=== PATIENT | female | born 1945 | race Caucasian/White ===

== ENCOUNTER 2016-11-09 21:26 | Emergency (ER) | payer MEDICARE, OTHER ==
[~2016-11-09] VITALS: Ht 149.9 cm; Wt 62.0 kg
[~2016-11-09 21:26] MED LIST: DEPA500T PO; DOCU1CAP39 PO; DONE10TA14 PO; SERT-129 PO; TRAZ50TA4 PO
[2016-11-09 21:30] VITALS: BP 171/71; PULSE 66; RESP 16; TEMP 97.8; O2SAT 96
[2016-11-09] MEDS ORDERED: DIVA250T3 PO (22:16)
[2016-11-09] MEDS ORDERED: SALM10002 PO (22:16)
[2016-11-09] MEDS ORDERED: AMLO5TAB2 PO (22:16)
[2016-11-09] MEDS ORDERED: RANI150T PO (22:16)
[2016-11-09] MEDS ORDERED: LEVO75TA3 PO (22:16)
[2016-11-09] MEDS ORDERED: DONE1TAB90 PO (22:16)
[2016-11-09] MEDS ORDERED: DIVA125C PO (22:16)
[2016-11-09] MEDS ORDERED: RISP1TAB2 PO (22:16)
[2016-11-09] MEDS ORDERED: OXYB5TAB10 PO (22:16)
[2016-11-09 22:57] LABS: AUTOMATED NEUTROPHIL # 3.5 TH/MM3 (1.8-7.7); BASOPHIL % 0.7 % (0.0-2.0); EOSINOPHIL # 0.1 TH/MM3 (0-0.4); EOSINOPHIL % 0.9 % (0.0-4.0); HEMATOCRIT 41.5 % (35.0-46.0); HEMO FLAGS DIFF FINAL; LYMPH % 32.2 % (9.0-44.0); MEAN CELL VOLUME 93.4 FL (80.0-100.0); MEAN CORPUSCULAR HEMOGLOBIN 32.7 PG (27.0-34.0); MONO % 11.3 % (0.0-8.0); NEUT % 54.9 % (16.0-70.0); PLATELET COUNT 189 TH/MM3 (150-450); RED BLOOD COUNT 4.45 MIL/MM3 (4.00-5.30); RED CELL DISTRIBUTION WIDTH 12.6 % (11.6-17.2); WHITE BLOOD COUNT 6.3 TH/MM3 (4.0-11.0)
[2016-11-09 23:43] LABS: BLOOD UREA NITROGEN 13 MG/DL (7-18)
[2016-11-09 23:46] LABS: GLOMERULAR FILTRATION RATE 84 ML/MIN (>89)
[2016-11-09 23:49] VITALS: BP 162/68; PULSE 68; RESP 14; O2SAT 94
[2016-11-09 23:50] LABS: ALKALINE PHOSPHATASE 61 U/L (45-117); ALT (GPT) 20 U/L (10-53); ANION GAP 9 MEQ/L (5-15); AST (GOT) 21 U/L (15-37); BICARBONATE 25.5 MEQ/L (21.0-32.0); CHLORIDE 108 MEQ/L (98-107); SODIUM (NA) 142 MEQ/L (136-145); TOTAL BILIRUBIN ADULT 0.3 MG/DL (0.2-1.0)
[2016-11-09 23:52] LABS: POTASSIUM 4.1 MEQ/L (3.5-5.1)
--- NOTE | 2016-11-09 23:57 | PD ---
HPI Chief Complaint: Psychiatric Symptoms Time Seen by Provider: 22:14 Travel History International Travel<30 days: No Contact w/Intl Traveler<30days: No Traveled to known affect area: No History of Present Illness HPI This 71-year-old woman who presents to the emergency department complaining of increasing confusion, trouble concentrating, and suicidal thoughts. She is a history of schizophrenia. She states that she's been having increased auditory hallucinations with command hallucinations, is been increasingly confused. Her family member who is with her states that he's noticed that she has been less herself, with difficulty answering simple questions, more confused. She is also not been taking her medications regularly. She is otherwise been feeling generally well. She states she's had trouble in the past when she's had urinary tract infections. She's been admitted once in March of last year, once a year or so before that with similar symptoms. History Past Medical History Narrative Medical Schizophrenia Seizures Tetanus Vaccination: Unknown Influenza Vaccination: Yes Menopausal: Yes Past Surgical History Surgical History: Unable to Obtain Social History Alcohol Use: No Tobacco Use: No (1 PPD quit 6 months ago) Allergies-Medications (Allergen,Severity, Reaction): Coded Allergies: Cipro (Unverified Adverse Reaction, Intermediate, UNKNOWN, 11/09/16) Haldol (Unverified Adverse Reaction, Intermediate, "FUNNY FEELING", 11/09/16 ) Keflex (Verified Adverse Reaction, Intermediate, RASH, 11/09/16) Reported Meds & Prescriptions Reported Meds & Active Scripts Active Reported [place] Oil (Nutritional Supplements) 1 Cap Cap 1,000 Mg PO BID Risperidone 1 Mg Tab 1 Mg PO HS Amlodipine (Amlodipine Besylate) 5 Mg Tab 5 Mg PO DAILY Ditropan (Oxybutynin Chloride) 5 Mg Tab 5 Mg PO DAILY Depakote Sprinkles (Divalproex Sodium) 125 mg Cap 125 Mg PO DAILY Donepezil Hydrochloride 5 Mg Tab 10 Mg PO DAILY Divalproex ER (Divalproex Sodium) 250 Mg Juanito 250 Mg PO BID Ranitidine (Ranitidine HCl) 150 Mg Tab 150 Mg PO BID Levothyroxine (Levothyroxine Sodium) 75 Mcg Tab 75 Mcg PO DAILY Review of Systems Except as stated in HPI: all other systems reviewed are Neg Physical Exam Narrative GENERAL: Well-appearing 71 year-old woman, no acute distress. SKIN: Warm and dry. HEAD: Atraumatic. Normocephalic. CARDIOVASCULAR: Regular rate and rhythm. No murmur appreciated. RESPIRATORY: No accessory muscle use. Clear to auscultation. Breath sounds equal bilaterally. GASTROINTESTINAL: Abdomen is minimally distended. Soft to palpation. No significant tenderness. MUSCULOSKELETAL: No obvious deformities. No edema. NEUROLOGICAL: Awake and alert. No obvious cranial nerve deficits. Motor grossly within normal limits. Normal speech. PSYCHIATRIC: Little bit disoriented. Slow to answer questions was some thought blocking. Not obviously responding to internal stimuli. Data Data Last Documented VS Vital Signs Date Time Temp Pulse Resp B/P Pulse Ox O2 Delivery O2 Flow Rate FiO2 11/09/16 23:49 68 14 162/68 94 Room Air 11/09/16 21:30 97.8 Orders Complete Blood Count With Diff (11/09/16 22:39) Comprehensive Metabolic Panel (11/09/16 22:39) Thyroid Stimulating Hormone (11/09/16 22:39) Urinalysis - C+S If Indicated (11/09/16 22:39) Iv Access Insert/Monitor (11/09/16 22:39) Valproic Acid (Depakene) (11/09/16 22:39) Psych Screen (11/09/16 22:39) Uds, Etoh Bundle (11/09/16 22:57) Cath For Specimen (11/09/16 23:25) Labs Laboratory Tests Test 11/09/16 11/10/16 20:40 00:00 White Blood Count 6.3 TH/MM3 Red Blood Count 4.45 MIL/MM3 Hemoglobin 14.5 GM/DL Hematocrit 41.5 % Mean Corpuscular Volume 93.4 FL Mean Corpuscular Hemoglobin 32.7 PG Mean Corpuscular Hemoglobin 35.0 % Concent Red Cell Distribution Width 12.6 % Platelet Count 189 TH/MM3 Mean Platelet Volume 8.6 FL Neutrophils (%) (Auto) 54.9 % Lymphocytes (%) (Auto) 32.2 % Monocytes (%) (Auto) 11.3 % Eosinophils (%) (Auto) 0.9 % Basophils (%) (Auto) 0.7 % Neutrophils # (Auto) 3.5 TH/MM3 Lymphocytes # (Auto) 2.0 TH/MM3 Monocytes # (Auto) 0.7 TH/MM3 Eosinophils # (Auto) 0.1 TH/MM3 Basophils # (Auto) 0.0 TH/MM3 CBC Comment DIFF FINAL Differential Comment Sodium Level 142 MEQ/L Potassium Level 4.1 MEQ/L Chloride Level 108 MEQ/L Carbon Dioxide Level 25.5 MEQ/L Anion Gap 9 MEQ/L Blood Urea Nitrogen 13 MG/DL Creatinine 0.69 MG/DL Estimat Glomerular Filtration 84 ML/MIN Rate Random Glucose 105 MG/DL Calcium Level 8.8 MG/DL Total Bilirubin 0.3 MG/DL Aspartate Amino Transf 21 U/L (AST/SGOT) Alanine Aminotransferase 20 U/L (ALT/SGPT) Alkaline Phosphatase 61 U/L Total Protein 6.7 GM/DL Albumin 3.6 GM/DL Thyroid Stimulating Hormone 3.120 uIU/ML 3rd Gen Valproic Acid (Depakene) Level 90 MCG/ML Urine Opiates Screen NEG Urine Barbiturates Screen NEG Urine Amphetamines Screen NEG Urine Benzodiazepines Screen NEG Urine Cocaine Screen NEG Urine Cannabinoids Screen NEG Ethyl Alcohol Level LESS THAN 3 MG/DL Urine Color YELLOW Urine Turbidity CLEAR Urine pH 6.5 Urine Specific [place] 1.014 Urine Protein NEG mg/dL Urine Glucose (UA) NEG mg/dL Urine Ketones TRACE mg/dL Urine Occult Blood TRACE Urine Nitrite NEG Urine Bilirubin NEG Urine Urobilinogen LESS THAN 2.0 MG/DL Urine Leukocyte Esterase NEG Urine RBC 1 /hpf Urine WBC LESS THAN 1 /hpf Urine Hyaline Casts 3 /lpf Urine Mucus FEW /lpf Microscopic Urinalysis Comment CULT NOT INDICATED MDM Medical Decision Making Medical Screen Exam Complete: Yes Emergency Medical Condition: Yes Interpretation(s) LABS: CBC is unremarkable. CMP is unremarkable. TSH is normal. Valproate level is 90 Alcohol negative UA negative Differential Diagnosis Schizophrenia, infection, delirium, dementia, other Narrative Course Medical decision making This 71-year-old woman reports a history of schizophrenia with increase confusion and disordered thinking. She will also intermittently report that she 's having command auditory hallucinations, but we'll also intermittently deny this. We'll check labs, check UA, psych screening. Bob Soto MD Nov 09, 2016 23:56
[2016-11-10 00:34] LABS: BLOOD, URINE TRACE (NEG); COMMENT (UR) CULT NOT INDICATED; CULTURE IF INDICATED CULT NOT INDICATED; GLUCOSE,URINE NEG (NEG); HYALINE CAST, URINE 3 /lpf (RARE); KETONE, URINE TRACE mg/dL (NEG); MUCUS URINE FEW /lpf (OCC); NITRITE,URINE NEG (NEG); PH, URINE 6.5 (5.0-8.5); URINE COLOR YELLOW (YELLW/STRAW)
[2016-11-10 00:48] LABS: AMPHETAMINE, URINE NEG (NEG); BARBITURATES, URINE NEG (NEG); COCAINE, URINE NEG (NEG)
[2016-11-10 01:59] VITALS: BP 158/66; PULSE 70; RESP 12; O2SAT 98
[2016-11-10 05:31] VITALS: BP 152/72; PULSE 89; RESP 18; TEMP 98.5; O2SAT 99
--- NOTE | 2016-11-10 05:36 | PD ---
Data Data Last Documented VS Vital Signs Date Time Temp Pulse Resp B/P Pulse Ox O2 Delivery O2 Flow Rate FiO2 11/10/16 05:31 98.5 89 18 152/72 99 Room Air Orders Complete Blood Count With Diff (11/09/16 22:39) Comprehensive Metabolic Panel (11/09/16 22:39) Thyroid Stimulating Hormone (11/09/16 22:39) Urinalysis - C+S If Indicated (11/09/16 22:39) Iv Access Insert/Monitor (11/09/16 22:39) Valproic Acid (Depakene) (11/09/16 22:39) Psych Screen (11/09/16 22:39) Uds, Etoh Bundle (11/09/16 22:57) Cath For Specimen (11/09/16 23:25) Labs Laboratory Tests Test 11/09/16 11/10/16 20:40 00:00 White Blood Count 6.3 TH/MM3 Red Blood Count 4.45 MIL/MM3 Hemoglobin 14.5 GM/DL Hematocrit 41.5 % Mean Corpuscular Volume 93.4 FL Mean Corpuscular Hemoglobin 32.7 PG Mean Corpuscular Hemoglobin 35.0 % Concent Red Cell Distribution Width 12.6 % Platelet Count 189 TH/MM3 Mean Platelet Volume 8.6 FL Neutrophils (%) (Auto) 54.9 % Lymphocytes (%) (Auto) 32.2 % Monocytes (%) (Auto) 11.3 % Eosinophils (%) (Auto) 0.9 % Basophils (%) (Auto) 0.7 % Neutrophils # (Auto) 3.5 TH/MM3 Lymphocytes # (Auto) 2.0 TH/MM3 Monocytes # (Auto) 0.7 TH/MM3 Eosinophils # (Auto) 0.1 TH/MM3 Basophils # (Auto) 0.0 TH/MM3 CBC Comment DIFF FINAL Differential Comment Sodium Level 142 MEQ/L Potassium Level 4.1 MEQ/L Chloride Level 108 MEQ/L Carbon Dioxide Level 25.5 MEQ/L Anion Gap 9 MEQ/L Blood Urea Nitrogen 13 MG/DL Creatinine 0.69 MG/DL Estimat Glomerular Filtration 84 ML/MIN Rate Random Glucose 105 MG/DL Calcium Level 8.8 MG/DL Total Bilirubin 0.3 MG/DL Aspartate Amino Transf 21 U/L (AST/SGOT) Alanine Aminotransferase 20 U/L (ALT/SGPT) Alkaline Phosphatase 61 U/L Total Protein 6.7 GM/DL Albumin 3.6 GM/DL Thyroid Stimulating Hormone 3.120 uIU/ML 3rd Gen Valproic Acid (Depakene) Level 90 MCG/ML Urine Opiates Screen NEG Urine Barbiturates Screen NEG Urine Amphetamines Screen NEG Urine Benzodiazepines Screen NEG Urine Cocaine Screen NEG Urine Cannabinoids Screen NEG Ethyl Alcohol Level LESS THAN 3 MG/DL Urine Color YELLOW Urine Turbidity CLEAR Urine pH 6.5 Urine Specific [place] 1.014 Urine Protein NEG mg/dL Urine Glucose (UA) NEG mg/dL Urine Ketones TRACE mg/dL Urine Occult Blood TRACE Urine Nitrite NEG Urine Bilirubin NEG Urine Urobilinogen LESS THAN 2.0 MG/DL Urine Leukocyte Esterase NEG Urine RBC 1 /hpf Urine WBC LESS THAN 1 /hpf Urine Hyaline Casts 3 /lpf Urine Mucus FEW /lpf Microscopic Urinalysis Comment CULT NOT INDICATED MDM Supervised Visit with BEBE: No Diagnosis Primary Impression: Dementia without behavioral disturbance Qualified Code: F03.90 - Dementia without behavioral disturbance, unspecified dementia type Patient Instructions: General Instructions Departure Forms: Tests/Procedures Additional Instruction: Follow-up with her primary physician on Sunday, and her psychiatrist the first available appointment. Return to the emergency department for any new or worsening symptoms. Disposition: DISCHARGE HOME Condition: Stable Bob Soto MD Nov 10, 2016 05:36
== END 2016-11-10 09:17 | disposition home or self-care (01) ==
LOC: NEPC 21:26
DX: F03.90 Unspecified dementia, unspecified severity, without behavioral disturbance, psychotic disturbance, mood disturbance, and anxiety (principal); F20.9 Schizophrenia, unspecified; R56.9 Unspecified convulsions; R44.0 Auditory hallucinations; R45.851 Suicidal ideations
CPT/HCPCS: 80053; 80164; 80307; 80320; 81001; 84443; 85025; 99284

== ENCOUNTER 2016-11-11 23:42 | Inpatient (IN) | payer OTHER, MEDICARE ==
[~2016-11-11] VITALS: Ht 149.9 cm; Wt 59.9 kg
[~2016-11-11 23:42] MED LIST changes: +AMLO5TAB2 PO; -DEPA500T PO; +DIVA125C PO; +DIVA250T3 PO; -DOCU1CAP39 PO; -DONE10TA14 PO; +DONE1TAB90 PO; +LEVO75TA3 PO; +OXYB5TAB10 PO; +RANI150T PO; +RISP1TAB2 PO; +SALM10002 PO; -SERT-129 PO; -TRAZ50TA4 PO
[2016-11-11 23:53] VITALS: PULSE 67; RESP 18; TEMP 98.2; O2SAT 97
[2016-11-12 01:58] LABS: AUTOMATED NEUTROPHIL # 4.6 TH/MM3 (1.8-7.7); BASOPHIL % 0.5 % (0.0-2.0); EOSINOPHIL # 0.1 TH/MM3 (0-0.4); EOSINOPHIL % 0.7 % (0.0-4.0); HEMATOCRIT 41.4 % (35.0-46.0); HEMO FLAGS DIFF FINAL; LYMPH % 35.8 % (9.0-44.0); LYMPHOCYTE # 3.2 TH/MM3 (1.0-4.8); MEAN CELL VOLUME 93.3 FL (80.0-100.0); MEAN CORPUSCULAR HEMOGLOBIN 33.2 PG (27.0-34.0); MEAN CORPUSCULAR HGB CONC 35.6 % (32.0-36.0); MONO % 11.1 % (0.0-8.0); NEUT % 51.9 % (16.0-70.0); PLATELET COUNT 212 TH/MM3 (150-450); RED BLOOD COUNT 4.44 MIL/MM3 (4.00-5.30); RED CELL DISTRIBUTION WIDTH 12.9 % (11.6-17.2); WHITE BLOOD COUNT 8.9 TH/MM3 (4.0-11.0)
[2016-11-12 02:00] LABS: BACTERIA, URINE RARE /hpf; BLOOD, URINE SMALL (NEG); COMMENT (UR) CULTURE INDICATED; CULTURE IF INDICATED CULTURE INDICATED; GLUCOSE,URINE NEG (NEG); KETONE, URINE 10 mg/dL (NEG); MUCUS URINE FEW /lpf (OCC); NITRITE,URINE NEG (NEG); PH, URINE 5.5 (5.0-8.5); SQUAMOUS EPITHELIAL CELL URINE 14 /hpf (0-5); URINE COLOR YELLOW (YELLW/STRAW)
[2016-11-12 02:06] LABS: AMPHETAMINE, URINE NEG (NEG); BARBITURATES, URINE NEG (NEG); COCAINE, URINE NEG (NEG)
[2016-11-12 02:35] LABS: ACETAMINOPHEN LESS THAN 2.0 MCG/ML (10.0-30.0); ALKALINE PHOSPHATASE 60 U/L (45-117); ALT (GPT) 15 U/L (10-53); TOTAL BILIRUBIN ADULT 0.4 MG/DL (0.2-1.0)
[2016-11-12 02:40] LABS: ANION GAP 9 MEQ/L (5-15); AST (GOT) 14 U/L (15-37); BICARBONATE 24.2 MEQ/L (21.0-32.0); BLOOD UREA NITROGEN 18 MG/DL (7-18); CHLORIDE 105 MEQ/L (98-107); GLOMERULAR FILTRATION RATE 97 ML/MIN (>89); POTASSIUM 3.8 MEQ/L (3.5-5.1); SODIUM (NA) 138 MEQ/L (136-145)
[2016-11-12 04:00] VITALS: BP 150/78; PULSE 88; RESP 16; O2SAT 97
[2016-11-12] MEDS ORDERED: NITROFURANTOIN MONOHYD MACROCR 100 MG CAP PO ONE (04:45)
[2016-11-12] MEDS ORDERED: MACR100C2 PO (04:46)
--- NOTE | 2016-11-12 04:53 | PD ---
HPI Chief Complaint: Psychiatric Symptoms Time Seen by Provider: 04:47 Travel History International Travel<30 days: No Contact w/Intl Traveler<30days: No Traveled to known affect area: No History of Present Illness HPI 71-year-old white female presents to emergency department under [place] act by PD. According to [place] act the patient had been acting more bizarre than usual. She also stated that she wanted to kill her self by cutting her neck with scissors. The medical record indicates that she was just seen her earlier this month under [place] act due to dementia with behavioral disturbance. The patient is a poor historian. She has a history of dementia as well as schizophrenia. She is unable to render any significant history. [facility] Past Medical History Medical History: Unable to Obtain Bipolar Disorder: Yes Diminished Hearing: No Hypertension: Yes Schizophrenia: Yes Tetanus Vaccination: Unknown Influenza Vaccination: Yes ?: Not Menopausal: Yes Past Surgical History Surgical History: Unable to Obtain Hysterectomy: Yes Social History Alcohol Use: No Tobacco Use: No (1 PPD quit 6 months ago) Substance Use: No Allergies-Medications (Allergen,Severity, Reaction): Coded Allergies: Cipro (Unverified Adverse Reaction, Intermediate, UNKNOWN, 11/11/16) Haldol (Unverified Adverse Reaction, Intermediate, "FUNNY FEELING", ) Keflex (Verified Adverse Reaction, Intermediate, RASH, 11/11/16) Reported Meds & Prescriptions Reported Meds & Active Scripts Active Macrobid (Nitrofurantoin Monoh/Nitrofur Macro) 100 Mg Cap 100 Mg PO BID Reported [place] Oil (Nutritional Supplements) 1 Cap Cap 1,000 Mg PO BID Risperidone 1 Mg Tab 1 Mg PO HS Amlodipine (Amlodipine Besylate) 5 Mg Tab 5 Mg PO DAILY Ditropan (Oxybutynin Chloride) 5 Mg Tab 5 Mg PO DAILY Depakote Sprinkles (Divalproex Sodium) 125 mg Cap 125 Mg PO DAILY Donepezil Hydrochloride 5 Mg Tab 10 Mg PO DAILY Divalproex ER (Divalproex Sodium) 250 Mg Juanito 250 Mg PO BID Ranitidine (Ranitidine HCl) 150 Mg Tab 150 Mg PO BID Levothyroxine (Levothyroxine Sodium) 75 Mcg Tab 75 Mcg PO DAILY Review of Systems ROS Limitations: Poor Historian Except as stated in HPI: all other systems reviewed are Neg Physical Exam Narrative GENERAL: Well-nourished, well-developed patient. SKIN: Warm and dry. HEAD: Normocephalic and atraumatic. EYES: No scleral icterus. No injection or drainage. ENT: No nasal drainage noted. Mucous membranes pink and slightly dry. Airway patent. NECK: Supple, trachea midline. Moves head freely without obvious discomfort. CARDIOVASCULAR: Regular rate and rhythm without murmurs, gallops, or rubs. RESPIRATORY: Breath sounds equal bilaterally. No accessory muscle use. GASTROINTESTINAL: Abdomen soft, non-tender, nondistended. EXTREMITIES: No cyanosis or edema. BACK: Nontender without obvious deformity. No CVA tenderness. NEURO: Patient is alert and oriented to person and place. no sensorimotor deficits. Nonfocal. Normal speech. PSYCH: Patient is acutely confused. Data Data Last Documented VS Vital Signs Date Time Temp Pulse Resp B/P Pulse Ox O2 Delivery O2 Flow Rate FiO2 11/12/16 00:06 66 16 11/11/16 23:53 98.2 97 Orders Complete Blood Count With Diff (11/12/16 00:51) Comprehensive Metabolic Panel (11/12/16 00:51) Thyroid Stimulating Hormone (11/12/16 00:51) Urinalysis - C+S If Indicated (11/12/16 00:51) Valproic Acid (Depakene) (11/12/16 00:51) Psych Screen (11/12/16 00:51) Drug Screen, Random Urine (11/12/16 00:51) Alcohol (Ethanol) (11/12/16 00:51) Salicylates (Aspirin) (11/12/16 00:51) Tylenol (Acetaminophen) (11/12/16 00:51) Urine Culture (11/12/16 01:20) Nitrofurantoin Monohyd Macrocr (Macrobid (11/12/16 04:45) Labs Laboratory Tests Test 11/12/16 11/12/16 01:20 01:30 Urine Color YELLOW Urine Turbidity HAZY Urine pH 5.5 Urine Specific [place] 1.016 Urine Protein NEG mg/dL Urine Glucose (UA) NEG mg/dL Urine Ketones 10 mg/dL Urine Occult Blood SMALL Urine Nitrite NEG Urine Bilirubin NEG Urine Urobilinogen LESS THAN 2.0 MG/DL Urine Leukocyte Esterase LARGE Urine RBC 2 /hpf Urine WBC 21 /hpf Urine Squamous Epithelial 14 /hpf Cells Urine Bacteria RARE /hpf Urine Mucus FEW /lpf Microscopic Urinalysis Comment CULTURE INDICATED Urine Opiates Screen NEG Urine Barbiturates Screen NEG Urine Amphetamines Screen NEG Urine Benzodiazepines Screen NEG Urine Cocaine Screen NEG Urine Cannabinoids Screen NEG White Blood Count 8.9 TH/MM3 Red Blood Count 4.44 MIL/MM3 Hemoglobin 14.7 GM/DL Hematocrit 41.4 % Mean Corpuscular Volume 93.3 FL Mean Corpuscular Hemoglobin 33.2 PG Mean Corpuscular Hemoglobin 35.6 % Concent Red Cell Distribution Width 12.9 % Platelet Count 212 TH/MM3 Mean Platelet Volume 8.7 FL Neutrophils (%) (Auto) 51.9 % Lymphocytes (%) (Auto) 35.8 % Monocytes (%) (Auto) 11.1 % Eosinophils (%) (Auto) 0.7 % Basophils (%) (Auto) 0.5 % Neutrophils # (Auto) 4.6 TH/MM3 Lymphocytes # (Auto) 3.2 TH/MM3 Monocytes # (Auto) 1.0 TH/MM3 Eosinophils # (Auto) 0.1 TH/MM3 Basophils # (Auto) 0.0 TH/MM3 CBC Comment DIFF FINAL Differential Comment Sodium Level 138 MEQ/L Potassium Level 3.8 MEQ/L Chloride Level 105 MEQ/L Carbon Dioxide Level 24.2 MEQ/L Anion Gap 9 MEQ/L Blood Urea Nitrogen 18 MG/DL Creatinine 0.61 MG/DL Estimat Glomerular Filtration 97 ML/MIN Rate Random Glucose 93 MG/DL Calcium Level 8.9 MG/DL Total Bilirubin 0.4 MG/DL Aspartate Amino Transf 14 U/L (AST/SGOT) Alanine Aminotransferase 15 U/L (ALT/SGPT) Alkaline Phosphatase 60 U/L Total Protein 6.8 GM/DL Albumin 3.9 GM/DL Thyroid Stimulating Hormone 4.090 uIU/ML 3rd Gen Salicylates Level LESS THAN 1.7 MG/DL Acetaminophen Level LESS THAN 2.0 MCG/ML Valproic Acid (Depakene) Level 86 MCG/ML Ethyl Alcohol Level LESS THAN 3 MG/DL MDM Medical Decision Making Medical Screen Exam Complete: Yes Emergency Medical Condition: Yes Medical Record Reviewed: Yes Interpretation(s) Laboratory Tests Test 11/12/16 11/12/16 01:20 01:30 Urine Color YELLOW Urine Turbidity HAZY Urine pH 5.5 Urine Specific [place] 1.016 Urine Protein NEG mg/dL Urine Glucose (UA) NEG mg/dL Urine Ketones 10 mg/dL Urine Occult Blood SMALL Urine Nitrite NEG Urine Bilirubin NEG Urine Urobilinogen LESS THAN 2.0 MG/DL Urine Leukocyte Esterase LARGE Urine RBC 2 /hpf Urine WBC 21 /hpf Urine Squamous Epithelial 14 /hpf Cells Urine Bacteria RARE /hpf Urine Mucus FEW /lpf Microscopic Urinalysis Comment CULTURE INDICATED Urine Opiates Screen NEG Urine Barbiturates Screen NEG Urine Amphetamines Screen NEG Urine Benzodiazepines Screen NEG Urine Cocaine Screen NEG Urine Cannabinoids Screen NEG White Blood Count 8.9 TH/MM3 Red Blood Count 4.44 MIL/MM3 Hemoglobin 14.7 GM/DL Hematocrit 41.4 % Mean Corpuscular Volume 93.3 FL Mean Corpuscular Hemoglobin 33.2 PG Mean Corpuscular Hemoglobin 35.6 % Concent Red Cell Distribution Width 12.9 % Platelet Count 212 TH/MM3 Mean Platelet Volume 8.7 FL Neutrophils (%) (Auto) 51.9 % Lymphocytes (%) (Auto) 35.8 % Monocytes (%) (Auto) 11.1 % Eosinophils (%) (Auto) 0.7 % Basophils (%) (Auto) 0.5 % Neutrophils # (Auto) 4.6 TH/MM3 Lymphocytes # (Auto) 3.2 TH/MM3 Monocytes # (Auto) 1.0 TH/MM3 Eosinophils # (Auto) 0.1 TH/MM3 Basophils # (Auto) 0.0 TH/MM3 CBC Comment DIFF FINAL Differential Comment Sodium Level 138 MEQ/L Potassium Level 3.8 MEQ/L Chloride Level 105 MEQ/L Carbon Dioxide Level 24.2 MEQ/L Anion Gap 9 MEQ/L Blood Urea Nitrogen 18 MG/DL Creatinine 0.61 MG/DL Estimat Glomerular Filtration 97 ML/MIN Rate Random Glucose 93 MG/DL Calcium Level 8.9 MG/DL Total Bilirubin 0.4 MG/DL Aspartate Amino Transf 14 U/L (AST/SGOT) Alanine Aminotransferase 15 U/L (ALT/SGPT) Alkaline Phosphatase 60 U/L Total Protein 6.8 GM/DL Albumin 3.9 GM/DL Thyroid Stimulating Hormone 4.090 uIU/ML 3rd Gen Salicylates Level LESS THAN 1.7 MG/DL Acetaminophen Level LESS THAN 2.0 MCG/ML Valproic Acid (Depakene) Level 86 MCG/ML Ethyl Alcohol Level LESS THAN 3 MG/DL CBC & BMP Diagram 11/12/16 01:30 Differential Diagnosis MDM: High Differential diagnoses: Schizophrenia, schizoaffective disorder, bipolar, anxiety, depression, adjustment reaction, mood disorder NOS, ODD, depressive disorder NOS, dementia, dementia with agitation, psychosis NOS, substance induced mood disorder, intermittent explosive disorder, Asperger syndrome, infection,electrolyte abnormality, malingering. Narrative Course The patient has a urinary tract infection. She is given Macrobid 100 mg by mouth. The patient has been medically cleared. She'll continue Macrobid for the next 7 days. She'll be seen by the psychiatrist in the morning. This is dementia with behavioral disturbance, UTI Diagnosis Primary Impression: Dementia without behavioral disturbance Qualified Code: F03.90 - Dementia without behavioral disturbance, unspecified dementia type Additional Impression: UTI (urinary tract infection) Qualified Code: N30.00 - Acute cystitis without hematuria Scripts Nitrofurantoin Monohydrate Macrocrystals (Macrobid)100 Mg [id number] Mg PO BID #14 CAP Prov:Tiffany Orozco MD 11/12/16 Condition: Serious Kobi Marsh Nov 12, 2016 04:53
[2016-11-12 07:43] VITALS: BP 148/71; PULSE 66; PULSE 71; RESP 16; O2SAT 98
--- NOTE | 2016-11-12 10:34 | HHI.HP ---
Provisional Diagnosis Admission Date 11/12/2016 [place] I. 1. 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 Cedar II. Deferred Cedar V. GAF is 20 presently Certification of Person's Competence To Provide Express and Informed Consent I have personally examined Pam Foy , a person being served at [facility] on, Nov 12, 2016 10:34. Express and informed consent means consent voluntarily given in writing, by a competent person, after sufficient explanation and disclosure of the subject matter involved to enable the person to make a knowing and willful decision without any element of force, fraud, deceit, duress, or other form of constraint or coercion. This person is 18 years of age or older, is not now known to be incompetent to consent to treatment with a guardian advocate, and does not have a health care surrogate or proxy currently making medical treatment decisions. I have found this person to be one of the following: [] Competent to provide express and informed consent, as defined above, for voluntary admission to this facility and is competent to provide express and informed consent for treatment. He/she has the consistent capacity to make well reasoned, willful, and knowing decisions concerning his or her medical or mental health treatment. The person fully and consistently understands the purpose of the admission for examination/placement and is fully capable of personally exercising all rights assured [place] [x] Incompetent to provide express and informed consent to voluntary admission, and this is incompetent to provide express and informed consent to treatment. The person must be transferred to involuntary status and a petition for a guardian advocate filed with the Circuit Court. [] Refusing to provide express and informed consent to voluntary admission but is competent to provide express and informed consent for treatment. The person must be discharged or transferred to involuntary status. Form shall be completed within 24 hours of a person's arrival at the receiving facility and filed in the clinical record of each person: 1. Admitted on a voluntary basis 2. Permitted to provide express and informed consent to his/her own treatment 3. Allowed to transfer from involuntary to voluntary status 4. Prior to permitting a person to consent to his or her own treatment after having been previously found incompetent to consent to treatment. History of Present Illness Capacity: Lacks Capacity HPI Ms. Foy is a 71-year-old female of unclear past psychiatric history who presents under a [place] act by [facility]'s office alleging that the patient said that she was diagnosed with schizophrenia and had not been taking her medications. She also told the deputy that she wanted to cut her throat with scissors and has wanted to hurt herself several times in the last week. Reviewing the electronic medical record, I note the patient was seen by the ED provider 3 days ago for worsening command auditory hallucinations and confusion. Patient seen and examined. Chart reviewed. Case discussed with nurse in the ED. On my examination today, patient presents as significantly psychomotor retarded with thought process slowing. She says with significant delay "I was wondering if you could" before trailing off. She does endorse suicidal ideation to cut her neck with scissors. She is able to deny command auditory hallucinations at this time. She does endorse feeling somewhat depressed. She is unable to participate to any significant degree in mental status testing. Psychiatric interview is otherwise quite limited. Given lack of information from the patient, I did endeavor to obtain collateral from patient's brother, Evan Foy at the number in [employer]. I left a voicemail at about 10:00 this morning requesting a call back. I also reached out to the patient's friend Flip (# in [employer]) who reports that he has known the patient since she was 8 years old. He has been taking care of her for the last few days because of her cognitive deterioration. He says that she had some sort of mental illness when her son was born in 1977 and has been experiencing onset of dementia within the last 4 or 5 years or so. He notes that she has not been taking her medications as prescribed. He notes that she has been admitted multiple times to inpatient psychiatric units within the last year and has even received ECT treatments in the past. He reports that within the last few days her behavior has become increasingly disorganized and she will perform the same task over and over again. He did not realize that she was having suicidal thoughts until the officer asked her. Flip provides a number for the patient's other brother, Isaak Foy which is [phone]. Review of Systems ROS Limitations: Poor Historian Other Unable to obtain to any meaningful degree Past Psych History Psychological trauma history Unable to obtain because of cognitive impairment Substance Abuse History Drugs/Alcohol past 12 months Unable to obtain because of cognitive impairment Past Family Social History Coded Allergies: Cipro (Unverified Adverse Reaction, Intermediate, UNKNOWN, 11/11/16) Haldol (Unverified Adverse Reaction, Intermediate, "FUNNY FEELING", ) Keflex (Verified Adverse Reaction, Intermediate, RASH, 11/11/16) Past Medical History See electronic medical record Active Scripts Nitrofurantoin Monohydrate Macrocrystals (Macrobid)100 Mg [id number] Mg PO BID #14 CAP Prov:Tiffany Orozco MD 11/12/16 Reported Medications Nutritional Supplements ([place] Oil)1 Cap Cap1,000 Mg PO BID 11/09/16 Risperidone 1 Mg Tab1 Mg PO HS #30 TAB Ref 0 11/09/16 Amlodipine 5 Mg Tab5 Mg PO DAILY #30 TAB Ref 0 11/09/16 Oxybutynin (Ditropan)5 Mg Tab5 Mg PO DAILY #60 TAB Ref 0 11/09/16 Divalproex Sprinkles (Depakote Sprinkles)125 mg [id number] Mg PO DAILY #60 CAP Ref 0 11/09/16 Donepezil Hydrochloride 5 Mg Tab10 Mg PO DAILY 11/09/16 Divalproex ER 250 Mg [id number] Mg PO BID #30 TAB Ref 0 11/09/16 Ranitidine 150 Mg Xgl066 Mg PO BID #60 TAB Ref 0 11/09/16 Levothyroxine 75 Mcg Tab75 Mcg PO DAILY #30 TAB Ref 0 11/09/16 Family History Unable to obtain because of cognitive impairment Social History Unable to obtain because of cognitive impairment Patient's Strengths (min. 2) In a monitored setting. Supportive friend. Physical Exam Physical examination completed by ED provider. On my examination today, patient is cognitively altered and somewhat ill-appearing. No abnormal motor movements noted. Labs and vital signs reviewed: Vital Signs Vital Signs Date Time Temp Pulse Resp B/P Pulse Ox O2 Delivery O2 Flow Rate FiO2 11/12/16 07:43 71 16 148/71 98 Room Air 11/11/16 23:53 98.2 Lab Results Item Value Date Time White Blood Count 8.9 TH/MM3 11/12/16 0130 Hemoglobin 14.7 GM/DL 2/12/17 0130 Platelet Count 212 TH/MM3 11/12/16129 Sodium Level 138 MEQ/L 11/12/16129 Potassium Level 3.8 MEQ/L 11/12/16129 Chloride Level 105 MEQ/L 11/12/16129 Anion Gap 9 MEQ/L 11/12/16129 Blood Urea Nitrogen 18 MG/DL 11/12/16129 Aspartate Amino Transf (AST/SGOT) 14 U/L L 11/12/16129 Alanine Aminotransferase (ALT/SGPT) 15 U/L 11/12/16129 Alkaline Phosphatase 60 U/L 11/12/16129 Thyroid Stimulating Hormone 3rd Gen 4.090 uIU/ML H 11/12/16129 Valproic Acid (Depakene) Level 86 MCG/ML 11/12/16129 Urinalysis concerning for UTI. Urine culture pending. Toxicology is negative. Mental Status Examination Patient is in hospital gown. She is disheveled in the room smells of urine. She is somewhat stuporous and is unable to participate in memory or other mental status testing. She does seem to recognize her name. Speech is slow. Language and fund of knowledge seem reduced for age but the sample is limited. Mood is depressed and affect is flat. Thought process disorganized. Associations loose. No clear delusional material. Seems to endorse some sort of hallucinatory material but denies command auditory hallucinations. Endorses ongoing suicidal ideation. No homicidal ideation. Patient is likely unreliable to contract for safety in any event. Insight and judgment are presently poor. Assessment & Plan Problem List: (1) Other specified mental disorders due to known physiological condition ICD Code: F06.8 Assessment & Plan This is a 71-year-old female with unclear psychiatric history who presents under a [place] act. Patient found to have a UTI in the ED. Patient seen a few days ago in the ED for psychiatric complaints as noted above. On my examination today, patient is fairly cognitively altered. Collateral from friend indicates this is part of a larger pattern of behavioral disturbance that has resulted in several hospitalizations within the last year or so. My suspicion is that she has a delirium from urinary tract infection overlying major neurocognitive disorder but we will need to rule out other primary psychiatric disorders such as a primary psychotic disorder or a mood disorder with psychotic features. Since she is continuing to endorse suicidal ideation and is at high risk for impulsive self-harm because of her cognitive alterations , I will plan to admit the patient psychiatrically for safety, observation and stabilization. Admit inpatient. Involuntary status. I've completed first opinion. Consult for second opinion. Request healthcare surrogate and guardian advocate. Consult the hospitalist. Physical therapy consult. Falls precautions. I will continue home medications including Depakote, Aricept, Risperdal, Zoloft, Synthroid. TFTs were somewhat abnormal and I will recheck these. Also check ammonia level given the Depakote. Low-dose Ativan as needed for anxiety and Benadryl as needed for EPS her sleep. Vitals every shift. Counselor to see. Disposition planning. Estimated length of stay: 7-9 days. Discharge Planning Pending psychiatric stabilization Request HC Surrog/Guard Advoc?: Yes Lee Benjamin MD Nov 12, 2016 10:34
[2016-11-12] MEDS ORDERED: LORazepam 2 MG/ML VIAL IM PRN (10:45)
[2016-11-12] MEDS ORDERED: ALUMINUM/MAGNESIUM/SIMETH 30 ML CUP PO PRN (10:45)
[2016-11-12] MEDS ORDERED: diphenhydrAMINE HCL 50 MG CAP PO PRN (10:45)
[2016-11-12] MEDS ORDERED: diphenhydrAMINE HCL 50 MG/ML VIAL IM PRN (10:45)
[2016-11-12 11:37] VITALS: BP 153/71; PULSE 83; RESP 15; O2SAT 97
--- NOTE | 2016-11-12 12:32 | RADRPT ---
EXAM DATE/TIME: 11/12/2016 12:10 [place] COMPARISON: No previous studies available for comparison. INDICATIONS : Altered mental status. RADIATION DOSE: 56.35 CTDIvol (mGy) MEDICAL HISTORY : Hypertension. SURGICAL HISTORY : Hysterectomy. ENCOUNTER: Initial ACUITY: 1 day PAIN SCALE: 0/10 LOCATION: cranial TECHNIQUE: Multiple contiguous axial images were obtained of the head. Using automated exposure control and adj ustment of the mA and/or kV according to patient size, radiation dose was kept as low as reasonably a chievable to obtain optimal diagnostic quality images. FINDINGS: CEREBRUM: The ventricles are normal for age. There is diffuse bilateral cortical atrophy. No evidence of midli ne shift, mass lesion, hemorrhage or acute infarction. No extra-axial fluid collections are seen. POSTERIOR FOSSA: The cerebellum and brainstem are intact. The 4th ventricle is midline. The cerebellopontine angle i s unremarkable. EXTRACRANIAL: The visualized portion of the orbits is intact. SKULL: The calvaria is intact. No evidence of skull fracture. CONCLUSION: Normal examination for a patient of this age. Marcel Brown MD on November 12, 2016 at 12:30 Board Certified Radiologist. This report was verified electronically.
--- NOTE | 2016-11-12 16:02 | PD.CONS ---
[facility] Reason for Consult Assist in management of medical condition Primary Care Physician No Primary Care Physician Diagnoses: History of Present Illness This 71-year-old female patient who is currently nonverbal and unable to follow commands. Therefore information gathered from the physical exam as well as prior computerized charting. Patient has a history of bipolar, hypertension, schizophrenia, seizure disorder and hypothyroidism. Patient was brought in today from by her caregiver who reports she's been off her medications and has decompensated. Patient is currently inpatient psychiatric center with consulted for assistance with management of medical condition. Patient ambulating about psych unit nonverbal and does not answer questions or follow commands. Review of Systems Except as stated in HPI: all other systems reviewed are Neg Past Family Social History Allergies: Coded Allergies: Cipro (Unverified Adverse Reaction, Intermediate, UNKNOWN, 11/11/16) Haldol (Unverified Adverse Reaction, Intermediate, "FUNNY FEELING", ) Keflex (Verified Adverse Reaction, Intermediate, RASH, 11/11/16) Past Medical History bipolar, hypertension, schizophrenia, seizure disorder and hypothyroidism Past Surgical History Hysterectomy Reported Medications [place] Oil (Nutritional Supplements) 1 Cap Cap 1,000 Mg PO BID Risperidone 1 Mg Tab 1 Mg PO HS Amlodipine (Amlodipine Besylate) 5 Mg Tab 5 Mg PO DAILY Ditropan (Oxybutynin Chloride) 5 Mg Tab 5 Mg PO DAILY Depakote Sprinkles (Divalproex Sodium) 125 mg Cap 125 Mg PO DAILY Donepezil Hydrochloride 5 Mg Tab 10 Mg PO DAILY Divalproex ER (Divalproex Sodium) 250 Mg Juanito 250 Mg PO BID Ranitidine (Ranitidine HCl) 150 Mg Tab 150 Mg PO BID Levothyroxine (Levothyroxine Sodium) 75 Mcg Tab 75 Mcg PO DAILY Active Ordered Medications Current Medications Medications (Trade) Dose Ordered Sig/Rylan Route Start Time Stop Time Status Last Admin (Norvasc) 5 mg DAILY PO 11/13/16 09:00 (Depakote Er) 250 mg BID PO 11/12/16 21:00 (Aricept) 10 mg DAILY PO 11/13/16 09:00 (Synthroid) 75 mcg DAILY@06 PO 11/13/16 06:00 (Macrobid) 100 mg BID PO 11/12/16 21:00 (Ditropan) 5 mg DAILY PO 11/13/16 09:00 (Pepcid) 20 mg BID PO 11/12/16 21:00 (risperDAL) 1 mg HS PO 11/12/16 21:00 (risperDAL) 0.5 mg DAILY PO 11/13/16 09:00 (Zoloft) 50 mg DAILY PO 11/13/16 09:00 (Ativan) 0.5 mg Q12H PRN PO 11/12/16 10:45 (Ativan Inj) 0.5 mg Q12H PRN IM 11/12/16 10:45 (Benadryl) 50 mg Q6H PRN PO 11/12/16 10:45 (Benadryl Inj) 50 mg Q6H PRN IM 11/12/16 10:45 (Benadryl) 50 mg HS PRN PO 11/12/16 10:45 (Tylenol) 650 mg Q4H PRN PO 11/12/16 10:45 (Milk Of Magnesia Liq) 30 ml DAILY PRN PO 11/12/16 10:45 (Mag-Al Plus Susp Liq) 30 ml Q6H PRN PO 11/12/16 10:45 (Habitrol 21 Mg Patch.24 Hr) 1 patch DAILY T-DERMAL 11/13/16 09:00 Miscellaneous Information 1 DAILY T-DERMAL 11/13/16 09:00 (Depakote Sprinkles) 125 mg HS PO 11/12/16 21:00 Family History Unable to obtain at this time Social History There is no report of EtOH use or illicit drug use There is a reports smoking one packs of cigarettes per day Physical Exam Vital Signs Vital Signs Date Time Temp Pulse Resp B/P Pulse Ox O2 Delivery O2 Flow Rate FiO2 11/12/16 11:37 83 15 153/71 97 Room Air 11/12/16 07:43 71 16 148/71 98 Room Air 11/12/16 07:43 66 16 148/71 98 Room Air 11/12/16 04:00 88 16 150/78 97 Room Air 11/12/16 00:06 66 16 11/11/16 23:53 98.2 67 18 97 Physical Exam GENERAL: This is a well-nourished, well-developed patient, 71-year-old female patient nonverbal at this time HEAD: Atraumatic. Normocephalic. No temporal or scalp tenderness. EYES: Extraocular motions intact. No scleral icterus. No injection or drainage. ENT: Nose without bleeding, purulent drainage or septal hematoma. Throat without erythema, tonsillar hypertrophy or exudate. Uvula midline. Airway patent. NECK: Trachea midline. No JVD or lymphadenopathy. Supple, nontender, no meningeal signs. CARDIOVASCULAR: Regular rate and rhythm without murmurs, gallops, or rubs. RESPIRATORY: Clear to auscultation. Breath sounds equal bilaterally. No wheezes , rales, or rhonchi. GASTROINTESTINAL: Abdomen soft, non-tender, nondistended. MUSCULOSKELETAL: Trace bilateral lower extremity edema No calf tenderness. Negative Homans sign bilaterally. NEUROLOGICAL: Awake. Nonverbal does not follow commands difficult to assess. See moving all 4 x-rays spontaneously Laboratory Laboratory Tests Test 11/12/16 11/12/16 01:20 01:30 Urine Color YELLOW Urine Turbidity HAZY Urine pH 5.5 Urine Specific [place] 1.016 Urine Protein NEG Urine Glucose (UA) NEG Urine Ketones 10 Urine Occult Blood SMALL Urine Nitrite NEG Urine Bilirubin NEG Urine Urobilinogen LESS THAN 2.0 Urine Leukocyte Esterase LARGE Urine RBC 2 Urine WBC 21 Urine Squamous Epithelial 14 Cells Urine Bacteria RARE Urine Mucus FEW Microscopic Urinalysis Comment CULTURE INDICATED Urine Opiates Screen NEG Urine Barbiturates Screen NEG Urine Amphetamines Screen NEG Urine Benzodiazepines Screen NEG Urine Cocaine Screen NEG Urine Cannabinoids Screen NEG White Blood Count 8.9 Red Blood Count 4.44 Hemoglobin 14.7 Hematocrit 41.4 Mean Corpuscular Volume 93.3 Mean Corpuscular Hemoglobin 33.2 Mean Corpuscular Hemoglobin 35.6 Concent Red Cell Distribution Width 12.9 Platelet Count 212 Mean Platelet Volume 8.7 Neutrophils (%) (Auto) 51.9 Lymphocytes (%) (Auto) 35.8 Monocytes (%) (Auto) 11.1 Eosinophils (%) (Auto) 0.7 Basophils (%) (Auto) 0.5 Neutrophils # (Auto) 4.6 Lymphocytes # (Auto) 3.2 Monocytes # (Auto) 1.0 Eosinophils # (Auto) 0.1 Basophils # (Auto) 0.0 CBC Comment DIFF FINAL Differential Comment Sodium Level 138 Potassium Level 3.8 Chloride Level 105 Carbon Dioxide Level 24.2 Anion Gap 9 Blood Urea Nitrogen 18 Creatinine 0.61 Estimat Glomerular Filtration 97 Rate Random Glucose 93 Calcium Level 8.9 Total Bilirubin 0.4 Aspartate Amino Transf 14 (AST/SGOT) Alanine Aminotransferase 15 (ALT/SGPT) Alkaline Phosphatase 60 Total Protein 6.8 Albumin 3.9 Thyroid Stimulating Hormone 4.090 3rd Gen Salicylates Level LESS THAN 1.7 Acetaminophen Level LESS THAN 2.0 Valproic Acid (Depakene) Level 86 Ethyl Alcohol Level LESS THAN 3 Date/Time Procedure Status Source Growth 11/12/16 01:20 Urine Culture Received Urine Random Urine Pending Result Diagram: 11/12/16 0130 11/12/16 0130 Imaging Last Impressions Head CT 11/12/16 0000 Signed Impressions: Service Date/Time: Saturday, November 12, 2016 12:10 - CONCLUSION: Normal examination for a patient of this age. Marcel Brown MD Assessment and Plan Assessment and Plan This 71-year-old female patient who is currently nonverbal and unable to follow commands. Therefore information gathered from the physical exam as well as prior computerized charting. Patient has a history of bipolar, hypertension, schizophrenia, seizure disorder and hypothyroidism. Schizophrenia, bipolar management per psychiatric team Dementia continue Aricept Urinary tract infection continue Macrobid twice a day 7 days Await urine culture results Hypertension continue patient's home Norvasc continue monitor blood pressure trend Seizure disorder continue Depakote Depakote level 86 Hypothyroidism continue Synthroid TSH 4.090, T4 pending DVT prophylaxis patient is ambulatory Discussed plan of care with patient RN and Dr. Vazquez Discussed Condition With The exam, history, and the medical decision-making described in the above note were completed with the assistance of the mid-level provider. I reviewed and agree with the findings presented. I attest that I had a [id number] encounter with the patient on the same day, and personally performed and documented my assessment and findings in the medical record. Aylin Clifton Nov 12, 2016 16:02 Davis Vazquez MD Nov 20, 2016 16:08
[2016-11-12 16:21] VITALS: BP 133/62; PULSE 62; RESP 16; TEMP 98.2; O2SAT 95
[2016-11-12 18:18] VITALS: BP 126/65; PULSE 75; RESP 22; TEMP 98.5; O2SAT 95
[2016-11-12] MEDS ORDERED: [UNRECOGNIZED DRUG - OTHER] PO SCH (21:00)
[2016-11-12] MEDS ORDERED: NUTRITIONAL SUPPLEMENTS PO SCH (21:00)
[2016-11-12] MEDS: DIVALPROEX SODIUM E.R. 250 MG TAB PO SCH (21:00)
[2016-11-12] MEDS: NITROFURANTOIN MONOHYD MACROCR 100 MG CAP PO SCH (21:25)
[2016-11-12] MEDS: risperiDONE 1 MG TAB PO SCH (21:25)
[2016-11-12] MEDS: FAMOTIDINE 20 MG TAB PO SCH (21:25)
[2016-11-12] MEDS: DIVALPROEX SODIUM SPRINKLES 125 MG CAP PO SCH (21:25)
[2016-11-12] MEDS: diphenhydrAMINE HCL 50 MG CAP PO PRN (23:39)
[2016-11-13 05:57] VITALS: BP 146/62; PULSE 63; RESP 16; TEMP 97.6; O2SAT 94
[2016-11-13] MEDS: LEVOTHYROXINE SODIUM 75 MCG TAB PO SCH (06:10)
[2016-11-13 08:43] LABS: ANION GAP 10 MEQ/L (5-15); BICARBONATE 23.7 MEQ/L (21.0-32.0); BLOOD UREA NITROGEN 20 MG/DL (7-18); CHLORIDE 104 MEQ/L (98-107); GLOMERULAR FILTRATION RATE 71 ML/MIN (>89); POTASSIUM 3.5 MEQ/L (3.5-5.1); SODIUM (NA) 138 MEQ/L (136-145)
[2016-11-13 08:54] LABS: FREE T4 1.57 NG/DL (0.76-1.46); HDL CHOLESTEROL 90.2 MG/DL (40.0-60.0); LDL CHOLESTEROL 132 MG/DL (0-99)
[2016-11-13] MEDS: risperiDONE 0.5 MG TAB PO SCH (09:00)
[2016-11-13] MEDS: FAMOTIDINE 20 MG TAB PO SCH ×2 (09:00→20:42)
[2016-11-13] MEDS: OXYBUTYNIN CHLORIDE 5 MG TAB PO SCH (09:00)
[2016-11-13] MEDS: REMOVE OLD PATCH T-DERMAL SCH (09:00)
[2016-11-13] MEDS: DIVALPROEX SODIUM E.R. 250 MG TAB PO SCH ×2 (09:00→20:43)
[2016-11-13] MEDS: amLODIPine BESYLATE 5 MG TAB PO SCH (09:00)
[2016-11-13] MEDS: DONEPEZIL HCL 5 MG TAB PO SCH (09:00)
[2016-11-13] MEDS: NICOTINE 21 MG/24 HR PATCH T-DERMAL SCH (09:00)
[2016-11-13] MEDS: SERTRALINE HCL 50 MG TAB PO SCH (09:00)
[2016-11-13] MEDS: NITROFURANTOIN MONOHYD MACROCR 100 MG CAP PO SCH ×2 (09:00→20:42)
--- NOTE | 2016-11-13 12:05 | HHI.PR ---
Blank section for building Patient is able to talk today reports PCP is Dr. Malloy- will consult [facility]. Aylin Clifton Nov 13, 2016 12:05
--- NOTE | 2016-11-13 12:23 | HHI.PYPN ---
Subjective Remarks As per Dr. Benjamin, assessment reviewed :"Ms. Foy is a 71-year-old female of unclear past psychiatric history who presents under a [place] act by [facility]'s office alleging that the patient said that she was diagnosed with schizophrenia and had not been taking her medications. She also told the deputy that she wanted to cut her throat with scissors and has wanted to hurt herself several times in the last week. Reviewing the electronic medical record, I note the patient was seen by the ED provider 3 days ago for worsening command auditory hallucinations and confusion.Patient seen and examined. Chart reviewed. Case discussed with nurse in the ED. On my examination today, patient presents as significantly psychomotor retarded with thought process slowing. She says with significant delay "I was wondering if you could" before trailing off. She does endorse suicidal ideation to cut her neck with scissors. She is able to deny command auditory hallucinations at this time. She does endorse feeling somewhat depressed. She is unable to participate to any significant degree in mental status testing. Psychiatric interview is otherwise quite limited.Given lack of information from the patient , I did endeavor to obtain collateral from patient's brother, Evan Foy at the number in [place]. I left a voicemail at about 10:00 this morning requesting a call back. I also reached out to the patient's friend Flip (# in [place]) who reports that he has known the patient since she was 8 years old. He has been taking care of her for the last few days because of her cognitive deterioration. He says that she had some sort of mental illness when her son was born in 1977 and has been experiencing onset of dementia within the last 4 or 5 years or so. He notes that she has not been taking her medications as prescribed. He notes that she has been admitted multiple times to inpatient psychiatric units within the last year and has even received ECT treatments in the past. He reports that within the last few days her behavior has become increasingly disorganized and she will perform the same task over and over again. He did not realize that she was having suicidal thoughts until the officer asked her." Today: Patient was seen today for psychiatric reevaluation along with nurse in charge Mily and with therapist Mr. Peña, patient was found wandering in the room, she says that she was looking for the bathroom, when she was informed that the bathroom is in front of her she did not show any surprise. Patient says that her name is Ms. Escobar, when asked about the reason she chooses to change her name she answered "Pam Foy is just a friend of mind". Patient states that she has been depressed since she was informed that she has cancer in four different part of her body. However, she denies suicidal and homicidal ideation, she denies visual and auditory hallucinations. Patient seems to be internally preoccupied, perplexed, with a marked and pronounced thought blocking, flat affect, abulia and speech latency, however patient is oriented in time and place. Review of Systems Other No significant changes since 11/12/2016 Objective Alert: Yes [place]: Place, Date Mood: Calm Affect: Flat Memory Intact: Immediate Hallucinations: Other (she denies) Delusions: Yes Delusion Type: Other (somatic and nihilistc delusions) Suicidal: Ideation (she denies) Homicidal: Ideation (she denies) Insight/Judgement poor Labs Test 11/13/16 08:00 Sodium Level 138 MEQ/L Potassium Level 3.5 MEQ/L Chloride Level 104 MEQ/L Carbon Dioxide Level 23.7 MEQ/L Anion Gap 10 MEQ/L Blood Urea Nitrogen 20 MG/DL Creatinine 0.80 MG/DL Estimat Glomerular Filtration 71 ML/MIN Rate Random Glucose 109 MG/DL Calcium Level 9.5 MG/DL Ammonia 32 MCMOL/L Triglycerides Level 150 MG/DL Cholesterol Level 252 MG/DL LDL Cholesterol 132 MG/DL HDL Cholesterol 90.2 MG/DL Cholesterol/HDL Ratio 2.79 RATIO Free Thyroxine 1.57 NG/DL Thyroid Stimulating Hormone 4.040 uIU/ML 3rd Gen Date/Time Procedure Status Source Growth 11/12/16 01:20 Urine Culture - Final Complete Urine Random Urine 50-100,000 CFU/ML MIXED GRAM POSITIVE... Vitals/IOs Vital Signs Date Time Temp Pulse Resp B/P Pulse Ox O2 Delivery O2 Flow Rate FiO2 11/13/16 05:57 97.6 63 16 146/62 94 11/12/16 11:37 Room Air Intake and Output 11/12/16 11/12/16 11/13/16 08:00 16:00 00:00 Intake Total 240 ml Balance 240 ml Assessment & Plan Problem List: (1) Other specified mental disorders due to known physiological condition Assessment & Plan: I have reviewed Dr. Benjamin assessment and examined the patient and I totally agree and concur with his recommendations and plan. Today patient continues to be acutely psychotic, with marked thought blocking, perplexity, speech latency, somatic and nihilistic delusions and is to continue hospitalized for stabilization. Will no make any changes in psychotropics today ICD Code: F06.8 Assessment & Plan Estimated LOS: days Justification for Cont. Inpt. Patient is acutely psychotic, she would be unable to survive in a less structured environment. Request HC Surrog/Guard Advoc?: Yes Nain Peterson MD Nov 13, 2016 12:23
--- NOTE | 2016-11-13 13:42 | HHI.PR ---
Subjective Remarks Patient is sitting on chair without any apparent distress Enjoying her lunch Offering no complaint No headache or dizziness No chest pain or abdominal pain No shortness of breath No genitourinary symptoms Confused but pleasant alert and active Review of system for 10 point system otherwise unremarkable Objective Objective Results - Vital Signs Date Time Temp Pulse Resp B/P Pulse Ox O2 Delivery O2 Flow Rate FiO2 11/13/16 05:57 97.6 63 16 146/62 94 11/12/16 18:18 98.5 75 22 126/65 95 11/12/16 16:21 98.2 62 16 133/62 95 I/O 11/12/16 11/12/16 11/12/16 11/13/16 11/13/16 11/13/16 07:00 15:00 23:00 07:00 15:00 23:00 Intake Total 240 ml 120 ml Balance 240 ml 120 ml Intake Oral 240 ml 120 ml # Voids 1 2 # Bowel Movements 0 Result Diagram: 11/12/16 0130 11/13/16 0800 Other Results Laboratory Tests Test 11/13/16 08:00 Sodium Level 138 Potassium Level 3.5 Chloride Level 104 Carbon Dioxide Level 23.7 Anion Gap 10 Blood Urea Nitrogen 20 Creatinine 0.80 Estimat Glomerular Filtration 71 Rate Random Glucose 109 Calcium Level 9.5 Ammonia 32 Triglycerides Level 150 Cholesterol Level 252 LDL Cholesterol 132 HDL Cholesterol 90.2 Cholesterol/HDL Ratio 2.79 Free Thyroxine 1.57 Thyroid Stimulating Hormone 4.040 3rd Gen Date/Time Procedure Status Source Growth 11/12/16 01:20 Urine Culture - Final Complete Urine Random Urine 50-100,000 CFU/ML MIXED GRAM POSITIVE... Physical Exam Physical Exam GENERAL: This is a well-nourished, well-developed patient, 71-year-old female patient without any apparent distress HEAD: Atraumatic. Normocephalic. No temporal or scalp tenderness. EYES: Extraocular motions intact. No scleral icterus. No injection or drainage. ENT: Airway patent. NECK: Trachea midline. No JVD or lymphadenopathy. Supple, nontender, no meningeal signs. CARDIOVASCULAR: Regular rate and rhythm without murmurs, gallops, or rubs. RESPIRATORY: Clear to auscultation. Breath sounds equal bilaterally. No wheezes , rales, or rhonchi. GASTROINTESTINAL: Abdomen soft, non-tender, nondistended. MUSCULOSKELETAL: Trace bilateral lower extremity edema No calf tenderness. Negative Homans sign bilaterally. NEUROLOGICAL: Awake. Pleasant follow commands but she knows that she is in hospital alert oriented 2. Moving all her extremities A/P Assessment and Plan history of bipolar, hypertension, schizophrenia, seizure disorder and hypothyroidism. Schizophrenia, bipolar management per psychiatric team Dementia continue Aricept Urinary tract infection continue Macrobid twice a day 7 days Reviewed urine culture report Hypertension continue patient's home Norvasc continue monitor blood pressure trend Seizure disorder continue Depakote Depakote level 86 Hypothyroidism continue Synthroid TSH 4.090, T4 report reviewed continue current management Hyperlipidemia Cruz start low-cholesterol diet heart healthy diet DVT prophylaxis patient is ambulatory Discussed plan of care with patient RN Moose Hair MD Nov 13, 2016 13:42
[2016-11-13 16:46] LABS: HEMOGLOBIN A1a 0.9 %; HEMOGLOBIN A1b 1.5 %; HEMOGLOBIN Ao 86.7 %; HEMOGLOBIN P3 3.8 %
[2016-11-13 19:05] VITALS: BP 137/88; PULSE 87; RESP 18; TEMP 97.9; O2SAT 97
[2016-11-13 20:35] VITALS: BP 144/92; PULSE 74; RESP 18; TEMP 98.2; O2SAT 97
[2016-11-13] MEDS: DIVALPROEX SODIUM SPRINKLES 125 MG CAP PO SCH (20:42)
[2016-11-13] MEDS: risperiDONE 1 MG TAB PO SCH (20:42)
[2016-11-14] MEDS: LEVOTHYROXINE SODIUM 75 MCG TAB PO SCH (05:27)
[2016-11-14 05:37] VITALS: BP 130/90; PULSE 74; RESP 15; TEMP 98.4; O2SAT 96
[2016-11-14] MEDS: NICOTINE 21 MG/24 HR PATCH T-DERMAL SCH (09:00)
[2016-11-14] MEDS: REMOVE OLD PATCH T-DERMAL SCH (09:00)
[2016-11-14] MEDS: FAMOTIDINE 20 MG TAB PO SCH ×2 (10:46→20:58)
[2016-11-14] MEDS: DONEPEZIL HCL 5 MG TAB PO SCH (10:46)
[2016-11-14] MEDS: risperiDONE 0.5 MG TAB PO SCH (10:46)
[2016-11-14] MEDS: NITROFURANTOIN MONOHYD MACROCR 100 MG CAP PO SCH ×2 (10:46→20:58)
[2016-11-14] MEDS: amLODIPine BESYLATE 5 MG TAB PO SCH (10:47)
[2016-11-14] MEDS: SERTRALINE HCL 50 MG TAB PO SCH (10:47)
[2016-11-14] MEDS: OXYBUTYNIN CHLORIDE 5 MG TAB PO SCH (10:47)
[2016-11-14] MEDS: DIVALPROEX SODIUM E.R. 250 MG TAB PO SCH (10:53)
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
[2016-11-14 14:20] VITALS: BP 133/62; PULSE 63; RESP 16; O2SAT 98
[2016-11-14 16:11] VITALS: BP 102/71
--- NOTE | 2016-11-14 16:33 | HHI.PR ---
Subjective Remarks As per RN patient found on the floor yesterday evening. No bruises noted. Patient is walking properly. Patient is lying on bed without any apparent distress Offering no pain, no headache no abdominal pain Offering no complaint No headache or dizziness No chest pain or abdominal pain No shortness of breath No genitourinary symptoms Confused but pleasant alert and active Review of system for 10 point system otherwise unremarkable Objective Objective Results - Vital Signs Date Time Temp Pulse Resp B/P Pulse Ox O2 Delivery O2 Flow Rate FiO2 11/14/16 16:11 102/71 11/14/16 14:20 63 16 133/62 98 11/14/16 05:37 98.4 74 15 130/90 96 11/13/16 20:35 98.2 74 18 144/92 97 11/13/16 19:05 97.9 87 18 137/88 97 I/O 11/13/16 11/13/16 11/13/16 11/14/16 11/14/16 11/14/16 07:00 15:00 23:00 07:00 15:00 23:00 Intake Total 120 ml 940 ml 240 ml 240 ml Balance 120 ml 940 ml 240 ml 240 ml Intake Oral 120 ml 940 ml 240 ml 240 ml # Voids 2 2 1 2 # Bowel Movements 0 1 Result Diagram: 11/12/16 0130 11/13/16 0800 Other Results Date/Time Procedure Status Source Growth 11/12/16 01:20 Urine Culture - Final Complete Urine Random Urine 50-100,000 CFU/ML MIXED GRAM POSITIVE... Physical Exam Physical Exam GENERAL: This is a well-nourished, well-developed patient, 71-year-old female patient without any apparent distress HEAD: Atraumatic. Normocephalic. No temporal or scalp tenderness. EYES: Extraocular motions intact. No scleral icterus. No injection or drainage. ENT: Airway patent. NECK: Trachea midline. No JVD or lymphadenopathy. Supple, nontender, no meningeal signs. CARDIOVASCULAR: Regular rate and rhythm without murmurs, gallops, or rubs. RESPIRATORY: Clear to auscultation. Breath sounds equal bilaterally. No wheezes , rales, or rhonchi. GASTROINTESTINAL: Abdomen soft, non-tender, nondistended. MUSCULOSKELETAL: Trace bilateral lower extremity edema No calf tenderness. Negative Homans sign bilaterally. NEUROLOGICAL: Awake. Pleasant follow commands but she knows that she is in hospital alert oriented 2. Moving all her extremities A/P Assessment and Plan history of bipolar, hypertension, schizophrenia, seizure disorder and hypothyroidism. Schizophrenia, bipolar management per psychiatric team Dementia continue Aricept Urinary tract infection continue Macrobid twice a day 7 days Reviewed urine culture report Hypertension continue patient's home Norvasc continue monitor blood pressure trend Seizure disorder continue Depakote Depakote level 86 Hypothyroidism continue Synthroid TSH 4.090, T4 report reviewed continue current management Hyperlipidemia Cruz start low-cholesterol diet heart healthy diet Status post fall on the floor. Questionable fall Patient is walking around without any problem offering no complaint. monitor for any pain or swelling DVT prophylaxis patient is ambulatory Discussed plan of care with patient RN Moose Hair MD Nov 14, 2016 16:33
[2016-11-14 17:00] VITALS: BP 141/59; PULSE 59; RESP 16; TEMP 98.6; O2SAT 95
[2016-11-14 20:30] VITALS: BP 141/59; PULSE 89; RESP 16; TEMP 98.6; O2SAT 95
[2016-11-14] MEDS: DIVALPROEX SODIUM E.R. 500 MG TAB PO SCH (20:58)
[2016-11-14] MEDS: risperiDONE 1 MG TAB PO SCH (20:58)
[2016-11-15 05:40] VITALS: BP 160/68; PULSE 79; RESP 16; TEMP 98.3; O2SAT 97
[2016-11-15] MEDS: LEVOTHYROXINE SODIUM 75 MCG TAB PO SCH (06:00)
[2016-11-15] MEDS: OXYBUTYNIN CHLORIDE 5 MG TAB PO SCH (08:40)
[2016-11-15] MEDS: DONEPEZIL HCL 5 MG TAB PO SCH (08:40)
[2016-11-15] MEDS: DIVALPROEX SODIUM E.R. 250 MG TAB PO SCH (08:40)
[2016-11-15] MEDS: risperiDONE 1 MG TAB PO SCH ×2 (08:40→21:04)
[2016-11-15] MEDS: amLODIPine BESYLATE 5 MG TAB PO SCH (08:40)
[2016-11-15] MEDS: SERTRALINE HCL 50 MG TAB PO SCH (08:40)
[2016-11-15] MEDS: NITROFURANTOIN MONOHYD MACROCR 100 MG CAP PO SCH ×2 (08:42→21:04)
[2016-11-15] MEDS: FAMOTIDINE 20 MG TAB PO SCH ×2 (08:42→21:04)
[2016-11-15] MEDS: REMOVE OLD PATCH T-DERMAL SCH (09:00)
[2016-11-15] MEDS: NICOTINE 21 MG/24 HR PATCH T-DERMAL SCH (09:00)
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
[2016-11-15 18:00] VITALS: BP 106/51; PULSE 79; RESP 16; TEMP 98.4; O2SAT 95
[2016-11-15] MEDS: DIVALPROEX SODIUM E.R. 500 MG TAB PO SCH (21:04)
[2016-11-16] MEDS: LEVOTHYROXINE SODIUM 75 MCG TAB PO SCH (05:45)
[2016-11-16 06:00] VITALS: BP 118/58; PULSE 77; RESP 16; TEMP 98.8; O2SAT 95
[2016-11-16] MEDS: SERTRALINE HCL 50 MG TAB PO SCH (09:00)
[2016-11-16] MEDS: NICOTINE 21 MG/24 HR PATCH T-DERMAL SCH (09:00)
[2016-11-16] MEDS: REMOVE OLD PATCH T-DERMAL SCH (09:00)
[2016-11-16] MEDS: OXYBUTYNIN CHLORIDE 5 MG TAB PO SCH (09:03)
[2016-11-16] MEDS: risperiDONE 1 MG TAB PO SCH ×2 (09:03→21:20)
[2016-11-16] MEDS: DIVALPROEX SODIUM E.R. 250 MG TAB PO SCH (09:03)
[2016-11-16] MEDS: FAMOTIDINE 20 MG TAB PO SCH ×2 (09:03→21:20)
[2016-11-16] MEDS: NITROFURANTOIN MONOHYD MACROCR 100 MG CAP PO SCH ×2 (09:03→21:20)
[2016-11-16] MEDS: DONEPEZIL HCL 5 MG TAB PO SCH (09:03)
[2016-11-16] MEDS: amLODIPine BESYLATE 5 MG TAB PO SCH (09:03)
--- NOTE | 2016-11-16 15:07 | HHI.PYPN ---
Subjective Remarks Patient seen in [place] [address] retained by Technical Photographer Riana. Guardian advocate appointed. Patient continues quite disorganized somewhat confused somewhat somatic though appeared quite willing to remain hospitalized. For now continue treatment no change Review of Systems Except as stated in HPI: all other systems reviewed are Neg Objective Alert: Yes [place]: Place, Date Mood: Calm Affect: Flat Memory Intact: Immediate Hallucinations: Other (she denies) Delusions: Yes Delusion Type: Other (somatic and nihilistc delusions) Suicidal: Ideation (she denies) Homicidal: Ideation (she denies) Insight/Judgement Very poor Labs Date/Time Procedure Status Source Growth 11/12/16 01:20 Urine Culture - Final Complete Urine Random Urine 50-100,000 CFU/ML MIXED GRAM POSITIVE... Vitals/IOs Vital Signs Date Time Temp Pulse Resp B/P Pulse Ox O2 Delivery O2 Flow Rate FiO2 11/16/16 06:00 98.8 77 16 118/58 95 11/12/16 11:37 Room Air Intake and Output 11/15/16 11/15/16 11/16/16 08:00 16:00 00:00 Intake Total 480 ml 480 ml Balance 480 ml 480 ml Assessment & Plan Problem List: (1) Other specified mental disorders due to known physiological condition ICD Code: F06.8 Assessment & Plan Estimated LOS: days patient continues confused disorganized, low no significant behavioral problems at this time, compliant medications. Patient retained by Technical Photographer Riana guardian advocate was appointed Justification for Cont. Inpt. At this time patient would significantly decompensated the placement lower level of care Discharge Planning To be determined Request HC Surrog/Guard Advoc?: Yes Camilo Weaver MD Nov 16, 2016 15:07
[2016-11-16 19:42] VITALS: BP 135/63; PULSE 74; RESP 16; TEMP 98.6; O2SAT 96
[2016-11-16] MEDS: DIVALPROEX SODIUM E.R. 500 MG TAB PO SCH (21:20)
[2016-11-17 05:54] VITALS: BP 136/63; PULSE 60; RESP 16; TEMP 97.7; O2SAT 96
[2016-11-17] MEDS: LEVOTHYROXINE SODIUM 75 MCG TAB PO SCH (06:00)
[2016-11-17] MEDS: NICOTINE 21 MG/24 HR PATCH T-DERMAL SCH (09:00)
[2016-11-17] MEDS: REMOVE OLD PATCH T-DERMAL SCH (09:00)
[2016-11-17] MEDS: NITROFURANTOIN MONOHYD MACROCR 100 MG CAP PO SCH ×2 (09:56→21:06)
[2016-11-17] MEDS: amLODIPine BESYLATE 5 MG TAB PO SCH (09:56)
[2016-11-17] MEDS: SERTRALINE HCL 50 MG TAB PO SCH (09:56)
[2016-11-17] MEDS: FAMOTIDINE 20 MG TAB PO SCH ×2 (09:56→21:07)
[2016-11-17] MEDS: OXYBUTYNIN CHLORIDE 5 MG TAB PO SCH (09:56)
[2016-11-17] MEDS: risperiDONE 1 MG TAB PO SCH ×2 (09:56→21:07)
[2016-11-17] MEDS: DIVALPROEX SODIUM E.R. 250 MG TAB PO SCH (09:57)
[2016-11-17] MEDS: DONEPEZIL HCL 5 MG TAB PO SCH (09:57)
--- NOTE | 2016-11-17 13:42 | HHI.PYPN ---
Subjective Remarks Patient seen in her room in bed, medical student Bev present throughout session. Patient calm, no behavioral problems. Compliant medications. Also remains somewhat vigilant, though less suspicious than in prior days Review of Systems Except as stated in HPI: all other systems reviewed are Neg Objective Alert: Yes [place]: Place, Date Mood: Calm Affect: Flat Memory Intact: Immediate Hallucinations: Other (she denies) Delusions: Yes Delusion Type: Other (somatic and nihilistc delusions) Suicidal: Ideation (she denies) Homicidal: Ideation (she denies) Insight/Judgement Poor Labs Test 11/17/16 07:25 Valproic Acid (Depakene) Level 72 MCG/ML Vitals/IOs Vital Signs Date Time Temp Pulse Resp B/P Pulse Ox O2 Delivery O2 Flow Rate FiO2 11/17/16 05:54 97.7 60 16 136/63 96 Intake and Output 11/16/16 11/16/16 11/17/16 08:00 16:00 00:00 Intake Total 1200 ml 720 ml Balance 1200 ml 720 ml Assessment & Plan Problem List: (1) Other specified mental disorders due to known physiological condition ICD Code: F06.8 Assessment & Plan Estimated LOS: days patient continues vigilant and paranoid though mostly behavioral problems. Compliant medications. For now continue treatment Justification for Cont. Inpt. At this time patient will decompensate placed in a lower level of care Discharge Planning To be determined Request HC Surrog/Guard Advoc?: Yes Camilo Weaver MD Nov 17, 2016 13:42
[2016-11-17 18:04] VITALS: BP 146/63; PULSE 70; RESP 16; TEMP 98.8; O2SAT 98
[2016-11-17] MEDS: DIVALPROEX SODIUM E.R. 500 MG TAB PO SCH (21:06)
[2016-11-18] MEDS: LEVOTHYROXINE SODIUM 75 MCG TAB PO SCH (05:10)
[2016-11-18 06:02] VITALS: BP 116/58; PULSE 59; RESP 16; TEMP 97; O2SAT 94
[2016-11-18] MEDS: NICOTINE 21 MG/24 HR PATCH T-DERMAL SCH (09:00)
[2016-11-18] MEDS: SERTRALINE HCL 50 MG TAB PO SCH (09:00)
[2016-11-18] MEDS: REMOVE OLD PATCH T-DERMAL SCH (09:00)
[2016-11-18] MEDS: DONEPEZIL HCL 5 MG TAB PO SCH ×2 (09:26→09:47)
[2016-11-18] MEDS: FAMOTIDINE 20 MG TAB PO SCH ×2 (09:27→09:47)
[2016-11-18] MEDS: ACETAMINOPHEN 325 MG TAB PO PRN ×2 (09:27→09:46)
[2016-11-18] MEDS: amLODIPine BESYLATE 5 MG TAB PO SCH ×2 (09:36→09:45)
[2016-11-18] MEDS: NITROFURANTOIN MONOHYD MACROCR 100 MG CAP PO SCH ×2 (09:36→09:47)
[2016-11-18] MEDS: risperiDONE 1 MG TAB PO SCH ×2 (09:36→09:47)
[2016-11-18] MEDS: OXYBUTYNIN CHLORIDE 5 MG TAB PO SCH ×2 (09:36→09:47)
[2016-11-18] MEDS: DIVALPROEX SODIUM E.R. 250 MG TAB PO SCH (09:46)
--- NOTE | 2016-11-18 17:56 | HHI.PYPN ---
Subjective Remarks Pt seen and discussed with staff. Pt reports that she is doing well and that mood is much improved. No behavioral problems on unit. She reports decreased anxiety. No SI/HI. No medication side effects. Objective Alert: Yes [place]: Person, Place, Date Mood: Calm Affect: Flat Memory Intact: Comment (fair) Hallucinations: Other (she denies) Delusions: Yes Delusion Type: Other (somatic and nihilistc delusions) Suicidal: Ideation (she denies) Homicidal: Ideation (she denies) Insight/Judgement poor Vitals/IOs Vital Signs Date Time Temp Pulse Resp B/P Pulse Ox O2 Delivery O2 Flow Rate FiO2 11/18/16 06:02 97.0 59 16 116/58 94 Intake and Output 11/17/16 11/17/16 11/18/16 08:00 16:00 00:00 Intake Total 0 ml 1560 ml 600 ml Balance 0 ml 1560 ml 600 ml Assessment & Plan Problem List: (1) Other specified mental disorders due to known physiological condition ICD Code: F06.8 Assessment & Plan Continue curent tx plan. Pt reports hx of asthma. RN reported to that pt c/o of SOB and had wheezing earlier today. Pt denies currently. Will order albuterol inhaler prn. and monitor. Justification for Cont. Inpt. impairments in self care. Request HC Surrog/Guard Advoc?: Yes Elvira Cabrales MD Nov 18, 2016 17:56
[2016-11-18 18:00] VITALS: BP 120/68; PULSE 86; RESP 16; TEMP 98.1; O2SAT 94
[2016-11-18] MEDS ORDERED: ALBUTEROL SULFATE 90 MCG/ACT HFA 8 GM INHALER INH PRN (18:00)
[2016-11-18] MEDS: DIVALPROEX SODIUM E.R. 500 MG TAB PO SCH (22:07)
[2016-11-19 05:08] VITALS: BP 107/60; PULSE 64; RESP 16; TEMP 97.9; O2SAT 95
[2016-11-19] MEDS: LEVOTHYROXINE SODIUM 75 MCG TAB PO SCH (05:44)
[2016-11-19] MEDS: REMOVE OLD PATCH T-DERMAL SCH (09:00)
[2016-11-19] MEDS: NICOTINE 21 MG/24 HR PATCH T-DERMAL SCH (09:00)
[2016-11-19] MEDS: DIVALPROEX SODIUM E.R. 250 MG TAB PO SCH (09:00)
[2016-11-19] MEDS: SERTRALINE HCL 50 MG TAB PO SCH (09:00)
[2016-11-19] MEDS: amLODIPine BESYLATE 5 MG TAB PO SCH (09:58)
[2016-11-19] MEDS: DIVALPROEX SODIUM E.R. 500 MG TAB PO SCH (09:59)
[2016-11-19] MEDS: OXYBUTYNIN CHLORIDE 5 MG TAB PO SCH (10:02)
[2016-11-19] MEDS: DONEPEZIL HCL 5 MG TAB PO SCH (10:02)
[2016-11-19] MEDS: FAMOTIDINE 20 MG TAB PO SCH ×2 (10:02→20:51)
[2016-11-19] MEDS: risperiDONE 1 MG TAB PO SCH ×2 (10:03→20:51)
[2016-11-19] MEDS: NITROFURANTOIN MONOHYD MACROCR 100 MG CAP PO SCH ×2 (10:13→20:51)
--- NOTE | 2016-11-19 19:06 | HHI.PYPN ---
Subjective Remarks Pt seen and discussed with staff. She has been paranoid and guarded, especially about medications. She was anxious and agitated this morning. No SI/ HI Objective Alert: Yes [place]: Person, Place Mood: Calm Affect: Flat Memory Intact: Comment (fair) Hallucinations: Other (she denies) Delusions: Yes Delusion Type: Other (somatic and nihilistc delusions) Suicidal: Ideation (she denies) Homicidal: Ideation (she denies) Insight/Judgement poor Vitals/IOs Vital Signs Date Time Temp Pulse Resp B/P Pulse Ox O2 Delivery O2 Flow Rate FiO2 11/19/16 05:08 97.9 64 16 107/60 95 Intake and Output 11/18/16 11/18/16 11/19/16 08:00 16:00 00:00 Intake Total 0 ml 240 ml 720 ml Balance 0 ml 240 ml 720 ml Assessment & Plan Problem List: (1) Other specified mental disorders due to known physiological condition ICD Code: F06.8 Assessment & Plan Continue current tx plan. Estimated LOS: days Justification for Cont. Inpt. impairments in reality construction. Request HC Surrog/Guard Advoc?: Yes Elvira Cabrales MD Nov 19, 2016 19:06
[2016-11-19 20:32] VITALS: BP 112/68; PULSE 72; RESP 19; TEMP 98.6; O2SAT 92
[2016-11-20 05:37] VITALS: BP 113/66; PULSE 64; RESP 16; TEMP 97.7; O2SAT 94
[2016-11-20] MEDS: LEVOTHYROXINE SODIUM 75 MCG TAB PO SCH (05:59)
[2016-11-20] MEDS: SERTRALINE HCL 50 MG TAB PO SCH (09:00)
[2016-11-20] MEDS: REMOVE OLD PATCH T-DERMAL SCH (09:00)
[2016-11-20] MEDS: NICOTINE 21 MG/24 HR PATCH T-DERMAL SCH (09:00)
[2016-11-20] MEDS: NITROFURANTOIN MONOHYD MACROCR 100 MG CAP PO SCH ×2 (11:10→21:01)
[2016-11-20] MEDS: amLODIPine BESYLATE 5 MG TAB PO SCH (11:11)
[2016-11-20] MEDS: DIVALPROEX SODIUM E.R. 250 MG TAB PO SCH (11:11)
[2016-11-20] MEDS: risperiDONE 1 MG TAB PO SCH ×2 (11:11→21:01)
[2016-11-20] MEDS: FAMOTIDINE 20 MG TAB PO SCH ×2 (11:11→21:01)
[2016-11-20] MEDS: OXYBUTYNIN CHLORIDE 5 MG TAB PO SCH (11:12)
[2016-11-20] MEDS: DONEPEZIL HCL 5 MG TAB PO SCH (11:12)
--- NOTE | 2016-11-20 13:41 | HHI.PYPN ---
Subjective Remarks Patient discussed with treatment team and medical student Bev, chart review , patient seen on unit. Patient remains somewhat irritable paranoid at times isolative though compliant with medications. Depakote level drawn on 11/1771. For now continue treatment Review of Systems Except as stated in HPI: all other systems reviewed are Neg Objective Alert: Yes [place]: Person, Place Mood: Calm Affect: Flat Memory Intact: Comment (fair) Hallucinations: Other (she denies) Delusions: Yes Delusion Type: Other (somatic and nihilistc delusions) Suicidal: Ideation (she denies) Homicidal: Ideation (she denies) Insight/Judgement Very poor Vitals/IOs Vital Signs Date Time Temp Pulse Resp B/P Pulse Ox O2 Delivery O2 Flow Rate FiO2 11/20/16 05:37 97.7 64 16 113/66 94 Intake and Output 11/19/16 11/19/16 11/19/16 07:59 15:59 23:59 Intake Total 0 ml 960 ml Balance 0 ml 960 ml Assessment & Plan Problem List: (1) Other specified mental disorders due to known physiological condition ICD Code: F06.8 Assessment & Plan Estimated LOS: days patient continues somewhat confused paranoid and isolating , compliant medications. For now continue treatment Justification for Cont. Inpt. At this time patient will decompensate and placed in the lower level of care Discharge Planning To be determined Request HC Surrog/Guard Advoc?: Yes Camilo Weaver MD Nov 20, 2016 13:40
[2016-11-20 18:00] VITALS: BP 139/66; PULSE 83; RESP 16; TEMP 98; O2SAT 96
[2016-11-20] MEDS: DIVALPROEX SODIUM E.R. 500 MG TAB PO SCH (21:01)
[2016-11-20] MEDS: diphenhydrAMINE HCL 50 MG CAP PO PRN (21:13)
[2016-11-21] MEDS: LEVOTHYROXINE SODIUM 75 MCG TAB PO SCH (05:54)
[2016-11-21 06:07] VITALS: BP 121/60; PULSE 66; RESP 16; TEMP 97.9; O2SAT 94
[2016-11-21] MEDS: SERTRALINE HCL 50 MG TAB PO SCH (09:00)
[2016-11-21] MEDS: NICOTINE 21 MG/24 HR PATCH T-DERMAL SCH (09:00)
[2016-11-21] MEDS: REMOVE OLD PATCH T-DERMAL SCH (09:00)
[2016-11-21] MEDS: NITROFURANTOIN MONOHYD MACROCR 100 MG CAP PO SCH ×2 (09:21→20:49)
[2016-11-21] MEDS: DIVALPROEX SODIUM E.R. 250 MG TAB PO SCH (09:21)
[2016-11-21] MEDS: risperiDONE 1 MG TAB PO SCH ×2 (09:22→20:49)
[2016-11-21] MEDS: FAMOTIDINE 20 MG TAB PO SCH ×2 (09:22→20:49)
--- NOTE | 2016-11-21 10:08 | HHI.PYPN ---
Subjective Remarks Patient seen in day room with nurse and medical student Bev, patient somewhat vigilant appearing somewhat paranoid with me today. Though compliant medications. Will increase Respinol to 1 mg a.m. 2 mg p.m. Review of Systems Except as stated in HPI: all other systems reviewed are Neg Objective Alert: Yes [place]: Person, Place Mood: Calm Affect: Flat Memory Intact: Comment (fair) Hallucinations: Other (she denies) Delusions: Yes Delusion Type: Other (somatic and nihilistc delusions) Suicidal: Ideation (she denies) Homicidal: Ideation (she denies) Insight/Judgement Poor Vitals/IOs Vital Signs Date Time Temp Pulse Resp B/P Pulse Ox O2 Delivery O2 Flow Rate FiO2 11/21/16 06:07 97.9 66 16 121/60 94 Intake and Output 11/20/16 11/20/16 11/21/16 08:00 16:00 00:00 Intake Total 0 ml 840 ml 960 ml Balance 0 ml 840 ml 960 ml Assessment & Plan Problem List: (1) Other specified mental disorders due to known physiological condition ICD Code: F06.8 Assessment & Plan Estimated LOS: days patient continues somewhat confused irritable and and paranoid, she medication changes above Justification for Cont. Inpt. At this time patient will decompensate placed a lower level of care Discharge Planning To be determined Request HC Surrog/Guard Advoc?: Yes Camilo Weaver MD Nov 21, 2016 10:08
[2016-11-21 18:07] VITALS: BP 131/65; PULSE 84; RESP 16; TEMP 98.4; O2SAT 94
[2016-11-21] MEDS: DIVALPROEX SODIUM E.R. 500 MG TAB PO SCH (20:49)
[2016-11-21] MEDS: diphenhydrAMINE HCL 50 MG CAP PO PRN (20:49)
[2016-11-22] MEDS: LEVOTHYROXINE SODIUM 75 MCG TAB PO SCH (05:47)
[2016-11-22 06:11] VITALS: BP 104/53; PULSE 60; RESP 18; TEMP 98.4; O2SAT 95
[2016-11-22] MEDS: NICOTINE 21 MG/24 HR PATCH T-DERMAL SCH (09:00)
[2016-11-22] MEDS: SERTRALINE HCL 50 MG TAB PO SCH (09:00)
[2016-11-22] MEDS: REMOVE OLD PATCH T-DERMAL SCH (09:00)
[2016-11-22] MEDS: NITROFURANTOIN MONOHYD MACROCR 100 MG CAP PO SCH ×2 (09:08→20:53)
[2016-11-22] MEDS: DIVALPROEX SODIUM E.R. 250 MG TAB PO SCH (09:08)
[2016-11-22] MEDS: DONEPEZIL HCL 5 MG TAB PO SCH (09:08)
[2016-11-22] MEDS: risperiDONE 1 MG TAB PO SCH ×2 (09:10→20:54)
[2016-11-22] MEDS: FAMOTIDINE 20 MG TAB PO SCH ×2 (09:10→20:54)
[2016-11-22] MEDS: amLODIPine BESYLATE 5 MG TAB PO SCH (09:10)
[2016-11-22] MEDS: OXYBUTYNIN CHLORIDE 5 MG TAB PO SCH (09:10)
[2016-11-22] MEDS: MAGNESIUM HYDROXIDE SUSP 30 ML CUP PO PRN (09:20)
[2016-11-22] MEDS: LORazepam 0.5 MG TAB PO PRN (09:20)
--- NOTE | 2016-11-22 09:54 | HHI.PYPN ---
Subjective Remarks Patient seen in room with nurse Selene, chart reviewed. Patient bed calm cooperative though some mild perseveration on medication but redirectable. Patient slept okay. Denies suicidality denies voices, hopefully she can go home with her friend "mckenzie", however it appears there is been communication with the counselor that Mckenzie is not willing to have patient come back in his home. Does drink medication the patient's family they're recommending placement in the more secure facility. We need to consider that. For now continue treatment Review of Systems Except as stated in HPI: all other systems reviewed are Neg Objective Alert: Yes [place]: Person, Place Mood: Calm Affect: Flat Memory Intact: Comment (fair) Hallucinations: Other (she denies) Delusions: Yes Delusion Type: Other (somatic and nihilistc delusions) Suicidal: Ideation (she denies) Homicidal: Ideation (she denies) Insight/Judgement Very poor Vitals/IOs Vital Signs Date Time Temp Pulse Resp B/P Pulse Ox O2 Delivery O2 Flow Rate FiO2 11/22/16 06:11 98.4 60 18 104/53 95 Intake and Output 11/21/16 11/21/16 11/22/16 08:00 16:00 00:00 Intake Total 360 ml 360 ml 1260 ml Balance 360 ml 360 ml 1260 ml Assessment & Plan Problem List: (1) 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 It appears placement is going to become somewhat more problematic Justification for Cont. Inpt. At this time patient will decompensate if placed in the lower level of care Discharge Planning To be determined Request HC Surrog/Guard Advoc?: Yes Camilo Weaver MD Nov 22, 2016 09:54
--- NOTE | 2016-11-22 16:14 | HHI.PYPN ---
Subjective Remarks Patient was seen today for psychiatric evaluation, at the beginning of the evaluation she was calm and cooperative, she stated that she was doing better and her mood was fine, patient is partially oriented in time and place, pleasantly confused, but at the end of the reevaluation one was faced about the discharge plan she became very labile, tearful, stating that she wants to . Review of Systems Other No somatic complaints Objective Alert: Yes [place]: Person, Place Mood: Calm Affect: Labile Memory Intact: Comment (fair) Hallucinations: Other (she denies) Delusions: Yes Delusion Type: Other (none) Suicidal: Ideation (she denies) Homicidal: Ideation (she denies) Insight/Judgement fair Vitals/IOs Vital Signs Date Time Temp Pulse Resp B/P Pulse Ox O2 Delivery O2 Flow Rate FiO2 11/22/16 06:11 98.4 60 18 104/53 95 Intake and Output 11/21/16 11/21/16 11/22/16 08:00 16:00 00:00 Intake Total 360 ml 360 ml 1260 ml Balance 360 ml 360 ml 1260 ml Assessment & Plan Problem List: (1) 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 Inpt. Patient needs psychiatric stabilization, medication adjustment, coordination of safe discharge Request HC Surrog/Guard Advoc?: Yes Nain Peterson MD Nov 22, 2016 16:14
[2016-11-22 18:00] VITALS: BP 116/68; PULSE 90; RESP 16; TEMP 97.8; O2SAT 95
[2016-11-22] MEDS: DIVALPROEX SODIUM E.R. 500 MG TAB PO SCH (20:53)
[2016-11-23] MEDS: LEVOTHYROXINE SODIUM 75 MCG TAB PO SCH (05:20)
[2016-11-23 05:38] VITALS: BP 114/84; PULSE 60; RESP 16; TEMP 97.9; O2SAT 93
[2016-11-23] MEDS: REMOVE OLD PATCH T-DERMAL SCH (09:00)
--- NOTE | 2016-11-23 10:05 | HHI.PYPN ---
Subjective Remarks Patient seen in her room with nurse Selene a medical student Bev, chart review, patient compliant medications. She continues to isolate spending much time in bed today stating "I don't feel well" but she did get a for breakfast. Patient still states she wants to go back with Flip. Though he had word from counselor that this would not be an option for her. Continue to work with placement issues Review of Systems Except as stated in HPI: all other systems reviewed are Neg Objective Alert: Yes [place]: Person, Place Mood: Calm Affect: Labile Memory Intact: Comment (fair) Hallucinations: Other (she denies) Delusions: Yes Delusion Type: Other (none) Suicidal: Ideation (she denies) Homicidal: Ideation (she denies) Insight/Judgement Very poor Vitals/IOs Vital Signs Date Time Temp Pulse Resp B/P Pulse Ox O2 Delivery O2 Flow Rate FiO2 11/23/16 05:38 97.9 60 16 114/84 93 Intake and Output 11/22/16 11/22/16 11/23/16 08:00 16:00 00:00 Intake Total 0 ml 480 ml 1080 ml Balance 0 ml 480 ml 1080 ml Assessment & Plan Problem List: (1) 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 Compliant medications. For now continue treatment Justification for Cont. Inpt. At this time patient will decompensate place to the lower level of care Discharge Planning To be determined Request HC Surrog/Guard Advoc?: Yes Camilo Weaver MD Nov 23, 2016 10:05
[2016-11-23] MEDS: DIVALPROEX SODIUM E.R. 250 MG TAB PO SCH (10:16)
[2016-11-23] MEDS: SERTRALINE HCL 50 MG TAB PO SCH (10:16)
[2016-11-23] MEDS: NITROFURANTOIN MONOHYD MACROCR 100 MG CAP PO SCH ×2 (10:16→21:05)
[2016-11-23] MEDS: DONEPEZIL HCL 5 MG TAB PO SCH (10:16)
[2016-11-23] MEDS: risperiDONE 1 MG TAB PO SCH ×2 (10:17→21:06)
[2016-11-23] MEDS: amLODIPine BESYLATE 5 MG TAB PO SCH (10:17)
[2016-11-23] MEDS: OXYBUTYNIN CHLORIDE 5 MG TAB PO SCH (10:18)
[2016-11-23] MEDS: FAMOTIDINE 20 MG TAB PO SCH ×2 (10:18→21:06)
[2016-11-23] MEDS: NICOTINE 21 MG/24 HR PATCH T-DERMAL SCH (10:19)
[2016-11-23] MEDS: MAGNESIUM HYDROXIDE SUSP 30 ML CUP PO PRN (11:03)
[2016-11-23 18:34] VITALS: BP 99/47; PULSE 75; RESP 16; TEMP 98.2; O2SAT 94
[2016-11-23] MEDS: DIVALPROEX SODIUM E.R. 500 MG TAB PO SCH (21:06)
[2016-11-24] MEDS: LEVOTHYROXINE SODIUM 75 MCG TAB PO SCH (05:24)
[2016-11-24 06:05] VITALS: BP 118/56; PULSE 68; RESP 16; TEMP 96.7; O2SAT 94
--- NOTE | 2016-11-24 08:52 | HHI.PR ---
Subjective Subjective Remarks having diarrhea, a few episodes yesterday, none today appear liquid no abd. pain no n/v eating okay, doesn't like food Review of Systems Constitutional Constitutional Remarks 12 point ROS completed, unreliable Vitals/Results Intake & Output 11/23/16 11/23/16 11/24/16 15:00 23:00 07:00 Intake Total 720 ml 1080 ml Balance 720 ml 1080 ml Intake Oral 720 ml 1080 ml # Voids 2 Vital Signs Vital Signs Date Time Temp Pulse Resp B/P Pulse Ox O2 Delivery O2 Flow Rate FiO2 11/24/16 06:05 96.7 68 16 118/56 94 11/23/16 18:34 98.2 75 16 99/47 94 Physical Exam General General Appearance: Well Developed, Well Nourished, No Acute Distress, Comfortable Eyes Eye Exam: Pupils Equal, Pupils Reactive Ears & Nose Ears & Nose Exam: Nasal Mucosa [place] Throat Throat Exam: Oral Mucosa [place] & Moist Neck Neck Exam: Neck Supple, Trachea Midline Pulmonary Resp Exam: Clear Bilaterally Cardiology CV Exam: Regular Gastrointestinal/Abdomen GI Exam: Soft, Non-Tender, Bowel Sounds Present, Non-Distended Musculoskeletal MS Exam: Joints Intact Integumentary Skin Exam: Warm, Dry Extremeties Extremities Exam: No Edema, Pedal Pulses Palpable Neurologic Neuro Exam: Alert, Awake, Oriented, Speech Clear, Moving All Extremities, No Focal Deficits Psychiatric Psych Exam: Appropriate Responses VTE Prophylaxis VTE Remarks Pepcid Assessment/Plan Assessment/Plan history of bipolar, hypertension, schizophrenia, seizure disorder and hypothyroidism. Schizophrenia, bipolar management per psychiatric team Dementia continue Aricept Urinary tract infection DC Macrobid, Mixed gram positive Hypertension continue patient's home [facility] continue monitor blood pressure trend. Stable Seizure disorder continue Depakote- Depakote level 86 Hypothyroidism continue Synthroid TSH 4.090, T4 report reviewed continue current management Hyperlipidemia Continue low-cholesterol diet heart healthy diet Status post fall on the floor. Questionable fall Patient is walking around without any problem offering no complaint. monitor for any pain or swelling Diarrhea reported, roommate had cdiff, stool for cdiff pending. Will f/u on results DVT prophylaxis patient is ambulatory D/W RN D/W Dr. Gonzales D/W pt This patient was seen by myself and Dr. Gonzales, this note is written on her behalf. Maliha Hernandez Nov 24, 2016 08:52
[2016-11-24] MEDS: NICOTINE 21 MG/24 HR PATCH T-DERMAL SCH (09:00)
[2016-11-24] MEDS: REMOVE OLD PATCH T-DERMAL SCH (09:00)
[2016-11-24] MEDS: FAMOTIDINE 20 MG TAB PO SCH ×2 (09:05→20:07)
[2016-11-24] MEDS: OXYBUTYNIN CHLORIDE 5 MG TAB PO SCH (09:05)
[2016-11-24] MEDS: amLODIPine BESYLATE 5 MG TAB PO SCH (09:06)
[2016-11-24] MEDS: DONEPEZIL HCL 5 MG TAB PO SCH (09:06)
[2016-11-24] MEDS: SERTRALINE HCL 50 MG TAB PO SCH (09:06)
[2016-11-24] MEDS: DIVALPROEX SODIUM E.R. 250 MG TAB PO SCH (09:07)
[2016-11-24] MEDS: risperiDONE 1 MG TAB PO SCH ×2 (09:07→20:06)
[2016-11-24 09:12] LABS: BICARBONATE 30.5 MEQ/L (21.0-32.0); POTASSIUM 4.4 MEQ/L (3.5-5.1)
--- NOTE | 2016-11-24 11:28 | HHI.PYPN ---
Subjective Remarks Patient was seen and case discussed with nursing. Patient interviewed in bed. Pleasant and cooperative with exam. She is alert and oriented 3 can name the last 2 presidents. Behaving well on the unit. Describes her mood today is "tired." She denies auditory or visual hallucinations. Denies suicidal ideations thought intent or plan. Was questioned about her admission and says that she originally had thoughts of overdosing on pills and not burning down the house. Objective Alert: Yes [place]: Person, Place Mood: Calm Affect: Labile Memory Intact: Comment (fair) Hallucinations: Other (she denies) Delusions: Yes Delusion Type: Other (none) Suicidal: Ideation (she denies) Homicidal: Ideation (she denies) Insight/Judgement Poor Labs Test 11/24/16 07:10 Sodium Level 141 MEQ/L Potassium Level 4.4 MEQ/L Chloride Level 104 MEQ/L Carbon Dioxide Level 30.5 MEQ/L Anion Gap 7 MEQ/L Blood Urea Nitrogen 15 MG/DL Creatinine 0.68 MG/DL Estimat Glomerular Filtration 86 ML/MIN Rate Random Glucose 80 MG/DL Calcium Level 9.1 MG/DL Vitals/IOs Vital Signs Date Time Temp Pulse Resp B/P Pulse Ox O2 Delivery O2 Flow Rate FiO2 11/24/16 06:05 96.7 68 16 118/56 94 Intake and Output 11/23/16 11/23/16 11/24/16 08:00 16:00 00:00 Intake Total 720 ml 1080 ml Balance 720 ml 1080 ml Assessment & Plan Problem List: (1) 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 Inpt. Patient will decompensate in a less restrictive setting Request HC Surrog/Guard Advoc?: Yes Bhavesh Kerr DO Nov 24, 2016 11:28
[2016-11-24 18:05] VITALS: BP 113/55; PULSE 64; RESP 16; TEMP 98.7; O2SAT 95
[2016-11-24] MEDS: LORazepam 0.5 MG TAB PO PRN (20:06)
[2016-11-24] MEDS: DIVALPROEX SODIUM E.R. 500 MG TAB PO SCH (20:06)
[2016-11-25] MEDS: LEVOTHYROXINE SODIUM 75 MCG TAB PO SCH (05:33)
[2016-11-25 06:43] VITALS: BP 98/50; PULSE 66; RESP 18; TEMP 98.2; O2SAT 97
[2016-11-25] MEDS: amLODIPine BESYLATE 5 MG TAB PO SCH (09:00)
[2016-11-25] MEDS: REMOVE OLD PATCH T-DERMAL SCH (09:00)
[2016-11-25] MEDS: NICOTINE 21 MG/24 HR PATCH T-DERMAL SCH (09:00)
[2016-11-25] MEDS: risperiDONE 1 MG TAB PO SCH ×2 (09:12→21:07)
[2016-11-25] MEDS: DIVALPROEX SODIUM E.R. 250 MG TAB PO SCH (09:13)
[2016-11-25] MEDS: FAMOTIDINE 20 MG TAB PO SCH ×2 (09:13→21:08)
[2016-11-25] MEDS: OXYBUTYNIN CHLORIDE 5 MG TAB PO SCH (09:13)
[2016-11-25] MEDS: SERTRALINE HCL 50 MG TAB PO SCH (09:13)
[2016-11-25] MEDS: DONEPEZIL HCL 5 MG TAB PO SCH (09:13)
--- NOTE | 2016-11-25 11:18 | HHI.PR ---
Subjective Subjective Remarks Resting in bed No acute pain Abdomen gassy Occasional nausea but no emesis No shortness of breath (Mary Elizondo) Review of Systems Constitutional Constitutional: Weakness (generalized chronic) Constitutional Remarks 10 point ROS done, occasional gas and abdominal discomfort. Other systems unremarkable (Mray Elizondo) GI/Abdomen GI/Abdominal Exam: Diarrhea (1 yesterday, none today) (Mary Elizondo) Psychiatric Psychiatric: Normal Mood (resting in bed, responsive and appropriate verbal stimuli) (Mary Elizondo) Vitals/Results Intake & Output 11/24/16 11/24/16 11/25/16 15:00 23:00 07:00 Intake Total 1200 ml 480 ml 0 ml Balance 1200 ml 480 ml 0 ml Intake Oral 1200 ml 480 ml 0 ml # Voids 1 2 2 # Bowel Movements 0 0 Vital Signs Vital Signs Date Time Temp Pulse Resp B/P Pulse Ox O2 Delivery O2 Flow Rate FiO2 11/25/16 06:43 98.2 66 18 98/50 97 11/24/16 18:05 98.7 64 16 113/55 95 (Mary Elizondo) CBC/BMP: 11/24/16 0710 Imaging Remarks Last Impressions Head CT 11/12/16 0000 Signed Impressions: Service Date/Time: Saturday, November 12, 2016 12:10 - CONCLUSION: Normal examination for a patient of this age. Marcel Brown MD Current Medications Active Medications Famotidine (Pepcid) 20 mg BID PO Last administered on 11/25/16 09:13; Admin Dose 20 MG; Start 11/24/16 at 21:00 (Mary Elizondo) Physical Exam General General Appearance: Well Developed, Well Nourished, No Acute Distress, Comfortable, Sleeping (arouses easily with verbal stimuli) (Mary Elizondo) Eyes Eye Exam: Pupils Equal, Pupils Reactive (Mary Elizondo) Ears & Nose Ears & Nose Exam: Nasal Mucosa [place] (Mary Elizondo) Throat Throat Exam: Oral Mucosa [place] & Moist (Mary Elizondo) Neck Neck Exam: Neck Supple, Trachea Midline (Mary Elizondo) Pulmonary Resp Exam: Clear Bilaterally (Mary Elizondo) Cardiology CV Exam: Regular (Mary Elizondo) Gastrointestinal/Abdomen GI Exam: Soft, Non-Tender, Bowel Sounds Present, Non-Distended GI Remarks Gas (Mary Elizondo) Musculoskeletal MS Exam: Joints Intact (Mary Elizondo) Integumentary Skin Exam: Warm, Dry (Mary Elizondo) Extremeties Extremities Exam: No Edema, Pedal Pulses Palpable (Mary Elizondo) Neurologic Neuro Exam: Alert, Awake, Oriented, Speech Clear, Moving All Extremities, No Focal Deficits (Mary Elizondo) Psychiatric Psych Exam: Appropriate Responses (Mary Elizondo) PUD Prophylasis PUD Remarks Pepcid (Mary Elizondo) Assessment/Plan Assessment/Plan history of bipolar, hypertension, schizophrenia, seizure disorder and hypothyroidism. Schizophrenia, bipolar management per psychiatric team Dementia continue Aricept Urinary tract infection DC Macrobid, Mixed gram positive, culture thought to be contaminants. No further treatment needed Hypertension continue patient's home [facility] continue monitor blood pressure trend. Stable Seizure disorder continue Depakote- Depakote level 86 Hypothyroidism continue Synthroid TSH 4.090, T4 report reviewed continue current management Hyperlipidemia Continue low-cholesterol diet heart healthy diet Status post fall on the floor. Questionable fall Patient is walking around without any problem offering no complaint. monitor for any pain or swelling Diarrhea reported, roommate had cdiff, stool for cdiff pending, still. Will reorder results. Gassy abd. at times. GERD, Pepcid on board. Also ordered gas med. as needed and explained to patient. DVT prophylaxis patient is ambulatory D/W RN D/W Dr. Gonzales D/W pt This patient was seen by myself and Dr. Gonzales, this note is written on her behalf. (Mary Elizondo) Assessment/Plan LATE ENTRY patient seen and examined agree with above assessment and plan awaiting C diff testing discussed with Mary SOLIS (Sharyn Gonzales MD) Mary Elizondo Nov 25, 2016 11:18 Sharyn Gonzales MD Nov 26, 2016 13:54
[2016-11-25] MEDS ORDERED: SIMETHICONE 80 MG CHEWABLE TAB CHEW PRN (11:30)
--- NOTE | 2016-11-25 11:54 | HHI.PYPN ---
Subjective Remarks Patient was seen and case discussed with nursing. Patient is largely seclusive to room. Describes her mood is "tired." Behaving well on the unit. She denies suicidal ideation intent or plan. No complaints or questions today. Compliant with medications. 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 Inpt. Patient will decompensate in a less restrictive setting Request HC Surrog/Guard Advoc?: Yes Bhavesh Kerr DO Nov 25, 2016 11:54
[2016-11-25 18:00] VITALS: BP 119/58; PULSE 83; RESP 17; TEMP 97.8; O2SAT 95
[2016-11-25] MEDS: DIVALPROEX SODIUM E.R. 500 MG TAB PO SCH (21:07)
[2016-11-25] MEDS: LORazepam 0.5 MG TAB PO PRN (21:08)
[2016-11-26] MEDS: LEVOTHYROXINE SODIUM 75 MCG TAB PO SCH (06:00)
[2016-11-26 06:43] VITALS: BP 129/58; PULSE 60; RESP 18; TEMP 98; O2SAT 94
[2016-11-26] MEDS: SERTRALINE HCL 50 MG TAB PO SCH (08:39)
[2016-11-26] MEDS: FAMOTIDINE 20 MG TAB PO SCH ×2 (08:40→20:40)
[2016-11-26] MEDS: OXYBUTYNIN CHLORIDE 5 MG TAB PO SCH (08:40)
[2016-11-26] MEDS: risperiDONE 1 MG TAB PO SCH ×2 (08:40→20:41)
[2016-11-26] MEDS: DIVALPROEX SODIUM E.R. 250 MG TAB PO SCH (08:40)
[2016-11-26] MEDS: DONEPEZIL HCL 5 MG TAB PO SCH (08:40)
[2016-11-26] MEDS: amLODIPine BESYLATE 5 MG TAB PO SCH (08:41)
[2016-11-26] MEDS: NICOTINE 21 MG/24 HR PATCH T-DERMAL SCH (09:00)
[2016-11-26] MEDS: REMOVE OLD PATCH T-DERMAL SCH (09:00)
--- NOTE | 2016-11-26 13:21 | HHI.PYPN ---
Subjective Remarks Patient was seen and case discussed with nursing. Patient is pleasant and cooperative with exam. Mood remains "a little depressed." Denies suicidal ideation intent or plan. 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 Inpt. Patient will decompensate in a less restrictive setting Request HC Surrog/Guard Advoc?: Yes Bhavesh Kerr DO Nov 26, 2016 13:21
--- NOTE | 2016-11-26 14:28 | HHI.PR ---
Subjective Subjective Remarks no diarrhea for a few days no abdominal pain no n/v feels tired today no fever still feeling anxious Review of Systems Constitutional Constitutional Remarks 12 point ROS completed, unreliable Psychiatric Psychiatric: Normal Mood (resting in bed, responsive and appropriate verbal stimuli) Vitals/Results Intake & Output 11/25/16 11/25/16 11/26/16 15:00 23:00 07:00 Intake Total 720 ml 960 ml 0 ml Balance 720 ml 960 ml 0 ml Intake Oral 720 ml 960 ml 0 ml # Voids 2 2 # Bowel Movements 0 Vital Signs Vital Signs Date Time Temp Pulse Resp B/P Pulse Ox O2 Delivery O2 Flow Rate FiO2 11/26/16 06:43 98.0 60 18 129/58 94 11/25/16 18:00 97.8 83 17 119/58 95 CBC/BMP: 11/24/16 0710 Physical Exam General General Appearance: Well Developed, Well Nourished, No Acute Distress, Comfortable, Sleeping (arouses easily with verbal stimuli) Eyes Eye Exam: Pupils Equal, Pupils Reactive Ears & Nose Ears & Nose Exam: Nasal Mucosa [place] Throat Throat Exam: Oral Mucosa [place] & Moist Neck Neck Exam: Neck Supple, Trachea Midline Pulmonary Resp Exam: Clear Bilaterally Cardiology CV Exam: Regular Gastrointestinal/Abdomen GI Exam: Soft, Non-Tender, Bowel Sounds Present, Non-Distended Musculoskeletal MS Exam: Joints Intact Integumentary Skin Exam: Warm, Dry Extremeties Extremities Exam: No Edema, Pedal Pulses Palpable Neurologic Neuro Exam: Alert, Awake, Oriented, Speech Clear, Moving All Extremities, No Focal Deficits Psychiatric Psych Exam: Appropriate Responses VTE Prophylaxis VTE Remarks Pepcid Assessment/Plan Assessment/Plan history of bipolar, hypertension, schizophrenia, seizure disorder and hypothyroidism. Schizophrenia, bipolar management per psychiatric team Dementia continue Aricept Urinary tract infection DC Macrobid, Mixed gram positive, culture thought to be contaminants. No further treatment needed Hypertension continue patient's home [facility] continue monitor blood pressure trend. Stable Seizure disorder continue Depakote- Depakote level 86 Hypothyroidism continue Synthroid TSH 4.090, T4 report reviewed continue current management Hyperlipidemia Continue low-cholesterol diet heart healthy diet Status post fall on the floor. Questionable fall Patient is walking around without any problem offering no complaint. monitor for any pain or swelling Diarrhea reported, roommate had cdiff, stool for cdiff pending. Has not had diarrhea x 2 days Mylicon PRN abd. distension, continue with Pepcid, hx GERD. DVT prophylaxis patient is ambulatory Follow PRN D/W RN D/W Dr. Gonzales D/W pt This patient was seen by myself and Dr. Gonzales, this note is written on her behalf. Maliha Hernandez Nov 26, 2016 14:28
[2016-11-26 18:19] VITALS: BP 108/69; PULSE 63; RESP 18; TEMP 98.3; O2SAT 97
[2016-11-26] MEDS: DIVALPROEX SODIUM E.R. 500 MG TAB PO SCH (20:40)
[2016-11-26] MEDS: LORazepam 0.5 MG TAB PO PRN (20:42)
[2016-11-27 06:07] VITALS: BP 129/78; PULSE 71; RESP 16; TEMP 98.4; O2SAT 93
[2016-11-27] MEDS: LEVOTHYROXINE SODIUM 75 MCG TAB PO SCH (06:23)
[2016-11-27] MEDS: NICOTINE 21 MG/24 HR PATCH T-DERMAL SCH (09:00)
[2016-11-27] MEDS: REMOVE OLD PATCH T-DERMAL SCH (09:00)
[2016-11-27 09:14] VITALS: BP 124/60; PULSE 77
[2016-11-27] MEDS: FAMOTIDINE 20 MG TAB PO SCH ×2 (09:16→20:27)
[2016-11-27] MEDS: amLODIPine BESYLATE 5 MG TAB PO SCH (09:16)
[2016-11-27] MEDS: risperiDONE 1 MG TAB PO SCH ×2 (09:17→20:28)
[2016-11-27] MEDS: DIVALPROEX SODIUM E.R. 250 MG TAB PO SCH (09:17)
[2016-11-27] MEDS: DONEPEZIL HCL 5 MG TAB PO SCH (09:17)
[2016-11-27] MEDS: OXYBUTYNIN CHLORIDE 5 MG TAB PO SCH (09:17)
[2016-11-27] MEDS: SERTRALINE HCL 50 MG TAB PO SCH (09:18)
--- NOTE | 2016-11-27 09:39 | HHI.PR ---
Subjective Subjective Remarks yesterday had stool was formed mild abd. cramping ate ok this morning, no n/v feels tired today no fever Review of Systems Constitutional Constitutional Remarks 12 point ROS completed, unreliable Psychiatric Psychiatric: Normal Mood (resting in bed, responsive and appropriate verbal stimuli) Vitals/Results Intake & Output 11/26/16 11/26/16 11/27/16 15:00 23:00 07:00 Intake Total 1920 ml Balance 1920 ml Intake Oral 1920 ml # Voids 4 2 Vital Signs Vital Signs Date Time Temp Pulse Resp B/P Pulse Ox O2 Delivery O2 Flow Rate FiO2 11/27/16 09:14 77 124/60 11/27/16 06:07 98.4 71 16 129/78 93 11/26/16 18:19 98.3 63 18 108/69 97 CBC/BMP: 11/24/16 0710 Physical Exam General General Appearance: Well Developed, Well Nourished, No Acute Distress, Comfortable, Sleeping (arouses easily with verbal stimuli) Eyes Eye Exam: Pupils Equal, Pupils Reactive Ears & Nose Ears & Nose Exam: Nasal Mucosa [place] Throat Throat Exam: Oral Mucosa [place] & Moist Neck Neck Exam: Neck Supple, Trachea Midline Pulmonary Resp Exam: Clear Bilaterally Cardiology CV Exam: Regular Gastrointestinal/Abdomen GI Exam: Soft, Non-Tender, Bowel Sounds Present, Non-Distended Musculoskeletal MS Exam: Joints Intact Integumentary Skin Exam: Warm, Dry Extremeties Extremities Exam: No Edema, Pedal Pulses Palpable Neurologic Neuro Exam: Alert, Awake, Oriented, Speech Clear, Moving All Extremities, No Focal Deficits Psychiatric Psych Exam: Appropriate Responses VTE Prophylaxis VTE Remarks Pepcid Assessment/Plan Assessment/Plan history of bipolar, hypertension, schizophrenia, seizure disorder and hypothyroidism. Schizophrenia, bipolar management per psychiatric team Dementia continue Aricept Urinary tract infection DC Macrobid, Mixed gram positive, culture thought to be contaminants. No further treatment needed Hypertension continue patient's home [facility] continue monitor blood pressure trend. Stable Seizure disorder continue Depakote- Depakote level 86 Hypothyroidism continue Synthroid TSH 4.090, T4 report reviewed continue current management Hyperlipidemia Continue low-cholesterol diet heart healthy diet Status post fall on the floor. Questionable fall Patient is walking around without any problem offering no complaint. monitor for any pain or swelling Diarrhea reported, roommate had cdiff, stool for cdiff pending. Formed stools now. Mylicon PRN abd. distension, continue with Pepcid, hx GERD. DVT prophylaxis patient is ambulatory WIll sign off, call if any issues arise D/W RN D/W Dr. Gonzales D/W pt This patient was seen by myself and Dr. Gonzales, this note is written on her behalf. Maliha Hernandez Nov 27, 2016 09:39
--- NOTE | 2016-11-27 16:13 | HHI.PYPN ---
Subjective Remarks Patient discussed with treatment team medical student Phuong and patient's brother patient now denies suicidality her sleep has improved. We continue to work on placement. Brother is involved with this at the present time, patient compliant medication. Review of Systems Except as stated in HPI: all other systems reviewed are Neg Objective Alert: Yes [place]: Person, Place Mood: Calm Affect: Labile Memory Intact: Comment (fair) Hallucinations: Other (she denies) Delusions: Yes Delusion Type: Other (none) Suicidal: Ideation (she denies) Homicidal: Ideation (she denies) Insight/Judgement Poor Vitals/IOs Vital Signs Date Time Temp Pulse Resp B/P Pulse Ox O2 Delivery O2 Flow Rate FiO2 11/27/16 09:14 77 124/60 11/27/16 06:07 98.4 16 93 Intake and Output 11/26/16 11/26/16 11/26/16 07:59 15:59 23:59 Intake Total 0 ml 1920 ml Balance 0 ml 1920 ml Assessment & Plan Problem List: (1) 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 Is denies suicidality. For now continue treatment Justification for Cont. Inpt. At this time patient will decompensate a place to the lower level of care Discharge Planning To be determined Request HC Surrog/Guard Advoc?: Yes Camilo Weaver MD Nov 27, 2016 16:13
[2016-11-27 19:10] VITALS: BP 118/61; PULSE 77; RESP 18; TEMP 98.4; O2SAT 96
[2016-11-27] MEDS: DIVALPROEX SODIUM E.R. 500 MG TAB PO SCH (20:27)
[2016-11-28] MEDS: LEVOTHYROXINE SODIUM 75 MCG TAB PO SCH (06:00)
[2016-11-28 06:43] VITALS: BP 101/54; PULSE 63; RESP 16; TEMP 97.3; O2SAT 95
[2016-11-28] MEDS: NICOTINE 21 MG/24 HR PATCH T-DERMAL SCH (09:00)
[2016-11-28] MEDS: REMOVE OLD PATCH T-DERMAL SCH (09:00)
[2016-11-28] MEDS: SERTRALINE HCL 50 MG TAB PO SCH (09:00)
[2016-11-28] MEDS: DONEPEZIL HCL 5 MG TAB PO SCH (09:18)
[2016-11-28] MEDS: FAMOTIDINE 20 MG TAB PO SCH ×2 (09:18→20:57)
[2016-11-28] MEDS: risperiDONE 1 MG TAB PO SCH ×2 (09:19→20:56)
[2016-11-28] MEDS: amLODIPine BESYLATE 5 MG TAB PO SCH (09:19)
[2016-11-28] MEDS: OXYBUTYNIN CHLORIDE 5 MG TAB PO SCH (09:19)
[2016-11-28] MEDS: DIVALPROEX SODIUM E.R. 250 MG TAB PO SCH (09:19)
--- NOTE | 2016-11-28 13:46 | HHI.PYPN ---
Subjective Remarks Patient seen in her room with nurse Adrienne and medical student Lizabeth, chart review, patient compliant with medications calm is excited about possible placement tomorrow the [facility]. Patient showed some concern about the continuation of her medication at that facility, we reassured her that that will occur. Patient denies suicidality homicidality voices or visions. For now continue treatment Review of Systems Except as stated in HPI: all other systems reviewed are Neg Objective Alert: Yes [place]: Person, Place Mood: Calm Affect: Labile Memory Intact: Comment (fair) Hallucinations: Other (she denies) Delusions: Yes Delusion Type: Other (none) Suicidal: Ideation (she denies) Homicidal: Ideation (she denies) Insight/Judgement Very poor Vitals/IOs Vital Signs Date Time Temp Pulse Resp B/P Pulse Ox O2 Delivery O2 Flow Rate FiO2 11/28/16 06:43 97.3 63 16 101/54 95 Intake and Output 11/27/16 11/27/16 11/28/16 08:00 16:00 00:00 Intake Total 1320 ml Output Total 1 ml Balance 1319 ml Assessment & Plan Problem List: (1) 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 Potentially will be discharged tomorrow to [facility] Justification for Cont. Inpt. At this time patient will decompensate if placed in the lower level of care Discharge Planning To be determined Request HC Surrog/Guard Advoc?: Yes Camilo Weaver MD Nov 28, 2016 13:46
[2016-11-28 18:00] VITALS: BP 116/55; PULSE 63; RESP 17; TEMP 98.2; O2SAT 96
[2016-11-28] MEDS: DIVALPROEX SODIUM E.R. 500 MG TAB PO SCH (20:56)
[2016-11-29] MEDS: LEVOTHYROXINE SODIUM 75 MCG TAB PO SCH (05:29)
[2016-11-29 06:26] VITALS: BP_SYST 102; PULSE 58; RESP 18; TEMP 97.2; O2SAT 94
[2016-11-29] MEDS: SERTRALINE HCL 50 MG TAB PO SCH (08:36)
[2016-11-29] MEDS: DONEPEZIL HCL 5 MG TAB PO SCH (08:39)
[2016-11-29] MEDS: risperiDONE 1 MG TAB PO SCH (08:39)
[2016-11-29] MEDS: OXYBUTYNIN CHLORIDE 5 MG TAB PO SCH (08:39)
[2016-11-29] MEDS: amLODIPine BESYLATE 5 MG TAB PO SCH (08:39)
[2016-11-29] MEDS: FAMOTIDINE 20 MG TAB PO SCH (08:44)
[2016-11-29] MEDS: DIVALPROEX SODIUM E.R. 250 MG TAB PO SCH (08:44)
[2016-11-29] MEDS: NICOTINE 21 MG/24 HR PATCH T-DERMAL SCH (08:47)
[2016-11-29] MEDS: REMOVE OLD PATCH T-DERMAL SCH (08:47)
[2016-11-29] MEDS ORDERED: FAMO20TA2 PO (11:47)
[2016-11-29] MEDS ORDERED: RISP1 PO ×2 (11:47)
[2016-11-29] MEDS ORDERED: LEVO.075 PO (11:47)
[2016-11-29] MEDS ORDERED: ARIC10TA PO (11:47)
[2016-11-29] MEDS ORDERED: DIVA250T3 PO (11:47)
[2016-11-29] MEDS ORDERED: OXYB5TAB10 PO (11:47)
[2016-11-29] MEDS ORDERED: AMLO5 PO (11:47)
[2016-11-29] MEDS ORDERED: ZOLO50TA PO (11:47)
--- NOTE | 2016-11-29 12:00 | HHI.DS ---
Psychiatry Discharge Summary Inpatient Psychiatric care?: Yes Advance Directive: No Reason Not Provided: Due to Patient Condition Mental Health AdvanceDirective: No Health Care Proxy: No Admission Admission Date Nov 12, 2016 at 14:45 Admission Diagnosis: (1) Dementia in Alzheimer's disease with early onset without behavioral disturbance ICD Code: G30.0 Brief History Ms. Foy is a 71-year-old female of unclear past psychiatric history who presents under a [place] act by [facility]'s office alleging that the patient said that she was diagnosed with schizophrenia and had not been taking her medications. She also told the deputy that she wanted to cut her throat with scissors and has wanted to hurt herself several times in the last week. Reviewing the electronic medical record, I note the patient was seen by the ED provider 3 days ago for worsening command auditory hallucinations and confusion. Patient seen and examined. Chart reviewed. Case discussed with nurse in the ED. On my examination today, patient presents as significantly psychomotor retarded with thought process slowing. She says with significant delay "I was wondering if you could" before trailing off. She does endorse suicidal ideation to cut her neck with scissors. She is able to deny command auditory hallucinations at this time. She does endorse feeling somewhat depressed. She is unable to participate to any significant degree in mental status testing. Psychiatric interview is otherwise quite limited. Given lack of information from the patient, I did endeavor to obtain collateral from patient's brother, Evan Foy at the number in [employer] I left a voicemail at about 10:00 this morning requesting a call back. I also reached out to the patient's friend Flip (# in [employer] who reports that he has known the patient since she was 8 years old. He has been taking care of her for the last few days because of her cognitive deterioration. He says that she had some sort of mental illness when her son was born in 1977 and has been experiencing onset of dementia within the last 4 or 5 years or so. He notes that she has not been taking her medications as prescribed. He notes that she has been admitted multiple times to inpatient psychiatric units within the last year and has even received ECT treatments in the past. He reports that within the last few days her behavior has become increasingly disorganized and she will perform the same task over and over again. He did not realize that she was having suicidal thoughts until the officer asked her. Flip provides a number for the patient's other brother, Isaak Foy which is [phone]. Tobacco Use In Past 30 Days: No Tobacco Past 30 Days Alcohol Use: Never Hospital Course His hospital course was essentially uneventful. Her the confusion disorientation remain, she remained compliant medication showing some decrease of her vigilance processing over medications. Now denies suicidality homicidality voices or visions. Prior discharge consideration with a friend of hers was found to be unavailable. Patient is been seen screened by [facility] to accept her into their facility. At this time patient reached maximum benefit of this hospitalization thus patient will be discharged today to that facility. Rx 1 month. Follow-up mental health services through that facility Results Blood Pressure 102 / 55 Vital Signs Date Time Temp Pulse Resp B/P Pulse Ox O2 Delivery O2 Flow Rate FiO2 11/29/16 06:26 97.2 58 18 102/ 94 Depakote level 72 on 11/17 and toxicology negative Summary of Procedures None done Imaging Last Impressions Head CT 11/12/16 0000 Signed Impressions: Service Date/Time: Saturday, November 12, 2016 12:10 - CONCLUSION: Normal examination for a patient of this age. Marcel Brown MD Pending results at discharge: No Medications # of Antipsychotic meds at D/C: 1 Approp Antipsych med options 1 - Minimum of three failed multiple trials of monotherapy. 2 - Documented plan to taper to monotherapy due to previous use of multiple meds OR cross-taper in progress at D/C. 3 - Documentation of augmentation of Clozapine. 4 - Justification other than those listed in allowable values 1-3, document here : Discharge Discharge Date: Nov 29, 2016 Discharge Diagnosis: (1) Dementia in Alzheimer's disease with early onset without behavioral disturbance Diagnosis: Principal ICD Code: G30.0 Mental Status Exam at Disch Patient alert diffusely confused white female, she is normal active, she is euthymic to slightly restricted with slight decreased range in intensity over affect, speech rate and rhythm are somewhat slow it is somewhat tangential, but no auditory or visual hallucinations no delusions noted insight and judgment is poor cognition is compromised Pt Condition on Discharge: Stable Discharge Disposition: [facility] Discharge Instructions Diet Instructions: As Tolerated, No Restrictions Activities you can perform: Regular-No Restrictions Scheduled Appointment: Laura Koroma. Discharge Time > 30 minutes Discharge/Advance Care Plan Health Problems: (1) Other specified mental disorders due to known physiological condition Goals to promote your health * To prevent worsening of your condition and complications * To maintain your health at the optimal level Directions to meet your goals Take your medications as prescribed Follow your dietary instruction Follow activity as directed Keep your appointments as scheduled Take your immunizations and boosters as scheduled If your symptoms worsen call your PCP, if no PCP go to Urgent Care Center or Emergency Room For 23/04 questions related to your inpatient stay or results of tests pending at discharge, please contact Dr. Camilo Weaver at Smoking is Dangerous to Your Health. Avoid second hand smoking Camilo Weaver MD Nov 29, 2016 12:00
== END 2016-11-29 17:00 | DRG 57 ==
LOC: NEPA 23:42 → H4EA 11-12 14:45 → H250 11-13 10:55
PROVIDERS: ADMIT Psychiatry & Neurology Psychiatry; ATTEND Psychiatry & Neurology Psychiatry
DX: G30.0 Alzheimer's disease with early onset (principal); F05 Delirium due to known physiological condition; R45.851 Suicidal ideations; F02.81 Dementia in other diseases classified elsewhere, unspecified severity, with behavioral disturbance; N39.0 Urinary tract infection, site not specified; I10 Essential (primary) hypertension; E03.9 Hypothyroidism, unspecified; G40.909 Epilepsy, unspecified, not intractable, without status epilepticus; F31.9 Bipolar disorder, unspecified; F20.9 Schizophrenia, unspecified; F41.9 Anxiety disorder, unspecified; J45.909 Unspecified asthma, uncomplicated; R19.7 Diarrhea, unspecified; K21.9 Gastro-esophageal reflux disease without esophagitis; Z87.891 Personal history of nicotine dependence
CPT/HCPCS: 70450; 80048; 80053; 80061; 80164; 80307; 80320; 80329; 81001; 82140; 83036; 84439; 84443; 85025; 87086; 99285; G0480; Q0163

== ENCOUNTER 2017-02-06 21:08 | Inpatient (IN) | payer MEDICARE, OTHER ==
[~2017-02-06] VITALS: Ht 149.9 cm; Wt 61.9 kg
[~2017-02-06 21:08] MED LIST changes: +AMLO5 PO; -AMLO5TAB2 PO; +ARIC10TA PO; +FAMO20TA2 PO; +LEVO.075 PO; -LEVO75TA3 PO; +MACR100C2 PO; -RANI150T PO; +RISP1 PO; +ZOLO50TA PO
[2017-02-06 21:21] VITALS: BP 156/68; PULSE 86; RESP 18; O2SAT 95
--- NOTE | 2017-02-06 21:25 | PD ---
HPI Chief Complaint: Psychiatric Symptoms Time Seen by Provider: 21:12 Travel History International Travel<30 days: No Contact w/Intl Traveler<30days: No Traveled to known affect area: No History of Present Illness HPI The patient is a 71-year-old female who presents to the emergency department as a Munroe act. According to the police affidavit the patient was placed under a [place] act after she made suicidal threats to her family. The patient does have a history of schizophrenia, the police were unsure if the patient has been taking her medications. The patient states she does live with her family, does have a history of schizophrenia, and has had suicidal ideations in the past. The patient denies any auditory hallucinations, however , states she had a visual hallucination earlier today where she saw a "dragging ". The patient does have a history of alcohol abuse, quit drinking 6 months ago. The patient did recently fall and fracture her right shoulder which is currently in a sling, the patient states she is going to follow-up with an orthopedist, does not know the name. The patient denies any illicit drug use. The patient does states she is depressed and is having thoughts of suicide. She denies any current anxiety. PFSH Past Medical History Bipolar Disorder: Yes Diminished Hearing: No Hypertension: Yes Schizophrenia: Yes Menopausal: Yes Past Surgical History Hysterectomy: Yes Social History Alcohol Use: No Tobacco Use: No (1 PPD quit 6 months ago) Substance Use: No Allergies-Medications (Allergen,Severity, Reaction): Coded Allergies: Cipro (Verified Adverse Reaction, Intermediate, UNKNOWN, 02/06/17) Haldol (Verified Adverse Reaction, Intermediate, "FUNNY FEELING", 02/06/17) Keflex (Verified Adverse Reaction, Intermediate, RASH, 02/06/17) Reported Meds & Prescriptions Reported Meds & Active Scripts Active Bactrim DS (Sulfamethoxazole-Trimethoprim) 800-160 Mg Tab 1 Tab PO BID Divalproex ER (Divalproex Sodium) 250 Mg Juanito 250 Mg PO 1 PO AM, 2 PO HS Zoloft (Sertraline HCl) 50 Mg Tab 50 Mg PO DAILY Ditropan (Oxybutynin Chloride) 5 Mg Tab 5 Mg PO DAILY Synthroid (Levothyroxine Sodium) 75 Mcg Tab 75 Mcg PO DAILY@06 Famotidine 20 Mg Tab 20 Mg PO BID Norvasc (Amlodipine Besylate) 5 Mg Tab 5 Mg PO DAILY Aricept (Donepezil) 10 Mg Tab 10 Mg PO HS Reported Risperidone 1 Mg Tab 1 Mg PO HS Divalproex ER (Divalproex Sodium) 250 Mg Juanito 250 Mg PO BID Review of Systems Except as stated in HPI: all other systems reviewed are Neg General / Constitutional: No: Fever HENT: No: Lightheadedness Respiratory: No: Shortness of Breath Gastrointestinal: No: Nausea, Vomiting, Abdominal Pain Musculoskeletal: Positive: Pain (right shoulder pain with recent fracture) Neurologic: No: Change in Mentation Psychiatric: Positive: Depression, Suicidal Ideations, Disorder of Thought Physical Exam Narrative GENERAL: Awake, alert, very pleasant 71-year-old female who appears her stated age and is in no acute respiratory distress. SKIN: Focused skin assessment warm/dry. HEAD: Atraumatic. Normocephalic. EYES: Pupils equal and round. No scleral icterus. No injection or drainage. ENT: No nasal bleeding or discharge. Mucous membranes pink and moist. NECK: Trachea midline. No JVD. CARDIOVASCULAR: Regular rate and rhythm. No murmur appreciated. RESPIRATORY: No accessory muscle use. Clear to auscultation. Breath sounds equal bilaterally. GASTROINTESTINAL: Abdomen soft, non-tender, nondistended. No rebound tenderness. MUSCULOSKELETAL: The right shoulder does have some bruising and ecchymosis inferior to the right clavicle and right shoulder which is yellow in discoloration and appears old. The right upper extremity is in a sling and swath. NEUROLOGICAL: Awake and alert. No obvious cranial nerve deficits. Motor grossly within normal limits. Normal speech. Patient is oriented to person, place, month, year, and human capital manager. She did not know the current date. PSYCHIATRIC: Appropriate mood and affect; insight and judgment normal. Data Data Last Documented VS Vital Signs Date Time Temp Pulse Resp B/P Pulse Ox O2 Delivery O2 Flow Rate FiO2 02/06/17 21:29 99.3 02/06/17 21:21 86 18 156/68 95 Room Air Orders Complete Blood Count With Diff (02/06/17 21:25) Comprehensive Metabolic Panel (02/06/17 21:25) Urinalysis - C+S If Indicated (02/06/17 21:25) Valproic Acid (Depakene) (02/06/17 21:25) Psych Screen (02/06/17 21:25) Drug Screen, Random Urine (02/06/17 21:25) Urine Culture (02/06/17 22:10) Sulfamet-Trimeth Ds 800-160 Mg (Bactrim (02/06/17 23:00) Labs Laboratory Tests Test 02/06/17 02/06/17 21:40 22:10 White Blood Count 7.3 TH/MM3 Red Blood Count 3.96 MIL/MM3 Hemoglobin 13.0 GM/DL Hematocrit 37.0 % Mean Corpuscular Volume 93.5 FL Mean Corpuscular Hemoglobin 32.9 PG Mean Corpuscular Hemoglobin 35.2 % Concent Red Cell Distribution Width 13.4 % Platelet Count 256 TH/MM3 Mean Platelet Volume 7.3 FL Neutrophils (%) (Auto) 52.0 % Lymphocytes (%) (Auto) 32.4 % Monocytes (%) (Auto) 13.7 % Eosinophils (%) (Auto) 1.4 % Basophils (%) (Auto) 0.5 % Neutrophils # (Auto) 3.8 TH/MM3 Lymphocytes # (Auto) 2.4 TH/MM3 Monocytes # (Auto) 1.0 TH/MM3 Eosinophils # (Auto) 0.1 TH/MM3 Basophils # (Auto) 0.0 TH/MM3 CBC Comment DIFF FINAL Differential Comment Sodium Level 141 MEQ/L Potassium Level 3.9 MEQ/L Chloride Level 105 MEQ/L Carbon Dioxide Level 27.0 MEQ/L Anion Gap 9 MEQ/L Blood Urea Nitrogen 17 MG/DL Creatinine 0.73 MG/DL Estimat Glomerular Filtration 79 ML/MIN Rate Random Glucose 118 MG/DL Calcium Level 10.0 MG/DL Total Bilirubin 0.5 MG/DL Aspartate Amino Transf 18 U/L (AST/SGOT) Alanine Aminotransferase 16 U/L (ALT/SGPT) Alkaline Phosphatase 65 U/L Total Protein 6.9 GM/DL Albumin 3.6 GM/DL Valproic Acid (Depakene) Level 73 MCG/ML Urine Color YELLOW Urine Turbidity HAZY Urine pH 5.5 Urine Specific [place] 1.028 Urine Protein 30 mg/dL Urine Glucose (UA) NEG mg/dL Urine Ketones TRACE mg/dL Urine Occult Blood SMALL Urine Nitrite NEG Urine Bilirubin NEG Urine Urobilinogen 2.0 MG/DL Urine Leukocyte Esterase MOD Urine RBC 5 /hpf Urine WBC 11 /hpf Urine WBC Clumps RARE Urine Squamous Epithelial 10 /hpf Cells Urine Transitional Epithelial <1 /hpf Cells Urine Calcium Oxalate Crystals RARE /hpf Urine Amorphous Sediment RARE Urine Bacteria RARE /hpf Urine Hyaline Casts 3 /lpf Urine Mucus MANY /lpf Microscopic Urinalysis Comment CULTURE INDICATED Urine Opiates Screen NEG Urine Barbiturates Screen NEG Urine Amphetamines Screen NEG Urine Benzodiazepines Screen NEG Urine Cocaine Screen NEG Urine Cannabinoids Screen NEG MDM Medical Decision Making Medical Screen Exam Complete: Yes Emergency Medical Condition: Yes Medical Record Reviewed: Yes Interpretation(s) Laboratory Tests Test 02/06/17 02/06/17 21:40 22:10 White Blood Count 7.3 TH/MM3 Red Blood Count 3.96 MIL/MM3 Hemoglobin 13.0 GM/DL Hematocrit 37.0 % Mean Corpuscular Volume 93.5 FL Mean Corpuscular Hemoglobin 32.9 PG Mean Corpuscular Hemoglobin 35.2 % Concent Red Cell Distribution Width 13.4 % Platelet Count 256 TH/MM3 Mean Platelet Volume 7.3 FL Neutrophils (%) (Auto) 52.0 % Lymphocytes (%) (Auto) 32.4 % Monocytes (%) (Auto) 13.7 % Eosinophils (%) (Auto) 1.4 % Basophils (%) (Auto) 0.5 % Neutrophils # (Auto) 3.8 TH/MM3 Lymphocytes # (Auto) 2.4 TH/MM3 Monocytes # (Auto) 1.0 TH/MM3 Eosinophils # (Auto) 0.1 TH/MM3 Basophils # (Auto) 0.0 TH/MM3 CBC Comment DIFF FINAL Differential Comment Sodium Level 141 MEQ/L Potassium Level 3.9 MEQ/L Chloride Level 105 MEQ/L Carbon Dioxide Level 27.0 MEQ/L Anion Gap 9 MEQ/L Blood Urea Nitrogen 17 MG/DL Creatinine 0.73 MG/DL Estimat Glomerular Filtration 79 ML/MIN Rate Random Glucose 118 MG/DL Calcium Level 10.0 MG/DL Total Bilirubin 0.5 MG/DL Aspartate Amino Transf 18 U/L (AST/SGOT) Alanine Aminotransferase 16 U/L (ALT/SGPT) Alkaline Phosphatase 65 U/L Total Protein 6.9 GM/DL Albumin 3.6 GM/DL Valproic Acid (Depakene) Level 73 MCG/ML Urine Color YELLOW Urine Turbidity HAZY Urine pH 5.5 Urine Specific [place] 1.028 Urine Protein 30 mg/dL Urine Glucose (UA) NEG mg/dL Urine Ketones TRACE mg/dL Urine Occult Blood SMALL Urine Nitrite NEG Urine Bilirubin NEG Urine Urobilinogen 2.0 MG/DL Urine Leukocyte Esterase MOD Urine RBC 5 /hpf Urine WBC 11 /hpf Urine WBC Clumps RARE Urine Squamous Epithelial 10 /hpf Cells Urine Transitional Epithelial <1 /hpf Cells Urine Calcium Oxalate Crystals RARE /hpf Urine Amorphous Sediment RARE Urine Bacteria RARE /hpf Urine Hyaline Casts 3 /lpf Urine Mucus MANY /lpf Microscopic Urinalysis Comment CULTURE INDICATED Urine Opiates Screen NEG Urine Barbiturates Screen NEG Urine Amphetamines Screen NEG Urine Benzodiazepines Screen NEG Urine Cocaine Screen NEG Urine Cannabinoids Screen NEG Differential Diagnosis Differential diagnosis includes schizoaffective disorder, schizophrenia, depressive disorder NOS, major depression, bipolar affective disorder, noncompliance. Narrative Course Labs were drawn and sent. Psychiatric evaluation was ordered. UA was positive for UTI, therefore, the patient was ordered 1 dose of Bactrim DS and will be prescribed Bactrim twice a day for 7 days. White count was normal. Patient is afebrile. CMP is unremarkable. Depakote level is 73. Patient is medically cleared to be evaluated by psychiatry. Disposition as per psych. Diagnosis Primary Impression: Other specified mental disorders due to known physiological condition Additional Impression: UTI (urinary tract infection) Qualified Code: N39.0 - Urinary tract infection without hematuria, site unspecified Scripts Sulfamethoxazole-Trimethoprim (Bactrim DS)800-160 Mg Tab1 Tab PO BID #14 TAB Ref 0 Prov:Vipul Yoon MD 02/06/17 Condition: Stable Vipul Yoon MD February 06, 2017 21:25
[2017-02-06 21:29] VITALS: TEMP 99.3
[2017-02-06 21:54] LABS: AUTOMATED NEUTROPHIL # 3.8 TH/MM3 (1.8-7.7); BASOPHIL % 0.5 % (0.0-2.0); EOSINOPHIL # 0.1 TH/MM3 (0-0.4); EOSINOPHIL % 1.4 % (0.0-4.0); HEMO FLAGS DIFF FINAL; LYMPH % 32.4 % (9.0-44.0); LYMPHOCYTE # 2.4 TH/MM3 (1.0-4.8); MEAN CELL VOLUME 93.5 FL (80.0-100.0); MEAN CORPUSCULAR HEMOGLOBIN 32.9 PG (27.0-34.0); MEAN CORPUSCULAR HGB CONC 35.2 % (32.0-36.0); MONO % 13.7 % (0.0-8.0); PLATELET COUNT 256 TH/MM3 (150-450); RED BLOOD COUNT 3.96 MIL/MM3 (4.00-5.30); RED CELL DISTRIBUTION WIDTH 13.4 % (11.6-17.2); WHITE BLOOD COUNT 7.3 TH/MM3 (4.0-11.0)
[2017-02-06 22:36] LABS: AST (GOT) 18 U/L (15-37); BLOOD UREA NITROGEN 17 MG/DL (7-18); GLOMERULAR FILTRATION RATE 79 ML/MIN (>89)
[2017-02-06 22:39] LABS: BACTERIA, URINE RARE /hpf; BLOOD, URINE SMALL (NEG); CALCIUM OXALATE CRYSTALS,URINE RARE /hpf; COMMENT (UR) CULTURE INDICATED; CULTURE IF INDICATED CULTURE INDICATED; GLUCOSE,URINE NEG (NEG); HYALINE CAST, URINE 3 /lpf (RARE); KETONE, URINE TRACE mg/dL (NEG); MUCUS URINE MANY /lpf (OCC); NITRITE,URINE NEG (NEG); PH, URINE 5.5 (5.0-8.5); SQUAMOUS EPITHELIAL CELL URINE 10 /hpf (0-5); TRANSITIONAL EPI CELLS, URINE <1 /hpf; URINE COLOR YELLOW (YELLW/STRAW)
[2017-02-06 22:44] LABS: AMPHETAMINE, URINE NEG (NEG); BARBITURATES, URINE NEG (NEG); COCAINE, URINE NEG (NEG)
[2017-02-06] MEDS ORDERED: BACT800T5 PO (22:48)
[2017-02-06] MEDS ORDERED: SULFAMETHOXAZOLE-TRIMETHOPRIM DS 800-160 MG TAB PO ONE (23:00)
[2017-02-06 23:01] LABS: ALKALINE PHOSPHATASE 65 U/L (45-117); ALT (GPT) 16 U/L (10-53); TOTAL BILIRUBIN ADULT 0.5 MG/DL (0.2-1.0)
[2017-02-06 23:11] LABS: ANION GAP 9 MEQ/L (5-15); CHLORIDE 105 MEQ/L (98-107); POTASSIUM 3.9 MEQ/L (3.5-5.1); SODIUM (NA) 141 MEQ/L (136-145)
[2017-02-07 08:31] VITALS: BP 133/68; PULSE 77; RESP 16; TEMP 99.2; O2SAT 94
[2017-02-07] MEDS ORDERED: MAGNESIUM HYDROXIDE SUSP 30 ML CUP PO PRN (13:00)
[2017-02-07] MEDS ORDERED: LORazepam 1 MG TAB PO PRN (13:00)
[2017-02-07] MEDS ORDERED: ACETAMINOPHEN 325 MG TAB PO PRN (13:00)
[2017-02-07] MEDS ORDERED: DIVALPROEX SODIUM E.R. 250 MG TAB PO SCH (13:00)
[2017-02-07] MEDS ORDERED: LORazepam 0.5 MG TAB PO PRN (13:00)
[2017-02-07] MEDS ORDERED: ALUMINUM/MAGNESIUM/SIMETH 30 ML CUP PO PRN (13:00)
[2017-02-07] MEDS ORDERED: NICOTINE 21 MG/24 HR PATCH T-DERMAL SCH (13:00)
[2017-02-07] MEDS ORDERED: LORazepam 2 MG/ML VIAL IM PRN ×2 (13:00)
[2017-02-07] MEDS: FAMOTIDINE 20 MG TAB PO SCH ×2 (13:15→20:47)
[2017-02-07] MEDS: amLODIPine BESYLATE 5 MG TAB PO SCH (13:15)
[2017-02-07] MEDS: SULFAMETHOXAZOLE-TRIMETHOPRIM DS 800-160 MG TAB PO SCH ×2 (13:15→20:46)
[2017-02-07] MEDS: OXYBUTYNIN CHLORIDE 5 MG TAB PO SCH (13:15)
--- NOTE | 2017-02-07 13:25 | HHI.HP ---
Provisional Diagnosis Admission Date [place] I. Unspecified psychosis, dementia with behavioral disturbances, history of schizophrenia [place] II. Deferred [place] III. Hypothyroidism, hypertension, [place] IV. Previous psychiatric hospitalizations [place] V. 40 Certification of Person's Competence To Provide Express and Informed Consent I have personally examined Pam Foy , a person being served at [facility] on, February 07, 2017 12:58. Express and informed consent means consent voluntarily given in writing, by a competent person, after sufficient explanation and disclosure of the subject matter involved to enable the person to make a knowing and willful decision without any element of force, fraud, deceit, duress, or other form of constraint or coercion. This person is 18 years of age or older, is not now known to be incompetent to consent to treatment with a guardian advocate, and does not have a health care surrogate or proxy currently making medical treatment decisions. I have found this person to be one of the following: [] Competent to provide express and informed consent, as defined above, for voluntary admission to this facility and is competent to provide express and informed consent for treatment. He/she has the consistent capacity to make well reasoned, willful, and knowing decisions concerning his or her medical or mental health treatment. The person fully and consistently understands the purpose of the admission for examination/placement and is fully capable of personally exercising all rights [place] Incompetent to provide express and informed consent to voluntary admission, and this is incompetent to provide express and informed consent to treatment. The person must be transferred to involuntary status and a petition for a guardian advocate filed with the Circuit Court. [X] Refusing to provide express and informed consent to voluntary admission but is competent to provide express and informed consent for treatment. The person must be discharged or transferred to involuntary status. Form shall be completed within 24 hours of a person's arrival at the receiving facility and filed in the clinical record of each person: 1. Admitted on a voluntary basis 2. Permitted to provide express and informed consent to his/her own treatment 3. Allowed to transfer from involuntary to voluntary status 4. Prior to permitting a person to consent to his or her own treatment after having been previously found incompetent to consent to treatment. History of Present Illness Capacity: Has Capacity HPI The patient is a 71-year-old woman, domicile with her son and daughter -in-law in [place], , with psychiatric history of dementia, schizophrenia , previous psychiatric hospitalizations, last hospitalization was here at [facility] in November 2016, she was in the 2500 units under the care of Dr. Benjamin, she also spent some days in 4 E under my care, she was discharged on Risperdal 1 mg, Depakote 250 mg twice a day, Zoloft 50 mg, she has no history of previous suicidal attempts, medical history hypertension and hypothyroidism, who presents to the emergency department as a [place] act. As per ER report " According to the police affidavit the patient was placed under a [place] act after she made suicidal threats to her family. The patient does have a history of schizophrenia, the police were unsure if the patient has been taking her medications. The patient states she does live with her family, does have a history of schizophrenia, and has had suicidal ideations in the past. The patient denies any auditory hallucinations, however, states she had a visual hallucination earlier today where she saw a "dragging". The patient does have a history of alcohol abuse, quit drinking 6 months ago. The patient did recently fall and fracture her right shoulder which is currently in a sling, the patient states she is going to follow-up with an orthopedist, does not know the name". UA was positive for UTI, therefore, the patient was ordered 1 dose of Bactrim DS and will be prescribed Bactrim twice a day for 7 days. On psychiatric evaluation evaluation today patient is found calm, cooperative and pleasant. However, patient says that she wants to . Patient says that the reasons she wants to is because she has continues bad thoughts of harming herself and harming her family. She says "I prefer to be before harming my family, but I cannot avoid having those thoughts". Patient also says that she feels guilty and depressed "because I think I have AIDS and hepatitis C or B ". She says that the reason what she believes this is "I've been eating a lot of junk food that could be contaminated with AIDS and hepatitis". Patient says that she is sure that she might have a terminal illness. She explains that she hasn't had sex in many years "but I could be contaminated with AIDS from the food I and eating". Patient says that she feels hopeless, with low self-esteem , very guilty, with frequent crying spells, poor capacity to concentrate and suicidal ideation, but not specific plan. Patient also has some paranoia against her family member stating that they want her . Patient denies perceptual disturbances, such as visual and auditory hallucinations. Patient is oriented 3, with good attention span, good repetition, appropriate language , good capacity of recognition, but impaired attention, impaired recent and immediate recall and definitely perseverates in certain obsessive thoughts. Patient denies the use of illicit drugs such as cocaine, heroine, marijuana, PCP , also denies using alcohol. Review of Systems Constitutional: DENIES: Diaphoretic episodes, Fatigue, Fever, Weight gain, Weight loss, Chills, Dizziness, Change in appetite, Night Sweats Endocrine: DENIES: Abnorml menstrual pattern, Heat/cold intolerance, Polydipsia , Polyuria, Polyphagia Eyes: DENIES: Blurred vision, Diplopia, Eye inflammation, Eye pain, Vision loss , Photosensitivity, Double Vision Ears, nose, mouth, throat: DENIES: Tinnitus, Hearing loss, Vertigo, Nasal discharge, Oral lesions, Throat pain, Hoarseness, Ear Pain, Running Nose, Epistaxis, Sinus Pain, Toothache, Odynophagia Respiratory: DENIES: Apneas, Cough, Snoring, Wheezing, Hemoptysis, Sputum production, Shortness of breath Cardiovascular: DENIES: Chest pain, Palpitations, Syncope, Dyspnea on Exertion , PND, Lower Extremity Edema, Orthopnea, Claudication Gastrointestinal: DENIES: Abdominal pain, Black stools, Bloody stools, Constipation, Diarrhea, Nausea, Vomiting, Difficulty Swallowing, Anorexia Genitourinary: DENIES: Abnormal vaginal bleeding, Dysmenorrhea, Dyspareunia, Sexual dysfunction, Urinary frequency, Urinary incontinence, Urgency, Hematuria , Dysuria, Nocturia, Vaginal discharge Musculoskeletal: DENIES: Joint pain, Muscle aches, Stiffness, Joint Swelling, Back pain, Neck pain Integumentary: DENIES: Abnormal pigmentation, Pruritus, Rash, Nail changes, Breast masses, Breast skin changes, Nipple discharge Hematologic/lymphatic: DENIES: Bruising, Lymphadenopathy Immunologic/allergic: DENIES: Eczema, Urticaria Neurologic: DENIES: Abnormal gait, Headache, Localized weakness, Paresthesias, Seizures, Speech Problems, Tremor, Poor Balance Psychiatric: COMPLAINS OF: Suicidal Ideation, Delusions, DENIES: Anxiety, Confusion, Mood changes, Depression, Hallucinations, Agitation, Homicidal Ideation Past Psych History Violence risk - self (6 mos) Increased Substance Abuse History Drugs/Alcohol past 12 months Patient denies the use of illegal drugs and alcohol Past Family Social History Coded Allergies: Cipro (Verified Adverse Reaction, Intermediate, UNKNOWN, 02/06/17) Haldol (Verified Adverse Reaction, Intermediate, "FUNNY FEELING", 02/06/17) Keflex (Verified Adverse Reaction, Intermediate, RASH, 02/06/17) Active Scripts Sulfamethoxazole-Trimethoprim (Bactrim DS)800-160 Mg Tab1 Tab PO BID #14 TAB Ref 0 Prov:Vipul Yoon MD 02/06/17 Divalproex ER 250 Mg [id number] Mg PO 1 po am, 2 po hs #90 TAB Ref 0 Prov:Camilo Weaver MD 11/29/16 Sertraline (Zoloft)50 Mg Tab50 Mg PO DAILY #30 TAB Ref 0 Prov:Camilo Weaver MD 11/29/16 Oxybutynin (Ditropan)5 Mg Tab5 Mg PO DAILY #30 TAB Ref 0 Prov:Camilo Weaver MD 11/29/16 Levothyroxine (Synthroid)75 Mcg Tab75 Mcg PO DAILY@06 #30 TAB Ref 0 Prov:Camilo Weaver MD 11/29/16 Famotidine 20 Mg Tab20 Mg PO BID #30 TAB Ref 0 Prov:Camilo Weaver MD 11/29/16 Amlodipine (Norvasc)5 Mg Tab5 Mg PO DAILY #30 TAB Ref 0 Prov:Camilo Weaver MD 11/29/16 Donepezil (Aricept)10 Mg Tab10 Mg PO HS #30 TAB Ref 0 Prov:Camilo Weaver MD 11/29/16 Reported Medications Risperidone 1 Mg Tab1 Mg PO HS #30 TAB Ref 0 11/09/16 Divalproex ER 250 Mg [id number] Mg PO BID #30 TAB Ref 0 11/09/16 Discontinued Reported Medications Nutritional Supplements (Chase Oil)1 Cap Cap1,000 Mg PO BID 11/09/16 Divalproex Sprinkles (Depakote Sprinkles)125 mg [id number] Mg PO DAILY #60 CAP Ref 0 11/09/16 Donepezil Hydrochloride 5 Mg Tab10 Mg PO DAILY 11/09/16 Discontinued Scripts Risperidone (Risperdal)1 Mg Tab1 Mg PO DAILY #30 TAB Ref 0 Prov:Camilo Weaver MD 11/29/16 Risperidone (Risperdal)1 Mg Tab2 Mg PO HS #30 TAB Ref 0 Prov:Camilo Weaver MD 11/29/16 Nitrofurantoin Monohydrate Macrocrystals (Macrobid)100 Mg [id number] Mg PO BID #14 CAP Prov:Tiffany Orozco MD 11/12/16 Current Medications Medications (Trade) Dose Ordered Sig/Rylan Route Start Time Stop Time Status Last Admin (Norvasc) 5 mg DAILY PO 02/07/17 13:00 UNV (Depakote Er) 250 mg BID PO 02/07/17 13:00 (Depakote Er) 250 mg BID PO 02/07/17 13:00 UNV (Aricept) 10 mg HS PO 02/07/17 21:00 (Pepcid) 20 mg BID PO 02/07/17 13:00 UNV (Synthroid) 75 mcg DAILY@06 PO 02/08/17 06:00 UNV (Ditropan) 5 mg DAILY PO 02/07/17 14:00 (risperDAL) 1 mg HS PO 02/07/17 21:00 UNV (Zoloft) 50 mg DAILY PO 02/07/17 13:00 UNV (Bactrim Ds 800-160 Mg) 1 tab BID PO 02/07/17 13:00 UNV (Ativan) 1 mg Q6H PRN PO 02/07/17 13:00 UNV (Ativan Inj) 1 mg Q6H PRN IM 02/07/17 13:00 UNV (Ativan) 0.5 mg Q12H PRN PO 02/07/17 13:00 UNV (Ativan Inj) 0.5 mg Q12H PRN IM 02/07/17 13:00 UNV (Tylenol) 650 mg Q4H PRN PO 02/07/17 13:00 UNV (Milk Of Magnesia Liq) 30 ml DAILY PRN PO 02/07/17 13:00 UNV (Mag-Al Plus Susp Liq) 30 ml Q6H PRN PO 02/07/17 13:00 UNV (Habitrol 21 Mg Patch.24 Hr) 1 patch DAILY T-DERMAL 02/07/17 13:00 UNV Family History Patient denies psychiatric family history Social History Patient was born and raised in [place], she lives with son and [id number], she , retired, highest level of education is high school Patient's Strengths (min. 2) Family support Physical Exam On physical exam no agitation, no aggressive behavior, no psychomotor retardation, no EPS, no withdrawal symptoms, no stiffness, no tremors Vital Signs Vital Signs Date Time Temp Pulse Resp B/P Pulse Ox O2 Delivery O2 Flow Rate FiO2 02/07/17 08:31 99.2 77 16 133/68 94 02/06/17 21:21 Room Air Lab Results UA was positive for UTI, therefore, the patient was ordered 1 dose of Bactrim DS and will be prescribed Bactrim twice a day for 7 days. Valproic acid level 73 WBC 7.3, HTC 37, Hgb 13, NA 141, K3.9, BUN 17, creatinine 0.7, AST 18, ALT 16 Mental Status Examination Appearance Elderly woman, age appearing, good hygiene, [facility], she is calm, cooperative and pleasant Speech: Unremarkable Orientation: x3, Person, Place, Time Memory: Impaired (describe) Thought Process: Linear, Loose Association Thought Content: Bizarre thinking, Paranoid, Obsessions Language Fluent and spontaneous Fund of Knowledge Seems to be adequate for level of education Attention and Concentration: Good Suicidal Ideation: Yes Previous Suicide Attempts: No Homicidal Ideation: No Previous Homicide Attempts: No Insight: Poor Judgment: Poor Affect: Sad Mood: Sad Motor Activity: Normal gait Assessment & Plan Problem List: (1) Unspecified psychosis Assessment & Plan: The patient is a 71-year-old woman with psychiatric history of dementia, schizophrenia, previous psychiatric hospitalizations, last hospitalization was here at [facility] in November 2016, she was in the 2500 units under the care of Dr. Benjamin, she also spent some days in under my care, she was discharged on Risperdal 1 mg, Depakote 250 mg twice a day, Zoloft 50 mg, she has no history of previous suicidal attempts, medical history hypertension and hypothyroidism, who presents to the emergency department as a [place] act allegedly due to suicidal ideation, depression and homicidal ideation against her family. UA was positive for UTI, therefore, the patient was ordered 1 dose of Bactrim DS and will be prescribed Bactrim twice a day for 7 days. On psychiatric evaluation today patient reports active suicidal ideation, nonspecific plan, also reports depressive symptoms, consisting on hopelessness, helplessness, guiltiness, low appetite, poor sleep at night, low level of energy. Patient wishes to be , she does not have any specific plan. Patient also presents with pronounced somatic delusions of having AIDS and hepatitis which seems to contribute extensively with her depression and suicidality. She also seems to be paranoid against her family thinking that her family wants her . Patient is definitely shows cognitive impairment consistent with her underlying diagnosis of dementia. Due to the severity of her depression, persistent suicidality and in increased intensity of delusions patient represents a danger to herself at this moment and needs psychiatric admission for stabilization and safety. Will restart Risperdal 1 mg twice a day, Depakote 250 mg twice a day, and Zoloft 50 mg daily. Depakote levels of 73 shows the patient apparently has been compliant with her medications. Will consult psychiatry for second opinion in hospital is to continue medical treatment in psychiatric floor. Appropriate safety measure will be taken. Extensive support, motivation psycho education provided. Collateral information is is still pending. ICD Code: F29 Assessment & Plan Estimated LOS: Nain Bautista MD February 07, 2017 13:25
[2017-02-07] MEDS: SERTRALINE HCL 50 MG TAB PO SCH (13:30)
[2017-02-07] MEDS: DIVALPROEX SODIUM E.R. 250 MG TAB PO SCH ×2 (13:30→20:46)
[2017-02-07 13:40] VITALS: BP 146/78; PULSE 80; RESP 20; TEMP 98.8; O2SAT 94
[2017-02-07 17:36] VITALS: BP 155/69; PULSE 88; RESP 18; TEMP 97.8; O2SAT 94
[2017-02-07 19:38] VITALS: BP 139/66; PULSE 83; RESP 16; TEMP 98; O2SAT 94
--- NOTE | 2017-02-07 20:10 | MB ---
cc: SURI HAIR DATE OF CONSULTATION 02/07/2017 DATE OF 1945 DATE OF ADMISSION 02/06/2017 ADMISSION PHYSICIAN Psychiatrist, Dr. Peterson. CONSULTING PHYSICIAN Dr. Suri Hair. REASON FOR CONSULTATION Assist in medical management. HISTORY OF THE PRESENT ILLNESS The patient is a pleasant 61-year-old female with a significant past medical history of hypertension, hypothyroidism who was brought to the ER under [place] Act. The patient had suicidal ideation. The patient has a history of bipolar disorder and schizophrenia. The patient was seen by psychiatrist and psychiatrist admitted her to the psychiatric unit. For medical management we were consulted. The patient was seen in the ER with the ER nurse. The patient is unable to give me a good history. She is not a good historian. As per documentation she was hallucinating. She quit drinking about 6 months ago. She denies any headache, dizziness, nausea, vomiting, chest pain, diaphoresis, palpitations. The patient denies any abdominal pain. The patient has no genitourinary symptoms. The patient is lying comfortably on bed without any apparent distress. PAST MEDICAL HISTORY 1. Hypertension. 2. Hypothyroidism. 3. And from medication record seems like the patient has dementia. 4. Bipolar disorder. 5. Schizophrenia. ALLERGIES THE PATIENT HAS ALLERGY TO CIPRO, HALDOL AND KEFLEX. REVIEW OF SYSTEMS As described above in the history of present illness. Otherwise negative for 10 systems. SOCIAL HISTORY The patient quit smoking about six months ago. Used to smoke one pack per day. Does not drink. Does not do any drugs. FAMILY HISTORY Unable to get from the patient. PHYSICAL EXAMINATION GENERAL: The patient is alert, awake, not a good historian, seems like oriented to person, not sure about the place, but seems like oriented x3 VITAL SIGNS: Show the patient is afebrile, pulse is 88. Respiratory rate 20, blood pressure 146/78, pulse ox of 94% on room air. HEENT: Head is normocephalic. Eyes negative conjunctival icterus. Mouth unremarkable. NECK: Supple. No increased JVD. Negative thyromegaly. Central trachea. LUNGS: Chest clear to auscultation. CARDIOVASCULAR: S1-S2 audible. Unable to hear any S3 gallop. ABDOMEN: Soft, nontender, no organomegaly. Positive bowel sounds. MUSCULOSKELETAL: Extremities, no cyanosis or pedal edema appreciated. CENTRAL NERVOUS SYSTEM: Normal facial features. Moving all her extremities. LABORATORY DATA Investigations, white blood cell count, hemoglobin, hematocrit and platelet count within normal limits. BMP shows GFR 79 and random glucose 118, otherwise within normal limits. Liver function tests within normal limits. Urine shows ketone trace, occult blood trace, urine leukocyte esterase moderate, rbc's 5, wbc's 11, white blood cell clumps rare. Calcium oxylate crystals rare. Urine bacteria rare. Urine mucus many. Urine drug screen is negative. Valproic acid level is 73. ASSESSMENT 1. Psychiatric issue, bipolar disorder, schizophrenia with suicidal ideation under [place] act. 2. Hypertension. 3. Hypothyroidism. 4. Seems like dementia, early. 5. Urinary tract infection. RECOMMENDATIONS 1. Continue home medications as indicated. 2. Psych therapy and management as per psychiatrist. 3. Antibiotic for UTI. 4. Follow cultures. 5. Discussed with the patient. 6. Discussed with RN. Thank you Dr. Peterson for the consultation. We will follow with you. Suri Hair MD JP/KK /4:14 PM /7:45 PM
[2017-02-07] MEDS: DONEPEZIL HCL 5 MG TAB PO SCH (20:47)
[2017-02-07] MEDS: risperiDONE 1 MG TAB PO SCH (20:47)
[2017-02-08] MEDS: LEVOTHYROXINE SODIUM 75 MCG TAB PO SCH (05:33)
[2017-02-08 06:21] VITALS: BP 157/64; PULSE 94; RESP 16; TEMP 97.7; O2SAT 94
[2017-02-08 08:02] LABS: ANION GAP 10 MEQ/L (5-15); BLOOD UREA NITROGEN 17 MG/DL (7-18); CHLORIDE 99 MEQ/L (98-107); GLOMERULAR FILTRATION RATE 87 ML/MIN (>89); POTASSIUM 3.7 MEQ/L (3.5-5.1); SODIUM (NA) 136 MEQ/L (136-145)
[2017-02-08 08:05] LABS: HDL CHOLESTEROL 59.5 MG/DL (40.0-60.0); LDL CHOLESTEROL 59 MG/DL (0-99)
[2017-02-08] MEDS: FAMOTIDINE 20 MG TAB PO SCH ×2 (09:00→20:05)
[2017-02-08] MEDS: SERTRALINE HCL 50 MG TAB PO SCH (09:00)
[2017-02-08] MEDS: DIVALPROEX SODIUM E.R. 250 MG TAB PO SCH ×2 (09:00→20:05)
[2017-02-08] MEDS: amLODIPine BESYLATE 5 MG TAB PO SCH (09:00)
[2017-02-08] MEDS: SULFAMETHOXAZOLE-TRIMETHOPRIM DS 800-160 MG TAB PO SCH ×2 (09:00→20:05)
[2017-02-08] MEDS: OXYBUTYNIN CHLORIDE 5 MG TAB PO SCH (09:00)
[2017-02-08 11:30] VITALS: BP 117/56; PULSE 70; RESP 18; TEMP 98.2; O2SAT 95
--- NOTE | 2017-02-08 11:34 | PD.CONS ---
Provisional Diagnosis Admission Date February 07, 2017 at 16:58 [place] I. 1. Unspecified psychosis Rule out some degree of neurocognitive impairment or delirium Marinette II. Deferred Marinette V. GAF is 35 presently History of Present Illness Service Psychiatry Consult Requested By Dr. Peterson Reason for Consult Second opinion for involuntary psychiatric hospitalization Primary Care Physician Corona Hernandez M.D. HPI From Dr. Peterson's H&P: The patient is a 71-year-old woman, domicile with her son and daughter -in-law in [place], , with psychiatric history of dementia, schizophrenia , previous psychiatric hospitalizations, last hospitalization was here at [facility] in November 2016, she was in the 2500 units under the care of Dr. Benjamin, she also spent some days in 4 E under my care, she was discharged on Risperdal 1 mg, Depakote 250 mg twice a day, Zoloft 50 mg, she has no history of previous suicidal attempts, medical history hypertension and hypothyroidism, who presents to the emergency department as a Munroe act. As per ER report "According to the police affidavit the patient was placed under a Munroe act after she made suicidal threats to her family. The patient does have a history of schizophrenia, the police were unsure if the patient has been taking her medications. The patient states she does live with her family, does have a history of schizophrenia, and has had suicidal ideations in the past. The patient denies any auditory hallucinations, however, states she had a visual hallucination earlier today where she saw a "dragging". The patient does have a history of alcohol abuse, quit drinking 6 months ago. The patient did recently fall and fracture her right shoulder which is currently in a sling, the patient states she is going to follow-up with an orthopedist, does not know the name". UA was positive for UTI, therefore, the patient was ordered 1 dose of Bactrim DS and will be prescribed Bactrim twice a day for 7 days. On psychiatric evaluation evaluation today patient is found calm, cooperative and pleasant. However, patient says that she wants to . Patient says that the reasons she wants to is because she has continues bad thoughts of harming herself and harming her family. She says "I prefer to be before harming my family, but I cannot avoid having those thoughts". Patient also says that she feels guilty and depressed "because I think I have AIDS and hepatitis C or B ". She says that the reason what she believes this is "I've been eating a lot of junk food that could be contaminated with AIDS and hepatitis". Patient says that she is sure that she might have a terminal illness. She explains that she hasn't had sex in many years "but I could be contaminated with AIDS from the food I and eating". Patient says that she feels hopeless, with low self-esteem , very guilty, with frequent crying spells, poor capacity to concentrate and suicidal ideation, but not specific plan. Patient also has some paranoia against her family member stating that they want her . Patient denies perceptual disturbances, such as visual and auditory hallucinations. Patient is oriented 3, with good attention span, good repetition, appropriate language , good capacity of recognition, but impaired attention, impaired recent and immediate recall and definitely perseverates in certain obsessive thoughts. Patient denies the use of illicit drugs such as cocaine, heroine, marijuana, PCP , also denies using alcohol. On my examination today: Patient seen and examined. Chart reviewed. Case discussed with nursing staff. On my examination today, the patient presents with some word finding difficulty. She seems fairly confused. See full mental status testing below. She initially denies audiovisual hallucinations but appears internally stimulated and subsequently reports some sort of visual phenomena. She does report that she has "been having bad thoughts" regarding suicide. Affect is somewhat restricted and dysphoric. She is somewhat negativistic. Thought process somewhat disorganized. The remainder of the psychiatric ROS is negative. Past psychiatric history: Patient reports a history of Alzheimer's disease. She reports that she was hospitalized here at [facility] in 1976 and received 5 ECT treatments at that time. Family history: Patient alludes to some sort of family history but cannot say what. Chemical dependency history: Patient is unsure if she has a history of abuse of drugs or alcohol. Social history: Patient is unable to provide any meaningful social history, perhaps as a result of her current cognitive impairment or psychotic symptomatology. Review of Systems ROS Limitations: Psychotic, Poor Historian Except as stated in HPI: all other systems reviewed are Neg Past Family Social History Coded Allergies: Cipro (Verified Adverse Reaction, Intermediate, UNKNOWN, 02/06/17) Haldol (Verified Adverse Reaction, Intermediate, "FUNNY FEELING", 02/06/17) Keflex (Verified Adverse Reaction, Intermediate, RASH, 02/06/17) Past Medical History See electronic medical record Active Scripts Sulfamethoxazole-Trimethoprim (Bactrim DS)800-160 Mg Tab1 Tab PO BID #14 TAB Ref 0 Prov:Vipul Yoon MD 02/06/17 Divalproex ER 250 Mg [id number] Mg PO 1 po am, 2 po hs #90 TAB Ref 0 Prov:Camilo Weaver MD 11/29/16 Sertraline (Zoloft)50 Mg Tab50 Mg PO DAILY #30 TAB Ref 0 Prov:Camilo Weaver MD 11/29/16 Oxybutynin (Ditropan)5 Mg Tab5 Mg PO DAILY #30 TAB Ref 0 Prov:Camilo Weaver MD 11/29/16 Levothyroxine (Synthroid)75 Mcg Tab75 Mcg PO DAILY@06 #30 TAB Ref 0 Prov:Camilo Weaver MD 11/29/16 Famotidine 20 Mg Tab20 Mg PO BID #30 TAB Ref 0 Prov:Camilo Weaver MD 11/29/16 Amlodipine (Norvasc)5 Mg Tab5 Mg PO DAILY #30 TAB Ref 0 Prov:Camilo Weaver MD 11/29/16 Donepezil (Aricept)10 Mg Tab10 Mg PO HS #30 TAB Ref 0 Prov:Camilo Weaver MD 11/29/16 Reported Medications Risperidone 1 Mg Tab1 Mg PO HS #30 TAB Ref 0 11/09/16 Divalproex ER 250 Mg [id number] Mg PO BID #30 TAB Ref 0 11/09/16 Discontinued Reported Medications Nutritional Supplements (Iona Oil)1 Cap Cap1,000 Mg PO BID 11/09/16 Divalproex Sprinkles (Depakote Sprinkles)125 mg [id number] Mg PO DAILY #60 CAP Ref 0 11/09/16 Donepezil Hydrochloride 5 Mg Tab10 Mg PO DAILY 11/09/16 Discontinued Scripts Risperidone (Risperdal)1 Mg Tab1 Mg PO DAILY #30 TAB Ref 0 Prov:Camilo Weaver MD 11/29/16 Risperidone (Risperdal)1 Mg Tab2 Mg PO HS #30 TAB Ref 0 Prov:Camilo Weaver MD 11/29/16 Nitrofurantoin Monohydrate Macrocrystals (Macrobid)100 Mg [id number] Mg PO BID #14 CAP Prov:Tiffany Orozco MD 11/12/16 Current Medications Medications (Trade) Dose Ordered Sig/Rylan Route Start Time Stop Time Status Last Admin (Norvasc) 5 mg DAILY PO 02/07/17 14:00 02/08/17 09:00 (Depakote Er) 250 mg BID PO 02/07/17 13:00 02/08/17 09:00 (Aricept) 10 mg HS PO 02/07/17 21:00 02/07/17 20:47 (Pepcid) 20 mg BID PO 02/07/17 14:00 02/08/17 09:00 (Synthroid) 75 mcg DAILY@06 PO 02/08/17 06:00 02/08/17 05:33 (Ditropan) 5 mg DAILY PO 02/07/17 14:00 02/08/17 09:00 (risperDAL) 1 mg HS PO 02/07/17 21:00 02/07/17 20:47 (Zoloft) 50 mg DAILY PO 02/07/17 14:00 02/08/17 09:00 (Bactrim Ds 800-160 Mg) 1 tab BID PO 02/07/17 13:15 02/08/17 09:00 (Ativan) 1 mg Q6H PRN PO 02/07/17 13:00 02/08/17 02:05 (Ativan Inj) 1 mg Q6H PRN IM 02/07/17 13:00 (Tylenol) 650 mg Q4H PRN PO 02/07/17 13:00 (Milk Of Magnesia Liq) 30 ml DAILY PRN PO 02/07/17 13:00 (Mag-Al Plus Susp Liq) 30 ml Q6H PRN PO 02/07/17 13:00 Patient's Strengths (min. 2) In a monitored setting. Retains some verbal fluency. Physical Exam Physical examination completed by hospitalist medical social consultant. On my examination today, the patient has recently taken a fall. She has no particular complaints of pain. She appears to be in no acute physical distress. No motor abnormalities noted. Labs and vital signs reviewed: Vital Signs Vital Signs Date Time Temp Pulse Resp B/P Pulse Ox O2 Delivery O2 Flow Rate FiO2 02/08/17 06:21 97.7 94 16 157/64 94 02/06/17 21:21 Room Air I/O 02/07/17 02/07/17 02/08/17 08:00 16:00 00:00 Intake Total 840 ml Balance 840 ml Lab Results Item Value Date Time White Blood Count 7.3 TH/MM3 02/06/172139 Hemoglobin 13.0 GM/DL 02/06/172139 Platelet Count 256 TH/MM3 02/06/172139 Sodium Level 136 MEQ/L 02/08/17 06 Potassium Level 3.7 MEQ/L 02/08/17624 Chloride Level 99 MEQ/L 02/08/17 06 Carbon Dioxide Level 27.0 MEQ/L 02/08/17624 Blood Urea Nitrogen 17 MG/DL 02/08/1725 Creatinine 0.67 MG/DL 02/08/17624 Aspartate Amino Transf (AST/SGOT) 18 U/L 02/06/172139 Alanine Aminotransferase (ALT/SGPT) 16 U/L 02/06/172139 Alkaline Phosphatase 65 U/L 02/06/172139 Valproic Acid (Depakene) Level 73 MCG/ML 02/06/172139 Urine toxicology negative. Urinalysis concerning for UTI and urine culture is growing out Viridans group streptococcus. Mental Status Examination Patient is in hospital wn. She is somewhat disheveled but appears to be maintaining basic hygiene. She is awake and alert and oriented to person, place and date. Her registration is 0 out of 3 in her recall is 0 out of 3 at 3 minutes. She is unable to name items, nor can she repeat a phrase. She can either spell the word world forward or backwards. No motor abnormalities noted. Speech is somewhat halting and the patient seems to have word finding difficulties. Language and fund of knowledge are perhaps somewhat reduced for age as is memory. Mood and affect are somewhat restricted and dysphoric. Thought process somewhat disorganized. Associations somewhat loose. No lisa delusions. She also reports vague visual phenomena. No other hallucinations noted. The patient does endorse having intrusive thoughts about suicide. No homicidal ideation. She seems unreliable to contract for safety. Insight and judgment are poor. Assessment & Plan Problem List: (1) Unspecified psychosis ICD Code: F29 Assessment & Plan Given the circumstances of patient's presentation here and her presentation on my examination today, I concur with Dr. Peterson that the patient meets criteria for involuntary psychiatric hospitalization under the Munroe act. I've completed second opinion paperwork. Further care as per Dr. Peterson. Thank you very much for this consultation. Signing off. Lee Benjamin MD February 08, 2017 11:34
[2017-02-08 12:30] VITALS: BP 172/81; PULSE 92; RESP 18; TEMP 97.7; O2SAT 95
--- NOTE | 2017-02-08 13:28 | HHI.PYPN ---
Subjective Remarks Patient was seen today for psychiatric evaluation along with renal social worker Nadine, nurse Nimco, patient was alert, awake, but quite confused and labile, with are periods of lucidity, patient does not remember the reason of her hospitalization today, she reports good mood, she says she is happy, she has been compliant with medications, no aggressive behavior or agitation reported. Review of Systems Other No somatic complaints Objective Alert: Yes [place]: Person Mood: Anxious Affect: Flat, Other Memory Intact: Comment (no formerly assessed) Hallucinations: Other (denies) Delusions: No Delusion Type: Other (not elicited) Suicidal: Ideation (patient denies) Homicidal: Ideation (patient denies) Insight/Judgment Poor Labs Test 02/08/17 06:25 Sodium Level 136 MEQ/L Potassium Level 3.7 MEQ/L Chloride Level 99 MEQ/L Carbon Dioxide Level 27.0 MEQ/L Anion Gap 10 MEQ/L Blood Urea Nitrogen 17 MG/DL Creatinine 0.67 MG/DL Estimat Glomerular Filtration 87 ML/MIN Rate Random Glucose 98 MG/DL Calcium Level 8.8 MG/DL Triglycerides Level 149 MG/DL Cholesterol Level 148 MG/DL LDL Cholesterol 59 MG/DL HDL Cholesterol 59.5 MG/DL Cholesterol/HDL Ratio 2.48 RATIO Date/Time Procedure Status Source Growth 02/06/17 22:10 Urine Culture - Final Complete Urine Clean Catch Viridans Streptococcus Grp Vitals/IOs Vital Signs Date Time Temp Pulse Resp B/P Pulse Ox O2 Delivery O2 Flow Rate FiO2 02/08/17 12:30 97.7 92 18 172/81 95 02/06/17 21:21 Room Air Intake and Output 02/07/17 02/07/17 02/07/17 07:59 15:59 23:59 Intake Total 840 ml Balance 840 ml Assessment & Plan Problem List: (1) Unspecified psychosis Assessment & Plan: Patient seems to be confused today, with periodic lucidity, attention deficit, which is not part of patient baseline. My opinion patient could be delirious, most probably due to underlying UTI. We will coordinate further work up with medical team. Continue current psychotropics. ICD Code: F29 Assessment & Plan Estimated LOS: days Justification for Cont. Inpt. Patient is to continue psychiatric hospitalization for stabilization of mental status, suicidal ideation Nain Peterson MD February 08, 2017 13:28
[2017-02-08 13:30] VITALS: BP 139/62; PULSE 71; RESP 20; TEMP 97.7; O2SAT 94
--- NOTE | 2017-02-08 15:35 | HHI.PR ---
Subjective Remarks Patient is pleasant Sitting on a recliner Complaint of fall in bathroom today urine she landed on left side. No pain at present. No nausea vomiting. No abdominal pain. Review of system for 10 point system otherwise unremarkable As per RN she did take few steps after fall. Without any problem. Objective Objective Results - Vital Signs Date Time Temp Pulse Resp B/P Pulse Ox O2 Delivery O2 Flow Rate FiO2 02/08/17 13:30 97.7 71 20 139/62 94 02/08/17 12:30 97.7 92 18 172/81 95 02/08/17 11:30 98.2 70 18 117/56 95 02/08/17 06:21 97.7 94 16 157/64 94 02/07/17 19:38 98.0 83 16 139/66 94 02/07/17 17:36 97.8 88 18 155/69 94 I/O 02/07/17 02/07/17 02/07/17 02/08/17 02/08/17 02/08/17 07:00 15:00 23:00 07:00 15:00 23:00 Intake Total 960 ml 120 ml Balance 960 ml 120 ml Intake Oral 960 ml 120 ml # Voids 1 8 Result Diagram: 02/06/17 2140 02/08/17 0625 Other Results Laboratory Tests Test 02/08/17 06:25 Sodium Level 136 Potassium Level 3.7 Chloride Level 99 Carbon Dioxide Level 27.0 Anion Gap 10 Blood Urea Nitrogen 17 Creatinine 0.67 Estimat Glomerular Filtration 87 Rate Random Glucose 98 Calcium Level 8.8 Triglycerides Level 149 Cholesterol Level 148 LDL Cholesterol 59 HDL Cholesterol 59.5 Cholesterol/HDL Ratio 2.48 Date/Time Procedure Status Source Growth 02/06/17 22:10 Urine Culture - Final Complete Urine Clean Catch Viridans Streptococcus Grp Physical Exam Physical Exam GENERAL: The patient is alert, awake, not a good historian, seems like oriented to person, not sure about the place, but seems like oriented x3 VITAL SIGNS: Reviewed HEENT: Head is normocephalic. Eyes negative conjunctival icterus. Mouth unremarkable. NECK: Supple. No increased JVD. Negative thyromegaly. Central trachea. LUNGS: Chest clear to auscultation. CARDIOVASCULAR: S1-S2 audible. Unable to hear any S3 gallop. ABDOMEN: Soft, nontender, no organomegaly. Positive bowel sounds. MUSCULOSKELETAL: Extremities, no cyanosis or pedal edema appreciated. Nontender all lower extremity joints. CENTRAL NERVOUS SYSTEM: Normal facial features. Moving all her extremities. A/P Assessment and Plan 1. Psychiatric issue, bipolar disorder, schizophrenia with suicidal ideation under Munroe act. 2. Hypertension. 3. Hypothyroidism. 4. Seems like dementia, early. 5. Urinary tract infection. RECOMMENDATIONS Continue home medications as indicated. Psych therapy and management as per psychiatrist. Antibiotics for UTI. Follow cultures. Physical therapy Discussed with the patient. Discussed with RN. Moose Hair MD February 08, 2017 15:35
[2017-02-08 16:40] LABS: HEMOGLOBIN A1a 0.9 %; HEMOGLOBIN A1b 1.5 %; HEMOGLOBIN Ao 86.7 %; HEMOGLOBIN P3 4.9 %
[2017-02-08 17:03] VITALS: BP 135/61; PULSE 86; RESP 20; TEMP 98; O2SAT 91
[2017-02-08] MEDS: risperiDONE 1 MG TAB PO SCH (20:05)
[2017-02-08] MEDS: DONEPEZIL HCL 5 MG TAB PO SCH (20:06)
[2017-02-08 20:16] VITALS: BP 132/60; PULSE 86; RESP 18; TEMP 97.7; O2SAT 98
[2017-02-09] MEDS: LEVOTHYROXINE SODIUM 75 MCG TAB PO SCH (05:46)
[2017-02-09 05:54] VITALS: BP 155/69; PULSE 80; RESP 16; TEMP 98.1; O2SAT 95
[2017-02-09] MEDS: OXYBUTYNIN CHLORIDE 5 MG TAB PO SCH (08:34)
[2017-02-09] MEDS: DIVALPROEX SODIUM E.R. 250 MG TAB PO SCH (08:34)
[2017-02-09] MEDS: SERTRALINE HCL 50 MG TAB PO SCH (08:34)
[2017-02-09] MEDS: SULFAMETHOXAZOLE-TRIMETHOPRIM DS 800-160 MG TAB PO SCH (08:34)
[2017-02-09] MEDS: FAMOTIDINE 20 MG TAB PO SCH (08:35)
[2017-02-09] MEDS: amLODIPine BESYLATE 5 MG TAB PO SCH (08:35)
[2017-02-09 08:59] LABS: BICARBONATE 25.1 MEQ/L (21.0-32.0); POTASSIUM 4.1 MEQ/L (3.5-5.1)
--- NOTE | 2017-02-09 09:22 | HHI.PR ---
Subjective Remarks Patient is pleasant Sitting on a recliner Has some ache on the left hip area and also some ache on the right upper extremity pointing to shoulder joint No pain at present. No nausea vomiting. No abdominal pain. Review of system for 10 point system otherwise unremarkable As per RN she did take few steps today. Objective Objective Results - Vital Signs Date Time Temp Pulse Resp B/P Pulse Ox O2 Delivery O2 Flow Rate FiO2 02/09/17 05:54 98.1 80 16 155/69 95 02/08/17 20:16 97.7 86 18 132/60 98 02/08/17 17:03 98.0 86 20 135/61 91 02/08/17 13:30 97.7 71 20 139/62 94 02/08/17 12:30 97.7 92 18 172/81 95 02/08/17 11:30 98.2 70 18 117/56 95 I/O 02/08/17 02/08/17 02/08/17 02/09/17 02/09/17 02/09/17 07:00 15:00 23:00 07:00 15:00 23:00 Intake Total 960 ml 120 ml 410 ml Balance 960 ml 120 ml 410 ml Intake Oral 960 ml 120 ml 410 ml # Voids 8 1 Result Diagram: 02/06/17 2140 02/09/17 0740 Other Results Laboratory Tests Test 02/09/17 07:40 Sodium Level 133 Potassium Level 4.1 Chloride Level 97 Carbon Dioxide Level 25.1 Anion Gap 11 Blood Urea Nitrogen 23 Creatinine 0.70 Estimat Glomerular Filtration 83 Rate Random Glucose 108 Calcium Level 8.8 Date/Time Procedure Status Source Growth 02/06/17 22:10 Urine Culture - Final Complete Urine Clean Catch Viridans Streptococcus Grp Physical Exam Physical Exam GENERAL: The patient is alert, awake, oriented 3 VITAL SIGNS: Reviewed HEENT: Head is normocephalic. Eyes negative conjunctival icterus. Mouth unremarkable. NECK: Supple. No increased JVD. Negative thyromegaly. Central trachea. LUNGS: Chest clear to auscultation. CARDIOVASCULAR: S1-S2 audible. Unable to hear any S3 gallop. ABDOMEN: Soft, nontender, no organomegaly. Positive bowel sounds. MUSCULOSKELETAL: Extremities, no cyanosis or pedal edema appreciated. Nontender left lower activity joints. Some tenderness of the right shoulder area CENTRAL NERVOUS SYSTEM: Normal facial features. Moving all her extremities. A/P Assessment and Plan 1. Psychiatric issue, bipolar disorder, schizophrenia with suicidal ideation under Mun[place] act. 2. Hypertension. 3. Hypothyroidism. 4. Seems like dementia, early. 5. Urinary tract infection. RECOMMENDATIONS Continue home medications as indicated. Psych therapy and management as per psychiatrist. Discussed with psychiatrist Antibiotics for UTI. Plan for pelvic x-ray and left hip x-ray and also right shoulder x-ray Urine cultures report reviewed. Physical therapy Discussed with the patient. Discussed with RN. Moose Hair MD February 09, 2017 09:22
--- NOTE | 2017-02-09 10:58 | HHI.PYPN ---
Subjective Remarks Patient seen today for psychiatric evaluation, patient continues to be kind of confused, with slow thought processes, reports depression, low energy, decreased appetite, ambivalent suicidal ideation. Patient is oriented 3, with difficulty sustaining attention. No agitation or aggressive. He reported. Patient is compliant with medications.. Review of Systems Other No somatic complaints Objective Alert: Yes [place]: Person Mood: Anxious Affect: Flat, Other Memory Intact: Comment (no formerly assessed) Hallucinations: Other (denies) Delusions: No Delusion Type: Other (not elicited) Suicidal: Ideation (ambivalent suicidal ideation, no plan) Homicidal: Ideation (patient denies) Insight/Judgment Poor Labs Test 02/09/17 07:40 Sodium Level 133 MEQ/L Potassium Level 4.1 MEQ/L Chloride Level 97 MEQ/L Carbon Dioxide Level 25.1 MEQ/L Anion Gap 11 MEQ/L Blood Urea Nitrogen 23 MG/DL Creatinine 0.70 MG/DL Estimat Glomerular Filtration 83 ML/MIN Rate Random Glucose 108 MG/DL Calcium Level 8.8 MG/DL Date/Time Procedure Status Source Growth 02/06/17 22:10 Urine Culture - Final Complete Urine Clean Catch Viridans Streptococcus Grp Vitals/IOs Vital Signs Date Time Temp Pulse Resp B/P Pulse Ox O2 Delivery O2 Flow Rate FiO2 02/09/17 05:54 98.1 80 16 155/69 95 02/06/17 21:21 Room Air Intake and Output 02/08/17 02/08/17 02/09/17 08:00 16:00 00:00 Intake Total 120 ml 120 ml 360 ml Balance 120 ml 120 ml 360 ml Assessment & Plan Problem List: (1) Unspecified psychosis Assessment & Plan: We will increase Zoloft to 100 mg for depression, extensive psycho education, supportive motivation provided. Engage patient in physical activities. ICD Code: F29 Assessment & Plan Estimated LOS: days Justification for Cont. Inpt. Patient will decompensate at a lower level of care. Nain Peterson MD February 09, 2017 10:58
[2017-02-09] MEDS ORDERED: PHENYLEPH/NS 1000 MCG/10 ML SYR IV ONE (12:00)
[2017-02-09] MEDS ORDERED: NEOSTIGMINE 3 MG/3 ML SYR IV ONE (12:00)
[2017-02-09] MEDS ORDERED: PROPOFOL 200 MG/20 ML AMP IV ONE (12:00)
[2017-02-09] MEDS ORDERED: SODIUM CHLOR 0.9% 250 ML INJ 250 ML IV ONE (12:00)
[2017-02-09] MEDS ORDERED: ONDANSETRON HCL 4 MG/2 ML VIAL IV PUSH ONE (12:00)
--- NOTE | 2017-02-09 12:18 | RADRPT ---
EXAM DATE/TIME: 02/09/2017 11:44 [facility] COMPARISON: No previous studies available for comparison. INDICATIONS : Patient fell pain in left hip MEDICAL HISTORY : Hypertension. SURGICAL HISTORY : Hysterectomy. ENCOUNTER: Initial ACUITY: 1 day PAIN SCORE: 5/10 LOCATION: Left Hip FINDINGS: There is basi cervical fracture of the left femoral neck. The left hemipelvis is intact. CONCLUSION: Femoral neck fracture. Luca May MD FACR on February 09, 2017 at 12:15 Board Certified Radiologist. This report was verified electronically.
--- NOTE | 2017-02-09 12:28 | RADRPT ---
EXAM DATE/TIME: 02/09/2017 11:44 [facility] COMPARISON: No previous studies available for comparison. INDICATIONS : Patient fell MEDICAL HISTORY : Hypertension. SURGICAL HISTORY : Hysterectomy. ENCOUNTER: Initial ACUITY: 3 days PAIN SCORE: 5/10 LOCATION: Right Shoulder FINDINGS: There is a fracture of the surgical neck of humerus with at least two parts evident. The glenoid is intact. Acromion is intact. CONCLUSION: Humeral head fracture. Luca May MD FACR on February 09, 2017 at 12:15 Board Certified Radiologist. This report was verified electronically.
--- NOTE | 2017-02-09 15:08 | MB ---
cc: RONEL BELL DATE OF CONSULTATION: 02/09/2017. REASON FOR CONSULTATION: Left hip fracture and right shoulder fracture. HISTORY OF PRESENT ILLNESS: I obtained the history from a combination of reviewing multiple different notes from different physicians and talking to the patient and also talking to her son, Ronel, on the phone. According to her son, the patient has had two falls. She had a fall about five days ago where she sustained a shoulder fracture and then she had a fall yesterday where she injured the left hip. The patient is currently admitted as a [place] Act on the psychiatric unit. The patient does describe pain around the left hip and pain about the right shoulder but on further asking, she starts to divert into other topics such as the blinds that are covering the windows. The patient has a medical history positive for: 1. Hypertension. 2. Hypothyroidism. 3. She was [place] Acted for suicidal ideation. 4. She has a history of bipolar disease and schizophrenia. The patient previously drank but then quit six months ago. I do not know the reason for her frequent falls. PAST MEDICAL HISTORY: Her medical history is as above. 1. She has a history of dementia as well. ALLERGIES: 1. CIPRO. 2. HALDOL. 3. KEFLEX. REVIEW OF SYSTEMS: I cannot obtain an accurate twelve-point review of systems at this time due to her psychiatric disease and dementia. SOCIAL HISTORY: The patient quit smoking six months ago. She previously smoked one pack per day. She does not drink. PHYSICAL EXAMINATION: GENERAL: The patient is alert and oriented for part of the time but then drifts off during conversation showing signs of a dementia. She is not a good historian. She does not appear to have normal insight. Her affect is normal. Judgment is impaired. VITAL SIGNS: The patient's vital signs show a temperature of 98.1, pulse is 80, respirations 16, blood pressure 155/69. HEAD, EYES, EARS, NOSE, THROAT: Her head is atraumatic. Oropharynx is moist. NECK: Neck is supple. UPPER EXTREMITIES: Her right shoulder is currently in a sling and swath, although it is malpositioned. She has no tenderness about the right elbow or wrist. HEART: Regular rate and rhythm. LUNGS: Clear to auscultation bilaterally. ABDOMEN: The abdomen is soft, nontender and nondistended. BACK: Shows no CVA tenderness. The left hip shows pain with any motion. Left hip has no wounds noted. She can actually move the toes on both feet. She has 2+ dorsalis pedis pulse on the left foot. She has no swelling about the left calf. The left upper extremity is good active range of motion. The right lower extremity has good range of motion actively. IMAGING STUDIES: Imaging, both are from today. I reviewed the report for the hip but there is no report for the shoulder noted. It shows the patient has a left hip displaced femoral neck fracture with varus alignment and significant displacement of her left femoral neck fracture. There is an x-ray of the right shoulder, which shows a fracture of the surgical neck with some impaction and some mild comminution. IMPRESSION: 1. Left hip displaced femoral neck fracture. 2. Right shoulder impacted surgical neck fracture. 3. History of schizophrenia. 4. Bipolar. 5. Dementia. DECISION-MAKING: This is a highly complex situation from multiple different factors. The patient has a severe injury to the left hip, which requires urgent surgical management. Otherwise, the patient will likely be unable to ambulate, which can lead to serious medical complications such as bed sores, pneumonia and . This is compounded upon the fact that she has a significant fracture to the right shoulder. My initial thought is to treat the shoulder nonoperatively with sling and swath; however, she would need to be followed closely to make sure there is no displacement as she may potentially have significant malfunction and problems long-term with the shoulder. She has significant displacement at this point. If left nonoperatively, she would likely have some loss of range of motion but this may be acceptable. The patient did not make her own medical decisions. I contacted the patient's son at contact number [phone] on the phone. I explained the current clinical situation and I discussed the need for surgical management and the risks and benefits of surgery. We discussed the potential risks, which include injury to nerves, blood vessels, bleeding, infection failure of hardware, need for reoperation, continued pain, loss range of motion of associated joints, inability to ambulate, leg length discrepancy, dislocation, DVT, pulmonary embolus, pneumonia and . The patient's son contacted the patient's brother and his name is Evan, who is the power of attorney lawyer. They had discussions. As a family, they have decided to move forward with surgical management for the left hip. Surgery for the left hip would consist of a left hip hemiarthroplasty. Thank you for allowing me to participate in the care of this patient. MD JAIMIE Hannah/ASHLY /2:36 PM /2:46 PM
[2017-02-09] MEDS ORDERED: TRANEXAMIC ACID IV SCH ×2 (16:00→21:30)
[2017-02-09] MEDS ORDERED: SODIUM CHLORIDE 0.9% IV SCH ×2 (16:00→21:30)
[2017-02-09] MEDS ORDERED: VANCOMYCIN HCL 1000 MG VIAL ONE (16:34)
[2017-02-09] MEDS ORDERED: CLINDAMYCIN PHOS 900 MG/6 ML VIAL ONE ×2 (16:34→16:35)
[2017-02-09] MEDS ORDERED: SODIUM CHLORIDE 0.9% FLUSH 5 ML FLUSH IVF PRN (16:45)
[2017-02-09] MEDS ORDERED: diphenhydrAMINE HCL 50 MG/ML VIAL IV PRN (16:45)
[2017-02-09] MEDS ORDERED: MORPHINE SULFATE 4 MG/ML INJ IV PUSH PRN (16:45)
[2017-02-09] MEDS ORDERED: Post-op Orders (for Pharmacy) MISC XX ONE ×3 (16:45)
[2017-02-09] MEDS ORDERED: ENOXAPARIN SODIUM 40 MG/0.4 ML SYRINGE SQ SCH ×3 (16:45→19:00)
[2017-02-09] MEDS ORDERED: ONDANSETRON HCL 4 MG/2 ML VIAL IVP PRN (16:45)
[2017-02-09] MEDS ORDERED: NALOXONE HCL 0.4 MG/ML AMP IV PRN (16:45)
[2017-02-09] MEDS ORDERED: ALUMINUM/MAGNESIUM/SIMETH 30 ML CUP PO PRN (16:45)
[2017-02-09] MEDS ORDERED: ASPI325T PO (16:53)
[2017-02-09] MEDS ORDERED: ENOX40P SQ (16:53)
[2017-02-09] MEDS ORDERED: NORC5TAB PO (16:53)
[2017-02-09] MEDS ORDERED: GENTAMICIN SULFATE 80 MG/2 ML VIAL ONE (16:54)
--- NOTE | 2017-02-09 18:21 | PD.OP ---
cc: Jonn Tello MD Operative Report Date of Surgery: February 09, 2017 Preoperative Diagnosis: Left hip displaced femoral neck fracture Postoperative Diagnosis: Same Procedure: Left hip hemiarthroplasty for treatment of displaced femoral neck fracture Anesthesia: Gen. Surgeon: Jonn Tello Follow Up Specialist(s): IRMA Maya The surgical procedure was assisted by my Advanced Registered Nurse Practitioner. My DEALER SALES REP presence was necessary throughout this case for the manipulation and positioning of the surgical extremity. My DEALER SALES REP was assisting me throughout the duration of this procedure. The skill set of an Advance Registered Nurse Practitioner was medically necessary to complete this procedure. During the surgical case, the registered nurse surgical services was working at the back table and the Advance Registered Nurse Practitioner was directly assisting me. Operation and Findings: IMPLANT DESCRIPTION: 1. Corail femoral stem size 12, no collar, standard offset. 2. Bipolar femoral head/neck 44, 1.5. ESTIMATED BLOOD LOSS: 150cc. JUSTIFICATION FOR PROCEDURE: This patient has a displaced femoral neck fracture. The patient understands the risks of surgery include but are not limited to injury to nerves, blood vessels, bleeding, infection, leg length discrepancy, continued pain, inability to ambulate, DVT, pulmonary embolus, pneumonia, stroke, heart attack, and . PROCEDURE: The patient was brought back to the operative theatre. Adequate anesthesia was obtained. The patient received intravenous clindamycin and vancomycin. The patient was carefully placed on the operative table in the lateral decubitus position with an chest roll and a well-padded down leg. We spent extra time making sure we had a good bolster under the chest wall and good space in the axillary region. We carefully padded the right arm. We took this extra time because the patient has a fracture of the right shoulder. The lower extremity was prepped and draped in the usual sterile fashion. We proceeded with a standard curvilinear incision centered around the tip of the greater trochanter. We then dissected through the deep fascia and placed a Charnley retractor protecting the sciatic nerve. The greater trochanteric bursa was reflected. We then incised through the piriformis attachment and tagged this with a #2 FiberWire. We then incised through the capsule in a T- shaped fashion and tagged this with a #2 FiberWire as well. We identified a displaced femoral neck fracture. An osteotomy was performed through the residual femoral neck. This bone was then removed followed by removal of the femoral head. The acetabulum was inspected and adequate cartilage stock was identified. We then trialed the femoral head in the acetabulum. The proximal femur was prepared with a rongeur, then a box osteotome, then a canal finder followed by a lateralizing reamer. We sequentially broached the proximal femur. We calcar planed the proximal femur and irrigated removing any remnants of the bone. We trialed the hip with the broach in place. The final femoral stem was impacted into position. Leg lengths were evaluated. We evaluated stability of the hip with the hip in the "position of sleep" and the hip flexed up to 90 and internally rotated. We additionally tested both a "shuck" test and hip extension, confirming there was no undue tension while flexing the knee to 90 during full hip extension. The final bipolar head was impacted and the hip was reduced. Once again we irrigated. We then repaired the capsule and the piriformis with the FiberWire suture. The deep fascia was closed with a #2 Stratafix, followed by 2-0 Vicryl in the skin and adriana. The post-op plan is to weight-bear as tolerated. We will follow posterior total hip precautions, including the use of a canvas knee splint. DVT prophylaxis will be performed with SCDs, KORY hose, early mobilization, and Lovenox followed by aspirin. Additionally on the patient's return visit we will take x-rays of the shoulder 2 views to confirm the patient does not have significant displacement of the fracture. The right shoulder will be placed in a sling and swath. Jonn Tello MD February 09, 2017 18:21
[2017-02-09] MEDS ORDERED: fentaNYL CITRATE 250 MCG/5 ML AMP ONE (18:59)
[2017-02-09] MEDS: SODIUM CHLOR 0.9% 1000 ML INJ 1,000 ML IV SCH (19:24)
--- NOTE | 2017-02-09 19:28 | RADRPT ---
EXAM DATE/TIME: 02/09/2017 18:48 [facility] COMPARISON: No previous studies available for comparison. INDICATIONS : Post hip replacement surgery. MEDICAL HISTORY : None. SURGICAL HISTORY : None. ENCOUNTER: Initial ACUITY: 1 day PAIN SCORE: Non-responsive. LOCATION: Right hip. FINDINGS: Left total hip arthroplasty is present. Hardware appears intact. Alignment is anatomic. The adjacent pelvis is unremarkable. CONCLUSION: Satisfactory appearance post left GARETH Camilo Steward MD on February 09, 2017 at 19:25 Board Certified Radiologist. This report was verified electronically.
[2017-02-09] MEDS ORDERED: *morphine SULFATE 8 MG/ML PERIprocedure ONLY ONE (19:35)
[2017-02-09] MEDS ORDERED: DO NOT ADM ANY ANTICOAGULANT DRUGS PRN (19:45)
[2017-02-09 21:00] VITALS: BP 139/74; PULSE 88; RESP 17; TEMP 98.4; O2SAT 95
[2017-02-09] MEDS: SODIUM CHLORIDE 0.9% FLUSH 5 ML FLUSH IVF SCH (21:00)
[2017-02-09 23:34] VITALS: BP 118/72; PULSE 90; RESP 18; TEMP 96; O2SAT 94
[2017-02-10] VITALS (7 sets, daily range): BP systolic 102–157; BP diastolic 59–69; PULSE 83–106; RESP 16–20; TEMP 96.2–99.7; O2SAT 92–97
[2017-02-10] MEDS: CLINDAMYCIN INJ 900 MG in SODIUM CHLORIDE 0.9% INJ 100 ML IV SCH ×3 (01:42→17:27)
[2017-02-10] MEDS: SODIUM CHLOR 0.9% 1000 ML INJ 1,000 ML IV SCH ×3 (04:55→20:31)
[2017-02-10] MEDS: MAGNESIUM HYDROXIDE SUSP 30 ML CUP PO PRN ×2 (08:20→20:31)
[2017-02-10] MEDS: SERTRALINE HCL 100 MG TAB PO SCH (08:20)
[2017-02-10] MEDS: SODIUM CHLORIDE 0.9% FLUSH 5 ML FLUSH IVF SCH ×2 (08:24→20:31)
[2017-02-10] MEDS: ACETAMINOPHEN/HYDROcodone 325 MG/5 MG TAB PO PRN ×2 (08:27→12:11)
--- NOTE | 2017-02-10 09:52 | PD.ORT.PN ---
Subjective Subjective Remarks blunted affect, no complaints, IV just came out. no new N/T. Objective Vitals Vital Signs Date Time Temp Pulse Resp B/P Pulse Ox O2 Delivery O2 Flow Rate FiO2 02/10/17 08:50 94 Nasal Cannula 2.00 02/10/17 08:29 Nasal Cannula 2.00 02/10/17 08:00 96.6 94 17 141/63 96 02/10/17 04:00 98.8 101 20 152/59 97 02/10/17 03:45 95 Nasal Cannula 3.00 02/09/17 23:34 96.0 90 18 118/72 94 02/09/17 23:16 Nasal Cannula 3.00 02/09/17 21:00 98.4 88 17 139/74 95 02/09/17 20:17 106 20 139/63 97 Nasal Cannula 3 02/09/17 20:00 96 20 138/59 97 Nasal Cannula 3 02/09/17 19:45 101 20 151/68 97 Nasal Cannula 3 02/09/17 19:30 104 20 149/68 98 Nasal Cannula 3 02/09/17 19:15 116 20 136/65 99 Nasal Cannula 3 02/09/17 19:00 108 20 166/83 97 Nasal Cannula 3 02/09/17 18:51 98.2 109 20 147/67 97 Simple Mask 6 I/O 02/09/17 02/09/17 02/09/17 02/10/17 02/10/17 02/10/17 06:59 14:59 22:59 06:59 14:59 22:59 Intake Total 410 ml 1500 ml 1136 ml Output Total 775 ml 600 ml Balance 410 ml 725 ml 536 ml Intake Oral 410 ml 240 ml IV Total 500 ml 896 ml Other 1000 ml Output Urine Total 625 ml 600 ml Estimated Blood Loss 150 ml # Voids 1 0 # Bowel Movements 0 Result Diagram: 02/06/17 2140 02/09/17 0740 Imaging x-rays left hip post-op look good Objective Remarks RUE in sling, +echymosis, + mild swelling, moves fingers. LLE moves toes, no swelling calf, NT at calf, Left hip dressing is clean and dry Assessment & Plan Assessment and Plan POD #1 s/p L hip hemiarthroplasty, non-op tx of Right proximal humerus fx Pre-existing psych condition R shoulder: NWB to RUE Sling and swathe R UE, cont conservative management, ice and elevation Pain control with meds L hip: WBAT Post THP, with CKS (applied) DVT prophylaxis with Lovenox (10 days) followed by ASA labs pending Expect D/C eligible per ortho by tomorrow Jonn Tello MD February 10, 2017 09:52
--- NOTE | 2017-02-10 11:45 | HHI.PR ---
Subjective Subjective Remarks flat affect slow to respond, not talking very much sitter at [facility] was out of bed with PT no fever unable to obtain ROS [facility]ter at [facility] Review of Systems Constitutional Constitutional Remarks unable to obtain ROS Vitals/Results Intake & Output 02/09/17 02/09/17 02/10/17 15:00 23:00 07:00 Intake Total 1500 ml 1136 ml Output Total 775 ml 600 ml Balance 725 ml 536 ml Intake Oral 240 ml IV Total 500 ml 896 ml Other 1000 ml Output Urine Total 625 ml 600 ml Estimated Blood Loss 150 ml # Voids 0 # Bowel Movements 0 Vital Signs Vital Signs Date Time Temp Pulse Resp B/P Pulse Ox O2 Delivery O2 Flow Rate FiO2 02/10/17 08:50 94 Nasal Cannula 2.00 02/10/17 08:29 Nasal Cannula 2.00 02/10/17 08:00 96.6 94 17 141/63 96 02/10/17 04:00 98.8 101 20 152/59 97 02/10/17 03:45 95 Nasal Cannula 3.00 02/09/17 23:34 96.0 90 18 118/72 94 02/09/17 23:16 Nasal Cannula 3.00 02/09/17 21:00 98.4 88 17 139/74 95 02/09/17 20:17 106 20 139/63 97 Nasal Cannula 3 02/09/17 20:00 96 20 138/59 97 Nasal Cannula 3 02/09/17 19:45 101 20 151/68 97 Nasal Cannula 3 02/09/17 19:30 104 20 149/68 98 Nasal Cannula 3 02/09/17 19:15 116 20 136/65 99 Nasal Cannula 3 02/09/17 19:00 108 20 166/83 97 Nasal Cannula 3 02/09/17 18:51 98.2 109 20 147/67 97 Simple Mask 6 CBC/BMP: 02/06/17 2140 02/09/17 0740 Physical Exam General General Appearance: No Acute Distress, Pale Eyes Eye Exam: Pupils Equal Ears & Nose Ears & Nose Exam: Nasal Mucosa [place] Throat Throat Exam: Oral Mucosa [place] & Moist Pulmonary Resp Exam: Breath Sounds Equal, Decreased Bases Cardiology CV Exam: Regular Gastrointestinal/Abdomen GI Exam: Soft, Non-Tender, Bowel Sounds Present, Non-Distended Musculoskeletal MS Remarks left hip dressing D/I Right arm in sling, bruising to shoulder Integumentary Skin Exam: Warm, Dry Extremeties Extremities Exam: Pedal Pulses Palpable Neurologic Neuro Exam: Awake, Battery Charger Conveyor Line Equal VTE Prophylaxis VTE Prophylaxis Device: SCDs, TEDs VTE Prophylaxis Meds: Lovenox Assessment/Plan Assessment/Plan 1. Psychiatric issue, bipolar disorder, schizophrenia with suicidal ideation under [place] act. 2. Hypertension. 3. Hypothyroidism. 4. Seems like dementia, early. 5. Urinary tract infection. 6. Fall, S/P right humeral head fracture treated non op, has sling 7. Fall, S/P left femoral neck fracture, S/P Left hip hemiarthroplasty for treatment of displaced femoral neck fracture 02/09 Plan appreciate ortho input S/P Left hip hemiarthroplasty for treatment of displaced femoral neck fracture Post op ortho care PT eval and tx Wound care Bowel regimen Pain management post op abx, Clindamycin Lovenox for DVT prophylaxis S/P right humeral head fracture non operative management needs to f/u with ortho psychiatry following [facility]ter at [facility], under [facility] Act Continue psych meds UTI, + viridans streptococcus sens. none repeat UA/UC PT eval and tx CM for dc planning, will need SNF Labs in am Discussed with the patient. Discussed with RN. Discussed with Dr. Hair This patient was seen by myself and Dr. Hair, this note is written on his behalf. Maliha Hernandez February 10, 2017 11:45
[2017-02-10 12:48] LABS: BLOOD, URINE TRACE (NEG); COMMENT (UR) CULT NOT INDICATED; CULTURE IF INDICATED CULT NOT INDICATED; GLUCOSE,URINE NEG (NEG); KETONE, URINE NEG (NEG); MUCUS URINE FEW /lpf (OCC); NITRITE,URINE NEG (NEG); SQUAMOUS EPITHELIAL CELL URINE 1 /hpf (0-5); URINE COLOR LIGHT-YELLOW (YELLW/STRAW)
--- NOTE | 2017-02-10 13:26 | EKG ---
Date Performed: 02/09/2017 Time Performed: 15:58:36 PTAGE: 71 years EKG: Sinus rhythm NONSPECIFIC T-WAVE ABNORMALITY BORDERLINE ECG NO PREVIOUS TRACING DOCTOR: Ksenia Maya Interpretating Date/Time 02/10/2017 13:25:04
[2017-02-10] MEDS: ENOXAPARIN SODIUM 40 MG/0.4 ML SYRINGE SQ SCH (17:27)
[2017-02-10] MEDS: MULTIVITAMINS/MINERALS THERAPEUTIC TAB PO SCH (20:31)
[2017-02-10] MEDS: DOCUSATE SODIUM 100 MG CAP PO SCH (20:31)
[2017-02-11] VITALS: BP 143/66; PULSE 104; RESP 20; TEMP 100.8; O2SAT 94
[2017-02-11 04:00] VITALS: BP 141/63; PULSE 87; RESP 19; TEMP 98.7; O2SAT 96
[2017-02-11] MEDS: ACETAMINOPHEN/HYDROcodone 325 MG/5 MG TAB PO PRN ×5 (05:14→20:28)
[2017-02-11] MEDS: BISACODYL 10 MG SUPP RECTAL PRN (05:14)
[2017-02-11 07:16] LABS: HEMATOCRIT 33.3 % (35.0-46.0); MEAN CELL VOLUME 94.7 FL (80.0-100.0); MEAN CORPUSCULAR HEMOGLOBIN 31.9 PG (27.0-34.0); MEAN CORPUSCULAR HGB CONC 33.7 % (32.0-36.0); PLATELET COUNT 232 TH/MM3 (150-450); RED BLOOD COUNT 3.52 MIL/MM3 (4.00-5.30); RED CELL DISTRIBUTION WIDTH 14.4 % (11.6-17.2); REVIEW FLAG FINAL; WHITE BLOOD COUNT 11.2 TH/MM3 (4.0-11.0)
[2017-02-11] MEDS: DOCUSATE SODIUM 100 MG CAP PO SCH ×2 (07:42→20:28)
[2017-02-11] MEDS: MULTIVITAMINS/MINERALS THERAPEUTIC TAB PO SCH ×2 (07:42→20:28)
[2017-02-11] MEDS: MAGNESIUM HYDROXIDE SUSP 30 ML CUP PO PRN (07:43)
[2017-02-11] MEDS: SERTRALINE HCL 100 MG TAB PO SCH (07:43)
[2017-02-11] MEDS: SODIUM CHLORIDE 0.9% FLUSH 5 ML FLUSH IVF SCH ×2 (07:47→20:29)
[2017-02-11] MEDS: SODIUM CHLOR 0.9% 1000 ML INJ 1,000 ML IV SCH ×2 (07:47→12:14)
[2017-02-11 08:00] VITALS: BP 156/67; PULSE 88; RESP 15; TEMP 98; O2SAT 93
[2017-02-11 08:17] LABS: BICARBONATE 30.5 MEQ/L (21.0-32.0); POTASSIUM 4.3 MEQ/L (3.5-5.1)
--- NOTE | 2017-02-11 08:36 | PD.ORT.PN ---
Subjective Post Op Day #: 2 Subjective Remarks Patient resting in bed with some c/o mild pain to the left hip. Patient does exhibit some confusion in response to questioning. Objective Vitals Vital Signs Date Time Temp Pulse Resp B/P Pulse Ox O2 Delivery O2 Flow Rate FiO2 02/11/17 07:47 Nasal Cannula 2.00 02/11/17 04:00 98.7 87 19 141/63 96 02/11/17 00:00 100.8 104 20 143/66 94 02/10/17 20:29 93 Nasal Cannula 2.00 02/10/17 20:00 99.3 106 19 157/68 93 02/10/17 15:30 99.7 92 17 102/64 92 02/10/17 12:03 96.2 83 16 147/69 92 02/10/17 08:50 94 Nasal Cannula 2.00 I/O 02/10/17 02/10/17 02/10/17 02/11/17 02/11/17 02/11/17 07:00 15:00 23:00 07:00 15:00 23:00 Intake Total 1136 ml 1011 ml 580 ml 240 ml Output Total 600 ml Balance 536 ml 1011 ml 580 ml 240 ml Intake Oral 240 ml 480 ml 580 ml 240 ml IV Total 896 ml 531 ml Output Urine Total 600 ml # Voids 0 3 2 1 # Bowel Movements 0 0 0 0 Result Diagram: 02/11/1718 02/11/17 0618 Imaging x-rays left hip post-op look good Procedures s/p L hip hemiarthroplasty, non-op tx of Right proximal humerus fx Pre-existing psych condition Objective Remarks RUE in sling, +echymosis, + mild swelling, moves fingers. LLE moves toes, no swelling calf, NT at calf, Left hip dressing is clean and dry. Mild swelling to the left hip. CKS in place Assessment & Plan Ortho Post Op Day #: 2 Problem List: Assessment and Plan POD #2 s/p L hip hemiarthroplasty, non-op tx of Right proximal humerus fx Pre-existing psych condition R shoulder: NWB to RUE Sling and swathe R UE, cont conservative management, ice and elevation Pain control with meds L hip: WBAT Post THP, with CKS (applied) DVT prophylaxis with Lovenox (10 days) followed by ASA Plan is for discharge Edward or Sunday once medically cleared. labs pending Expect D/C eligible per ortho by tomorrow Praveen Albrecht February 11, 2017 08:36
--- NOTE | 2017-02-11 12:24 | HHI.PR ---
Subjective Subjective Remarks more awake,oriented to self, place and situation has mild pain had bm eating okay worked with PT today temp 100.8 x 1 Review of Systems Constitutional Constitutional Remarks ROS limited Vitals/Results Intake & Output 02/10/17 02/10/17 02/11/17 15:00 23:00 07:00 Intake Total 1011 ml 580 ml 240 ml Balance 1011 ml 580 ml 240 ml Intake Oral 480 ml 580 ml 240 ml IV Total 531 ml # Voids 3 2 1 # Bowel Movements 0 0 0 Vital Signs Vital Signs Date Time Temp Pulse Resp B/P Pulse Ox O2 Delivery O2 Flow Rate FiO2 02/11/17 11:34 91 Room Air 02/11/17 09:36 Nasal Cannula 2.00 02/11/17 08:00 98.0 88 15 156/67 93 02/11/17 07:47 Nasal Cannula 2.00 02/11/17 04:00 98.7 87 19 141/63 96 02/11/17 00:00 100.8 104 20 143/66 94 02/10/17 20:29 93 Nasal Cannula 2.00 02/10/17 20:00 99.3 106 19 157/68 93 02/10/17 15:30 99.7 92 17 102/64 92 CBC/BMP: 02/11/17 0618 02/11/17 0618 Lab Results Laboratory Tests Test 02/10/17 02/11/17 12:20 06:18 Urine Color LIGHT-YELLOW Urine Turbidity CLEAR Urine pH 6.0 Urine Specific [place] 1.009 Urine Protein NEG mg/dL Urine Glucose (UA) NEG mg/dL Urine Ketones NEG mg/dL Urine Occult Blood TRACE Urine Nitrite NEG Urine Bilirubin NEG Urine Urobilinogen LESS THAN 2.0 MG/DL Urine Leukocyte Esterase NEG Urine RBC 1 /hpf Urine WBC 2 /hpf Urine Squamous Epithelial 1 /hpf Cells Urine Mucus FEW /lpf Microscopic Urinalysis Comment CULT NOT INDICATED White Blood Count 11.2 TH/MM3 Red Blood Count 3.52 MIL/MM3 Hemoglobin 11.2 GM/DL Hematocrit 33.3 % Mean Corpuscular Volume 94.7 FL Mean Corpuscular Hemoglobin 31.9 PG Mean Corpuscular Hemoglobin 33.7 % Concent Red Cell Distribution Width 14.4 % Platelet Count 232 TH/MM3 Mean Platelet Volume 7.4 FL Sodium Level 134 MEQ/L Potassium Level 4.3 MEQ/L Chloride Level 98 MEQ/L Carbon Dioxide Level 30.5 MEQ/L Anion Gap 6 MEQ/L Blood Urea Nitrogen 12 MG/DL Creatinine 0.48 MG/DL Estimat Glomerular Filtration 128 ML/MIN Rate Random Glucose 114 MG/DL Calcium Level 8.2 MG/DL Physical Exam General General Appearance: Well Developed, Well Nourished, No Acute Distress, Comfortable, Pale Eyes Eye Exam: Pupils Equal, Pupils Reactive Ears & Nose Ears & Nose Exam: Nasal Mucosa [place] Throat Throat Exam: Oral Mucosa [place] & Moist Pulmonary Resp Exam: Breath Sounds Equal, Decreased Bases Cardiology CV Exam: Regular Gastrointestinal/Abdomen GI Exam: Soft, Non-Tender, Bowel Sounds Present, Non-Distended Musculoskeletal MS Remarks left hip dressing D/I Right arm in sling, bruising to shoulder Integumentary Skin Exam: Warm, Dry Extremeties Extremities Exam: Pedal Pulses Palpable Neurologic Neuro Exam: Alert, Awake, Speech Clear VTE Prophylaxis VTE Prophylaxis Device: SCDs, TEDs VTE Prophylaxis Meds: Lovenox Assessment/Plan Assessment/Plan 1. Psychiatric issue, bipolar disorder, schizophrenia with suicidal ideation under [place] act. 2. Hypertension. 3. Hypothyroidism. 4. Seems like dementia, early. 5. Urinary tract infection. 6. Fall, S/P right humeral head fracture treated non op, has sling 7. Fall, S/P left femoral neck fracture, S/P Left hip hemiarthroplasty for treatment of displaced femoral neck fracture 02/09 Plan appreciate ortho input S/P Left hip hemiarthroplasty for treatment of displaced femoral neck fracture Post op ortho care PT eval and tx Wound care Bowel regimen Pain management post op abx, Clindamycin Lovenox for DVT prophylaxis S/P right humeral head fracture non operative management needs to f/u with ortho psychiatry following [facility]ter at [facility], under [place] Act Continue psych meds UTI, + viridans streptococcus sens. none repeated UA/UC, no infection monitor for s/s infection PT eval and tx IS q 2 wa remains with sitter at [facility] needs to be clear by psych to go to rehab Labs reviewed, stable CM consult for SNF placement Discussed with the patient. Discussed with RN. Discussed with Dr. Hair This patient was seen by myself and Dr. Hair, this note is written on his behalf. Maliha Hernandez February 11, 2017 12:24
[2017-02-11 15:27] VITALS: BP 102/59; PULSE 92; RESP 16; TEMP 99.1; O2SAT 91
[2017-02-11] MEDS: ENOXAPARIN SODIUM 40 MG/0.4 ML SYRINGE SQ SCH (15:30)
[2017-02-11 19:38] VITALS: BP 112/64; PULSE 84; RESP 16; TEMP 99.1; O2SAT 94
[2017-02-12] VITALS (8 sets, daily range): BP systolic 105–119; BP diastolic 55–65; PULSE 76–91; RESP 16–21; TEMP 97.4–99.1; O2SAT 93–98
[2017-02-12] MEDS: ACETAMINOPHEN/HYDROcodone 325 MG/5 MG TAB PO PRN ×3 (04:27→22:05)
[2017-02-12] MEDS: SODIUM CHLOR 0.9% 1000 ML INJ 1,000 ML IV SCH (08:44)
[2017-02-12] MEDS: MULTIVITAMINS/MINERALS THERAPEUTIC TAB PO SCH ×2 (09:00→22:05)
[2017-02-12] MEDS: SERTRALINE HCL 100 MG TAB PO SCH (09:00)
[2017-02-12] MEDS: SODIUM CHLORIDE 0.9% FLUSH 5 ML FLUSH IVF SCH ×2 (09:00→21:00)
[2017-02-12] MEDS: DOCUSATE SODIUM 100 MG CAP PO SCH ×2 (09:00→22:05)
--- NOTE | 2017-02-12 11:10 | HHI.PR ---
Subjective Subjective Remarks resting in bed calm affect today responds calmly to verbal stimuli afebrile legs elevated in bed (Mary Elizondo) Review of Systems Constitutional Constitutional: Fatigue, Weakness Constitutional Remarks 10 point ROS done. Positives noted otherwise systems unremarkable. Patient is 1 on 1 [place] act (Mary Elizondo) Genitourinary Remarks has been incontinent, but rolled for bedpan today, ask to void (Mary Elizondo) Musculoskeletal MS: Weakness, Stiffness MS Remarks Left hip fracture, lower leg elevated (Mary Elizondo) Integumentary Skin: Wounds (bruising and petechiae in right shoulder and right arm, splint, old fracture) (Mary Elizondo) Psychiatric Psychiatric: Normal Mood (this a.m., calm, comfortable) (Mary Elizondo) Vitals/Results Intake & Output 02/11/17 02/11/17 02/12/17 14:59 22:59 06:59 Intake Total 480 ml 240 ml Balance 480 ml 240 ml Intake Oral 480 ml 240 ml # Voids 2 2 # Bowel Movements 1 Vital Signs Vital Signs Date Time Temp Pulse Resp B/P Pulse Ox O2 Delivery O2 Flow Rate FiO2 02/12/17 08:00 97.4 80 18 105/58 94 02/12/17 04:15 98.6 91 16 115/63 94 02/12/17 00:01 97.9 80 20 114/65 93 02/11/17 19:38 99.1 84 16 112/64 94 02/11/17 15:27 91 Room Air 02/11/17 15:27 99.1 92 16 102/59 91 02/11/17 11:34 91 Room Air (Mary Elizondo) CBC/BMP: 02/11/17 0618 02/11/17 0618 Current Medications Administered Medications Medications (Trade) Dose Ordered Sig/Rylan Route PRN Reason Start Time Stop Time Status Last Admin Dose Admin Sertraline HCl 100 mg 100 mg DAILY PO 02/10/17 09:00 02/12/17 09:00 Sodium Chloride (NS 1000 ml Inj) 1,000 ml @ 30 mls/hr Q24H IV 02/09/17 16:44 02/12/17 08:44 IV Flush (NS Flush) 2 ml BID IVF 02/09/17 21:00 02/12/17 09:00 Acetaminophen/ Hydrocodone Bitart ([place] 5-325 Mg) 1 tab Q4H PRN PO PAIN LESS THAN 5 ON SCALE 02/09/17 16:45 02/12/17 04:27 Multivitamins/ Minerals Therapeutic (Theragran M Tab) 1 tab BID PO 02/10/17 21:00 04/11/17 20:59 02/12/17 09:00 Docusate Sodium (Colace) 100 mg BID PO 02/10/17 21:00 02/12/17 09:00 Bisacodyl (Dulcolax Supp) 10 mg DAILY PRN RECTAL CONSTIPATION 02/09/17 16:45 02/11/17 05:14 Magnesium Hydroxide (Milk Of Magnesia Liq) 30 ml DAILY PRN PO CONSTIPATION 02/09/17 16:45 02/11/17 07:43 Enoxaparin Sodium (Lovenox Inj) 40 mg Q24H SQ 02/10/17 18:00 02/19/17 18:01 02/11/17 15:30 (Mary ElizondoP) Physical Exam General General Appearance: Well Developed, Well Nourished, No Acute Distress, Comfortable, Pale (Mary Elizondo NEWSPERSON) Eyes Eye Exam: Pupils Equal, Pupils Reactive (Mary Elizondo NEWSPERSON) Ears & Nose Ears & Nose Exam: Nasal Mucosa [place] (Mary Elizondo NEWSPERSON) Throat Throat Exam: Oral Mucosa [place] & Moist (Mary Elizondo NEWSPERSON) Pulmonary Resp Exam: Breath Sounds Equal, Decreased Bases (Mary Elizondo NEWSPERSON) Cardiology CV Exam: Regular (Mary Elizondo NEWSPERSON) Gastrointestinal/Abdomen GI Exam: Soft, Non-Tender, Bowel Sounds Present, Non-Distended (Mary Elizondo NEWSPERSON) Integumentary Skin Exam: Warm, Dry (Mary Elizondo NEWSPERSON) Extremeties Extremities Exam: Pedal Pulses Palpable (Mary Elizondo NEWSPERSON) Neurologic Neuro Exam: Alert, Awake, Speech Clear (Mary Elizondo) VTE Prophylaxis VTE Prophylaxis Device: SCDs, TEDs VTE Prophylaxis Meds: Lovenox (Mary Elizondo) Assessment/Plan Assessment/Plan 1. Psychiatric issue, bipolar disorder, schizophrenia with suicidal ideation under [place] act. 2. Hypertension. 3. Hypothyroidism. 4. Seems like dementia, early. 5. Urinary tract infection. 6. Fall, S/P right humeral head fracture treated non op, has sling 7. Fall, S/P left femoral neck fracture, S/P Left hip hemiarthroplasty for treatment of displaced femoral neck fracture 02/09 Plan Vital signs reviewed, normal ranges Labs reviewed, mild leukocytosis, status post left hip hemiarthroplasty and right arm injury appreciate ortho input S/P Left hip hemiarthroplasty for treatment of displaced femoral neck fracture Post op ortho care PT eval and tx Wound care Bowel regimen R shoulder: NWB to RUE Sling and swathe R UE, cont conservative management, ice and elevation L hip: WBAT Bowel regimen. Discharge planning, need expert opinion of psych of whether she needs more psychiatric hospitalization versus SNF labs pending, still on [place] act Expect D/C eligible per ortho by tomorrow post op abx, Clindamycin Lovenox for DVT prophylaxis S/P right humeral head fracture non operative management needs to f/u with ortho psychiatry following [facility]ter at [facility], under [place] Act Continue psych meds UTI, + viridans streptococcus sens. none repeated UA/UC, no infection monitor for s/s infection PT eval and tx IS q 2 wa remains with sitter at [facility] needs to be clear by psych to go to rehab Labs reviewed, stable CM consult for SNF placement Discussed with the patient. Discussed with RN. Discussed with Dr. Hair This patient was seen by myself and Dr. Hair, this note is written on his behalf. (Mary Elizondo) Assessment/Plan pt seen and examied as above labs and meds reviewed plan of care dw rail gang supervisor dw pt dw rn nasreen consultants help hopefully dc to snf tomorrow if stable labs for tomorrow dw psychiatrist on phone about management (Moose Hair MD) Mary Elizondo February 12, 2017 11:10 Moose Hair MD February 12, 2017 13:09
--- NOTE | 2017-02-12 11:54 | HHI.PYPN ---
Subjective Remarks Patient was seen today for psychiatric evaluation, patient was found calm, cooperative, oriented 3. She just complains of pain in her shoulder. She denies depressive symptoms, she says she is in a good mood, denies hopelessness , denies helplessness, denies low self-esteem, denies problems with appetite with sleep, denies suicidal and homicidal ideation. Patient denies visual and auditory hallucinations. No attention deficit, no fluctuation of consciousness observed. Patient is compliant with medications, no significant side effects reported. Review of Systems Constitutional: DENIES: Diaphoretic episodes, Fatigue, Fever, Weight gain, Weight loss, Chills, Dizziness, Change in appetite, Night Sweats Endocrine: DENIES: Abnorml menstrual pattern, Heat/cold intolerance, Polydipsia , Polyuria, Polyphagia Eyes: DENIES: Blurred vision, Diplopia, Eye inflammation, Eye pain, Vision loss , Photosensitivity, Double Vision Ears, nose, mouth, throat: DENIES: Tinnitus, Hearing loss, Vertigo, Nasal discharge, Oral lesions, Throat pain, Hoarseness, Ear Pain, Running Nose, Epistaxis, Sinus Pain, Toothache, Odynophagia Respiratory: DENIES: Apneas, Cough, Snoring, Wheezing, Hemoptysis, Sputum production, Shortness of breath Cardiovascular: DENIES: Chest pain, Palpitations, Syncope, Dyspnea on Exertion , PND, Lower Extremity Edema, Orthopnea, Claudication Musculoskeletal: COMPLAINS OF: Joint pain (shoulder pain) Immunologic/allergic: DENIES: Eczema, Urticaria Psychiatric: DENIES: Anxiety, Confusion, Mood changes, Depression, Hallucinations, Agitation, Suicidal Ideation, Homicidal Ideation, Delusions Objective Alert: Yes [place]: Person, Place, Date, Situation Mood: Calm Affect: Appropriate, Other Memory Intact: Comment (no formerly assessed) Hallucinations: Other (denies) Delusions: No Delusion Type: Other (not elicited) Suicidal: Ideation (she denies suicidal ideation) Homicidal: Ideation (patient denies) Insight/Judgment Improve Vitals/IOs Vital Signs Date Time Temp Pulse Resp B/P Pulse Ox O2 Delivery O2 Flow Rate FiO2 02/12/17 08:00 97.4 80 18 105/58 94 02/11/17 15:27 Room Air 02/11/17 09:36 2.00 Intake and Output 02/11/17 02/11/17 02/12/17 08:00 16:00 00:00 Intake Total 240 ml 480 ml Balance 240 ml 480 ml Assessment & Plan Problem List: (1) Unspecified psychosis Assessment & Plan: Patient does not present any significant symptomatology of anxiety, depression or psychosis. Patient denies suicidal and homicidal ideation, she denies visual and auditory hallucinations. Oriented 3, no delirium present. Patient does not meet criteria to continue the psychiatric hospitalization. Patient can be discharged back to living facility with current psychotropics. ICD Code: F29 Assessment & Plan Estimated LOS: days Justification for Cont. Inpt. Patient does not meet criteria for psychiatric admission. Nain Peterson MD February 12, 2017 11:54
--- NOTE | 2017-02-12 13:02 | PD.ORT.PN ---
Subjective Post Op Day #: 3 Subjective Remarks Patient is OOB in chair eating lunch with minimal c/o pain. Patient is more lucid today and appropriate with questioning. Patient notes minimal pain to the left hip and right UE. Objective Vitals Vital Signs Date Time Temp Pulse Resp B/P Pulse Ox O2 Delivery O2 Flow Rate FiO2 02/12/17 11:56 99.1 87 18 117/60 95 02/12/17 08:00 97.4 80 18 105/58 94 02/12/17 04:15 98.6 91 16 115/63 94 02/12/17 00:01 97.9 80 20 114/65 93 02/11/17 19:38 99.1 84 16 112/64 94 02/11/17 15:27 91 Room Air 02/11/17 15:27 99.1 92 16 102/59 91 I/O 02/11/17 02/11/17 02/11/17 02/12/17 02/12/17 02/12/17 07:00 15:00 23:00 07:00 15:00 23:00 Intake Total 240 ml 480 ml 240 ml Balance 240 ml 480 ml 240 ml Intake Oral 240 ml 480 ml 240 ml # Voids 1 2 2 # Bowel Movements 0 1 Result Diagram: 02/11/1718 02/11/17 0618 Imaging x-rays left hip post-op look good Procedures s/p L hip hemiarthroplasty, non-op tx of Right proximal humerus fx Pre-existing psych condition Objective Remarks RUE in sling/swath, +echymosis, + mild swelling, moves fingers. LLE moves toes, no swelling calf, NT at calf, Left hip dressing is clean and dry. Mild swelling to the left hip. Assessment & Plan Ortho Post Op Day #: 3 Problem List: Assessment and Plan POD #3 s/p L hip hemiarthroplasty, non-op tx of Right proximal humerus fx Pre-existing psych condition R shoulder: NWB to RUE Sling and swathe R UE, cont conservative management, ice and elevation Pain control with meds L hip: WBAT Post THP, with CKS when in bed DVT prophylaxis with Lovenox (10 days) followed by ASA Patient will f/u with Dr. Tello in 1-2 weeks. Anticipatory discharge to inpatient psych facility today (Sunday). Plan is for discharge Sunday or Sunday once medically cleared. labs pending Expect D/C eligible per ortho by tomorrow Praveen Albrecht February 12, 2017 13:02
[2017-02-12] MEDS: ENOXAPARIN SODIUM 40 MG/0.4 ML SYRINGE SQ SCH (18:42)
[2017-02-13 04:00] VITALS: BP 121/63; PULSE 75; RESP 17; TEMP 96.7; O2SAT 98
[2017-02-13 07:32] LABS: HEMATOCRIT 31.8 % (35.0-46.0); MEAN CELL VOLUME 94.2 FL (80.0-100.0); PLATELET COUNT 277 TH/MM3 (150-450); RED BLOOD COUNT 3.37 MIL/MM3 (4.00-5.30); RED CELL DISTRIBUTION WIDTH 14.2 % (11.6-17.2); REVIEW FLAG FINAL; WHITE BLOOD COUNT 8.5 TH/MM3 (4.0-11.0)
[2017-02-13 08:00] VITALS: BP 112/63; PULSE 69; RESP 18; TEMP 97; O2SAT 97
[2017-02-13] MEDS: SERTRALINE HCL 100 MG TAB PO SCH (08:26)
[2017-02-13] MEDS: MULTIVITAMINS/MINERALS THERAPEUTIC TAB PO SCH ×2 (08:26→21:34)
[2017-02-13] MEDS: DOCUSATE SODIUM 100 MG CAP PO SCH ×2 (08:26→21:34)
[2017-02-13] MEDS: SODIUM CHLORIDE 0.9% FLUSH 5 ML FLUSH IVF SCH ×2 (08:26→21:00)
[2017-02-13] MEDS: SODIUM CHLOR 0.9% 1000 ML INJ 1,000 ML IV SCH (08:26)
--- NOTE | 2017-02-13 09:22 | HHI.PR ---
Subjective Subjective Remarks resting in bed feeding herself breakfast calm affect today responds calmly to verbal stimuli afebrile (Mary Elizondo) Review of Systems Constitutional Constitutional: Fatigue, Weakness Constitutional Remarks 10 point ROS done. Positives noted otherwise systems unremarkable. Patient is 1 on 1 [place] act (Mary Elizondo) Genitourinary Remarks has been incontinent, but rolled for bedpan today, ask to void (Mary Elizondo) Musculoskeletal MS: Weakness, Stiffness MS Remarks Left hip fracture, lower leg elevated (Mary Elizondo) Integumentary Skin: Wounds (bruising and petechiae in right shoulder and right arm, splint, old fracture) (Mary Elizondo) Psychiatric Psychiatric: Normal Mood (this a.m., calm, comfortable) (Mary Elizondo) Vitals/Results Intake & Output 02/12/17 02/12/17 02/13/17 15:00 23:00 07:00 Intake Total 600 ml 480 ml 480 ml Balance 600 ml 480 ml 480 ml Intake Oral 600 ml 480 ml 480 ml # Voids 3 3 4 # Bowel Movements 0 0 0 Vital Signs Vital Signs Date Time Temp Pulse Resp B/P Pulse Ox O2 Delivery O2 Flow Rate FiO2 02/13/17 04:00 96.7 75 17 121/63 98 02/13/17 00:00 Nasal Cannula 2.00 02/12/17 23:55 98.5 76 20 111/57 98 02/12/17 23:03 18 02/12/17 19:20 96 Nasal Cannula 2.00 02/12/17 19:00 98.8 90 21 119/64 98 02/12/17 16:00 98.9 78 18 107/55 94 02/12/17 11:56 99.1 87 18 117/60 95 (Mary Elizondo) CBC/BMP: 02/13/17 0628 02/11/17 0618 Lab Results Laboratory Tests Test 02/13/17 06:28 White Blood Count 8.5 TH/MM3 Red Blood Count 3.37 MIL/MM3 Hemoglobin 10.8 GM/DL Hematocrit 31.8 % Mean Corpuscular Volume 94.2 FL Mean Corpuscular Hemoglobin 32.0 PG Mean Corpuscular Hemoglobin 34.0 % Concent Red Cell Distribution Width 14.2 % Platelet Count 277 TH/MM3 Mean Platelet Volume 7.7 FL Current Medications Administered Medications Medications (Trade) Dose Ordered Sig/Rylan Route PRN Reason Start Time Stop Time Status Last Admin Dose Admin Sertraline HCl 100 mg 100 mg DAILY PO 02/10/17 09:00 02/13/17 08:26 Sodium Chloride (NS 1000 ml Inj) 1,000 ml @ 30 mls/hr Q24H IV 02/09/17 16:44 02/12/17 08:44 IV Flush (NS Flush) 2 ml BID IVF 02/09/17 21:00 02/13/17 08:26 Acetaminophen/ Hydrocodone Bitart ([place] 5-325 Mg) 1 tab Q4H PRN PO PAIN LESS THAN 5 ON SCALE 02/09/17 16:45 02/12/17 22:05 Multivitamins/ Minerals Therapeutic (Theragran M Tab) 1 tab BID PO 02/10/17 21:00 04/11/17 20:59 02/13/17 08:26 Docusate Sodium (Colace) 100 mg BID PO 02/10/17 21:00 02/13/17 08:26 Bisacodyl (Dulcolax Supp) 10 mg DAILY PRN RECTAL CONSTIPATION 02/09/17 16:45 02/11/17 05:14 Magnesium Hydroxide (Milk Of Magnesia Liq) 30 ml DAILY PRN PO CONSTIPATION 02/09/17 16:45 02/11/17 07:43 Enoxaparin Sodium (Lovenox Inj) 40 mg Q24H SQ 02/10/17 18:00 02/19/17 18:01 02/12/17 18:42 (Mary Elizondo) Physical Exam General General Appearance: Well Developed, Well Nourished, No Acute Distress, Comfortable, Pale (Mary Elizondo) Eyes Eye Exam: Pupils Equal, Pupils Reactive (Mary Elizondo) Ears & Nose Ears & Nose Exam: Nasal Mucosa [place] (Mary Elizondo) Throat Throat Exam: Oral Mucosa [place] & Moist (Mary Elizondo) Pulmonary Resp Exam: Breath Sounds Equal, Decreased Bases (CaroMary M. MULTIFOCAL BUTTON GENERATOR) Cardiology CV Exam: Regular (CaroMary M. MULTIFOCAL BUTTON GENERATOR) Gastrointestinal/Abdomen GI Exam: Soft, Non-Tender, Bowel Sounds Present, Non-Distended (Bryant PondMary M. MULTIFOCAL BUTTON GENERATOR) Integumentary Skin Exam: Warm, Dry (Bryant PondMary M. MULTIFOCAL BUTTON GENERATOR) Extremeties Extremities Exam: Pedal Pulses Palpable (Bryant PondMary M. MULTIFOCAL BUTTON GENERATOR) Neurologic Neuro Exam: Alert, Awake, Speech Clear (CaroMary M. MULTIFOCAL BUTTON GENERATOR) VTE Prophylaxis VTE Prophylaxis Device: SCDs, TEDs VTE Prophylaxis Meds: Lovenox (Bryant PondMary M. MULTIFOCAL BUTTON GENERATOR) Assessment/Plan Assessment/Plan 1. Psychiatric issue, bipolar disorder, schizophrenia with suicidal ideation under [place] act., lifted, medical management 2. Hypertension., stable 3. Hypothyroidism. medical management 4. Seems like dementia, early., stable 5. Urinary tract infection. resolved 6. Fall, S/P right humeral head fracture treated non op, has sling 7. Fall, S/P left femoral neck fracture, S/P Left hip hemiarthroplasty for treatment of displaced femoral neck fracture 02/09 Plan Vital signs reviewed, normal ranges labs reviewed with acute treatment needs. Agitation Added Hadol IM as needed for agitation. Will have psy eval her meds in the am. appreciate ortho input S/P Left hip hemiarthroplasty for treatment of displaced femoral neck fracture Post op ortho care PT eval and tx Wound care Bowel regimen, stable R shoulder: remain immobilize in sling NWB to RUE Sling and swathe R UE, cont conservative management, ice and elevation L hip: WBAT Bowel regimen. Discharge planning, [place] Act removed, pt. affect calm and responsive to verbal stimuli. CM working on SNF dc planning Will f/u as OP for her lt hip fx and rt. shoulder injury 3008 on chart. Lovenox for DVT prophylaxis UTI, stable, resolved (CaroMary M. MULTIFOCAL BUTTON GENERATOR) Assessment/Plan pt seen and examined aa above labs and meds reviewed plan of care dw manager case management dw community case manager about dc planning. Looking for place difficult to find bc of psych hx as per case alley. If they will find one she will let me to dc her today or tomorrow (Moose Hair MD) Mary Elizondo February 13, 2017 09:22 Moose Hair MD February 13, 2017 10:51
[2017-02-13 09:40] LABS: BICARBONATE 29.6 MEQ/L (21.0-32.0); POTASSIUM 4.1 MEQ/L (3.5-5.1)
[2017-02-13 10:17] VITALS: O2SAT 95
[2017-02-13] MEDS: ACETAMINOPHEN/HYDROcodone 325 MG/5 MG TAB PO PRN ×3 (11:39→21:34)
[2017-02-13 12:00] VITALS: BP 142/67; PULSE 76; RESP 25; TEMP 96.5; O2SAT 99
[2017-02-13 16:00] VITALS: BP 130/65; PULSE 75; RESP 18; TEMP 96.3; O2SAT 98
[2017-02-13] MEDS ORDERED: HALOPERIDOL LACTATE 5 MG/ML AMP IM PRN (16:00)
--- NOTE | 2017-02-13 16:46 | PD.ORT.PN ---
Subjective Subjective Remarks blunted affect, Objective Vitals Vital Signs Date Time Temp Pulse Resp B/P Pulse Ox O2 Delivery O2 Flow Rate FiO2 02/13/17 12:00 96.5 76 25 142/67 99 02/13/17 08:20 Nasal Cannula 2.00 02/13/17 08:00 97.0 69 18 112/63 97 02/13/17 04:00 96.7 75 17 121/63 98 02/13/17 00:00 Nasal Cannula 2.00 02/12/17 23:55 98.5 76 20 111/57 98 02/12/17 23:03 18 02/12/17 19:20 96 Nasal Cannula 2.00 02/12/17 19:00 98.8 90 21 119/64 98 I/O 02/12/17 02/12/17 02/12/17 02/13/17 02/13/17 02/13/17 07:00 15:00 23:00 07:00 15:00 23:00 Intake Total 240 ml 600 ml 480 ml 480 ml Balance 240 ml 600 ml 480 ml 480 ml Intake Oral 240 ml 600 ml 480 ml 480 ml # Voids 2 3 3 4 # Bowel Movements 0 0 0 Result Diagram: 02/13/17 0628 02/13/17 0845 Imaging x-rays left hip post-op look good Procedures s/p L hip hemiarthroplasty, non-op tx of Right proximal humerus fx Pre-existing psych condition Objective Remarks RUE in sling/swath, + mild echymosis, + mild swelling, moves fingers. LLE, no swelling calf, NT at calf, Left hip dressing is clean and dry, no erythema (will reinforced b/c back edge is coming up). Mild swelling to the left hip. Assessment & Plan Assessment and Plan POD #4 s/p L hip hemiarthroplasty, non-op tx of Right proximal humerus fx Pre-existing psych condition R shoulder: NWB to RUE Sling and swathe R UE, cont conservative management, ice and elevation Pain control with meds L hip: WBAT Post THP, with CKS when in bed DVT prophylaxis with Lovenox (10 days) followed by ASA Patient will f/u with Dr. Tello in 1-2 weeks. Anticipatory discharge to inpatient psych facility. Plan is for discharge Sunday or Sunday once medically cleared. Cleared for d/c per ortho. will sign off for now Jonn Tello MD February 13, 2017 16:46
[2017-02-13] MEDS: ENOXAPARIN SODIUM 40 MG/0.4 ML SYRINGE SQ SCH (17:39)
[2017-02-13 20:00] VITALS: BP 142/65; PULSE 86; RESP 24; TEMP 97.1; O2SAT 98
[2017-02-14] VITALS: BP 142/69; PULSE 78; RESP 22; TEMP 98.6; O2SAT 98
[2017-02-14 04:00] VITALS: BP 145/68; PULSE 98; RESP 24; TEMP 97.1; O2SAT 97
[2017-02-14] MEDS: ACETAMINOPHEN/HYDROcodone 325 MG/5 MG TAB PO PRN ×4 (04:20→23:40)
[2017-02-14 07:30] VITALS: BP 133/68; PULSE 78; RESP 17; TEMP 97; O2SAT 97
[2017-02-14] MEDS: SODIUM CHLOR 0.9% 1000 ML INJ 1,000 ML IV SCH (08:44)
[2017-02-14] MEDS: SODIUM CHLORIDE 0.9% FLUSH 5 ML FLUSH IVF SCH ×2 (09:00→20:18)
[2017-02-14] MEDS: SERTRALINE HCL 100 MG TAB PO SCH (09:24)
[2017-02-14] MEDS: DOCUSATE SODIUM 100 MG CAP PO SCH ×2 (09:24→20:17)
[2017-02-14] MEDS: MULTIVITAMINS/MINERALS THERAPEUTIC TAB PO SCH ×2 (09:26→20:17)
[2017-02-14 12:10] VITALS: BP 128/64; PULSE 71; RESP 17; TEMP 98.6; O2SAT 99
--- NOTE | 2017-02-14 13:46 | HHI.PYPN ---
Subjective Remarks Patient was seen for psychiatric evaluation, patient seems to be distressed, reports that she has been on pain since yesterday, she said the medication doesn 't seem to be helping a lot. She denies depression, she denies anxiety, she denies perceptual disturbances, she denies suicidal and homicidal ideation, she denies visual and auditory hallucinations. Patient is irritable and reticent " I have too much pain". He is fully oriented 3. She reports motivation to follow medical recommendations "as long as they want to help me". No agitation or aggressive behavior has been reported to be by nurse in charge. However, primary care physician expressed some concern about agitation episode yesterday. Review of Systems Other Patient reports right shoulder pain Objective Alert: Yes [place]: Person, Place, Date, Situation Mood: Calm Affect: Other (irritable) Memory Intact: Comment (no formerly assessed) Hallucinations: Other (denies) Delusions: No Delusion Type: Other (not elicited) Suicidal: Ideation (she denies suicidal ideation) Homicidal: Ideation (patient denies) Insight/Judgment Good Vitals/IOs Vital Signs Date Time Temp Pulse Resp B/P Pulse Ox O2 Delivery O2 Flow Rate FiO2 02/14/17 12:10 98.6 71 17 128/64 99 02/14/17 08:30 Nasal Cannula 2.00 Intake and Output 02/13/17 02/13/17 02/14/17 08:00 16:00 00:00 Intake Total 480 ml 600 ml 780 ml Balance 480 ml 600 ml 780 ml Assessment & Plan Problem List: (1) Unspecified psychosis Assessment & Plan: At this moment no agitation or aggressive behavior present, patient fully oriented 3. Denies depression, denies anxiety, denies perceptual disturbances. She denies suicidal and homicidal ideation. Will add Seroquel 25 mg twice a day to help with mood. Patient does not need any immediate psychiatric intervention. She is psychiatrically cleared to be transferred to long term. ICD Code: F29 Assessment & Plan Estimated LOS: days Justification for Cont. Inpt. Patient does not meet criteria for psychiatric admission at this moment.. Nain Peterson MD February 14, 2017 13:46
[2017-02-14 16:00] VITALS: BP 120/65; PULSE 78; RESP 17; TEMP 98.3; O2SAT 99
--- NOTE | 2017-02-14 16:02 | HHI.PR ---
Subjective Remarks Patient is pleasant Sitting on chair not in any apparent distress Has some ache on the left hip area and also some ache on the right upper extremity pointing to shoulder joint No pain at present. No nausea vomiting. No abdominal pain. Alert and oriented Review of system for 10 point system otherwise unremarkable Objective Objective Results - Vital Signs Date Time Temp Pulse Resp B/P Pulse Ox O2 Delivery O2 Flow Rate FiO2 02/14/17 12:10 98.6 71 17 128/64 99 02/14/17 08:30 97 Nasal Cannula 2.00 02/14/17 07:30 97.0 78 17 133/68 97 02/14/17 05:25 18 02/14/17 04:00 97.1 98 24 145/68 97 02/14/17 03:18 Nasal Cannula 2.00 02/14/17 00:00 98.6 78 22 142/69 98 02/13/17 20:00 97.1 86 24 142/65 98 02/13/17 16:00 96.3 75 18 130/65 98 I/O 02/13/17 02/13/17 02/13/17 02/14/17 02/14/17 02/14/17 07:00 15:00 23:00 07:00 15:00 23:00 Intake Total 480 ml 600 ml 780 ml 480 ml Balance 480 ml 600 ml 780 ml 480 ml Intake Oral 480 ml 600 ml 780 ml 480 ml # Voids 4 2 1 3 # Bowel Movements 0 0 1 1 Result Diagram: 02/13/17 0628 02/13/17 0845 Physical Exam Physical Exam GENERAL: The patient is alert, awake, oriented 3. VITAL SIGNS: Reviewed HEENT: Head is normocephalic. Eyes negative conjunctival icterus. Mouth unremarkable. NECK: Supple. No increased JVD. Negative thyromegaly. Central trachea. LUNGS: Chest clear to auscultation. No adventitious sound CARDIOVASCULAR: S1-S2 audible. Unable to hear any S3 gallop. ABDOMEN: Soft, nontender, no organomegaly. Positive bowel sounds. MUSCULOSKELETAL: Extremities, no cyanosis or pedal edema appreciated. Nontender left lower activity joints. Some tenderness of the right shoulder area. Right approximately in sling and swath CENTRAL NERVOUS SYSTEM: Normal facial features. Moving all her extremities. A/P Assessment and Plan 1. Psychiatric issue, bipolar disorder, schizophrenia with suicidal ideation under [place] act., lifted, medical management 2. Hypertension., stable 3. Hypothyroidism. medical management 4. Seems like dementia, early., stable 5. Urinary tract infection. resolved 6. Fall, S/P right humeral head fracture treated non op, has sling 7. Fall, S/P left femoral neck fracture, S/P Left hip hemiarthroplasty for treatment of displaced femoral neck fracture 02/09 Plan Vital signs reviewed, normal ranges labs reviewed with acute treatment needs. Agitation Appreciate psychiatric input today. Management noted appreciate ortho input S/P Left hip hemiarthroplasty for treatment of displaced femoral neck fracture Post op ortho care. Patient is clear for discharge from or to PT eval and tx Wound care Bowel regimen, stable R shoulder: remain immobilize in sling NWB to RUE Sling and swathe R UE, cont conservative management, ice and elevation L hip: WBAT Bowel regimen. Discharge planning, [place] Act removed by psychiatrist, pt. affect calm and responsive to verbal stimuli. CM working on SNF dc planning Will f/u as OP for her lt hip fx and rt. shoulder injury 3008 on chart. Discussed with RN Discussed with patient Moose Hair MD February 14, 2017 16:02
[2017-02-14] MEDS: ENOXAPARIN SODIUM 40 MG/0.4 ML SYRINGE SQ SCH (17:44)
[2017-02-14 20:35] VITALS: BP 166/72; PULSE 70; RESP 18; TEMP 98.6; O2SAT 96
[2017-02-15] VITALS (7 sets, daily range): BP systolic 129–163; BP diastolic 63–82; PULSE 75–89; RESP 17–18; TEMP 97.2–99.1; O2SAT 96–100
[2017-02-15] MEDS: ACETAMINOPHEN/HYDROcodone 325 MG/5 MG TAB PO PRN ×3 (04:02→17:38)
[2017-02-15] MEDS: DOCUSATE SODIUM 100 MG CAP PO SCH ×2 (08:28→21:16)
[2017-02-15] MEDS: SERTRALINE HCL 100 MG TAB PO SCH (08:28)
[2017-02-15] MEDS: QUEtiapine FUMARATE 25 MG TAB PO SCH ×2 (08:28→13:47)
[2017-02-15] MEDS: MULTIVITAMINS/MINERALS THERAPEUTIC TAB PO SCH ×2 (08:28→21:16)
[2017-02-15] MEDS: SODIUM CHLOR 0.9% 1000 ML INJ 1,000 ML IV SCH (08:46)
[2017-02-15] MEDS: SODIUM CHLORIDE 0.9% FLUSH 5 ML FLUSH IVF SCH ×2 (09:00→21:00)
--- NOTE | 2017-02-15 16:42 | HHI.PR ---
Subjective Remarks Patient is pleasant lying on bed without any apparent distress Has some ache on the left hip area and also some ache on the right upper extremity pointing to shoulder joint No pain at present. No nausea vomiting. No abdominal pain. Alert and oriented Review of system for 10 point system otherwise unremarkable Objective Objective Results - Vital Signs Date Time Temp Pulse Resp B/P Pulse Ox O2 Delivery O2 Flow Rate FiO2 02/15/17 11:37 97.2 89 17 130/74 98 02/15/17 10:53 96 Nasal Cannula 2.00 02/15/17 09:28 16 02/15/17 07:36 98.1 84 17 135/69 97 02/15/17 04:45 99.1 77 18 158/77 99 02/15/17 00:40 20 02/15/17 00:35 98.6 75 18 163/82 100 02/14/17 20:35 98.6 70 18 166/72 96 02/14/17 20:30 Nasal Cannula 2.00 I/O 02/14/17 02/14/17 02/14/17 02/15/17 02/15/17 02/15/17 07:00 15:00 23:00 07:00 15:00 23:00 Intake Total 480 ml 1200 ml 120 ml 240 ml Balance 480 ml 1200 ml 120 ml 240 ml Intake Oral 480 ml 1200 ml 120 ml 240 ml # Voids 3 3 2 4 # Bowel Movements 1 1 0 0 Result Diagram: 02/13/17 0628 02/13/17 0845 Physical Exam Physical Exam GENERAL: The patient is alert, awake, oriented 3. VITAL SIGNS: Reviewed HEENT: Head is normocephalic. Eyes negative conjunctival icterus. Mouth unremarkable. NECK: Supple. No increased JVD. Negative thyromegaly. Central trachea. LUNGS: Chest clear to auscultation. No adventitious sound CARDIOVASCULAR: S1-S2 audible. Unable to hear any S3 gallop. ABDOMEN: Soft, nontender, no organomegaly. Positive bowel sounds. MUSCULOSKELETAL: Extremities, no cyanosis or pedal edema appreciated. Nontender left lower activity joints. Some tenderness of the right shoulder area. Right approximately in sling and swath CENTRAL NERVOUS SYSTEM: Normal facial features. Moving all her extremities. A/P Assessment and Plan 1. Psychiatric issue, bipolar disorder, schizophrenia with suicidal ideation under [place] act., lifted, medical management 2. Hypertension., stable 3. Hypothyroidism. medical management 4. Seems like dementia, early., stable 5. Urinary tract infection. resolved 6. Fall, S/P right humeral head fracture treated non op, has sling 7. Fall, S/P left femoral neck fracture, S/P Left hip hemiarthroplasty for treatment of displaced femoral neck fracture 02/09 Plan Vital signs reviewed, normal ranges labs reviewed with acute treatment needs. Agitation Appreciate psychiatric input today. Management noted. no more agitation appreciate ortho input S/P Left hip hemiarthroplasty for treatment of displaced femoral neck fracture Post op ortho care. Patient is clear for discharge from or to PT eval and tx Wound care Bowel regimen, stable R shoulder: remain immobilize in sling NWB to RUE Sling and swathe R UE, cont conservative management, ice and elevation L hip: WBAT Bowel regimen. Discharge planning, [place] Act removed by psychiatrist, pt. affect calm and responsive to verbal stimuli. CM working on SNF dc planning 3008 on chart. Discussed with RN Discussed with patient Moose Hiar MD February 15, 2017 16:42
[2017-02-15] MEDS: ENOXAPARIN SODIUM 40 MG/0.4 ML SYRINGE SQ SCH (17:38)
[2017-02-16 00:44] VITALS: BP 115/68; PULSE 80; RESP 17; TEMP 98.4; O2SAT 97
[2017-02-16 04:30] VITALS: BP 131/67; PULSE 81; RESP 17; TEMP 97.5; O2SAT 98
[2017-02-16] MEDS: ACETAMINOPHEN/HYDROcodone 325 MG/5 MG TAB PO PRN ×2 (05:09→19:57)
[2017-02-16 07:58] VITALS: BP 141/71; PULSE 73; RESP 18; TEMP 97.7; O2SAT 98
[2017-02-16] MEDS: SODIUM CHLOR 0.9% 1000 ML INJ 1,000 ML IV SCH (08:44)
[2017-02-16] MEDS: SODIUM CHLORIDE 0.9% FLUSH 5 ML FLUSH IVF SCH ×2 (09:00→19:58)
[2017-02-16] MEDS: DOCUSATE SODIUM 100 MG CAP PO SCH ×2 (10:06→19:58)
[2017-02-16] MEDS: MAGNESIUM HYDROXIDE SUSP 30 ML CUP PO PRN (10:06)
[2017-02-16] MEDS: SERTRALINE HCL 100 MG TAB PO SCH (10:06)
[2017-02-16] MEDS: QUEtiapine FUMARATE 25 MG TAB PO SCH ×2 (10:07→12:47)
[2017-02-16] MEDS: MULTIVITAMINS/MINERALS THERAPEUTIC TAB PO SCH ×2 (10:07→19:57)
--- NOTE | 2017-02-16 10:36 | HHI.PR ---
Subjective Remarks left hip pain eating okay no cp no n/v no fever calm, cooperative Objective Objective Results - Vital Signs Date Time Temp Pulse Resp B/P Pulse Ox O2 Delivery O2 Flow Rate FiO2 02/16/17 07:58 97.7 73 18 141/71 98 02/16/17 04:30 97.5 81 17 131/67 98 02/16/17 00:44 98.4 80 17 115/68 97 02/15/17 20:30 98.5 84 17 131/63 98 02/15/17 19:11 16 02/15/17 15:36 98.2 80 17 129/69 100 02/15/17 11:37 97.2 89 17 130/74 98 02/15/17 10:53 96 Nasal Cannula 2.00 I/O 02/15/17 02/15/17 02/15/17 02/16/17 02/16/17 02/16/17 07:00 15:00 23:00 07:00 15:00 23:00 Intake Total 240 ml 960 ml 240 ml 120 ml Balance 240 ml 960 ml 240 ml 120 ml Intake Oral 240 ml 960 ml 240 ml 120 ml # Voids 4 2 0 2 # Bowel Movements 0 0 0 0 Result Diagram: 02/13/17 0628 02/13/17 0845 ROS General: Other (poor historian ) Neuro/MS: Other (hip pain) Psych: Anxiety Physical Exam Physical Exam GENERAL: The patient is alert, awake, oriented 3. VITAL SIGNS: Reviewed HEENT: Head is normocephalic. Eyes negative conjunctival icterus. Mouth unremarkable. NECK: Supple. No increased JVD. Negative thyromegaly. Central trachea. LUNGS: Chest clear to auscultation. No adventitious sound CARDIOVASCULAR: S1-S2 audible. Unable to hear any S3 gallop. ABDOMEN: Soft, nontender, no organomegaly. Positive bowel sounds. MUSCULOSKELETAL: Extremities, no cyanosis or pedal edema appreciated. Nontender left lower activity joints. Some tenderness of the right shoulder area. Right arm in sling and swath. Left hip dressing D/I CENTRAL NERVOUS SYSTEM: Normal facial features. Moving all her extremities. A&O x 2-3. Urinary Catheter: No Vascular Central Line Catheter: No A/P Assessment and Plan 1. Psychiatric issue, bipolar disorder, schizophrenia with suicidal ideation under [place] act. 2. Hypertension. 3. Hypothyroidism. 4. Seems like dementia, early. 5. Urinary tract infection. 6. Fall, S/P right humeral head fracture treated non op, has sling 7. Fall, S/P left femoral neck fracture, S/P Left hip hemiarthroplasty for treatment of displaced femoral neck fracture 02/09 Plan appreciate ortho input S/P Left hip hemiarthroplasty for treatment of displaced femoral neck fracture Post op ortho care PT eval and tx Wound care Bowel regimen Pain management Lovenox for DVT prophylaxis S/P right humeral head fracture non operative management needs to f/u with ortho psychiatry input appreciated cleared for dc to SNF, no need for inpatient psych services [facility] Continue psych meds added Seroquel for agitation which has improved. No behavior issues, calm, cooperative, pleasant. Participating in PT UTI, + viridans streptococcus sens. none repeated UA/UC, no infection monitor for s/s infection, no need for abx PT eval and tx IS q 2 wa CM working on placement, difficult due to psych hx. Pt. stable for discharge. She is cooperative and pleasant. Discussed with the patient. Discussed with RN. Discussed with Dr. Hair This patient was seen by myself and Dr. Hair, this note is written on his behalf. Maliha Hernandez February 16, 2017 10:36
[2017-02-16 12:04] VITALS: BP 112/62; PULSE 76; RESP 18; TEMP 98.8; O2SAT 95
[2017-02-16 16:00] VITALS: BP 111/68; PULSE 83; RESP 18; TEMP 98.8; O2SAT 97
[2017-02-16] MEDS: ENOXAPARIN SODIUM 40 MG/0.4 ML SYRINGE SQ SCH (17:49)
[2017-02-16 20:45] VITALS: BP 125/60; PULSE 78; RESP 17; TEMP 100.4; O2SAT 96
[2017-02-17] VITALS (7 sets, daily range): BP systolic 108–137; BP diastolic 58–70; PULSE 73–82; RESP 13–18; TEMP 97.2–99.4; O2SAT 96–99
[2017-02-17] MEDS: SERTRALINE HCL 100 MG TAB PO SCH (08:33)
[2017-02-17] MEDS: DOCUSATE SODIUM 100 MG CAP PO SCH ×2 (08:34→20:13)
[2017-02-17] MEDS: MULTIVITAMINS/MINERALS THERAPEUTIC TAB PO SCH ×2 (08:34→20:13)
[2017-02-17] MEDS: ACETAMINOPHEN/HYDROcodone 325 MG/5 MG TAB PO PRN ×2 (08:34→17:40)
[2017-02-17] MEDS: MAGNESIUM HYDROXIDE SUSP 30 ML CUP PO PRN (08:34)
[2017-02-17] MEDS: QUEtiapine FUMARATE 25 MG TAB PO SCH ×2 (08:34→13:00)
[2017-02-17] MEDS: SODIUM CHLORIDE 0.9% FLUSH 5 ML FLUSH IVF SCH ×2 (08:38→20:14)
[2017-02-17] MEDS: SODIUM CHLOR 0.9% 1000 ML INJ 1,000 ML IV SCH (08:38)
--- NOTE | 2017-02-17 10:46 | HHI.PR ---
Subjective Remarks left hip pain better eating okay no cp no n/v no fever calm, cooperative had BM Objective Objective Results - Vital Signs Date Time Temp Pulse Resp B/P Pulse Ox O2 Delivery O2 Flow Rate FiO2 02/17/17 04:35 99.4 73 16 130/67 98 02/17/17 00:19 98.5 73 17 137/70 98 02/16/17 20:45 100.4 78 17 125/60 96 02/16/17 16:00 98.8 83 18 111/68 97 02/16/17 12:04 98.8 76 18 112/62 95 I/O 02/16/17 02/16/17 02/16/17 02/17/17 02/17/17 02/17/17 07:00 15:00 23:00 07:00 15:00 23:00 Intake Total 120 ml 240 ml 240 ml 240 ml Output Total 2 ml Balance 120 ml 240 ml 240 ml 238 ml Intake Oral 120 ml 240 ml 240 ml 240 ml Output Urine Total 2 ml # Voids 2 1 0 # Bowel Movements 0 0 0 1 Result Diagram: 02/13/17 0628 02/13/17 0845 ROS Neuro/MS: Other (left hip pain ) Physical Exam Physical Exam GENERAL: The patient is alert, awake, oriented 3. VITAL SIGNS: Reviewed HEENT: Head is normocephalic. Eyes negative conjunctival icterus. Mouth unremarkable. NECK: Supple. No increased JVD. Negative thyromegaly. Central trachea. LUNGS: Chest clear to auscultation. No adventitious sound CARDIOVASCULAR: S1-S2 audible. Unable to hear any S3 gallop. ABDOMEN: Soft, nontender, no organomegaly. Positive bowel sounds. MUSCULOSKELETAL: Extremities, no cyanosis or pedal edema appreciated. Nontender left lower activity joints. Some tenderness of the right shoulder area. Right arm in sling and swath. Left hip dressing D/I CENTRAL NERVOUS SYSTEM: Normal facial features. Moving all her extremities. A&O x 2-3. Cooperative Urinary Catheter: No Vascular Central Line Catheter: No A/P Assessment and Plan 1. Psychiatric issue, bipolar disorder, schizophrenia with suicidal ideation under [place] act. 2. Hypertension. 3. Hypothyroidism. 4. Seems like dementia, early. 5. Urinary tract infection. 6. Fall, S/P right humeral head fracture treated non op, has sling 7. Fall, S/P left femoral neck fracture, S/P Left hip hemiarthroplasty for treatment of displaced femoral neck fracture 02/09 Plan appreciate ortho input S/P Left hip hemiarthroplasty for treatment of displaced femoral neck fracture Post op ortho care PT eval and tx Wound care Bowel regimen Pain management Lovenox for DVT prophylaxis S/P right humeral head fracture non operative management needs to f/u with ortho psychiatry input appreciated cleared for dc to SNF, no need for inpatient psych services [facility] Continue psych meds added Seroquel for agitation which has improved. No behavior issues, calm, cooperative, pleasant. Participating in PT UTI, + viridans streptococcus sens. none repeated UA/UC, no infection monitor for s/s infection, no need for abx PT eval and tx IS q 2 wa CM working on placement, difficult due to psych hx. Has been declined by multiple facilities will check labs for am Pt. stable for discharge. She is cooperative and pleasant. Discussed with the patient. Discussed with RN. Discussed with Dr. Hair This patient was seen by myself and Dr. Hair, this note is written on his behalf. Maliha Hernandez [facility] February 17, 2017 10:46
[2017-02-17] MEDS: ENOXAPARIN SODIUM 40 MG/0.4 ML SYRINGE SQ SCH (17:40)
[2017-02-18] MEDS: ACETAMINOPHEN/HYDROcodone 325 MG/5 MG TAB PO PRN ×5 (00:56→21:20)
[2017-02-18 04:45] VITALS: BP 102/63; PULSE 68; RESP 16; TEMP 97.9; O2SAT 97
[2017-02-18 06:54] LABS: HEMATOCRIT 30.1 % (35.0-46.0); MEAN CELL VOLUME 95.3 FL (80.0-100.0); MEAN CORPUSCULAR HEMOGLOBIN 32.6 PG (27.0-34.0); MEAN CORPUSCULAR HGB CONC 34.2 % (32.0-36.0); PLATELET COUNT 296 TH/MM3 (150-450); RED BLOOD COUNT 3.16 MIL/MM3 (4.00-5.30); RED CELL DISTRIBUTION WIDTH 14.9 % (11.6-17.2); WHITE BLOOD COUNT 7.6 TH/MM3 (4.0-11.0)
[2017-02-18 07:01] LABS: REVIEW FLAG FINAL
[2017-02-18 07:06] LABS: BICARBONATE 29.3 MEQ/L (21.0-32.0); POTASSIUM 4.2 MEQ/L (3.5-5.1)
[2017-02-18 08:00] VITALS: BP 114/59; PULSE 64; RESP 18; TEMP 96.5; O2SAT 99
[2017-02-18] MEDS: QUEtiapine FUMARATE 25 MG TAB PO SCH ×2 (08:42→11:42)
[2017-02-18] MEDS: MULTIVITAMINS/MINERALS THERAPEUTIC TAB PO SCH ×2 (08:42→21:19)
[2017-02-18] MEDS: DOCUSATE SODIUM 100 MG CAP PO SCH ×2 (08:42→21:18)
[2017-02-18] MEDS: SERTRALINE HCL 100 MG TAB PO SCH (08:42)
[2017-02-18] MEDS: SODIUM CHLOR 0.9% 1000 ML INJ 1,000 ML IV SCH (08:44)
[2017-02-18] MEDS: SODIUM CHLORIDE 0.9% FLUSH 5 ML FLUSH IVF SCH ×2 (08:49→21:00)
--- NOTE | 2017-02-18 11:19 | HHI.PR ---
Subjective Remarks left hip pain eating okay no cp no n/v no fever calm, cooperative no acute changes overnight Objective Objective Results - Vital Signs Date Time Temp Pulse Resp B/P Pulse Ox O2 Delivery O2 Flow Rate FiO2 02/18/17 08:00 96.5 64 18 114/59 99 02/18/17 04:45 97.9 68 16 102/63 97 02/17/17 23:15 97.2 74 16 114/59 98 02/17/17 20:30 97.3 81 18 121/58 99 02/17/17 16:00 98.1 78 18 108/62 99 02/17/17 12:00 98.5 82 13 117/69 96 I/O 02/17/17 02/17/17 02/17/17 02/18/17 02/18/17 02/18/17 07:00 15:00 23:00 07:00 15:00 23:00 Intake Total 240 ml 960 ml 480 ml 240 ml Output Total 2 ml 900 ml Balance 238 ml 60 ml 480 ml 240 ml Intake Oral 240 ml 960 ml 480 ml 240 ml Output Urine Total 2 ml 900 ml # Voids 3 2 1 # Bowel Movements 1 2 0 0 Result Diagram: 02/18/17 0623 02/18/17 0623 Other Results Laboratory Tests Test 02/18/17 06:23 White Blood Count 7.6 Red Blood Count 3.16 Hemoglobin 10.3 Hematocrit 30.1 Mean Corpuscular Volume 95.3 Mean Corpuscular Hemoglobin 32.6 Mean Corpuscular Hemoglobin 34.2 Concent Red Cell Distribution Width 14.9 Platelet Count 296 Mean Platelet Volume 8.3 Sodium Level 141 Potassium Level 4.2 Chloride Level 105 Carbon Dioxide Level 29.3 Anion Gap 7 Blood Urea Nitrogen 13 Creatinine 0.42 Estimat Glomerular Filtration 150 Rate Random Glucose 92 Calcium Level 8.9 ROS General: Other (12 point ROS completed, unreliable ) Neuro/MS: Other (left hip and shoulder pain ) Physical Exam Physical Exam GENERAL: The patient is alert, awake, oriented 3. VITAL SIGNS: Reviewed HEENT: Head is normocephalic. Eyes negative conjunctival icterus. Mouth unremarkable. NECK: Supple. No increased JVD. Negative thyromegaly. Central trachea. LUNGS: Chest clear to auscultation. No adventitious sound CARDIOVASCULAR: S1-S2 audible. Unable to hear any S3 gallop. ABDOMEN: Soft, nontender, no organomegaly. Positive bowel sounds. MUSCULOSKELETAL: Extremities, no cyanosis or pedal edema appreciated. Nontender left lower activity joints. Some tenderness of the right shoulder area. Right arm in sling and swath. Left hip dressing D/I CENTRAL NERVOUS SYSTEM: Normal facial features. Moving all her extremities. A&O x 2-3. Cooperative Urinary Catheter: No Vascular Central Line Catheter: No A/P Assessment and Plan 1. Psychiatric issue, bipolar disorder, schizophrenia with suicidal ideation under [place] act. 2. Hypertension. 3. Hypothyroidism. 4. Seems like dementia, early. 5. Urinary tract infection. 6. Fall, S/P right humeral head fracture treated non op, has sling 7. Fall, S/P left femoral neck fracture, S/P Left hip hemiarthroplasty for treatment of displaced femoral neck fracture 02/09 Plan appreciate ortho input S/P Left hip hemiarthroplasty for treatment of displaced femoral neck fracture Post op ortho care PT eval and tx Wound care Bowel regimen Pain management Lovenox for DVT prophylaxis S/P right humeral head fracture non operative management needs to f/u with ortho psychiatry input appreciated cleared for dc to SNF, no need for inpatient psych services [facility] Continue psych meds added Seroquel for agitation which has improved. No behavior issues, calm, cooperative, pleasant. Participating in PT UTI, + viridans streptococcus sens. none repeated UA/UC, no infection monitor for s/s infection, no need for abx PT eval and tx IS q 2 wa CM working on placement, difficult due to psych hx. Has been declined by multiple facilities Labs reviewed, HH stable. Pt. stable for discharge. She is cooperative and pleasant. Discussed with the patient. Discussed with RN. Discussed with Dr. Hair This patient was seen by myself and Dr. Hair, this note is written on his behalf. Maliha Hernandez February 18, 2017 11:19
[2017-02-18 12:00] VITALS: BP 114/60; PULSE 70; RESP 18; TEMP 98; O2SAT 99
[2017-02-18 16:00] VITALS: BP 104/70; PULSE 75; RESP 18; TEMP 97.9; O2SAT 95
[2017-02-18] MEDS: ENOXAPARIN SODIUM 40 MG/0.4 ML SYRINGE SQ SCH (17:03)
[2017-02-18 20:30] VITALS: BP 104/63; PULSE 67; RESP 17; TEMP 97.6; O2SAT 96
[2017-02-19 00:10] VITALS: BP 128/67; PULSE 68; RESP 19; TEMP 96.6; O2SAT 96
[2017-02-19] MEDS: ACETAMINOPHEN/HYDROcodone 325 MG/5 MG TAB PO PRN ×3 (04:09→16:20)
[2017-02-19 04:55] VITALS: BP 112/56; PULSE 68; RESP 17; TEMP 98.7; O2SAT 95
[2017-02-19 08:00] VITALS: BP 135/60; PULSE 69; RESP 18; TEMP 97.9; O2SAT 93
[2017-02-19] MEDS: QUEtiapine FUMARATE 25 MG TAB PO SCH ×2 (08:12→12:16)
[2017-02-19] MEDS: SODIUM CHLORIDE 0.9% FLUSH 5 ML FLUSH IVF SCH ×2 (08:12→21:00)
[2017-02-19] MEDS: MULTIVITAMINS/MINERALS THERAPEUTIC TAB PO SCH ×2 (08:12→21:35)
[2017-02-19] MEDS: DOCUSATE SODIUM 100 MG CAP PO SCH ×2 (08:12→21:35)
[2017-02-19] MEDS: SERTRALINE HCL 100 MG TAB PO SCH (08:12)
[2017-02-19 12:00] VITALS: BP 127/68; PULSE 80; RESP 12; TEMP 98.1; O2SAT 91
--- NOTE | 2017-02-19 12:46 | HHI.PR ---
Subjective Remarks left hip pain eating okay no cp no n/v no fever calm, cooperative no acute changes overnight ambulated with PT, did well. Objective Objective Results - Vital Signs Date Time Temp Pulse Resp B/P Pulse Ox O2 Delivery O2 Flow Rate FiO2 02/19/17 08:00 97.9 69 18 135/60 93 02/19/17 05:27 18 02/19/17 04:55 98.7 68 17 112/56 95 02/19/17 03:39 Room Air 02/19/17 00:10 96.6 68 19 128/67 96 02/18/17 22:30 18 02/18/17 20:30 97.6 67 17 104/63 96 02/18/17 16:00 97.9 75 18 104/70 95 I/O 02/18/17 02/18/17 02/18/17 02/19/17 02/19/17 02/19/17 07:00 15:00 23:00 07:00 15:00 23:00 Intake Total 840 ml 480 ml 240 ml Balance 840 ml 480 ml 240 ml Intake Oral 840 ml 480 ml 240 ml # Voids 4 4 4 # Bowel Movements 2 0 0 Result Diagram: 02/18/1762202/18/17 0623 ROS General: No: Fatigue, Weakness HEENT: No: Sore Throat, Dysphagia Cardiac: No: Chest Pain, Edema, Palpitations Pulmonary: No: Cough, SOB, Wheezing GI: No: Abdominal Pain, BM, Diarrhea, N/V /RETIREMENT OFFICER: No: Dysuria, Urgency Neuro/MS: Other (left hip and right shoulder pain) Psych: No: Anxiety, Depression Skin: No: Itching, Rash Physical Exam Physical Exam GENERAL: The patient is alert, awake, oriented 3. VITAL SIGNS: Reviewed HEENT: Head is normocephalic. Eyes negative conjunctival icterus. Mouth unremarkable. NECK: Supple. No increased JVD. Negative thyromegaly. Central trachea. LUNGS: Chest clear to auscultation. No adventitious sound CARDIOVASCULAR: S1-S2 audible. Unable to hear any S3 gallop. ABDOMEN: Soft, nontender, no organomegaly. Positive bowel sounds. MUSCULOSKELETAL: Extremities, no cyanosis or pedal edema appreciated. Nontender left lower activity joints. Some tenderness of the right shoulder area. Right arm in sling and swath. Left hip dressing D/I CENTRAL NERVOUS SYSTEM: Normal facial features. Moving all her extremities. A&O x 2-3. Cooperative Urinary Catheter: No Vascular Central Line Catheter: No A/P Assessment and Plan 1. Psychiatric issue, bipolar disorder, schizophrenia with suicidal ideation under [place] act. 2. Hypertension. 3. Hypothyroidism. 4. Seems like dementia, early. 5. Urinary tract infection. 6. Fall, S/P right humeral head fracture treated non op, has sling 7. Fall, S/P left femoral neck fracture, S/P Left hip hemiarthroplasty for treatment of displaced femoral neck fracture 02/09 Plan appreciate ortho input S/P Left hip hemiarthroplasty for treatment of displaced femoral neck fracture Post op ortho care PT eval and tx Wound care Bowel regimen Pain management Lovenox for DVT prophylaxis S/P right humeral head fracture non operative management needs to f/u with ortho psychiatry input appreciated cleared for dc to SNF, no need for inpatient psych services [facility] Continue psych meds added Seroquel for agitation which has improved. No behavior issues, calm, cooperative, pleasant. Participating in PT UTI, + viridans streptococcus sens. none repeated UA/UC, no infection monitor for s/s infection, no need for abx PT eval and tx IS q 2 wa CM working on placement, difficult due to psych hx. Has been declined by multiple facilities Pt. stable for discharge. She is cooperative and pleasant. Discussed with the patient. Discussed with RN. Discussed with Dr. Gonzales This patient was seen by myself and Dr. Gonzales, this note is written on his behalf. Maliha Hernandez [facility] February 19, 2017 12:46
[2017-02-19 16:00] VITALS: BP 128/55; PULSE 79; RESP 18; TEMP 97; O2SAT 98
[2017-02-19] MEDS: ENOXAPARIN SODIUM 40 MG/0.4 ML SYRINGE SQ SCH (18:09)
[2017-02-19 20:55] VITALS: BP 128/59; PULSE 71; RESP 16; TEMP 98.5; O2SAT 98
[2017-02-20 00:25] VITALS: BP 124/73; PULSE 71; RESP 17; TEMP 98.2; O2SAT 98
[2017-02-20] MEDS: ZOLPIDEM TARTRATE 5 MG TAB PO PRN ×2 (02:25→20:32)
[2017-02-20 08:00] VITALS: BP 133/69; PULSE 72; RESP 18; TEMP 97.5; O2SAT 97
[2017-02-20] MEDS: SODIUM CHLORIDE 0.9% FLUSH 5 ML FLUSH IVF SCH ×2 (09:00→20:32)
[2017-02-20] MEDS: DOCUSATE SODIUM 100 MG CAP PO SCH ×2 (10:06→20:32)
[2017-02-20] MEDS: MULTIVITAMINS/MINERALS THERAPEUTIC TAB PO SCH ×2 (10:07→20:32)
[2017-02-20] MEDS: SERTRALINE HCL 100 MG TAB PO SCH (10:07)
[2017-02-20] MEDS: QUEtiapine FUMARATE 25 MG TAB PO SCH ×2 (10:07→12:17)
[2017-02-20 12:00] VITALS: BP 136/64; PULSE 78; RESP 18; TEMP 98.4; O2SAT 99
[2017-02-20] MEDS: ACETAMINOPHEN/HYDROcodone 325 MG/5 MG TAB PO PRN (12:48)
--- NOTE | 2017-02-20 15:01 | HHI.PR ---
Subjective Remarks Dozing but responds to verbal stimuli Affect pleasant Smiling Afebrile No acute facial grimace or pain or shortness of breath noted (Mary Elizondo) Objective Objective Results - Vital Signs Date Time Temp Pulse Resp B/P Pulse Ox O2 Delivery O2 Flow Rate FiO2 02/20/17 12:00 98.4 78 18 136/64 99 02/20/17 08:00 97.5 72 18 133/69 97 02/20/17 07:39 Nasal Cannula 2.00 02/20/17 00:25 98.2 71 17 124/73 98 02/19/17 20:55 98.5 71 16 128/59 98 02/19/17 16:00 97.0 79 18 128/55 98 I/O 02/19/17 02/19/17 02/19/17 02/20/17 02/20/17 02/20/17 06:59 14:59 22:59 06:59 14:59 22:59 Intake Total 240 ml 980 ml 480 ml 120 ml Balance 240 ml 980 ml 480 ml 120 ml Intake Oral 240 ml 980 ml 480 ml 120 ml # Voids 4 3 1 1 # Bowel Movements 0 1 0 0 (Mary Elizondo) Result Diagram: 02/18/1723 02/18/17622 ROS General: Weakness (generalized), Other (10 point ROS done positives noted otherwise systems negative are unremarkable) GI: BM (bowel regimen) Neuro/MS: Confusion (affect appropriate for now medical management), Other ( history of psych disorders, left femoral neck fracture, status post arthroplasty , incision clean dry and intact stable) (Mary Elizondo) Physical Exam Physical Exam PHYSICAL EXAMINATION GENERAL: This is an elderly female who appears to be in no acute distress. She is dozing but responds to verbal stimuli HEAD: Normocephalic without any lesion or mass noted. Facial features appear symmetric. OROPHARYNGEAL: Oropharynx without erythema or edema. NECK: Supple. No nuchal rigidity or lymphadenopathy. Trachea midline without deviation. CARDIAC: Regular rhythm, regular rate, S1 and S2 are heard. LUNGS: Clear to auscultation bilaterally. Volumes lobe ABDOMEN: Soft, nontender, present bowel sounds EXTREMITIES: No edema. NEUROLOGICAL: Patient mood and affect without anxiety SKIN:Warm and moist Objective Remarks Okay I guess (Mary Elizondo) A/P Assessment and Plan 1. Psychiatric issue, bipolar disorder, schizophrenia with suicidal ideation [place] act has been lifted 2. Hypertension. 3. Hypothyroidism. 4. Seems like dementia, early. 5. Urinary tract infection. 6. Fall, S/P right humeral head fracture treated non op, has sling 7. Fall, S/P left femoral neck fracture, S/P Left hip hemiarthroplasty for treatment of displaced femoral neck fracture 02/09 Plan appreciate ortho input S/P Left hip hemiarthroplasty for treatment of displaced femoral neck fracture Post op ortho care PT eval and tx Wound care Bowel regimen Pain management Lovenox for DVT prophylaxis Cleared for discharge S/P right humeral head fracture non operative management needs to f/u with ortho psychiatry input appreciated cleared for dc to SNF, no need for inpatient psych services [facility] Continue psych meds added Seroquel for agitation which has improved. No behavior issues, calm, cooperative, pleasant. Participating in PT UTI, resolved, monitor for symptoms and treatment with medical management PT eval and tx IS q 2 wa CM working on placement, difficult due to psych hx. Has been declined by multiple facilities Pt. stable for discharge. She is cooperative and pleasant. Discussed with the patient. Discussed with RN. Discussed with Dr. Gonzales (Mary Elizondo) Assessment and Plan patient seen and examined continue current care awaiting placement no acute issues d/w Mary SOLIS (Sharyn Gonzales MD) Mary Elizondo February 20, 2017 15:01 Sharyn Gonzales MD February 20, 2017 16:40
[2017-02-20 16:00] VITALS: BP 116/68; PULSE 79; RESP 18; TEMP 97.1; O2SAT 97
[2017-02-20 20:25] VITALS: BP 112/59; PULSE 81; RESP 18; TEMP 98.7; O2SAT 97
[2017-02-21 00:15] VITALS: BP 142/74; PULSE 78; RESP 17; TEMP 97.7; O2SAT 99
[2017-02-21] MEDS: ACETAMINOPHEN/HYDROcodone 325 MG/5 MG TAB PO PRN ×5 (01:56→23:27)
[2017-02-21 07:40] VITALS: BP 135/70; PULSE 67; RESP 18; TEMP 96.2; O2SAT 98
[2017-02-21] MEDS: SODIUM CHLORIDE 0.9% FLUSH 5 ML FLUSH IVF SCH ×2 (09:00→19:34)
[2017-02-21] MEDS: MULTIVITAMINS/MINERALS THERAPEUTIC TAB PO SCH ×2 (09:08→19:34)
[2017-02-21] MEDS: QUEtiapine FUMARATE 25 MG TAB PO SCH ×2 (09:08→12:55)
[2017-02-21] MEDS: SERTRALINE HCL 100 MG TAB PO SCH (09:09)
[2017-02-21] MEDS: DOCUSATE SODIUM 100 MG CAP PO SCH ×2 (09:09→19:34)
[2017-02-21 11:40] VITALS: BP 137/62; PULSE 70; RESP 18; TEMP 98.3; O2SAT 98
--- NOTE | 2017-02-21 13:26 | HHI.PR ---
Subjective Remarks Dozing but responds to verbal stimuli Affect pleasant Smiling Afebrile No acute facial grimace or pain or shortness of breath noted (Mary Elizondo) Objective Objective Results - Vital Signs Date Time Temp Pulse Resp B/P Pulse Ox O2 Delivery O2 Flow Rate FiO2 02/21/17 11:40 98.3 70 18 137/62 98 02/21/17 07:40 96.2 67 18 135/70 98 02/21/17 00:15 97.7 78 17 142/74 99 02/20/17 20:25 98.7 81 18 112/59 97 02/20/17 19:17 Nasal Cannula 2.00 02/20/17 16:00 97.1 79 18 116/68 97 I/O 02/20/17 02/20/17 02/20/17 02/21/17 02/21/17 02/21/17 07:00 15:00 23:00 07:00 15:00 23:00 Intake Total 120 ml 600 ml 240 ml 240 ml Balance 120 ml 600 ml 240 ml 240 ml Intake Oral 120 ml 600 ml 240 ml 240 ml # Voids 1 3 2 1 # Bowel Movements 0 0 0 0 (Mary Elizondo) Result Diagram: 02/18/1762202/18/17622 Physical Exam Physical Exam PHYSICAL EXAMINATION GENERAL: This is a well-developed, well-nourished female who appears to be in no acute distress. She is alert and awake, pleasant HEAD: Normocephalic without any lesion or mass noted. Facial features appear symmetric. OROPHARYNGEAL: Oropharynx without erythema or edema. NECK: Supple. No nuchal rigidity or lymphadenopathy. Trachea midline without deviation. CARDIAC: Regular rhythm, regular rate, S1 and S2 are heard. LUNGS: Clear to auscultation bilaterally. Low volumes ABDOMEN: Soft, nontender, no organomegaly or masses. Bowel sounds are heard in all four quadrants. No rebound. No guarding. EXTREMITIES: no edema. Pulses equal bilateral. Left Hip incision clean dry and intact NEUROLOGICAL: Patient mood and affect appropriate. Pleasant SKIN:Warm and moist, place his arm in sling as needed Objective Remarks I'm doing okay (Mary Elizondo) A/P Assessment and Plan 1. Psychiatric issue, bipolar disorder, schizophrenia with suicidal ideation [place] act has been lifted 2. Hypertension. 3. Hypothyroidism. 4. Seems like dementia, early. 5. Urinary tract infection. 6. Fall, S/P right humeral head fracture treated non op, has sling 7. Fall, S/P left femoral neck fracture, S/P Left hip hemiarthroplasty for treatment of displaced femoral neck fracture 02/09 Plan appreciate ortho input S/P Left hip hemiarthroplasty for treatment of displaced femoral neck fracture Post op ortho care, cleared except for outpatient needs Pain management Lovenox for DVT prophylaxis Cleared for discharge S/P right humeral head fracture non operative management needs to f/u with ortho as an outpatient psychiatry input appreciated cleared for dc to SNF, no need for inpatient psych services Continue psych meds added Seroquel for agitation which has improved. No behavior issues, calm, cooperative, pleasant. Participating in PT UTI, resolved, monitor for symptoms and treatment with medical management CM working on placement, difficult due to psych hx. Has been declined by multiple facilities, continues to assist with discharge planning Pt. stable for discharge. She is cooperative and pleasant. Discussed with the patient. Discussed with RN. Discussed with Dr. Gonzales (Mary Elizondo) Assessment and Plan patient seen and examined continue current care awaiting placement (Sharyn Gonzales MD) Mary Elizondo February 21, 2017 13:26 Sharyn Gonzales MD February 21, 2017 16:28
[2017-02-21 15:57] VITALS: BP 117/69; PULSE 69; RESP 18; TEMP 97.3; O2SAT 100
[2017-02-21 20:00] VITALS: BP 127/59; PULSE 68; RESP 17; TEMP 98.7; O2SAT 99
[2017-02-22] VITALS: BP 121/58; PULSE 71; RESP 17; TEMP 97.6; O2SAT 98
[2017-02-22 04:00] VITALS: BP 119/57; PULSE 68; RESP 16; TEMP 97.6; O2SAT 96
[2017-02-22] MEDS: DOCUSATE SODIUM 100 MG CAP PO SCH ×2 (07:47→19:52)
[2017-02-22] MEDS: MULTIVITAMINS/MINERALS THERAPEUTIC TAB PO SCH ×2 (07:47→19:52)
[2017-02-22] MEDS: ACETAMINOPHEN/HYDROcodone 325 MG/5 MG TAB PO PRN ×4 (07:47→22:12)
[2017-02-22] MEDS: QUEtiapine FUMARATE 25 MG TAB PO SCH ×2 (07:47→11:48)
[2017-02-22] MEDS: SERTRALINE HCL 100 MG TAB PO SCH (07:47)
[2017-02-22] MEDS: MAGNESIUM HYDROXIDE SUSP 30 ML CUP PO PRN (07:49)
[2017-02-22] MEDS: SODIUM CHLORIDE 0.9% FLUSH 5 ML FLUSH IVF SCH ×2 (07:52→19:52)
[2017-02-22 08:00] VITALS: BP 122/59; PULSE 67; RESP 18; TEMP 97.4; O2SAT 98
[2017-02-22 12:00] VITALS: BP 131/63; PULSE 89; RESP 18; TEMP 97.8; O2SAT 96
--- NOTE | 2017-02-22 15:31 | HHI.PR ---
Subjective Remarks left hip pain eating okay no cp no n/v no fever calm, cooperative no acute changes overnight Objective Objective Results - Vital Signs Date Time Temp Pulse Resp B/P Pulse Ox O2 Delivery O2 Flow Rate FiO2 02/22/17 12:48 18 02/22/17 08:00 97.4 67 18 122/59 98 02/22/17 04:00 97.6 68 16 119/57 96 02/22/17 00:00 97.6 71 17 121/58 98 02/21/17 20:00 98.7 68 17 127/59 99 02/21/17 15:57 97.3 69 18 117/69 100 I/O 02/21/17 02/21/17 02/21/17 02/22/17 02/22/17 02/22/17 07:00 15:00 23:00 07:00 15:00 23:00 Intake Total 240 ml 400 ml 240 ml 240 ml Balance 240 ml 400 ml 240 ml 240 ml Intake Oral 240 ml 400 ml 240 ml 240 ml # Voids 1 2 1 2 # Bowel Movements 0 1 0 0 Result Diagram: 02/18/1762202/18/17622 ROS General: Other (12 POINT ROS COMPLETED, UNRELIABLE, ) Physical Exam Physical Exam GENERAL: The patient is alert, awake, oriented 3. VITAL SIGNS: Reviewed HEENT: Head is normocephalic. Eyes negative conjunctival icterus. Mouth unremarkable. NECK: Supple. No increased JVD. Negative thyromegaly. Central trachea. LUNGS: Chest clear to auscultation. No adventitious sound CARDIOVASCULAR: S1-S2 audible. Unable to hear any S3 gallop. ABDOMEN: Soft, nontender, no organomegaly. Positive bowel sounds. MUSCULOSKELETAL: Extremities, no cyanosis or pedal edema appreciated. Nontender left lower activity joints. Some tenderness of the right shoulder area. Right arm in sling and swath. Left hip dressing D/I CENTRAL NERVOUS SYSTEM: Normal facial features. Moving all her extremities. A&O x 2-3. Cooperative Urinary Catheter: No Vascular Central Line Catheter: No A/P Assessment and Plan 1. Psychiatric issue, bipolar disorder, schizophrenia with suicidal ideation under [place] act. 2. Hypertension. 3. Hypothyroidism. 4. Seems like dementia, early. 5. Urinary tract infection. 6. Fall, S/P right humeral head fracture treated non op, has sling 7. Fall, S/P left femoral neck fracture, S/P Left hip hemiarthroplasty for treatment of displaced femoral neck fracture 02/09 Plan appreciate ortho input S/P Left hip hemiarthroplasty for treatment of displaced femoral neck fracture Post op ortho care PT eval and tx Wound care Bowel regimen Pain management Lovenox for DVT prophylaxis S/P right humeral head fracture non operative management needs to f/u with ortho psychiatry input appreciated cleared for dc to SNF, no need for inpatient psych services [facility] Continue psych meds added Seroquel for agitation which has improved. No behavior issues, calm, cooperative, pleasant. Participating in PT UTI, + viridans streptococcus sens. none repeated UA/UC, no infection monitor for s/s infection, no need for abx PT eval and tx IS q 2 wa CM working on placement, difficult due to psych hx. Has been declined by multiple facilities Pt. stable for discharge. She is cooperative and pleasant. there may be a facility, hopefully dc this week. Discussed with the patient. Discussed with RN. Discussed with lamar DUNN. dc, one facility is promising to accept pt. Discussed with Dr. Gonzales This patient was seen by myself and Dr. Gonzales, this note is written on his behalf. Maliha Hernandez [facility] February 22, 2017 15:31
[2017-02-22 16:00] VITALS: BP 126/60; PULSE 73; RESP 18; TEMP 97.6; O2SAT 96
[2017-02-22 21:33] VITALS: BP 148/59; PULSE 74; RESP 20; TEMP 99; O2SAT 95
[2017-02-23] VITALS: BP 116/61; PULSE 64; RESP 20; TEMP 97.4; O2SAT 98
[2017-02-23 04:00] VITALS: BP 122/66; PULSE 67; RESP 20; TEMP 97.7; O2SAT 98
[2017-02-23] MEDS: ACETAMINOPHEN/HYDROcodone 325 MG/5 MG TAB PO PRN ×4 (04:29→17:12)
[2017-02-23 08:00] VITALS: BP 109/56; PULSE 67; RESP 18; TEMP 97.9; O2SAT 100
[2017-02-23] MEDS: MULTIVITAMINS/MINERALS THERAPEUTIC TAB PO SCH ×2 (08:57→20:56)
[2017-02-23] MEDS: DOCUSATE SODIUM 100 MG CAP PO SCH ×2 (08:57→20:56)
[2017-02-23] MEDS: QUEtiapine FUMARATE 25 MG TAB PO SCH ×2 (08:57→12:56)
[2017-02-23] MEDS: SERTRALINE HCL 100 MG TAB PO SCH (08:57)
[2017-02-23] MEDS: SODIUM CHLORIDE 0.9% FLUSH 5 ML FLUSH IVF SCH ×2 (08:58→20:57)
--- NOTE | 2017-02-23 10:54 | HHI.PR ---
Subjective Remarks Dozing but responds to verbal stimuli Affect pleasant Smiling Afebrile No acute facial grimace or pain or shortness of breath noted Objective Objective Results - Vital Signs Date Time Temp Pulse Resp B/P Pulse Ox O2 Delivery O2 Flow Rate FiO2 02/23/17 09:58 18 02/23/17 08:00 97.9 67 18 109/56 100 02/23/17 04:00 97.7 67 20 122/66 98 02/23/17 00:00 97.4 64 20 116/61 98 02/22/17 21:33 99.0 74 20 148/59 95 02/22/17 16:00 97.6 73 18 126/60 96 02/22/17 12:48 18 02/22/17 12:00 97.8 89 18 131/63 96 I/O 02/22/17 02/22/17 02/22/17 02/23/17 02/23/17 02/23/17 07:00 15:00 23:00 07:00 15:00 23:00 Intake Total 240 ml 780 ml 240 ml Balance 240 ml 780 ml 240 ml Intake Oral 240 ml 780 ml 240 ml # Voids 2 2 1 # Bowel Movements 0 1 0 ROS General: Fatigue, Weakness GI: BM (monitor bowel regimen) /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 She is lightly dozing but awakens to verbal stimuli HEAD: Normocephalic without any lesion or mass noted. Facial features appear symmetric. OROPHARYNGEAL: Oropharynx without erythema or edema. NECK: Supple. No nuchal rigidity or lymphadenopathy. Trachea midline without deviation. CARDIAC: Regular rhythm, regular rate, S1 and S2 are heard. LUNGS: Clear to auscultation bilaterally. Low volumes at rest ABDOMEN: Soft, nontender, no organomegaly or masses. Bowel sounds are heard in all four quadrants. EXTREMITIES: No edema. Right hip dressing clean dry and intact. Moving lower extremities with command. Pain with movement in right arm and right shoulder NEUROLOGICAL: Patient mood and affect appropriate. SKIN:Warm and moist A/P Assessment and Plan 1. Psychiatric issue, bipolar disorder, schizophrenia with suicidal ideation under [place] act. [place] act has now been lifted 2. Hypertension. 3. Hypothyroidism., Resolved 4. Dementia probable, stable medical management 5. Urinary tract infection., Stable 6. Fall, S/P right humeral head fracture treated non op, has sling 7. Fall, S/P left femoral neck fracture, S/P Left hip hemiarthroplasty for treatment of displaced femoral neck fracture 02/09 Plan appreciate ortho input S/P Left hip hemiarthroplasty for treatment of displaced femoral neck fracture Post op ortho care, stable for Level of care, monitor her wound, pain management, bowel management Lovenox for DVT prophylaxis S/P right humeral head fracture non operative management, secured with sling to right shoulder and arm. Still has pain with movement needs to f/u with ortho psychiatry input appreciated cleared for dc to SNF, no need for inpatient psych services [facility] Continue psych meds added Seroquel for agitation which has improved. No behavior issues, calm, cooperative, pleasant. Participating in PT CM working on placement, difficult due to psych hx. Has been declined by multiple facilities Pt. stable for discharge. She is cooperative and pleasant. there may be a facility, hopefully dc soon Discussed with the patient. D/W CM, working on plan Discussed with Dr. Gonzales, seen on her behalf. Mary Elizondo February 23, 2017 10:54
[2017-02-23 12:00] VITALS: BP 103/54; PULSE 67; RESP 16; TEMP 98; O2SAT 97
[2017-02-23 16:00] VITALS: BP 134/60; PULSE 77; RESP 16; TEMP 97.8; O2SAT 97
[2017-02-23 20:00] VITALS: BP 100/53; PULSE 76; RESP 20; TEMP 96.4; O2SAT 97
[2017-02-23] MEDS: MAGNESIUM HYDROXIDE SUSP 30 ML CUP PO PRN (20:56)
[2017-02-24] VITALS: BP 111/65; PULSE 72; RESP 18; TEMP 96.3; O2SAT 99
[2017-02-24] MEDS: ACETAMINOPHEN/HYDROcodone 325 MG/5 MG TAB PO PRN ×3 (04:55→17:47)
[2017-02-24 07:54] VITALS: BP 122/67; PULSE 71; RESP 18; TEMP 96; O2SAT 100
[2017-02-24] MEDS: SERTRALINE HCL 100 MG TAB PO SCH (09:01)
[2017-02-24] MEDS: QUEtiapine FUMARATE 25 MG TAB PO SCH ×2 (09:01→12:08)
[2017-02-24] MEDS: DOCUSATE SODIUM 100 MG CAP PO SCH ×2 (09:02→19:44)
[2017-02-24] MEDS: MULTIVITAMINS/MINERALS THERAPEUTIC TAB PO SCH ×2 (09:02→19:44)
[2017-02-24] MEDS: SODIUM CHLORIDE 0.9% FLUSH 5 ML FLUSH IVF SCH ×2 (09:03→19:44)
--- NOTE | 2017-02-24 11:23 | HHI.PR ---
Subjective Remarks Resting in bed Affect pleasant Participates in simple conversation Afebrile No pain or shortness of breath Bowel regimen with BMs yesterday (Mary Elizondo) Objective Objective Results - Vital Signs Date Time Temp Pulse Resp B/P Pulse Ox O2 Delivery O2 Flow Rate FiO2 02/24/17 07:54 96.0 71 18 122/67 100 02/24/17 00:00 96.3 72 18 111/65 99 02/23/17 20:54 97 Nasal Cannula 3.00 02/23/17 20:00 96.4 76 20 100/53 97 02/23/17 18:12 18 02/23/17 16:00 97.8 77 16 134/60 97 02/23/17 12:00 98.0 67 16 103/54 97 I/O 02/23/17 02/23/17 02/23/17 02/24/17 02/24/17 02/24/17 07:00 15:00 23:00 07:00 15:00 23:00 Intake Total 240 ml 600 ml 780 ml 240 ml Balance 240 ml 600 ml 780 ml 240 ml Intake Oral 240 ml 600 ml 780 ml 240 ml # Voids 1 4 2 1 # Bowel Movements 0 2 1 1 (Mary Elizondo) ROS General: Weakness (generalized), Other (10 point ROS done positives noted) Pulmonary: SOB (none) Neuro/MS: Other (right arm sling and immobilized, left hip incision clean dry and intact) (Mary Elizondo) Physical Exam Physical Exam PHYSICAL EXAMINATION GENERAL: This is elderly female who appears to be in no acute distress. She is sleeping but will arouse HEAD: Normocephalic, atraumatic OROPHARYNGEAL: Oropharynx without erythema or edema. NECK: Supple. Trachea midline without deviation. CARDIAC: Regular rhythm, regular rate LUNGS: Low volumes but Clear to auscultation bilaterally. Wheeze or rhonchi noted ABDOMEN: Soft, nontender, no organomegaly or masses. Bowel sounds active EXTREMITIES: No edema. Pulses equal bilateral. NEUROLOGICAL: Patient mood and affect appropriate. No anxiety noted SKIN:Warm and moist (Mary Elizondo) A/P Assessment and Plan 1. Psychiatric issue, bipolar disorder, schizophrenia with suicidal ideation under [place] act. [place] act has now been lifted 2. Hypertension. 3. Hypothyroidism., Resolved 4. Dementia probable, stable medical management 5. Urinary tract infection., Stable 6. Fall, S/P right humeral head fracture treated non op, has sling 7. Fall, S/P left femoral neck fracture, S/P Left hip hemiarthroplasty for treatment of displaced femoral neck fracture 02/09 Plan Vital signs reviewed, normal trends appreciate ortho input S/P Left hip hemiarthroplasty for treatment of displaced femoral neck fracture Level of care, monitor her wound, pain management, bowel management Lovenox for DVT prophylaxis S/P right humeral head fracture non operative management, secured with sling to right shoulder and arm. needs to f/u with ortho when discharged psychiatry input appreciated cleared for dc to SNF, no need for inpatient psych services Continue psych meds and medical management added Seroquel for agitation which has improved. No behavior issues, calm, cooperative, pleasant. Participating in PT CM working on placement, difficult due to psych hx. Has been declined by multiple facilities Pt. stable for discharge. She is cooperative and pleasant. Discussed with the patient. D/W CM, working on plan Discussed with Dr. Gonzales, seen on her behalf. (Mary Elizondo) Assessment and Plan continue current care patient appears stable plan of care discussed with Mary SOLIS (Sharyn Gonzales MD) Mary Elizondo February 24, 2017 11:23 Sharyn Gonzales MD February 24, 2017 16:21
[2017-02-24 11:58] VITALS: BP 115/60; PULSE 76; RESP 18; TEMP 96.9; O2SAT 98
[2017-02-24 15:33] VITALS: BP 100/56; PULSE 87; RESP 18; TEMP 97.8; O2SAT 99
[2017-02-24 20:00] VITALS: BP 102/55; PULSE 71; RESP 16; TEMP 98.3; O2SAT 96
[2017-02-25 00:10] VITALS: BP 128/64; PULSE 70; RESP 17; TEMP 98; O2SAT 95
[2017-02-25] MEDS: ACETAMINOPHEN/HYDROcodone 325 MG/5 MG TAB PO PRN ×4 (04:56→20:51)
[2017-02-25 08:00] VITALS: BP 121/69; PULSE 70; RESP 18; TEMP 96.4; O2SAT 97
[2017-02-25] MEDS: DOCUSATE SODIUM 100 MG CAP PO SCH ×2 (09:42→20:50)
[2017-02-25] MEDS: QUEtiapine FUMARATE 25 MG TAB PO SCH ×2 (09:42→13:05)
[2017-02-25] MEDS: SERTRALINE HCL 100 MG TAB PO SCH (09:42)
[2017-02-25] MEDS: MULTIVITAMINS/MINERALS THERAPEUTIC TAB PO SCH ×2 (09:42→20:50)
[2017-02-25] MEDS: SODIUM CHLORIDE 0.9% FLUSH 5 ML FLUSH IVF SCH ×2 (09:43→20:51)
[2017-02-25 12:00] VITALS: BP 114/66; PULSE 76; RESP 18; TEMP 97.2; O2SAT 96
--- NOTE | 2017-02-25 15:39 | HHI.PR ---
Subjective Remarks resting comfortable, has been out of bed eating okay no cp no n/v no fever calm, cooperative no acute changes overnight Objective Objective Results - Vital Signs Date Time Temp Pulse Resp B/P Pulse Ox O2 Delivery O2 Flow Rate FiO2 02/25/17 12:00 97.2 76 18 114/66 96 02/25/17 08:00 96.4 70 18 121/69 97 02/25/17 00:10 98.0 70 17 128/64 95 02/24/17 20:00 98.3 71 16 102/55 96 I/O 02/24/17 02/24/17 02/24/17 02/25/17 02/25/17 02/25/17 07:00 15:00 23:00 07:00 15:00 23:00 Intake Total 240 ml 500 ml 960 ml Output Total 200 ml Balance 240 ml 500 ml 960 ml -200 ml Intake Oral 240 ml 500 ml 960 ml Output Urine Total 200 ml # Voids 1 3 3 # Bowel Movements 1 1 1 1 ROS General: No: Fatigue, Weakness HEENT: No: Sore Throat, Dysphagia Cardiac: No: Chest Pain, Edema, Palpitations Pulmonary: No: Cough, SOB, Wheezing GI: No: Abdominal Pain, BM, Diarrhea, N/V /[employer]: No: Dysuria, Urgency Neuro/MS: No: Lightheaded, Confusion Psych: No: Anxiety, Depression Skin: No: Itching, Rash Physical Exam Physical Exam GENERAL: The patient is alert, awake, oriented 3. VITAL SIGNS: Reviewed HEENT: Head is normocephalic. Eyes negative conjunctival icterus. Mouth unremarkable. NECK: Supple. No increased JVD. Negative thyromegaly. Central trachea. LUNGS: Chest clear to auscultation. No adventitious sound CARDIOVASCULAR: S1-S2 audible. Unable to hear any S3 gallop. ABDOMEN: Soft, nontender, no organomegaly. Positive bowel sounds. MUSCULOSKELETAL: Extremities, no cyanosis or pedal edema appreciated. Nontender left lower activity joints. Some tenderness of the right shoulder area. Right arm in sling and swath. Left hip dressing D/I CENTRAL NERVOUS SYSTEM: Normal facial features. Moving all her extremities. A&O x 2-3. Cooperative Urinary Catheter: No Vascular Central Line Catheter: No A/P Assessment and Plan 1. Psychiatric issue, bipolar disorder, schizophrenia with suicidal ideation under [place] act. 2. Hypertension. 3. Hypothyroidism. 4. Seems like dementia, early. 5. Urinary tract infection. 6. Fall, S/P right humeral head fracture treated non op, has sling 7. Fall, S/P left femoral neck fracture, S/P Left hip hemiarthroplasty for treatment of displaced femoral neck fracture 02/09 Plan appreciate ortho input S/P Left hip hemiarthroplasty for treatment of displaced femoral neck fracture Post op ortho care PT eval and tx Wound care Bowel regimen Pain management Lovenox for DVT prophylaxis S/P right humeral head fracture non operative management needs to f/u with ortho psychiatry input appreciated cleared for dc to SNF, no need for inpatient psych services [facility] Continue psych meds added Seroquel for agitation which has improved. No behavior issues, calm, cooperative, pleasant. Participating in PT UTI, + viridans streptococcus sens. none repeated UA/UC, no infection monitor for s/s infection, no need for abx PT eval and tx IS q 2 wa CM working on placement, difficult due to psych hx. Has been declined by multiple facilities Pt. stable for discharge. She is cooperative and pleasant. there may be a facility, hopefully dc this week. Discussed with the patient. Discussed with RN. Discussed with lamar DUNN. dc, one facility is promising to accept pt. Discussed with Dr. Gonzales This patient was seen by myself and Dr. Gonzales, this note is written on his behalf. Maliha Hernandez February 25, 2017 15:39
[2017-02-25 16:00] VITALS: BP 114/61; PULSE 70; RESP 18; TEMP 98.1; O2SAT 96
[2017-02-25 20:45] VITALS: BP 112/58; PULSE 70; RESP 17; TEMP 98.1; O2SAT 95
[2017-02-26 00:45] VITALS: BP 130/60; PULSE 65; RESP 17; TEMP 97.9; O2SAT 97
[2017-02-26] MEDS: ACETAMINOPHEN/HYDROcodone 325 MG/5 MG TAB PO PRN ×4 (02:54→21:15)
[2017-02-26 08:00] VITALS: BP 127/72; PULSE 75; RESP 18; TEMP 95.8; O2SAT 98
[2017-02-26] MEDS: QUEtiapine FUMARATE 25 MG TAB PO SCH ×2 (08:59→12:05)
[2017-02-26] MEDS: MULTIVITAMINS/MINERALS THERAPEUTIC TAB PO SCH ×2 (08:59→21:14)
[2017-02-26] MEDS: SERTRALINE HCL 100 MG TAB PO SCH (08:59)
[2017-02-26] MEDS: DOCUSATE SODIUM 100 MG CAP PO SCH ×2 (08:59→21:14)
[2017-02-26] MEDS: SODIUM CHLORIDE 0.9% FLUSH 5 ML FLUSH IVF SCH ×2 (09:00→21:00)
[2017-02-26 12:00] VITALS: BP 118/65; PULSE 68; RESP 18; TEMP 96.5; O2SAT 95
[2017-02-26 16:00] VITALS: BP 110/58; PULSE 77; RESP 18; TEMP 97.9; O2SAT 97
--- NOTE | 2017-02-26 16:33 | HHI.PR ---
Subjective Remarks has no complaints remains oriented x 3, very pleasant, cooperative with care no pain at this time no fever Objective Objective Results - Vital Signs Date Time Temp Pulse Resp B/P Pulse Ox O2 Delivery O2 Flow Rate FiO2 02/26/17 12:00 96.5 68 18 118/65 95 02/26/17 08:00 95.8 75 18 127/72 98 02/26/17 00:45 97.9 65 17 130/60 97 02/25/17 20:45 98.1 70 17 112/58 95 I/O 02/25/17 02/25/17 02/25/17 02/26/17 02/26/17 02/26/17 07:00 15:00 23:00 07:00 15:00 23:00 Intake Total 720 ml 240 ml 240 ml 720 ml Output Total 200 ml Balance 520 ml 240 ml 240 ml 720 ml Intake Oral 720 ml 240 ml 240 ml 720 ml Output Urine Total 200 ml # Voids 3 1 3 3 # Bowel Movements 2 0 0 0 ROS General: No: Fatigue, Weakness HEENT: No: Sore Throat, Dysphagia Cardiac: No: Chest Pain, Edema, Palpitations Pulmonary: No: Cough, SOB, Wheezing GI: No: Abdominal Pain, BM, Diarrhea, N/V /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 VITAL SIGNS: Reviewed HEENT: Head is normocephalic. Eyes negative conjunctival icterus. Mouth unremarkable. NECK: Supple. No increased JVD. Negative thyromegaly. Central trachea. LUNGS: Chest clear to auscultation. No adventitious sound CARDIOVASCULAR: S1-S2 audible. Unable to hear any S3 gallop. ABDOMEN: Soft, nontender, no organomegaly. Positive bowel sounds. MUSCULOSKELETAL: Extremities, no cyanosis or pedal edema appreciated. Nontender left lower activity joints. Some tenderness of the right shoulder area. Right arm in sling and swath. Left hip dressing D/I CENTRAL NERVOUS SYSTEM: Normal facial features. Moving all her extremities. A&O x 2-3. Cooperative Urinary Catheter: No Vascular Central Line Catheter: No A/P Assessment and Plan 1. Psychiatric issue, bipolar disorder, schizophrenia with suicidal ideation under [place] act. 2. Hypertension. 3. Hypothyroidism. 4. Seems like dementia, early. 5. Urinary tract infection. 6. Fall, S/P right humeral head fracture treated non op, has sling 7. Fall, S/P left femoral neck fracture, S/P Left hip hemiarthroplasty for treatment of displaced femoral neck fracture 02/09 Plan appreciate ortho input S/P Left hip hemiarthroplasty for treatment of displaced femoral neck fracture Post op ortho care PT eval and tx Wound care Bowel regimen Pain management Lovenox for DVT prophylaxis S/P right humeral head fracture non operative management needs to f/u with ortho psychiatry input appreciated cleared for dc to SNF, no need for inpatient psych services [facility] Continue psych meds added Seroquel for agitation which has improved. No behavior issues, calm, cooperative, pleasant. Participating in PT UTI, + viridans streptococcus sens. none repeated UA/UC, no infection monitor for s/s infection, no need for abx PT eval and tx IS q 2 wa CM working on placement, difficult due to psych hx. Has been declined by multiple facilities Pt. stable for discharge. She is cooperative and pleasant. there may be a facility, hopefully dc this week. Discussed with the patient. Discussed with RN. Discussed with MONA, lamar. dc, one facility is promising to accept pt. Discussed with Dr. Gonzales This patient was seen by myself and Dr. Gonzales, this note is written on his behalf. Maliha Hernandez [facility] February 26, 2017 16:33
[2017-02-26 20:00] VITALS: BP 112/63; PULSE 74; RESP 20; TEMP 97.9; O2SAT 94
[2017-02-27] VITALS: BP 131/67; PULSE 70; RESP 20; TEMP 97.9; O2SAT 98
[2017-02-27 04:00] VITALS: BP 127/81; PULSE 65; RESP 18; TEMP 97.8; O2SAT 99
[2017-02-27] MEDS: ACETAMINOPHEN/HYDROcodone 325 MG/5 MG TAB PO PRN ×3 (06:05→21:25)
[2017-02-27 07:58] VITALS: BP 112/63; PULSE 70; RESP 18; TEMP 97.4; O2SAT 98
[2017-02-27] MEDS: SERTRALINE HCL 100 MG TAB PO SCH (08:42)
[2017-02-27] MEDS: MULTIVITAMINS/MINERALS THERAPEUTIC TAB PO SCH ×2 (08:42→21:22)
[2017-02-27] MEDS: DOCUSATE SODIUM 100 MG CAP PO SCH ×2 (08:42→21:22)
[2017-02-27] MEDS: QUEtiapine FUMARATE 25 MG TAB PO SCH ×2 (08:42→13:00)
[2017-02-27] MEDS: SODIUM CHLORIDE 0.9% FLUSH 5 ML FLUSH IVF SCH ×2 (08:44→21:22)
[2017-02-27 12:10] VITALS: BP 120/60; PULSE 74; RESP 18; TEMP 97.9; O2SAT 97
--- NOTE | 2017-02-27 12:10 | HHI.PR ---
Subjective Remarks left hip pain remains oriented x 3, very pleasant, cooperative with care no pain at this time no fever no acute changes overnight Objective Objective Results - Vital Signs Date Time Temp Pulse Resp B/P Pulse Ox O2 Delivery O2 Flow Rate FiO2 02/27/17 07:58 97.4 70 18 112/63 98 02/27/17 04:00 97.8 65 18 127/81 99 02/27/17 00:00 97.9 70 20 131/67 98 02/26/17 20:00 97.9 74 20 112/63 94 02/26/17 16:00 97.9 77 18 110/58 97 I/O 02/26/17 02/26/17 02/26/17 02/27/17 02/27/17 02/27/17 07:00 15:00 23:00 07:00 15:00 23:00 Intake Total 240 ml 720 ml 780 ml 240 ml Balance 240 ml 720 ml 780 ml 240 ml Intake Oral 240 ml 720 ml 780 ml 240 ml # Voids 3 3 2 3 # Bowel Movements 0 0 0 0 ROS General: No: Fatigue, Weakness HEENT: No: Sore Throat, Dysphagia Cardiac: No: Chest Pain, Edema, Palpitations Pulmonary: No: Cough, SOB, Wheezing GI: No: Abdominal Pain, BM, Diarrhea, 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 VITAL SIGNS: Reviewed HEENT: Head is normocephalic. Eyes negative conjunctival icterus. Mouth unremarkable. NECK: Supple. No increased JVD. Negative thyromegaly. Central trachea. LUNGS: Chest clear to auscultation. No adventitious sound CARDIOVASCULAR: S1-S2 audible. Unable to hear any S3 gallop. ABDOMEN: Soft, nontender, no organomegaly. Positive bowel sounds. MUSCULOSKELETAL: Extremities, no cyanosis or pedal edema appreciated. Nontender left lower activity joints. Some tenderness of the right shoulder area. Right arm in sling and swath. Left hip dressing D/I CENTRAL NERVOUS SYSTEM: Normal facial features. Moving all her extremities. A&O x 2-3. Cooperative Urinary Catheter: No Vascular Central Line Catheter: No A/P Assessment and Plan 1. Psychiatric issue, bipolar disorder, schizophrenia with suicidal ideation under [place] act. 2. Hypertension. 3. Hypothyroidism. 4. Seems like dementia, early. 5. Urinary tract infection. 6. Fall, S/P right humeral head fracture treated non op, has sling 7. Fall, S/P left femoral neck fracture, S/P Left hip hemiarthroplasty for treatment of displaced femoral neck fracture 02/09 Plan appreciate ortho input S/P Left hip hemiarthroplasty for treatment of displaced femoral neck fracture Post op ortho care PT eval and tx Wound care Bowel regimen Pain management Lovenox for DVT prophylaxis S/P right humeral head fracture non operative management needs to f/u with ortho psychiatry input appreciated cleared for dc to SNF, no need for inpatient psych services [facility] Continue psych meds added Seroquel for agitation which has improved. No behavior issues, calm, cooperative, pleasant. Participating in PT UTI, + viridans streptococcus sens. none repeated UA/UC, no infection monitor for s/s infection, no need for abx PT eval and tx IS q 2 wa CM working on placement, difficult due to psych hx. Has been declined by multiple facilities Pt. stable for discharge. She is cooperative and pleasant. d/w CM, no call backs from last facility. Discussed with the patient. Discussed with RN. Discussed with lamar DUNN. dc, one facility is promising to accept pt. Discussed with Dr. Gonzales This patient was seen by myself and Dr. Gonzales, this note is written on his behalf. Maliha Hernandez February 27, 2017 12:10
[2017-02-27 16:54] VITALS: BP 98/62; PULSE 83; RESP 16; TEMP 97.9; O2SAT 94
[2017-02-27 20:00] VITALS: BP 105/59; PULSE 77; RESP 22; TEMP 98.5; O2SAT 98
[2017-02-28] VITALS: BP 110/67; PULSE 75; RESP 20; TEMP 98.1; O2SAT 97
[2017-02-28 08:00] VITALS: BP 107/59; PULSE 78; RESP 18; TEMP 97.5; O2SAT 99
[2017-02-28] MEDS: SERTRALINE HCL 100 MG TAB PO SCH (08:57)
[2017-02-28] MEDS: QUEtiapine FUMARATE 25 MG TAB PO SCH ×2 (08:57→13:29)
[2017-02-28] MEDS: ACETAMINOPHEN/HYDROcodone 325 MG/5 MG TAB PO PRN ×3 (08:57→21:50)
[2017-02-28] MEDS: DOCUSATE SODIUM 100 MG CAP PO SCH ×2 (08:57→21:50)
[2017-02-28] MEDS: MULTIVITAMINS/MINERALS THERAPEUTIC TAB PO SCH ×2 (08:57→21:50)
[2017-02-28] MEDS: SODIUM CHLORIDE 0.9% FLUSH 5 ML FLUSH IVF SCH ×2 (08:58→21:52)
--- NOTE | 2017-02-28 10:34 | HHI.PR ---
Subjective Remarks Resting in bed Affect pleasant Alert oriented, understands process for now Afebrile Right shoulder immobilized (Mary Elizondo) Objective Objective Results - Vital Signs Date Time Temp Pulse Resp B/P Pulse Ox O2 Delivery O2 Flow Rate FiO2 02/28/17 08:00 97.5 78 18 107/59 99 02/28/17 00:00 98.1 75 20 110/67 97 02/27/17 20:00 98.5 77 22 105/59 98 02/27/17 18:54 Room Air 02/27/17 16:54 97.9 83 16 98/62 94 02/27/17 12:10 97.9 74 18 120/60 97 I/O 02/27/17 02/27/17 02/27/17 02/28/17 02/28/17 02/28/17 07:00 15:00 23:00 07:00 15:00 23:00 Intake Total 240 ml 860 ml 780 ml 240 ml Balance 240 ml 860 ml 780 ml 240 ml Intake Oral 240 ml 860 ml 780 ml 240 ml # Voids 3 5 2 1 # Bowel Movements 0 0 0 (Mary Elizondo) ROS General: Fatigue, Weakness (generalized), Other (10 point ROS done positives noted other systems negative) Pulmonary: SOB (none) GI: BM (patient states daily BM and bowel regimen) Neuro/MS: Other (medical management for her slight disease) (Mary Elizondo) Physical Exam Physical Exam PHYSICAL EXAMINATION GENERAL: This is a well-developed, elderly female who appears to be in no acute distress. She is alert and awake, HEAD: Normocephalic, atraumatic Facial features appear symmetric. OROPHARYNGEAL: Oropharynx NECK: Supple Trachea midline without deviation. CARDIAC: Regular rhythm, regular rate, S1 and S2 are heard. LUNGS: Clear to auscultation bilaterally ABDOMEN: Soft, nontender, Bowel sounds present No rebound. No guarding. EXTREMITIES: No edema. Pulses equal bilateral, out of bed daily NEUROLOGICAL: Patient mood and affect appropriate. Appetite good SKIN:Warm and moist (Mary Elizondo) A/P Assessment and Plan 1. Psychiatric issue, bipolar disorder, schizophrenia with suicidal ideation under [place] act. [place] act has now been lifted 2. Hypertension. 3. Hypothyroidism., Resolved 4. Dementia probable, stable medical management 5. Urinary tract infection., Stable 6. Fall, S/P right humeral head fracture treated non op, has sling 7. Fall, S/P left femoral neck fracture, S/P Left hip hemiarthroplasty for treatment of displaced femoral neck fracture 02/09 Vital signs reviewed, normal trends Labs reviewed, no new labs no acute issues appreciate ortho input S/P Left hip hemiarthroplasty for treatment of displaced femoral neck fracture Level of care, monitor her wound, pain management, bowel management, states daily bowel movements Lovenox for DVT prophylaxis, awaiting on discharge planning S/P right humeral head fracture non operative management, secured with sling to right shoulder and arm. needs to f/u with ortho when discharged psychiatry input appreciated cleared for dc to SNF, Continue psych meds and medical management Participating in PT CM working on placement, difficult due to psych hx. Has been declined by multiple facilities Pt. stable for discharge. She is cooperative and pleasant. Discussed with the patient. D/W CM, continues to work on a plan Discussed with Dr. Gonzales, seen on her behalf. (Mary Elizondo) Assessment and Plan still awaiting senior living placement discussed with [facility] continue current care (Sharyn Gonzales MD) Mary Elizondo February 28, 2017 10:34 Sharyn Gonzales MD February 28, 2017 15:31
[2017-02-28 12:00] VITALS: BP 115/60; PULSE 71; RESP 18; TEMP 95.8; O2SAT 96
[2017-02-28 16:00] VITALS: BP 103/62; PULSE 60; RESP 18; TEMP 96.7; O2SAT 95
[2017-02-28 20:00] VITALS: BP 111/69; PULSE 77; RESP 18; TEMP 98.3; O2SAT 95
[2017-03-01 00:48] VITALS: BP 118/62; PULSE 109; RESP 17; TEMP 98.2; O2SAT 92
[2017-03-01] MEDS: ACETAMINOPHEN/HYDROcodone 325 MG/5 MG TAB PO PRN ×4 (05:07→20:12)
[2017-03-01] MEDS: DOCUSATE SODIUM 100 MG CAP PO SCH ×2 (07:12→20:12)
[2017-03-01] MEDS: MULTIVITAMINS/MINERALS THERAPEUTIC TAB PO SCH ×2 (07:12→20:12)
[2017-03-01] MEDS: SERTRALINE HCL 100 MG TAB PO SCH (07:12)
[2017-03-01] MEDS: QUEtiapine FUMARATE 25 MG TAB PO SCH ×2 (07:12→11:30)
[2017-03-01] MEDS: SODIUM CHLORIDE 0.9% FLUSH 5 ML FLUSH IVF SCH ×2 (07:16→20:12)
[2017-03-01 07:57] VITALS: BP 108/60; PULSE 75; RESP 18; TEMP 96.8; O2SAT 94
[2017-03-01 11:31] VITALS: BP 123/69; PULSE 72; RESP 18; TEMP 97.1; O2SAT 94
--- NOTE | 2017-03-01 12:23 | HHI.PR ---
Subjective Remarks Resting in bed Afebrile Pleasant affect No acute pain or shortness of breath Right shoulder immobilized in sling Left hip incision healing (Mary Elizondo) Objective Objective Results - Vital Signs Date Time Temp Pulse Resp B/P Pulse Ox O2 Delivery O2 Flow Rate FiO2 03/01/17 11:31 97.1 72 18 123/69 94 03/01/17 07:57 96.8 75 18 108/60 94 03/01/17 07:17 Room Air 03/01/17 00:48 98.2 109 17 118/62 92 02/28/17 20:00 98.3 77 18 111/69 95 02/28/17 18:40 Room Air 02/28/17 16:00 96.7 60 18 103/62 95 I/O 02/28/17 02/28/17 02/28/17 03/01/17 03/01/17 03/01/17 06:59 14:59 22:59 06:59 14:59 22:59 Intake Total 240 ml 600 ml 480 ml 360 ml Balance 240 ml 600 ml 480 ml 360 ml Intake Oral 240 ml 600 ml 480 ml 360 ml # Voids 1 3 4 # Bowel Movements 0 2 0 (Mary Elizondo) Medications and IVs Administered Medications Medications (Trade) Dose Ordered Sig/Rylan Route PRN Reason Start Time Stop Time Status Last Admin Dose Admin Sertraline HCl (Zoloft) 100 mg DAILY PO 02/10/17 09:00 03/01/17 07:12 IV Flush (NS Flush) 2 ml BID IVF 02/09/17 21:00 03/01/17 07:16 Acetaminophen/ Hydrocodone Bitart ([place] 5-325 Mg) 1 tab Q4H PRN PO PAIN LESS THAN 5 ON SCALE 02/09/17 16:45 02/22/17 22:12 Acetaminophen/ Hydrocodone Bitart ([place] 5-325 Mg) 2 tab Q4H PRN PO PAIN SCALE 5 TO 10 02/09/17 16:45 03/01/17 11:30 Multivitamins/ Minerals Therapeutic (Theragran M Tab) 1 tab BID PO 02/10/17 21:00 04/11/17 20:59 03/01/17 07:12 Docusate Sodium (Colace) 100 mg BID PO 02/10/17 21:00 03/01/17 07:12 Zolpidem Tartrate (Ambien) 5 mg HS PRN PO SLEEP 02/09/17 16:45 02/20/17 20:32 Bisacodyl (Dulcolax Supp) 10 mg DAILY PRN RECTAL CONSTIPATION 02/09/17 16:45 02/11/17 05:14 Magnesium Hydroxide (Milk Of Magnesia Liq) 30 ml DAILY PRN PO CONSTIPATION 02/09/17 16:45 02/23/17 20:56 Quetiapine Fumarate (SEROquel) 25 mg BID@09,12 PO 02/15/17 09:00 03/01/17 11:30 (Mary Elizondo) ROS General: Fatigue, Weakness (mildly improved patient does get out of bed daily) , Other (10 point ROS done positives noted) Pulmonary: Cough (occasional) GI: BM (continue bowel regimen, BMs 2 in the last 24 hours) (Mary Elizondo) Physical Exam Physical Exam PHYSICAL EXAMINATION GENERAL: This is an elderly female who appears to be in no acute distress. She is alert and awake, pleasant HEAD: Normocephalic without any lesion or mass noted. Facial features appear symmetric. OROPHARYNGEAL: Oropharynx without erythema or edema. NECK: Supple. Trachea midline without deviation. CARDIAC: Regular rhythm, regular rate, S1 and S2 are heard. LUNGS: Clear to auscultation bilaterally. No shortness of breath ABDOMEN: Soft, nontender, no organomegaly or masses. Bowel sounds active EXTREMITIES: no edema. Right shoulder immobilized sling, left hip surgical incision clean dry and intact NEUROLOGICAL: Patient mood and affect appropriate SKIN:Warm and moist (Mary Elizondo) A/P Assessment and Plan 1. Psychiatric issue, bipolar disorder, schizophrenia with suicidal ideation under Mun[place] act. Munroe act has now been lifted 2. Hypertension. 3. Hypothyroidism., Resolved 4. Dementia probable, stable medical management 5. Urinary tract infection., Stable 6. Fall, S/P right humeral head fracture treated non op, has sling 7. Fall, S/P left femoral neck fracture, S/P Left hip hemiarthroplasty for treatment of displaced femoral neck fracture 02/09 Vital signs reviewed, normal trends Labs reviewed, no new labs no acute issues appreciate ortho input S/P Left hip hemiarthroplasty for treatment of displaced femoral neck fracture Level of care, monitor her wound, pain management, bowel management, states daily bowel movements Lovenox for DVT prophylaxis, awaiting on discharge planning S/P right humeral head fracture non operative management, secured with sling to right shoulder and arm. needs to f/u with ortho when discharged psychiatry input appreciated cleared for dc to SNF, Continue psych meds and medical management Participating in PT CM working on placement, difficult due to psych hx. Has been declined by multiple facilities Pt. stable for discharge. She is cooperative and pleasant. Discussed with the patient. D/W CM, possible discharge planning to side facility, but didnt work out for now. Physician form on chart for Dr. gonzales to sign. Continue looking at options. Discussed with Dr. Gonzales, seen on her behalf. (Mary Elizondo) Assessment and Plan patient seen and examined awake alert and oriented sitting in chair still awaiting placement medically cleared d/w patient d/w case management d/w Mary SOLIS (Sharyn Gonzales MD) Mary Elizondo Mar 01, 2017 12:23 Sharyn Gonzales MD Mar 01, 2017 14:18
[2017-03-01 15:39] VITALS: BP 109/58; PULSE 65; RESP 16; TEMP 97.7; O2SAT 96
[2017-03-01 20:34] VITALS: BP 110/55; PULSE 18; RESP 18; TEMP 97.9; O2SAT 92
[2017-03-02 00:10] VITALS: BP 115/55; PULSE 70; RESP 17; TEMP 97.6; O2SAT 94
[2017-03-02] MEDS: ACETAMINOPHEN/HYDROcodone 325 MG/5 MG TAB PO PRN ×5 (00:18→20:10)
[2017-03-02] MEDS: MAGNESIUM HYDROXIDE SUSP 30 ML CUP PO PRN (07:55)
[2017-03-02] MEDS: QUEtiapine FUMARATE 25 MG TAB PO SCH ×2 (07:55→12:30)
[2017-03-02] MEDS: SERTRALINE HCL 100 MG TAB PO SCH (07:55)
[2017-03-02] MEDS: DOCUSATE SODIUM 100 MG CAP PO SCH ×2 (07:55→20:10)
[2017-03-02] MEDS: MULTIVITAMINS/MINERALS THERAPEUTIC TAB PO SCH ×2 (07:58→20:10)
[2017-03-02] MEDS: BISACODYL 10 MG SUPP RECTAL PRN (08:00)
[2017-03-02] MEDS: SODIUM CHLORIDE 0.9% FLUSH 5 ML FLUSH IVF SCH ×2 (08:03→20:10)
[2017-03-02 08:18] VITALS: BP 139/68; PULSE 70; RESP 16; TEMP 97.9; O2SAT 96
[2017-03-02 12:32] VITALS: BP 101/55; PULSE 80; RESP 16; TEMP 97.2; O2SAT 94
--- NOTE | 2017-03-02 15:39 | HHI.PR ---
Subjective Remarks ambulates to bathroom with one assist some right arm pain no fever no cp no sob very pleasant, oriented, cooperative Objective Objective Results - Vital Signs Date Time Temp Pulse Resp B/P Pulse Ox O2 Delivery O2 Flow Rate FiO2 03/02/17 12:32 97.2 80 16 101/55 94 03/02/17 08:18 97.9 70 16 139/68 96 03/02/17 00:10 97.6 70 17 115/55 94 03/01/17 20:34 97.9 18 18 110/55 92 03/01/17 15:39 97.7 65 16 109/58 96 I/O 03/01/17 03/01/17 03/01/17 03/02/17 03/02/17 03/02/17 07:00 15:00 23:00 07:00 15:00 23:00 Intake Total 360 ml 600 ml 360 ml 360 ml Balance 360 ml 600 ml 360 ml 360 ml Intake Oral 360 ml 600 ml 360 ml 360 ml # Voids 4 4 3 4 1 # Bowel Movements 0 0 0 0 1 ROS General: No: Fatigue, Weakness HEENT: No: Sore Throat, Dysphagia Cardiac: No: Chest Pain, Edema, Palpitations Pulmonary: No: Cough, SOB, Wheezing GI: No: Abdominal Pain, BM, Diarrhea, N/V /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 VITAL SIGNS: Reviewed HEENT: Head is normocephalic. Eyes negative conjunctival icterus. Mouth unremarkable. NECK: Supple. No increased JVD. Negative thyromegaly. Central trachea. LUNGS: Chest clear to auscultation. No adventitious sound CARDIOVASCULAR: S1-S2 audible. Unable to hear any S3 gallop. ABDOMEN: Soft, nontender, no organomegaly. Positive bowel sounds. MUSCULOSKELETAL: Extremities, no cyanosis or pedal edema appreciated. Nontender left lower activity joints. Some tenderness of the right shoulder area. Right arm in sling and swath. Left hip dressing D/I CENTRAL NERVOUS SYSTEM: Normal facial features. Moving all her extremities. A&O x 2-3. Cooperative Urinary Catheter: No Vascular Central Line Catheter: No A/P Assessment and Plan 1. Psychiatric issue, bipolar disorder, schizophrenia with suicidal ideation under [place] act. 2. Hypertension. 3. Hypothyroidism. 4. Seems like dementia, early. 5. Urinary tract infection. 6. Fall, S/P right humeral head fracture treated non op, has sling 7. Fall, S/P left femoral neck fracture, S/P Left hip hemiarthroplasty for treatment of displaced femoral neck fracture 02/09 Plan appreciate ortho input S/P Left hip hemiarthroplasty for treatment of displaced femoral neck fracture Post op ortho care PT eval and tx Wound care Bowel regimen Pain management Lovenox for DVT prophylaxis S/P right humeral head fracture non operative management needs to f/u with ortho psychiatry input appreciated cleared for dc to SNF, no need for inpatient psych services [facility] Continue psych meds added Seroquel for agitation which has improved. No behavior issues, calm, cooperative, pleasant. Participating in PT UTI, + viridans streptococcus sens. none repeated UA/UC, no infection monitor for s/s infection, no need for abx PT eval and tx IS q 2 wa CM working on placement, difficult due to psych hx. Has been declined by multiple facilities Pt. stable for discharge. She is cooperative and pleasant. [facility] evaluating pt. nathaniel Discussed with the patient. Discussed with RN. Discussed with Dr. Gonzales This patient was seen by myself and Dr. Gonzales, this note is written on his behalf. Maliha Hernandez Mar 02, 2017 15:39
[2017-03-02 16:30] VITALS: BP 106/54; PULSE 73; RESP 16; TEMP 97.1; O2SAT 95
[2017-03-02 19:00] VITALS: BP 113/59; PULSE 78; RESP 18; TEMP 98.1; O2SAT 93
[2017-03-03] VITALS: BP 181/97; PULSE 70; RESP 15; TEMP 98; O2SAT 94
[2017-03-03] MEDS: ACETAMINOPHEN/HYDROcodone 325 MG/5 MG TAB PO PRN ×3 (06:29→19:59)
[2017-03-03 08:00] VITALS: BP 103/71; PULSE 74; RESP 18; TEMP 98.5; O2SAT 94
--- NOTE | 2017-03-03 08:47 | HHI.PR ---
Subjective Remarks Has no complaints pleasant, cooperative working with PT Objective Objective Results - Vital Signs Date Time Temp Pulse Resp B/P Pulse Ox O2 Delivery O2 Flow Rate FiO2 03/03/17 00:00 98.0 70 15 181/97 94 03/02/17 19:00 98.1 78 18 113/59 93 03/02/17 16:30 97.1 73 16 106/54 95 03/02/17 12:32 97.2 80 16 101/55 94 I/O 03/02/17 03/02/17 03/02/17 03/03/17 03/03/17 03/03/17 07:00 15:00 23:00 07:00 15:00 23:00 Intake Total 360 ml 1150 ml 480 ml Balance 360 ml 1150 ml 480 ml Intake Oral 360 ml 1150 ml 480 ml # Voids 4 7 3 # Bowel Movements 0 1 0 ROS General: Other (12 point ROS completed, negative except as noted above) Physical Exam Physical Exam GENERAL: The patient is alert, awake, oriented 3. VITAL SIGNS: Reviewed HEENT: Head is normocephalic. Eyes negative conjunctival icterus. Mouth unremarkable. NECK: Supple. No increased JVD. Negative thyromegaly. Central trachea. LUNGS: Chest clear to auscultation. No adventitious sound CARDIOVASCULAR: S1-S2 audible. Unable to hear any S3 gallop. ABDOMEN: Soft, nontender, no organomegaly. Positive bowel sounds. MUSCULOSKELETAL: Extremities, no cyanosis or pedal edema appreciated. Nontender left lower activity joints. Some tenderness of the right shoulder area. Right arm in sling and swath. Left hip dressing D/I CENTRAL NERVOUS SYSTEM: Normal facial features. Moving all her extremities. A&O x 2-3. Cooperative Urinary Catheter: No Vascular Central Line Catheter: No A/P Assessment and Plan 1. Psychiatric issue, bipolar disorder, schizophrenia with suicidal ideation under [place] act. 2. Hypertension. 3. Hypothyroidism. 4. Seems like dementia, early. 5. Urinary tract infection. 6. Fall, S/P right humeral head fracture treated non op, has sling 7. Fall, S/P left femoral neck fracture, S/P Left hip hemiarthroplasty for treatment of displaced femoral neck fracture 02/09 Plan appreciate ortho input S/P Left hip hemiarthroplasty for treatment of displaced femoral neck fracture Post op ortho care PT eval and tx Wound care Bowel regimen Pain management Lovenox for DVT prophylaxis S/P right humeral head fracture non operative management needs to f/u with ortho psychiatry input appreciated cleared for dc to SNF, no need for inpatient psych services [facility] Continue psych meds added Seroquel for agitation which has improved. No behavior issues, calm, cooperative, pleasant. Participating in PT UTI, + viridans streptococcus sens. none repeated UA/UC, no infection monitor for s/s infection, no need for abx PT eval and tx IS q 2 wa CM working on placement, difficult due to psych hx. Has been declined by multiple facilities Pt. stable for discharge. She is cooperative and pleasant. waiting for [facility] to eval. Discussed with the patient. Discussed with RN. Discussed with Dr. Gonzales This patient was seen by myself and Dr. Gonzales, this note is written on his behalf. Maliha Hernandez Mar 03, 2017 08:47
[2017-03-03] MEDS: SODIUM CHLORIDE 0.9% FLUSH 5 ML FLUSH IVF SCH ×2 (09:54→19:58)
[2017-03-03] MEDS: DOCUSATE SODIUM 100 MG CAP PO SCH ×2 (09:54→19:58)
[2017-03-03] MEDS: MULTIVITAMINS/MINERALS THERAPEUTIC TAB PO SCH ×2 (09:54→19:58)
[2017-03-03] MEDS: SERTRALINE HCL 100 MG TAB PO SCH (09:54)
[2017-03-03] MEDS: QUEtiapine FUMARATE 25 MG TAB PO SCH ×2 (09:54→12:43)
[2017-03-03 12:00] VITALS: BP 120/58; PULSE 76; RESP 18; TEMP 98.2; O2SAT 95
[2017-03-03 16:00] VITALS: BP 108/60; PULSE 72; RESP 18; TEMP 97.5; O2SAT 97
[2017-03-03 20:00] VITALS: BP 113/57; PULSE 69; RESP 18; TEMP 97.6; O2SAT 94
[2017-03-04] VITALS: BP 113/53; PULSE 66; RESP 18; TEMP 97.8; O2SAT 95
[2017-03-04] MEDS: ACETAMINOPHEN/HYDROcodone 325 MG/5 MG TAB PO PRN ×2 (06:01→16:55)
[2017-03-04 08:00] VITALS: BP 121/64; PULSE 68; RESP 18; TEMP 97.9; O2SAT 95
[2017-03-04] MEDS: SODIUM CHLORIDE 0.9% FLUSH 5 ML FLUSH IVF SCH ×2 (09:13→20:21)
[2017-03-04] MEDS: DOCUSATE SODIUM 100 MG CAP PO SCH ×2 (09:14→20:21)
[2017-03-04] MEDS: MULTIVITAMINS/MINERALS THERAPEUTIC TAB PO SCH ×2 (09:14→20:21)
[2017-03-04] MEDS: QUEtiapine FUMARATE 25 MG TAB PO SCH ×2 (09:14→12:14)
[2017-03-04] MEDS: SERTRALINE HCL 100 MG TAB PO SCH (09:15)
--- NOTE | 2017-03-04 11:38 | HHI.PR ---
Subjective Remarks Has no complaints pleasant, cooperative sleepy now Objective Objective Results - Vital Signs Date Time Temp Pulse Resp B/P Pulse Ox O2 Delivery O2 Flow Rate FiO2 03/04/17 08:00 97.9 68 18 121/64 95 03/04/17 00:00 97.8 66 18 113/53 95 03/03/17 20:00 97.6 69 18 113/57 94 03/03/17 16:00 97.5 72 18 108/60 97 03/03/17 12:00 98.2 76 18 120/58 95 I/O 03/03/17 03/03/17 03/03/17 03/04/17 03/04/17 03/04/17 07:00 15:00 23:00 07:00 15:00 23:00 Intake Total 1500 ml 240 ml Balance 1500 ml 240 ml Intake Oral 1500 ml 240 ml # Voids 6 2 # Bowel Movements 1 0 ROS General: No: Fatigue, Weakness HEENT: No: Sore Throat, Dysphagia Cardiac: No: Chest Pain, Edema, Palpitations Pulmonary: No: Cough, SOB, Wheezing GI: No: Abdominal Pain, BM, Diarrhea, N/V /ANIMAL 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 VITAL SIGNS: Reviewed HEENT: Head is normocephalic. Eyes negative conjunctival icterus. Mouth unremarkable. NECK: Supple. No increased JVD. Negative thyromegaly. Central trachea. LUNGS: Chest clear to auscultation. No adventitious sound CARDIOVASCULAR: S1-S2 audible. Unable to hear any S3 gallop. ABDOMEN: Soft, nontender, no organomegaly. Positive bowel sounds. MUSCULOSKELETAL: Extremities, no cyanosis or pedal edema appreciated. Nontender left lower activity joints. Some tenderness of the right shoulder area. Right arm in sling and swath. Left hip dressing D/I CENTRAL NERVOUS SYSTEM: Normal facial features. Moving all her extremities. A&O x 2-3. Cooperative Urinary Catheter: No Vascular Central Line Catheter: No A/P Assessment and Plan 1. Psychiatric issue, bipolar disorder, schizophrenia with suicidal ideation under [place] act. 2. Hypertension. 3. Hypothyroidism. 4. Seems like dementia, early. 5. Urinary tract infection. 6. Fall, S/P right humeral head fracture treated non op, has sling 7. Fall, S/P left femoral neck fracture, S/P Left hip hemiarthroplasty for treatment of displaced femoral neck fracture 02/09 Plan appreciate ortho input S/P Left hip hemiarthroplasty for treatment of displaced femoral neck fracture Post op ortho care PT eval and tx Wound care Bowel regimen Pain management Lovenox for DVT prophylaxis S/P right humeral head fracture non operative management needs to f/u with ortho psychiatry input appreciated cleared for dc to SNF, no need for inpatient psych services [facility] Continue psych meds added Seroquel for agitation which has improved. No behavior issues, calm, cooperative, pleasant. Participating in PT UTI, + viridans streptococcus sens. none repeated UA/UC, no infection monitor for s/s infection, no need for abx PT eval and tx IS q 2 wa CM working on placement, difficult due to psych hx. Has been declined by multiple facilities Pt. stable for discharge. She is cooperative and pleasant. waiting for [facility] to eval. Discussed with the patient. Discussed with RN. Discussed with Dr. Gonzales This patient was seen by myself and Dr. Gonzales, this note is written on his behalf. Maliha Hernandez Mar 04, 2017 11:38
[2017-03-04 12:00] VITALS: BP 118/57; PULSE 70; RESP 18; TEMP 97.4; O2SAT 96
[2017-03-04 16:00] VITALS: BP 114/76; PULSE 75; RESP 18; TEMP 99.4; O2SAT 93
[2017-03-04 20:00] VITALS: BP 119/87; PULSE 85; RESP 20; TEMP 97.7; O2SAT 95
[2017-03-05] VITALS: BP 112/62; PULSE 72; RESP 18; TEMP 96.5; O2SAT 95
[2017-03-05] MEDS: ACETAMINOPHEN/HYDROcodone 325 MG/5 MG TAB PO PRN ×3 (01:18→20:44)
[2017-03-05 08:40] VITALS: BP 114/69; PULSE 80; RESP 16; TEMP 97.1; O2SAT 98
[2017-03-05] MEDS: MULTIVITAMINS/MINERALS THERAPEUTIC TAB PO SCH ×2 (08:49→20:44)
[2017-03-05] MEDS: QUEtiapine FUMARATE 25 MG TAB PO SCH ×2 (08:49→12:16)
[2017-03-05] MEDS: DOCUSATE SODIUM 100 MG CAP PO SCH ×2 (08:49→20:44)
[2017-03-05] MEDS: SERTRALINE HCL 100 MG TAB PO SCH (08:49)
[2017-03-05] MEDS: SODIUM CHLORIDE 0.9% FLUSH 5 ML FLUSH IVF SCH ×2 (08:50→20:48)
[2017-03-05 12:35] VITALS: BP 122/74; PULSE 76; RESP 16; TEMP 98.2; O2SAT 99
--- NOTE | 2017-03-05 14:23 | HHI.PR ---
Subjective Remarks Has no complaints pleasant, cooperative asking about dc plans, informed we are still waiting Objective Objective Results - Vital Signs Date Time Temp Pulse Resp B/P Pulse Ox O2 Delivery O2 Flow Rate FiO2 03/05/17 08:40 97.1 80 16 114/69 98 03/05/17 00:00 96.5 72 18 112/62 95 03/04/17 20:00 97.7 85 20 119/87 95 03/04/17 16:00 99.4 75 18 114/76 93 I/O 03/04/17 03/04/17 03/04/17 03/05/17 03/05/17 03/05/17 06:59 14:59 22:59 06:59 14:59 22:59 Intake Total 240 ml 1380 ml 240 ml Output Total 1 ml Balance 240 ml 1380 ml 240 ml -1 ml Intake Oral 240 ml 1380 ml 240 ml Stool Total 1 ml # Voids 2 9 2 # Bowel Movements 0 0 0 ROS General: No: Fatigue, Weakness HEENT: No: Sore Throat, Dysphagia Cardiac: No: Chest Pain, Edema, Palpitations Pulmonary: No: Cough, SOB, Wheezing GI: No: Abdominal Pain, BM, Diarrhea, N/V /CARE MANAGEMENT SPECIALIST: No: Dysuria, Urgency Neuro/MS: No: Lightheaded, Confusion Psych: No: Anxiety, Depression Skin: No: Itching, Rash Physical Exam Physical Exam GENERAL: The patient is alert, awake, oriented 3. VITAL SIGNS: Reviewed HEENT: Head is normocephalic. Eyes negative conjunctival icterus. Mouth unremarkable. NECK: Supple. No increased JVD. Negative thyromegaly. Central trachea. LUNGS: Chest clear to auscultation. No adventitious sound CARDIOVASCULAR: S1-S2 audible. Unable to hear any S3 gallop. ABDOMEN: Soft, nontender, no organomegaly. Positive bowel sounds. MUSCULOSKELETAL: Extremities, no cyanosis or pedal edema appreciated. Nontender left lower activity joints. Some tenderness of the right shoulder area. Right arm in sling and swath. Left hip dressing D/I CENTRAL NERVOUS SYSTEM: Normal facial features. Moving all her extremities. A&O x 2-3. Cooperative A/P Assessment and Plan 1. Psychiatric issue, bipolar disorder, schizophrenia with suicidal ideation under Mun[place] act. 2. Hypertension. 3. Hypothyroidism. 4. Seems like dementia, early. 5. Urinary tract infection. 6. Fall, S/P right humeral head fracture treated non op, has sling 7. Fall, S/P left femoral neck fracture, S/P Left hip hemiarthroplasty for treatment of displaced femoral neck fracture 02/09 Plan appreciate ortho input S/P Left hip hemiarthroplasty for treatment of displaced femoral neck fracture Post op ortho care PT eval and tx Wound care Bowel regimen Pain management Lovenox for DVT prophylaxis S/P right humeral head fracture non operative management needs to f/u with ortho psychiatry input appreciated cleared for dc to SNF, no need for inpatient psych services [facility] Continue psych meds added Seroquel for agitation which has improved. No behavior issues, calm, cooperative, pleasant. Participating in PT UTI, + viridans streptococcus sens. none repeated UA/UC, no infection monitor for s/s infection, no need for abx PT eval and tx IS q 2 wa CM working on placement, difficult due to psych hx. Has been declined by multiple facilities Pt. stable for discharge. She is cooperative and pleasant. waiting for [facility] to eval. Discussed with the patient. Discussed with RN. Discussed with Dr. Gonzales Discussed with CM This patient was seen by myself and Dr. Gonzales, this note is written on his behalf. Maliha Hernandez Mar 05, 2017 14:23
[2017-03-05 16:30] VITALS: BP 120/59; PULSE 78; RESP 18; TEMP 98.3; O2SAT 97
[2017-03-05 20:18] VITALS: BP 122/55; PULSE 98; RESP 18; TEMP 98.6; O2SAT 95
[2017-03-06 00:01] VITALS: BP 138/62; PULSE 83; RESP 17; TEMP 98.3; O2SAT 93
[2017-03-06 08:20] VITALS: BP 118/72; PULSE 78; RESP 18; TEMP 97.2; O2SAT 95
[2017-03-06] MEDS: MULTIVITAMINS/MINERALS THERAPEUTIC TAB PO SCH ×2 (08:38→20:46)
[2017-03-06] MEDS: DOCUSATE SODIUM 100 MG CAP PO SCH ×2 (08:38→20:46)
[2017-03-06] MEDS: QUEtiapine FUMARATE 25 MG TAB PO SCH ×2 (08:38→12:16)
[2017-03-06] MEDS: SERTRALINE HCL 100 MG TAB PO SCH (08:38)
[2017-03-06] MEDS: SODIUM CHLORIDE 0.9% FLUSH 5 ML FLUSH IVF SCH ×2 (08:42→20:46)
--- NOTE | 2017-03-06 10:43 | HHI.PR ---
Subjective Remarks Has no complaints pleasant, cooperative No acute changes overnight Objective Objective Results - Vital Signs Date Time Temp Pulse Resp B/P Pulse Ox O2 Delivery O2 Flow Rate FiO2 03/06/17 08:20 97.2 78 18 118/72 95 03/06/17 00:01 98.3 83 17 138/62 93 03/05/17 20:18 98.6 98 18 122/55 95 03/05/17 16:30 98.3 78 18 120/59 97 03/05/17 12:35 98.2 76 16 122/74 99 I/O 03/05/17 03/05/17 03/05/17 03/06/17 03/06/17 03/06/17 07:00 15:00 23:00 07:00 15:00 23:00 Intake Total 240 ml 1020 ml 480 ml 240 ml Output Total 1 ml Balance 240 ml 1019 ml 480 ml 240 ml Intake Oral 240 ml 1020 ml 480 ml 240 ml Stool Total 1 ml # Voids 2 7 4 3 # Bowel Movements 0 1 0 0 ROS General: No: Fatigue, Weakness, Other HEENT: No: Sore Throat, Dysphagia Cardiac: No: Chest Pain, Edema, Palpitations Pulmonary: No: Cough, SOB, Wheezing GI: No: Abdominal Pain, BM, Diarrhea, N/V /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 VITAL SIGNS: Reviewed HEENT: Head is normocephalic. Eyes negative conjunctival icterus. Mouth unremarkable. NECK: Supple. No increased JVD. Negative thyromegaly. Central trachea. LUNGS: Chest clear to auscultation. No adventitious sound CARDIOVASCULAR: S1-S2 audible. Unable to hear any S3 gallop. ABDOMEN: Soft, nontender, no organomegaly. Positive bowel sounds. MUSCULOSKELETAL: Extremities, no cyanosis or pedal edema appreciated. Nontender left lower activity joints. Some tenderness of the right shoulder area. Right arm in sling and swath. Left hip dressing D/I CENTRAL NERVOUS SYSTEM: Normal facial features. Moving all her extremities. A&O x 2-3. Cooperative Urinary Catheter: No Vascular Central Line Catheter: No A/P Assessment and Plan 1. Psychiatric issue, bipolar disorder, schizophrenia with suicidal ideation under [place] act. 2. Hypertension. 3. Hypothyroidism. 4. Seems like dementia, early. 5. Urinary tract infection. 6. Fall, S/P right humeral head fracture treated non op, has sling 7. Fall, S/P left femoral neck fracture, S/P Left hip hemiarthroplasty for treatment of displaced femoral neck fracture 02/09 Plan appreciate ortho input S/P Left hip hemiarthroplasty for treatment of displaced femoral neck fracture Post op ortho care PT eval and tx Wound care Bowel regimen Pain management Lovenox for DVT prophylaxis S/P right humeral head fracture non operative management needs to f/u with ortho psychiatry input appreciated cleared for dc to SNF, no need for inpatient psych services [facility] Continue psych meds added Seroquel for agitation which has improved. No behavior issues, calm, cooperative, pleasant. Participating in PT UTI, + viridans streptococcus sens. none repeated UA/UC, no infection monitor for s/s infection, no need for abx PT eval and tx IS q 2 wa CM working on placement, difficult due to psych hx. Has been declined by multiple facilities Pt. stable for discharge. She is cooperative and pleasant. Still no placement Discussed with the patient. Discussed with RN. Discussed with Dr. Gonzales Discussed with CM This patient was seen by myself and Dr. Gonzales, this note is written on his behalf. Maliha Hernandez Mar 06, 2017 10:43
[2017-03-06 12:00] VITALS: BP 122/70; PULSE 70; RESP 18; TEMP 97.6; O2SAT 93
[2017-03-06 12:30] VITALS: BP 122/70; PULSE 74; RESP 16; TEMP 98.3; O2SAT 96
[2017-03-06 19:52] VITALS: BP 121/63; PULSE 91; RESP 18; TEMP 98.5; O2SAT 95
[2017-03-06] MEDS: ACETAMINOPHEN/HYDROcodone 325 MG/5 MG TAB PO PRN (20:46)
[2017-03-06 23:47] VITALS: BP 119/57; PULSE 72; RESP 17; TEMP 97.8; O2SAT 97
[2017-03-07 08:00] VITALS: BP 117/62; PULSE 78; RESP 18; TEMP 98.2; O2SAT 93
[2017-03-07] MEDS: MULTIVITAMINS/MINERALS THERAPEUTIC TAB PO SCH ×2 (08:34→19:49)
[2017-03-07] MEDS: QUEtiapine FUMARATE 25 MG TAB PO SCH ×2 (08:34→12:42)
[2017-03-07] MEDS: DOCUSATE SODIUM 100 MG CAP PO SCH ×2 (08:34→19:49)
[2017-03-07] MEDS: SERTRALINE HCL 100 MG TAB PO SCH (08:35)
[2017-03-07] MEDS: ACETAMINOPHEN/HYDROcodone 325 MG/5 MG TAB PO PRN ×2 (08:35→19:15)
[2017-03-07] MEDS: SODIUM CHLORIDE 0.9% FLUSH 5 ML FLUSH IVF SCH ×2 (08:37→19:50)
--- NOTE | 2017-03-07 11:08 | HHI.PR ---
Subjective Remarks up in chair BM today Pleasant affect No acute pain or shortness of breath Right shoulder immobilized in sling, but moving around with less pain Left hip incision healing (Mary Elizondo) Objective Objective Results - Vital Signs Date Time Temp Pulse Resp B/P Pulse Ox O2 Delivery O2 Flow Rate FiO2 03/07/17 08:00 98.2 78 18 117/62 93 03/06/17 23:47 97.8 72 17 119/57 97 03/06/17 19:52 98.5 91 18 121/63 95 03/06/17 12:30 98.3 74 16 122/70 96 03/06/17 12:00 97.6 70 18 122/70 93 I/O 03/06/17 03/06/17 03/06/17 03/07/17 03/07/17 03/07/17 07:00 15:00 23:00 07:00 15:00 23:00 Intake Total 240 ml 980 ml 360 ml 360 ml Balance 240 ml 980 ml 360 ml 360 ml Intake Oral 240 ml 980 ml 360 ml 360 ml # Voids 3 5 4 3 # Bowel Movements 0 0 0 (Mary Elizondo) ROS General: Weakness (improving), Other (10 point ROS done, positives noted.) GI: BM (today) Neuro/MS: Other (rt. shoulder in sling) (Mary Elizondo) Physical Exam Physical Exam PHYSICAL EXAMINATION GENERAL: This is a elderly female who appears to be in no acute distress. She is alert and awake, up in chair HEAD: Normocephalic, atramatic OROPHARYNGEAL: Oropharynx without erythema or edema. NECK: Supple. CARDIAC: Regular rhythm, regular rate, S1 and S2 are heard. LUNGS: Clear to auscultation bilaterally. ABDOMEN: Soft, nontender, Bowel sounds are heard in all four quadrants. EXTREMITIES: no edema. Pulses palpable NEUROLOGICAL: Patient mood and affect appropriate. alert, smiling SKIN:Warm and moist, lt hip incision healing (Mary Elizondo) A/P Assessment and Plan 1. Psychiatric issue, bipolar disorder, schizophrenia with suicidal ideation under [place] act. 2. Hypertension. 3. Hypothyroidism. 4. Seems like dementia, early. 5. Urinary tract infection. 6. Fall, S/P right humeral head fracture treated non op, has sling 7. Fall, S/P left femoral neck fracture, S/P Left hip hemiarthroplasty for treatment of displaced femoral neck fracture 02/09 Plan appreciate ortho input S/P Left hip hemiarthroplasty for treatment of displaced femoral neck fracture PT treatment Wound care Bowel regimen, normal , BM today Pain management Lovenox for DVT prophylaxis S/P right humeral head fracture non operative management needs to f/u with ortho after DC psychiatry input appreciated cleared for dc to SNF, DC planning continuew Continue psych meds added Seroquel for agitation which has improved. No behavior issues, calm, cooperative, pleasant. Participating in PT UTI, stable without symptoms sens. none repeated UA/UC, no infection monitor for s/s infection, no need for abx PT eval and tx CM working on placement, difficult due to psych hx. Has been declined by multiple facilities Pt. stable for discharge. She is cooperative and pleasant. Still no placement (Mary Elizondo) Assessment and Plan awaiting placement continue current care (Sharyn Gonzales MD) Mary Elizondo Mar 07, 2017 11:08 Sharyn Gonzales MD Mar 07, 2017 16:22
[2017-03-07 12:00] VITALS: BP 99/61; PULSE 88; RESP 18; TEMP 98.5; O2SAT 93
[2017-03-07 16:00] VITALS: BP 108/62; PULSE 76; RESP 18; TEMP 96.9; O2SAT 96
[2017-03-07 20:50] VITALS: BP 119/58; PULSE 72; RESP 17; TEMP 96.8; O2SAT 96
[2017-03-08 00:40] VITALS: BP 116/55; PULSE 78; RESP 17; TEMP 97.7; O2SAT 95
[2017-03-08] MEDS: ACETAMINOPHEN/HYDROcodone 325 MG/5 MG TAB PO PRN ×3 (02:56→19:45)
[2017-03-08 08:00] VITALS: BP 113/66; PULSE 69; RESP 18; TEMP 98.2; O2SAT 94
[2017-03-08] MEDS: DOCUSATE SODIUM 100 MG CAP PO SCH ×2 (08:29→19:45)
[2017-03-08] MEDS: SERTRALINE HCL 100 MG TAB PO SCH (08:29)
[2017-03-08] MEDS: MULTIVITAMINS/MINERALS THERAPEUTIC TAB PO SCH ×2 (08:29→19:45)
[2017-03-08] MEDS: QUEtiapine FUMARATE 25 MG TAB PO SCH ×2 (08:29→13:03)
[2017-03-08] MEDS: SODIUM CHLORIDE 0.9% FLUSH 5 ML FLUSH IVF SCH ×2 (08:32→19:45)
--- NOTE | 2017-03-08 11:28 | HHI.PR ---
Subjective Remarks up in chair daily Daily bowel regimen Pleasant affect, talkative No acute pain or shortness of breath Right shoulder immobilized in sling, pain management as needed Left hip incision healing (Mary Elizondo) Objective Objective Results - Vital Signs Date Time Temp Pulse Resp B/P Pulse Ox O2 Delivery O2 Flow Rate FiO2 03/08/17 08:00 98.2 69 18 113/66 94 03/08/17 00:40 97.7 78 17 116/55 95 03/07/17 20:50 96.8 72 17 119/58 96 03/07/17 16:00 96.9 76 18 108/62 96 03/07/17 12:00 98.5 88 18 99/61 93 I/O 03/07/17 03/07/17 03/07/17 03/08/17 03/08/17 03/08/17 07:00 15:00 23:00 07:00 15:00 23:00 Intake Total 360 ml 840 ml 120 ml Balance 360 ml 840 ml 120 ml Intake Oral 360 ml 840 ml 120 ml # Voids 3 4 1 # Bowel Movements 0 1 0 (Mary Elizondo) ROS General: Fatigue (easily), Other (10 point ROS done positives noted) Pulmonary: Cough (occasional) GI: BM (daily bowel regimen) Neuro/MS: Other (left hip incision clean dry and intact, right shoulder in sling immobilized clean dry and intact) (Mary Elizondo) Physical Exam Physical Exam PHYSICAL EXAMINATION GENERAL: This is an elderly female who appears to be in no acute distress. She is alert and awake, no acute anxiety noted HEAD: Normocephalic ,atraumatic OROPHARYNGEAL: Oropharynx NECK: Supple. CARDIAC: Regular rhythm, regular rate, S1 and S2 are heard. LUNGS: Clear to auscultation bilaterally, no cough ABDOMEN: Soft, nontender, no organomegaly or masses. Active bowel sounds EXTREMITIES: no edema. Pulses equal bilateral. NEUROLOGICAL: Patient mood and affect appropriate. No acute anxiety noted SKIN:Warm and moist Objective Remarks I'm feeling good (Mary Elizondo) A/P Assessment and Plan 1. Psychiatric issue, bipolar disorder, schizophrenia with suicidal ideation under [place] act. 2. Hypertension. 3. Hypothyroidism. 4. Seems like dementia, early. 5. Urinary tract infection. 6. Fall, S/P right humeral head fracture treated non op, has sling 7. Fall, S/P left femoral neck fracture, S/P Left hip hemiarthroplasty for treatment of displaced femoral neck fracture 02/09 Plan Vital signs reviewed normal trends appreciate ortho input S/P Left hip hemiarthroplasty for treatment of displaced femoral neck fracture Bowel regimen, normal , BM today Pain management Lovenox for DVT prophylaxis S/P right humeral head fracture non operative management needs to f/u with ortho after DC Continues to have right shoulder in sling immobilized psychiatry input appreciated, consult done Medical management, Seroquel has had a positive response on patient's personality No behavior issues, calm, cooperative, pleasant. UTI, stable without symptoms Resolved PT latrice and tx CM working on placement, difficult due to psych hx. Has been declined by multiple facilities Pt. stable for discharge. She is cooperative and pleasant. Still no placement, continue to monitor patient's needs (Mary Elizondo) Assessment and Plan continue current care awaiting placement no new issues (Sharyn Gonzales MD) Mary Elizondo Mar 08, 2017 11:28 Sharyn Gonzales MD Mar 08, 2017 17:20
[2017-03-08 12:00] VITALS: BP 104/52; PULSE 86; RESP 18; TEMP 98.7; O2SAT 93
[2017-03-08 16:00] VITALS: BP 110/71; PULSE 75; RESP 18; TEMP 98.4; O2SAT 96
[2017-03-08 20:45] VITALS: BP 131/63; PULSE 78; RESP 17; TEMP 98.9; O2SAT 96
[2017-03-09 00:40] VITALS: BP 118/65; PULSE 66; RESP 17; TEMP 97.9; O2SAT 96
[2017-03-09] MEDS: ACETAMINOPHEN/HYDROcodone 325 MG/5 MG TAB PO PRN ×3 (03:33→18:49)
[2017-03-09 08:00] VITALS: BP 105/61; PULSE 69; RESP 20; TEMP 96.8; O2SAT 95
[2017-03-09] MEDS: MULTIVITAMINS/MINERALS THERAPEUTIC TAB PO SCH ×2 (09:24→20:59)
[2017-03-09] MEDS: DOCUSATE SODIUM 100 MG CAP PO SCH ×2 (09:24→20:59)
[2017-03-09] MEDS: SERTRALINE HCL 100 MG TAB PO SCH (09:24)
[2017-03-09] MEDS: QUEtiapine FUMARATE 25 MG TAB PO SCH ×2 (09:24→12:33)
[2017-03-09] MEDS: SODIUM CHLORIDE 0.9% FLUSH 5 ML FLUSH IVF SCH ×2 (09:25→20:59)
[2017-03-09 12:20] VITALS: BP 114/58; PULSE 91; RESP 20; TEMP 98.6; O2SAT 94
--- NOTE | 2017-03-09 14:36 | HHI.PR ---
Subjective Remarks up in chair daily, and ambulate home Daily bowel regimen Pleasant affect, talkative Right shoulder immobilized in sling, pain with lateral movement. Moves hands and fingers without difficulty. Mild numbness noted Left hip incision healing (Mary Elizondo) Objective Objective Results - Vital Signs Date Time Temp Pulse Resp B/P Pulse Ox O2 Delivery O2 Flow Rate FiO2 03/09/17 12:20 98.6 91 20 114/58 94 03/09/17 08:00 96.8 69 20 105/61 95 03/09/17 00:40 97.9 66 17 118/65 96 03/08/17 20:45 98.9 78 17 131/63 96 03/08/17 16:00 98.4 75 18 110/71 96 I/O 03/08/17 03/08/17 03/08/17 03/09/17 03/09/17 03/09/17 07:00 15:00 23:00 07:00 15:00 23:00 Intake Total 120 ml 840 ml 240 ml Balance 120 ml 840 ml 240 ml Intake Oral 120 ml 840 ml 240 ml # Voids 1 9 3 # Bowel Movements 0 2 0 (Mary Elizondo) ROS General: Weakness (generalized) Neuro/MS: Other (affect pleasant, no acute anxiety noted, left hip surgical incision clean dry and intact, right shoulder immobilized sling) (Mary Elizondo) Physical Exam Physical Exam PHYSICAL EXAMINATION GENERAL: This is a well-developed, well-nourished elderly female who appears to be in no acute distress. She is alert and awake, HEAD: Normocephalic OROPHARYNGEAL: Oropharynx clear NECK: Supple. Trachea midline without deviation. CARDIAC: Regular rhythm, regular rate, S1 and S2 LUNGS: Clear to auscultation bilaterally. No shortness of breath at rest ABDOMEN: Soft, nontender, bowel sounds are active EXTREMITIES: no edema. Pulses intact, left hip incision clean dry and intact, right shoulder still has pain with movement, but able to move aureus and right hand and digits without pain NEUROLOGICAL: Patient mood and affect appropriate. No focal deficit SKIN:Warm and moist (Mary Elizondo) A/P Assessment and Plan 1. Psychiatric issue, bipolar disorder, schizophrenia with suicidal ideation under [place] act. 2. Hypertension. 3. Hypothyroidism. 4. Seems like dementia, early. 5. Urinary tract infection. 6. Fall, S/P right humeral head fracture treated non op, has sling 7. Fall, S/P left femoral neck fracture, S/P Left hip hemiarthroplasty for treatment of displaced femoral neck fracture 02/09 Plan Vital signs reviewed normal trends, monitor daily appreciate ortho input S/P Left hip hemiarthroplasty for treatment of displaced femoral neck fracture Bowel regimen, Pain management Lovenox for DVT prophylaxis S/P right humeral head fracture non operative management needs to f/u with ortho after DC or during hospital stay patient is not discharged soon Continues to have right shoulder in sling immobilized psychiatry input appreciated, consult done Medical management, Seroquel has had a positive response on patient's personality No behavior issues, calm, cooperative, pleasant. PT latrice and tx CM working on placement, difficult due to psych hx. Has been declined by multiple facilities Pt. stable for discharge. She is cooperative and pleasant. Still no placement, continue to monitor patient's needs Discussed with case management, the patient's discharge options. I spoke with the family this week and looking at options of getting her Medicaid started. At that point patient may qualify for an SKILLED NURSING, but need to family's assistance and filling out the application. (Mary Elizondo) Assessment and Plan awaiting plaCEMENT continue current care d/w Mary patient asleep (Sharyn Gonzales MD) Mary Elizondo Mar 09, 2017 14:36 Sharyn Gonzales MD Mar 09, 2017 16:06
[2017-03-09 17:00] VITALS: BP 103/58; PULSE 80; RESP 20; TEMP 97.3; O2SAT 95
[2017-03-09 20:35] VITALS: BP 127/69; PULSE 68; RESP 17; TEMP 98.7; O2SAT 96
[2017-03-10 00:15] VITALS: BP 114/67; PULSE 71; RESP 17; TEMP 96.6; O2SAT 96
[2017-03-10 08:00] VITALS: BP 141/73; PULSE 76; RESP 18; TEMP 98.1; O2SAT 93
[2017-03-10] MEDS: SERTRALINE HCL 100 MG TAB PO SCH (09:00)
[2017-03-10] MEDS: SODIUM CHLORIDE 0.9% FLUSH 5 ML FLUSH IVF SCH ×2 (09:00→20:14)
[2017-03-10] MEDS: DOCUSATE SODIUM 100 MG CAP PO SCH ×2 (09:00→20:04)
[2017-03-10] MEDS: MULTIVITAMINS/MINERALS THERAPEUTIC TAB PO SCH ×2 (09:00→20:04)
--- NOTE | 2017-03-10 09:18 | HHI.PR ---
Subjective Remarks up in chair daily, and ambulates Sitting in bed for now Daily bowel regimen Pleasant affect, talkative Right shoulder immobilized in sling, pain with lateral movement. Moves hands and fingers without difficulty, left hip incision clean dry and intact (Mary Elizondo) Objective Objective Results - Vital Signs Date Time Temp Pulse Resp B/P Pulse Ox O2 Delivery O2 Flow Rate FiO2 03/10/17 00:15 96.6 71 17 114/67 96 03/09/17 20:35 98.7 68 17 127/69 96 03/09/17 17:00 97.3 80 20 103/58 95 03/09/17 12:20 98.6 91 20 114/58 94 I/O 03/09/17 03/09/17 03/09/17 03/10/17 03/10/17 03/10/17 07:00 15:00 23:00 07:00 15:00 23:00 Intake Total 240 ml 480 ml 240 ml 240 ml Balance 240 ml 480 ml 240 ml 240 ml Intake Oral 240 ml 480 ml 240 ml 240 ml # Voids 3 3 2 4 # Bowel Movements 0 1 0 0 (Mary Elizondo) ROS General: Weakness (generalized but improved), Other (in point ROS done positives noted) GI: BM (daily regimen for her) Neuro/MS: Other (affect is appropriate, right shoulder injury immobilized sling , left hip fracture repair) (Mary Elizondo) Physical Exam Physical Exam PHYSICAL EXAMINATION GENERAL: This is a elderly female who appears to be in no acute distress. She is alert and awake HEAD: Normocephalic atraumatic OROPHARYNGEAL: Oropharynx clear NECK: Supple. Trachea midline without deviation. CARDIAC: Regular rhythm, regular rate, S1 and S2 are heard. LUNGS: Clear to auscultation bilaterally. No wheezes or rhonchi ABDOMEN: Soft, nontender, no organomegaly or masses. Bowel sounds are heard in all four quadrants. EXTREMITIES: no edema. Pulses intact, right shoulder in sling NEUROLOGICAL: Patient mood and affect appropriate. No acute anxiety noted SKIN:Warm and moist (Mary Elizondo) A/P Assessment and Plan 1. Psychiatric issue, bipolar disorder, schizophrenia with suicidal ideation under [place] act. 2. Hypertension. 3. Hypothyroidism. 4. Seems like dementia, early. 5. Urinary tract infection. 6. Fall, S/P right humeral head fracture treated non op, has sling 7. Fall, S/P left femoral neck fracture, S/P Left hip hemiarthroplasty for treatment of displaced femoral neck fracture 02/09 Plan Vital signs reviewed normal trends, monitor daily Labs stable appreciate ortho input S/P Left hip hemiarthroplasty for treatment of displaced femoral neck fracture Will follow only as needed, physical therapy continues Bowel regimen, Pain management Lovenox for DVT prophylaxis S/P right humeral head fracture non operative management needs to f/u with ortho after DC or during hospital stay patient is not discharged soon Continues to have right shoulder in sling immobilized psychiatry input appreciated, consult done Medical management, Seroquel No behavior issues, calm, cooperative, pleasant. PT eval and tx CM working on placement, difficult due to psych hx. Has been declined by multiple facilities Pt. stable for discharge. She is cooperative and pleasant. Still no placement, continue to monitor patient's needs Case management working on possible Medicaid and placement for INTERMEDIATE (Mary Elizondo) Assessment and Plan pt is seen & examined chart reviewed d/w Mary reaves w above cont current tx will f/u (Sulaiman Sanchez MD) Mary Elizondo Mar 10, 2017 09:18 Sulaiman Sanchez MD Mar 10, 2017 13:20
[2017-03-10 12:00] VITALS: BP 109/69; PULSE 92; RESP 18; TEMP 99; O2SAT 96
[2017-03-10] MEDS: QUEtiapine FUMARATE 25 MG TAB PO SCH ×2 (12:00→12:29)
[2017-03-10 16:00] VITALS: BP 117/70; PULSE 89; RESP 18; TEMP 99.3; O2SAT 95
[2017-03-10] MEDS: ACETAMINOPHEN/HYDROcodone 325 MG/5 MG TAB PO PRN (20:05)
[2017-03-10 20:40] VITALS: BP 120/74; PULSE 90; RESP 17; TEMP 98.4; O2SAT 94
[2017-03-11 00:45] VITALS: BP 143/69; PULSE 72; RESP 17; TEMP 97; O2SAT 97
[2017-03-11] MEDS: ACETAMINOPHEN/HYDROcodone 325 MG/5 MG TAB PO PRN ×4 (00:50→19:22)
[2017-03-11 07:02] LABS: HEMATOCRIT 36.7 % (35.0-46.0); MEAN CELL VOLUME 93.5 FL (80.0-100.0); MEAN CORPUSCULAR HEMOGLOBIN 31.7 PG (27.0-34.0); PLATELET COUNT 253 TH/MM3 (150-450); RED BLOOD COUNT 3.93 MIL/MM3 (4.00-5.30); REVIEW FLAG FINAL; WHITE BLOOD COUNT 5.2 TH/MM3 (4.0-11.0)
[2017-03-11 07:09] LABS: BICARBONATE 25.6 MEQ/L (21.0-32.0); POTASSIUM 3.7 MEQ/L (3.5-5.1)
[2017-03-11] MEDS: QUEtiapine FUMARATE 25 MG TAB PO SCH ×2 (07:23→13:27)
[2017-03-11] MEDS: DOCUSATE SODIUM 100 MG CAP PO SCH ×2 (07:23→19:22)
[2017-03-11] MEDS: SERTRALINE HCL 100 MG TAB PO SCH (07:23)
[2017-03-11] MEDS: MULTIVITAMINS/MINERALS THERAPEUTIC TAB PO SCH ×2 (07:23→19:22)
[2017-03-11 08:00] VITALS: BP 134/76; PULSE 62; RESP 18; TEMP 96.7; O2SAT 96
[2017-03-11] MEDS: SODIUM CHLORIDE 0.9% FLUSH 5 ML FLUSH IVF SCH ×2 (09:00→19:22)
[2017-03-11 12:05] VITALS: BP 124/60; PULSE 74; RESP 18; TEMP 97.8; O2SAT 96
--- NOTE | 2017-03-11 14:02 | HHI.PR ---
Subjective Remarks awakes to voice Has no complaints pleasant, cooperative No acute changes overnight Objective Objective Results - Vital Signs Date Time Temp Pulse Resp B/P Pulse Ox O2 Delivery O2 Flow Rate FiO2 03/11/17 12:05 97.8 74 18 124/60 96 03/11/17 08:00 96.7 62 18 134/76 96 03/11/17 00:45 97.0 72 17 143/69 97 03/10/17 20:40 98.4 90 17 120/74 94 03/10/17 16:00 99.3 89 18 117/70 95 I/O 03/10/17 03/10/17 03/10/17 03/11/17 03/11/17 03/11/17 07:00 15:00 23:00 07:00 15:00 23:00 Intake Total 240 ml 720 ml 480 ml 240 ml Balance 240 ml 720 ml 480 ml 240 ml Intake Oral 240 ml 720 ml 480 ml 240 ml # Voids 4 4 2 1 # Bowel Movements 0 2 0 0 Result Diagram: 03/11/17 0551 03/11/17 0551 Other Results Laboratory Tests Test 03/11/17 05:51 White Blood Count 5.2 Red Blood Count 3.93 Hemoglobin 12.5 Hematocrit 36.7 Mean Corpuscular Volume 93.5 Mean Corpuscular Hemoglobin 31.7 Mean Corpuscular Hemoglobin 34.0 Concent Red Cell Distribution Width 15.0 Platelet Count 253 Mean Platelet Volume 8.1 Sodium Level 142 Potassium Level 3.7 Chloride Level 107 Carbon Dioxide Level 25.6 Anion Gap 9 Blood Urea Nitrogen 17 Creatinine 0.56 Estimat Glomerular Filtration 107 Rate Random Glucose 96 Calcium Level 8.9 ROS General: No: Fatigue, Weakness HEENT: No: Sore Throat, Dysphagia Cardiac: No: Chest Pain, Edema, Palpitations Pulmonary: No: Cough, SOB, Wheezing GI: No: Abdominal Pain, BM, Diarrhea, N/V /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 VITAL SIGNS: Reviewed HEENT: Head is normocephalic. Eyes negative conjunctival icterus. Mouth unremarkable. NECK: Supple. No increased JVD. Negative thyromegaly. Central trachea. LUNGS: Chest clear to auscultation. No adventitious sound CARDIOVASCULAR: S1-S2 audible. Unable to hear any S3 gallop. ABDOMEN: Soft, nontender, no organomegaly. Positive bowel sounds. MUSCULOSKELETAL: Extremities, no cyanosis or pedal edema appreciated. Nontender left lower activity joints. Some tenderness of the right shoulder area. Right arm in sling and swath. Left hip dressing D/I CENTRAL NERVOUS SYSTEM: Normal facial features. Moving all her extremities. A&O x 2-3. Cooperative Urinary Catheter: No Vascular Central Line Catheter: No A/P Assessment and Plan 1. Psychiatric issue, bipolar disorder, schizophrenia with suicidal ideation under [place] act. 2. Hypertension. 3. Hypothyroidism. 4. Seems like dementia, early. 5. Urinary tract infection. 6. Fall, S/P right humeral head fracture treated non op, has sling 7. Fall, S/P left femoral neck fracture, S/P Left hip hemiarthroplasty for treatment of displaced femoral neck fracture 02/09 Plan appreciate ortho input S/P Left hip hemiarthroplasty for treatment of displaced femoral neck fracture Post op ortho care PT eval and tx Wound care Bowel regimen Pain management Lovenox for DVT prophylaxis S/P right humeral head fracture non operative management needs to f/u with ortho psychiatry input appreciated cleared for dc to SNF, no need for inpatient psych services [facility] Continue psych meds added Seroquel for agitation which has improved. No behavior issues, calm, cooperative, pleasant. Participating in PT UTI, + viridans streptococcus sens. none repeated UA/UC, no infection monitor for s/s infection, no need for abx PT eval and tx IS q 2 wa Labs reviewed, stable CM working on placement, difficult due to psych hx. Has been declined by multiple facilities Pt. stable for discharge. She is cooperative and pleasant. D/W CM, they have discussed with family, POA to decide on finances for pt. to go back to [facility] Discussed with the patient. Discussed with RN. Discussed with Dr. Sanchez Discussed with CM This patient was seen by myself and Dr. Sanchez, this note is written on his behalf. Maliha Hernandez Mar 11, 2017 14:02
[2017-03-11 16:00] VITALS: BP 111/61; PULSE 75; RESP 18; TEMP 96.8; O2SAT 96
[2017-03-11 20:55] VITALS: BP 115/58; PULSE 69; RESP 17; TEMP 97.8; O2SAT 96
[2017-03-12 00:45] VITALS: BP 110/68; PULSE 72; RESP 17; TEMP 97; O2SAT 96
[2017-03-12] MEDS: ACETAMINOPHEN/HYDROcodone 325 MG/5 MG TAB PO PRN ×4 (05:11→22:10)
[2017-03-12 08:00] VITALS: BP 118/67; PULSE 64; RESP 18; TEMP 97.3; O2SAT 95
[2017-03-12] MEDS: MULTIVITAMINS/MINERALS THERAPEUTIC TAB PO SCH ×2 (08:53→20:48)
[2017-03-12] MEDS: DOCUSATE SODIUM 100 MG CAP PO SCH ×2 (08:53→20:48)
[2017-03-12] MEDS: SERTRALINE HCL 100 MG TAB PO SCH (08:53)
[2017-03-12] MEDS: QUEtiapine FUMARATE 25 MG TAB PO SCH ×2 (08:53→13:23)
[2017-03-12] MEDS: SODIUM CHLORIDE 0.9% FLUSH 5 ML FLUSH IVF SCH ×2 (08:59→20:48)
--- NOTE | 2017-03-12 10:12 | HHI.PR ---
Subjective Remarks awakes to voice Has no complaints pleasant, cooperative No acute changes overnight Objective Objective Results - Vital Signs Date Time Temp Pulse Resp B/P Pulse Ox O2 Delivery O2 Flow Rate FiO2 03/12/17 08:00 97.3 64 18 118/67 95 03/12/17 00:45 97.0 72 17 110/68 96 03/11/17 20:55 97.8 69 17 115/58 96 03/11/17 16:00 96.8 75 18 111/61 96 03/11/17 12:05 97.8 74 18 124/60 96 I/O 03/11/17 03/11/17 03/11/17 03/12/17 03/12/17 03/12/17 07:00 15:00 23:00 07:00 15:00 23:00 Intake Total 240 ml 960 ml 480 ml 240 ml Balance 240 ml 960 ml 480 ml 240 ml Intake Oral 240 ml 960 ml 480 ml 240 ml # Voids 1 5 1 4 # Bowel Movements 0 1 0 0 Result Diagram: 03/11/1751 03/11/17550 ROS General: Other (12 point ros completed, negative except as noted above) HEENT: No: Sore Throat, Dysphagia Cardiac: No: Chest Pain, Edema, Palpitations Pulmonary: No: Cough, SOB, Wheezing GI: No: Abdominal Pain, BM, Diarrhea, N/V /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 VITAL SIGNS: Reviewed HEENT: Head is normocephalic. Eyes negative conjunctival icterus. Mouth unremarkable. NECK: Supple. No increased JVD. Negative thyromegaly. Central trachea. LUNGS: Chest clear to auscultation. No adventitious sound CARDIOVASCULAR: S1-S2 audible. Unable to hear any S3 gallop. ABDOMEN: Soft, nontender, no organomegaly. Positive bowel sounds. MUSCULOSKELETAL: Extremities, no cyanosis or pedal edema appreciated. Nontender left lower activity joints. Some tenderness of the right shoulder area. Right arm in sling and swath. Left hip dressing D/I CENTRAL NERVOUS SYSTEM: Normal facial features. Moving all her extremities. A&O x 2-3. Cooperative Urinary Catheter: No Vascular Central Line Catheter: No A/P Assessment and Plan 1. Psychiatric issue, bipolar disorder, schizophrenia with suicidal ideation under [place] act. 2. Hypertension. 3. Hypothyroidism. 4. Seems like dementia, early. 5. Urinary tract infection. 6. Fall, S/P right humeral head fracture treated non op, has sling 7. Fall, S/P left femoral neck fracture, S/P Left hip hemiarthroplasty for treatment of displaced femoral neck fracture 02/09 Plan appreciate ortho input S/P Left hip hemiarthroplasty for treatment of displaced femoral neck fracture Post op ortho care PT eval and tx Wound care Bowel regimen Pain management Lovenox for DVT prophylaxis S/P right humeral head fracture non operative management needs to f/u with ortho psychiatry input appreciated cleared for dc to SNF, no need for inpatient psych services [facility] Continue psych meds added Seroquel for agitation which has improved. No behavior issues, calm, cooperative, pleasant. Participating in PT UTI, + viridans streptococcus sens. none repeated UA/UC, no infection monitor for s/s infection, no need for abx PT eval and tx IS q 2 wa Labs reviewed, stable CM working on placement, difficult due to psych hx. Has been declined by multiple facilities Pt. stable for discharge. She is cooperative and pleasant. D/W CM, may be possible to send pt. home with HHC and PT. Pt. has been ambulating using cane, she has been safe and following PT instructions. CM to discuss with family to make sure home is appropriate for her will reconsult ortho for follow up visit, find out of sling needs to remain or can be removed. Discussed with the patient. Discussed with RN. Discussed with Dr. Sanchez Discussed with CM This patient was seen by myself and Dr. Sanchez, this note is written on his behalf. Maliha Hernandez Mar 12, 2017 10:12
[2017-03-12 12:00] VITALS: BP 102/59; PULSE 87; RESP 18; TEMP 95.8; O2SAT 96
--- NOTE | 2017-03-12 14:26 | RADRPT ---
EXAM DATE/TIME: 03/12/2017 13:09 [facility] COMPARISON: SHOULDER RIGHT LTD (2VWS), February 09, 2017, 11:44. INDICATIONS : Right humeral head fx follow up. MEDICAL HISTORY : None. SURGICAL HISTORY : None. ENCOUNTER: Initial ACUITY: 1 day PAIN SCORE: 5/10 LOCATION: Right shoulder FINDINGS: Examination again demonstrates a right surgical humeral neck fracture. There is increased impaction, now approximately 1.5 cm. Otherwise, there remains less than 1 cm displacement of the distal fragment . Acromion and glenoid are intact. Glenohumeral relationship is anatomic. Visualized right lung is cl ear. Soft tissues are grossly unremarkable. CONCLUSION: 1. Right humeral head fracture with slightly increased impaction, as above. Rivera Bowles MD on March 12, 2017 at 13:53 Board Certified Radiologist. This report was verified electronically.
[2017-03-12 16:00] VITALS: BP 112/56; PULSE 76; RESP 18; TEMP 97.6; O2SAT 96
[2017-03-12 19:34] VITALS: BP 110/63; PULSE 92; RESP 18; TEMP 97.5; O2SAT 97
[2017-03-12 23:36] VITALS: BP 101/56; PULSE 94; RESP 18; TEMP 97.7; O2SAT 96
[2017-03-13 08:02] VITALS: BP 121/67; PULSE 79; RESP 18; TEMP 97; O2SAT 96
[2017-03-13] MEDS: DOCUSATE SODIUM 100 MG CAP PO SCH ×2 (08:03→19:50)
[2017-03-13] MEDS: ACETAMINOPHEN/HYDROcodone 325 MG/5 MG TAB PO PRN ×3 (08:03→19:51)
[2017-03-13] MEDS: QUEtiapine FUMARATE 25 MG TAB PO SCH ×2 (08:03→14:21)
[2017-03-13] MEDS: SERTRALINE HCL 100 MG TAB PO SCH (08:03)
[2017-03-13] MEDS: SODIUM CHLORIDE 0.9% FLUSH 5 ML FLUSH IVF SCH ×2 (08:03→19:51)
[2017-03-13] MEDS: MULTIVITAMINS/MINERALS THERAPEUTIC TAB PO SCH ×2 (08:03→19:51)
--- NOTE | 2017-03-13 10:13 | HHI.PR ---
Subjective Remarks awakes to voice Has no complaints pleasant, cooperative No acute changes overnight right shoulder sling ok to be removed per ortho Objective Objective Results - Vital Signs Date Time Temp Pulse Resp B/P Pulse Ox O2 Delivery O2 Flow Rate FiO2 03/13/17 08:02 97.0 79 18 121/67 96 03/13/17 07:25 Room Air 03/12/17 23:36 97.7 94 18 101/56 96 03/12/17 19:34 97.5 92 18 110/63 97 03/12/17 16:00 97.6 76 18 112/56 96 03/12/17 12:00 95.8 87 18 102/59 96 I/O 03/12/17 03/12/17 03/12/17 03/13/17 03/13/17 03/13/17 07:00 15:00 23:00 07:00 15:00 23:00 Intake Total 240 ml 1200 ml 240 ml Balance 240 ml 1200 ml 240 ml Intake Oral 240 ml 1200 ml 240 ml # Voids 4 7 3 # Bowel Movements 0 0 0 Result Diagram: 03/11/1751 03/11/17 0551 ROS General: No: Fatigue, Weakness HEENT: No: Sore Throat, Dysphagia Cardiac: No: Chest Pain, Edema, Palpitations Pulmonary: No: Cough, SOB, Wheezing GI: No: Abdominal Pain, BM, Diarrhea, N/V /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 VITAL SIGNS: Reviewed HEENT: Head is normocephalic. Eyes negative conjunctival icterus. Mouth unremarkable. NECK: Supple. No increased JVD. Negative thyromegaly. Central trachea. LUNGS: Chest clear to auscultation. No adventitious sound CARDIOVASCULAR: S1-S2 audible. Unable to hear any S3 gallop. ABDOMEN: Soft, nontender, no organomegaly. Positive bowel sounds. MUSCULOSKELETAL: Extremities, no cyanosis or pedal edema appreciated. Nontender left lower activity joints. Some tenderness of the right shoulder area. Right arm in sling and swath. Left hip dressing D/I CENTRAL NERVOUS SYSTEM: Normal facial features. Moving all her extremities. A&O x 2-3. Cooperative Urinary Catheter: No Vascular Central Line Catheter: No A/P Assessment and Plan 1. Psychiatric issue, bipolar disorder, schizophrenia with suicidal ideation under [place] act. 2. Hypertension. 3. Hypothyroidism. 4. Seems like dementia, early. 5. Urinary tract infection. 6. Fall, S/P right humeral head fracture treated non op, has sling 7. Fall, S/P left femoral neck fracture, S/P Left hip hemiarthroplasty for treatment of displaced femoral neck fracture 02/09 Plan appreciate ortho input S/P Left hip hemiarthroplasty for treatment of displaced femoral neck fracture Post op ortho care PT eval and tx Wound care Bowel regimen Pain management Lovenox for DVT prophylaxis S/P right humeral head fracture non operative management needs to f/u with ortho psychiatry input appreciated cleared for dc to SNF, no need for inpatient psych services [facility] Continue psych meds added Seroquel for agitation which has improved. No behavior issues, calm, cooperative, pleasant. Participating in PT UTI, + viridans streptococcus sens. none repeated UA/UC, no infection monitor for s/s infection, no need for abx PT eval and tx IS q 2 wa Labs reviewed, stable CM working on placement, difficult due to psych hx. Has been declined by multiple facilities Pt. stable for discharge. She is cooperative and pleasant. D/W CM, may be possible to send pt. home with HHC and PT. Pt. has been ambulating using cane, she has been safe and following PT instructions. CM to discuss with family to make sure home is appropriate for her Per Ortho, ok to remove sling and start using walker, PT to work with pt. Right shoulder xray results noted. Discussed with the patient. Discussed with RN. Discussed with Dr. Sanchez Discussed with CM This patient was seen by myself and Dr. Sanchez, this note is written on his behalf. Maliha Hernandez Mar 13, 2017 10:13
[2017-03-13 11:45] VITALS: BP 89/71; PULSE 75; RESP 18; TEMP 97.4; O2SAT 94
[2017-03-13 15:55] VITALS: BP 116/61; PULSE 72; RESP 18; TEMP 97.4; O2SAT 97
[2017-03-13 20:30] VITALS: BP 112/64; PULSE 89; RESP 18; TEMP 96.8; O2SAT 93
[2017-03-13 23:46] VITALS: BP 115/58; PULSE 77; RESP 18; TEMP 96.8; O2SAT 95
[2017-03-14] MEDS: ACETAMINOPHEN/HYDROcodone 325 MG/5 MG TAB PO PRN ×4 (02:57→18:28)
[2017-03-14 08:00] VITALS: BP 120/65; PULSE 68; RESP 18; TEMP 97.4; O2SAT 96
[2017-03-14] MEDS: SODIUM CHLORIDE 0.9% FLUSH 5 ML FLUSH IVF SCH ×2 (09:00→22:39)
[2017-03-14] MEDS: SERTRALINE HCL 100 MG TAB PO SCH (09:22)
[2017-03-14] MEDS: MULTIVITAMINS/MINERALS THERAPEUTIC TAB PO SCH ×2 (09:22→22:39)
[2017-03-14] MEDS: QUEtiapine FUMARATE 25 MG TAB PO SCH ×2 (09:22→12:55)
[2017-03-14] MEDS: DOCUSATE SODIUM 100 MG CAP PO SCH ×2 (09:22→22:39)
--- NOTE | 2017-03-14 11:31 | HHI.FF ---
Face to Face Verification Diagnosis: (1) Hip fracture, left (2) Shoulder fracture, right (3) Unspecified psychosis Physical Therapy Order: Evaluate and Treat Occupational Therapy Order: Evaluate and Treat Home Health Nursing Order: Medical education Nursing assessment with vital signs Road Roller Operator Order: To Evaluate: Living conditions/environment, Support services Order: To Provide: Long range planning, Community services I have seen patient Pam Foy on 03/14/17. My clinical findings support the need for the requested home health care services because: Deconditioned w/ increased weakness Need for psychosocial assistance Impaired cognition/judgement High risk of falls I certify that my clinical findings support that this patient is homebound because: Impaired cognitive ability/safety Unsafe to leave home unassisted Need for psychosocial assistance Maliha Hernandez Mar 14, 2017 11:31
--- NOTE | 2017-03-14 11:33 | HHI.PR ---
Subjective Remarks awakes to voice Has no complaints pleasant, cooperative No acute changes overnight did fairly okay with walker. Objective Objective Results - Vital Signs Date Time Temp Pulse Resp B/P Pulse Ox O2 Delivery O2 Flow Rate FiO2 03/14/17 10:22 18 03/14/17 08:00 97.4 68 18 120/65 96 03/13/17 23:46 96.8 77 18 115/58 95 03/13/17 20:30 96.8 89 18 112/64 93 03/13/17 19:02 Room Air 03/13/17 15:55 97.4 72 18 116/61 97 03/13/17 11:45 97.4 75 18 89/71 94 I/O 03/13/17 03/13/17 03/13/17 03/14/17 03/14/17 03/14/17 07:00 15:00 23:00 07:00 15:00 23:00 Intake Total 240 ml 720 ml 480 ml 360 ml Balance 240 ml 720 ml 480 ml 360 ml Intake Oral 240 ml 720 ml 480 ml 360 ml # Voids 3 3 5 2 # Bowel Movements 0 1 0 0 Result Diagram: 03/11/17 0551 03/11/17 0551 ROS General: No: Fatigue, Weakness HEENT: No: Sore Throat, Dysphagia Cardiac: No: Chest Pain, Edema, Palpitations Pulmonary: No: Cough, SOB, Wheezing GI: No: Abdominal Pain, BM, Diarrhea, N/V /CREDIT VERIFICATION CLERK: No: Dysuria, Urgency Neuro/MS: No: Lightheaded, Confusion Psych: No: Anxiety, Depression Skin: No: Itching, Rash Physical Exam Physical Exam GENERAL: The patient is alert, awake, oriented 3. VITAL SIGNS: Reviewed HEENT: Head is normocephalic. Eyes negative conjunctival icterus. Mouth unremarkable. NECK: Supple. No increased JVD. Negative thyromegaly. Central trachea. LUNGS: Chest clear to auscultation. No adventitious sound CARDIOVASCULAR: S1-S2 audible. Unable to hear any S3 gallop. ABDOMEN: Soft, nontender, no organomegaly. Positive bowel sounds. MUSCULOSKELETAL: Extremities, no cyanosis or pedal edema appreciated. Nontender left lower activity joints. Some tenderness of the right shoulder area. Right arm in sling and swath. Left hip dressing D/I CENTRAL NERVOUS SYSTEM: Normal facial features. Moving all her extremities. A&O x 2-3. Cooperative Urinary Catheter: No Vascular Central Line Catheter: No A/P Assessment and Plan 1. Psychiatric issue, bipolar disorder, schizophrenia with suicidal ideation under [place] act. 2. Hypertension. 3. Hypothyroidism. 4. Seems like dementia, early. 5. Urinary tract infection. 6. Fall, S/P right humeral head fracture treated non op, has sling 7. Fall, S/P left femoral neck fracture, S/P Left hip hemiarthroplasty for treatment of displaced femoral neck fracture 02/09 Plan appreciate ortho input S/P Left hip hemiarthroplasty for treatment of displaced femoral neck fracture Post op ortho care PT eval and tx Wound care Bowel regimen Pain management Lovenox for DVT prophylaxis S/P right humeral head fracture non operative management ok to use sling for comfort, wt bearing as tolerated. psychiatry input appreciated cleared for dc to SNF, no need for inpatient psych services Sitter DC Continue psych meds added Seroquel for agitation which has improved. No behavior issues, calm, cooperative, pleasant. Participating in PT UTI, + viridans streptococcus sens. none repeated UA/UC, no infection monitor for s/s infection, no need for abx PT eval and tx IS q 2 wa CM working on placement, difficult due to psych hx. Has been declined by multiple facilities Pt. stable for discharge. She is cooperative and pleasant. D/W CM, may be possible to send pt. home with HHC and PT. Pt. has been ambulating using cane, she has been safe and following PT instructions. CM to discuss with family to make sure home is appropriate for her Per Ortho, ok to remove sling and start using walker, PT to work with pt. Right shoulder xray results noted. continue with PT using walker Per CM, house being prepared for dc, tentative for Sunday CM to arrange HHC Discussed with the patient. Discussed with RN. Discussed with Dr. Sanchez Discussed with CM This patient was seen by myself and Dr. Sanchez, this note is written on his behalf. Maliha Hernandez Mar 14, 2017 11:33
[2017-03-14 11:48] VITALS: BP 114/63; PULSE 72; RESP 18; TEMP 96.6; O2SAT 95
[2017-03-14 16:00] VITALS: BP 115/60; PULSE 71; RESP 18; TEMP 97.9; O2SAT 96
[2017-03-14 19:18] VITALS: BP 122/57; PULSE 75; RESP 18; TEMP 97.6; O2SAT 96
[2017-03-14 23:26] VITALS: BP 122/68; PULSE 82; RESP 18; TEMP 97.2; O2SAT 94
[2017-03-15] MEDS: ACETAMINOPHEN/HYDROcodone 325 MG/5 MG TAB PO PRN ×4 (01:48→18:02)
[2017-03-15 07:29] VITALS: BP 134/66; PULSE 78; RESP 16; TEMP 98; O2SAT 94
[2017-03-15] MEDS: SERTRALINE HCL 100 MG TAB PO SCH (07:57)
[2017-03-15] MEDS: QUEtiapine FUMARATE 25 MG TAB PO SCH ×2 (07:57→12:32)
[2017-03-15] MEDS: MULTIVITAMINS/MINERALS THERAPEUTIC TAB PO SCH ×2 (07:57→20:29)
[2017-03-15] MEDS: DOCUSATE SODIUM 100 MG CAP PO SCH ×2 (07:57→20:30)
[2017-03-15] MEDS: SODIUM CHLORIDE 0.9% FLUSH 5 ML FLUSH IVF SCH ×2 (08:00→20:31)
--- NOTE | 2017-03-15 11:00 | HHI.PR ---
Subjective Remarks awakes to voice Has no complaints pleasant, cooperative No acute changes overnight asking for dc Objective Objective Results - Vital Signs Date Time Temp Pulse Resp B/P Pulse Ox O2 Delivery O2 Flow Rate FiO2 03/15/17 08:58 18 03/15/17 07:29 98.0 78 16 134/66 94 03/14/17 23:26 97.2 82 18 122/68 94 03/14/17 19:18 97.6 75 18 122/57 96 03/14/17 18:51 Room Air 03/14/17 16:00 97.9 71 18 115/60 96 03/14/17 11:48 96.6 72 18 114/63 95 I/O 03/14/17 03/14/17 03/14/17 03/15/17 03/15/17 03/15/17 07:00 15:00 23:00 07:00 15:00 23:00 Intake Total 360 ml 1320 ml 480 ml Balance 360 ml 1320 ml 480 ml Intake Oral 360 ml 1320 ml 480 ml # Voids 2 8 4 # Bowel Movements 0 1 0 Result Diagram: 03/11/17 0551 03/11/17 0551 ROS General: No: Fatigue, Weakness HEENT: No: Sore Throat, Dysphagia Cardiac: No: Chest Pain, Edema, Palpitations Pulmonary: No: Cough, SOB, Wheezing GI: No: Abdominal Pain, BM, Diarrhea, N/V /FOUNDATION ASSISTANT: No: Dysuria, Urgency Neuro/MS: No: Lightheaded, Confusion Psych: No: Anxiety, Depression Skin: No: Itching, Rash Physical Exam Physical Exam GENERAL: The patient is alert, awake, oriented 3. VITAL SIGNS: Reviewed HEENT: Head is normocephalic. Eyes negative conjunctival icterus. Mouth unremarkable. NECK: Supple. No increased JVD. Negative thyromegaly. Central trachea. LUNGS: Chest clear to auscultation. No adventitious sound CARDIOVASCULAR: S1-S2 audible. Unable to hear any S3 gallop. ABDOMEN: Soft, nontender, no organomegaly. Positive bowel sounds. MUSCULOSKELETAL: Extremities, no cyanosis or pedal edema appreciated. Nontender left lower activity joints. Some tenderness of the right shoulder area. Right arm in sling and swath. Left hip dressing D/I CENTRAL NERVOUS SYSTEM: Normal facial features. Moving all her extremities. A&O x 2-3. Cooperative Urinary Catheter: No Vascular Central Line Catheter: No A/P Assessment and Plan 1. Psychiatric issue, bipolar disorder, schizophrenia with suicidal ideation under [place] act. 2. Hypertension. 3. Hypothyroidism. 4. Seems like dementia, early. 5. Urinary tract infection. 6. Fall, S/P right humeral head fracture treated non op, has sling 7. Fall, S/P left femoral neck fracture, S/P Left hip hemiarthroplasty for treatment of displaced femoral neck fracture 02/09 Plan appreciate ortho input S/P Left hip hemiarthroplasty for treatment of displaced femoral neck fracture Post op ortho care PT eval and tx Wound care Bowel regimen Pain management Lovenox for DVT prophylaxis S/P right humeral head fracture non operative management ok to use sling for comfort, wt bearing as tolerated. psychiatry input appreciated cleared for dc to SNF, no need for inpatient psych services S[facility] DC Continue psych meds added Seroquel for agitation which has improved. No behavior issues, calm, cooperative, pleasant. Participating in PT UTI, + viridans streptococcus sens. none repeated UA/UC, no infection monitor for s/s infection, no need for abx PT eval and tx IS q 2 wa CM working on placement, difficult due to psych hx. Has been declined by multiple facilities Pt. stable for discharge. She is cooperative and pleasant. D/W CM, may be possible to send pt. home with HHC and PT. Pt. has been ambulating using cane, she has been safe and following PT instructions. CM to discuss with family to make sure home is appropriate for her Per Ortho, ok to remove sling and start using walker, PT to work with pt. Right shoulder xray results noted. continue with PT using walker Per CM, house being prepared for dc, tentative for Sunday now. Pt's family going out of town and won't ready for her. Not safe to dc home alone CM working on HHC Discussed with the patient. Discussed with RN. Discussed with Dr. Sanchez Discussed with CM This patient was seen by myself and Dr. Sanchez, this note is written on his behalf. Maliha Hernandez Mar 15, 2017 11:00
[2017-03-15 11:55] VITALS: BP 126/61; PULSE 85; RESP 16; TEMP 96; O2SAT 94
[2017-03-15 16:00] VITALS: BP 101/59; PULSE 70; RESP 16; TEMP 96.1; O2SAT 96
[2017-03-15 20:50] VITALS: BP 105/58; PULSE 82; RESP 17; TEMP 98; O2SAT 96
[2017-03-16 00:28] VITALS: BP 135/64; PULSE 76; RESP 17; TEMP 98.2; O2SAT 96
[2017-03-16] MEDS: ACETAMINOPHEN/HYDROcodone 325 MG/5 MG TAB PO PRN ×5 (03:15→22:01)
[2017-03-16] MEDS: SERTRALINE HCL 100 MG TAB PO SCH (07:51)
[2017-03-16] MEDS: DOCUSATE SODIUM 100 MG CAP PO SCH ×2 (07:51→19:50)
[2017-03-16] MEDS: MULTIVITAMINS/MINERALS THERAPEUTIC TAB PO SCH ×2 (07:51→19:50)
[2017-03-16] MEDS: QUEtiapine FUMARATE 25 MG TAB PO SCH ×2 (07:51→12:16)
[2017-03-16 08:00] VITALS: BP 130/66; PULSE 64; RESP 18; TEMP 98.1; O2SAT 96
[2017-03-16] MEDS: SODIUM CHLORIDE 0.9% FLUSH 5 ML FLUSH IVF SCH ×2 (09:00→19:50)
--- NOTE | 2017-03-16 10:16 | HHI.PR ---
Subjective Remarks awakes to voice Has no complaints pleasant, cooperative No acute changes overnight looking forward to dc on Sunday Objective Objective Results - Vital Signs Date Time Temp Pulse Resp B/P Pulse Ox O2 Delivery O2 Flow Rate FiO2 03/16/17 08:00 98.1 64 18 130/66 96 03/16/17 00:28 98.2 76 17 135/64 96 03/15/17 20:50 98.0 82 17 105/58 96 03/15/17 19:02 18 03/15/17 16:00 96.1 70 16 101/59 96 03/15/17 11:55 96.0 85 16 126/61 94 I/O 03/15/17 03/15/17 03/15/17 03/16/17 03/16/17 03/16/17 07:00 15:00 23:00 07:00 15:00 23:00 Intake Total 480 ml 960 ml 240 ml 240 ml Balance 480 ml 960 ml 240 ml 240 ml Intake Oral 480 ml 960 ml 240 ml 240 ml # Voids 4 4 3 3 # Bowel Movements 0 1 0 0 ROS General: No: Fatigue, Weakness HEENT: No: Sore Throat, Dysphagia Cardiac: No: Chest Pain, Edema, Palpitations Pulmonary: No: Cough, SOB, Wheezing GI: No: Abdominal Pain, BM, Diarrhea, N/V /FIRE ALARM DISPATCHER: No: Dysuria, Urgency Neuro/MS: No: Lightheaded, Confusion Psych: No: Anxiety, Depression Skin: No: Itching, Rash Physical Exam Physical Exam GENERAL: The patient is alert, awake, oriented 3. VITAL SIGNS: Reviewed HEENT: Head is normocephalic. Eyes negative conjunctival icterus. Mouth unremarkable. NECK: Supple. No increased JVD. Negative thyromegaly. Central trachea. LUNGS: Chest clear to auscultation. No adventitious sound CARDIOVASCULAR: S1-S2 audible. Unable to hear any S3 gallop. ABDOMEN: Soft, nontender, no organomegaly. Positive bowel sounds. MUSCULOSKELETAL: Extremities, no cyanosis or pedal edema appreciated. Nontender left lower activity joints. Some tenderness of the right shoulder area. Right arm in sling and swath. Left hip dressing D/I CENTRAL NERVOUS SYSTEM: Normal facial features. Moving all her extremities. A&O x 3. Cooperative Urinary Catheter: No Vascular Central Line Catheter: No A/P Assessment and Plan 1. Psychiatric issue, bipolar disorder, schizophrenia with suicidal ideation under [place] act. 2. Hypertension. 3. Hypothyroidism. 4. Seems like dementia, early. 5. Urinary tract infection. 6. Fall, S/P right humeral head fracture treated non op, has sling 7. Fall, S/P left femoral neck fracture, S/P Left hip hemiarthroplasty for treatment of displaced femoral neck fracture 02/09 Plan appreciate ortho input S/P Left hip hemiarthroplasty for treatment of displaced femoral neck fracture Post op ortho care PT eval and tx Wound care Bowel regimen Pain management Lovenox for DVT prophylaxis S/P right humeral head fracture non operative management ok to use sling for comfort, wt bearing as tolerated. psychiatry input appreciated cleared for dc to SNF, no need for inpatient psych services S[facility] DC Continue psych meds added Seroquel for agitation which has improved. No behavior issues, calm, cooperative, pleasant. Participating in PT UTI, + viridans streptococcus sens. none repeated UA/UC, no infection monitor for s/s infection, no need for abx PT eval and tx IS q 2 wa CM working on placement, difficult due to psych hx. Has been declined by multiple facilities Pt. stable for discharge. She is cooperative and pleasant. D/W CM, may be possible to send pt. home with HHC and PT. Pt. has been ambulating using cane, she has been safe and following PT instructions. CM to discuss with family to make sure home is appropriate for her Per Ortho, ok to remove sling and start using walker, PT to work with pt. Right shoulder xray results noted. continue with PT using walker Per CM, house being prepared for dc, tentative for Sunday now. Pt's family going out of town and won't ready for her. Not safe to dc home alone CM working on [facility] Discussed with the patient. Discussed with RN. Discussed with Dr. Sanchez Discussed with CM This patient was seen by myself and Dr. Sanchez, this note is written on his behalf. Maliha Hernandez Mar 16, 2017 10:16
[2017-03-16 12:00] VITALS: BP 144/68; PULSE 76; RESP 20; TEMP 97.7; O2SAT 95
[2017-03-16 16:00] VITALS: BP 112/57; PULSE 74; RESP 20; TEMP 98.4; O2SAT 96
[2017-03-16 20:40] VITALS: BP 127/60; PULSE 83; RESP 17; TEMP 98.6; O2SAT 95
[2017-03-17 00:25] VITALS: BP 112/57; PULSE 72; RESP 17; TEMP 97; O2SAT 95
[2017-03-17] MEDS: ACETAMINOPHEN/HYDROcodone 325 MG/5 MG TAB PO PRN ×3 (03:31→20:01)
[2017-03-17 08:00] VITALS: BP 135/71; PULSE 68; RESP 18; TEMP 97.3; O2SAT 95
[2017-03-17] MEDS: SODIUM CHLORIDE 0.9% FLUSH 5 ML FLUSH IVF SCH ×2 (09:00→20:23)
[2017-03-17] MEDS: QUEtiapine FUMARATE 25 MG TAB PO SCH ×2 (09:06→13:08)
[2017-03-17] MEDS: MULTIVITAMINS/MINERALS THERAPEUTIC TAB PO SCH ×2 (09:07→20:01)
[2017-03-17] MEDS: DOCUSATE SODIUM 100 MG CAP PO SCH ×2 (09:07→20:01)
[2017-03-17] MEDS: SERTRALINE HCL 100 MG TAB PO SCH (09:07)
[2017-03-17 12:08] VITALS: BP 121/58; PULSE 80; RESP 18; TEMP 96; O2SAT 94
--- NOTE | 2017-03-17 15:41 | HHI.PR ---
Subjective Remarks awake, oriented x 3 pleasant no pain when asked Objective Objective Results - Vital Signs Date Time Temp Pulse Resp B/P Pulse Ox O2 Delivery O2 Flow Rate FiO2 03/17/17 12:08 96.0 80 18 121/58 94 03/17/17 08:00 97.3 68 18 135/71 95 03/17/17 00:25 97.0 72 17 112/57 95 03/16/17 20:40 98.6 83 17 127/60 95 03/16/17 16:00 98.4 74 20 112/57 96 I/O 03/16/17 03/16/17 03/16/17 03/17/17 03/17/17 03/17/17 07:00 15:00 23:00 07:00 15:00 23:00 Intake Total 240 ml 240 ml 120 ml Balance 240 ml 240 ml 120 ml Intake Oral 240 ml 240 ml 120 ml # Voids 3 3 2 2 # Bowel Movements 0 3 0 0 ROS General: No: Fatigue, Weakness HEENT: No: Sore Throat, Dysphagia Cardiac: No: Chest Pain, Edema, Palpitations Pulmonary: No: Cough, SOB, Wheezing GI: No: Abdominal Pain, BM, Diarrhea, N/V /HARD METALS HAND 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 VITAL SIGNS: Reviewed HEENT: Head is normocephalic. Eyes negative conjunctival icterus. Mouth unremarkable. NECK: Supple. No increased JVD. Negative thyromegaly. Central trachea. LUNGS: Chest clear to auscultation. No adventitious sound CARDIOVASCULAR: S1-S2 audible. Unable to hear any S3 gallop. ABDOMEN: Soft, nontender, no organomegaly. Positive bowel sounds. MUSCULOSKELETAL: Extremities, no cyanosis or pedal edema appreciated. Nontender left lower activity joints. Some tenderness of the right shoulder area. Right arm in sling and swath. Left hip dressing D/I CENTRAL NERVOUS SYSTEM: Normal facial features. Moving all her extremities. A&O x 3. Cooperative Urinary Catheter: No Vascular Central Line Catheter: No A/P Assessment and Plan 1. Psychiatric issue, bipolar disorder, schizophrenia with suicidal ideation under [place] act. 2. Hypertension. 3. Hypothyroidism. 4. Seems like dementia, early. 5. Urinary tract infection. 6. Fall, S/P right humeral head fracture treated non op, has sling 7. Fall, S/P left femoral neck fracture, S/P Left hip hemiarthroplasty for treatment of displaced femoral neck fracture 02/09 Plan appreciate ortho input S/P Left hip hemiarthroplasty for treatment of displaced femoral neck fracture Post op ortho care PT eval and tx Wound care Bowel regimen Pain management Lovenox for DVT prophylaxis S/P right humeral head fracture non operative management ok to use sling for comfort, wt bearing as tolerated. psychiatry input appreciated cleared for dc to SNF, no need for inpatient psych services Sitter DC Continue psych meds added Seroquel for agitation which has improved. No behavior issues, calm, cooperative, pleasant. Participating in PT UTI, + viridans streptococcus sens. none repeated UA/UC, no infection monitor for s/s infection, no need for abx PT eval and tx IS q 2 wa CM working on placement, difficult due to psych hx. Has been declined by multiple facilities Pt. stable for discharge. She is cooperative and pleasant. D/W CM, may be possible to send pt. home with HHC and PT. Pt. has been ambulating using cane, she has been safe and following PT instructions. CM to discuss with family to make sure home is appropriate for her Per Ortho, ok to remove sling and start using walker, PT to work with pt. Right shoulder xray results noted. continue with PT using walker Per CM, house being prepared for dc, tentative for Sunday now. Pt's family going out of town and won't ready for her. Not safe to dc home alone CM working on C Discussed with the patient. Discussed with RN. Discussed with Dr. Sanchez Discussed with CM This patient was seen by myself and Dr. Sanchez, this note is written on his behalf. Maliha Hernandez Mar 17, 2017 15:41
[2017-03-17 16:00] VITALS: BP 109/59; PULSE 86; RESP 18; TEMP 97.9; O2SAT 95
[2017-03-17 20:00] VITALS: BP 117/58; PULSE 88; RESP 18; TEMP 97.5; O2SAT 96
[2017-03-18] VITALS: BP 115/58; PULSE 79; RESP 18; TEMP 96.6; O2SAT 96
[2017-03-18 08:00] VITALS: BP 133/72; PULSE 71; RESP 18; TEMP 97.9; O2SAT 98
[2017-03-18] MEDS: SODIUM CHLORIDE 0.9% FLUSH 5 ML FLUSH IVF SCH ×2 (09:00→20:52)
[2017-03-18] MEDS: DOCUSATE SODIUM 100 MG CAP PO SCH ×2 (09:04→20:52)
[2017-03-18] MEDS: MULTIVITAMINS/MINERALS THERAPEUTIC TAB PO SCH ×2 (09:04→20:52)
[2017-03-18] MEDS: QUEtiapine FUMARATE 25 MG TAB PO SCH ×2 (09:04→12:27)
[2017-03-18] MEDS: SERTRALINE HCL 100 MG TAB PO SCH (09:04)
[2017-03-18] MEDS: ACETAMINOPHEN/HYDROcodone 325 MG/5 MG TAB PO PRN ×3 (09:08→22:52)
--- NOTE | 2017-03-18 11:38 | HHI.PR ---
Subjective Remarks awake, oriented x 3 asking about dc tomorrow very appreciative of the care provided Objective Objective Results - Vital Signs Date Time Temp Pulse Resp B/P Pulse Ox O2 Delivery O2 Flow Rate FiO2 03/18/17 08:00 97.9 71 18 133/72 98 03/18/17 00:00 96.6 79 18 115/58 96 03/17/17 20:00 97.5 88 18 117/58 96 03/17/17 16:00 97.9 86 18 109/59 95 03/17/17 12:08 96.0 80 18 121/58 94 I/O 03/17/17 03/17/17 03/17/17 03/18/17 03/18/17 03/18/17 07:00 15:00 23:00 07:00 15:00 23:00 Intake Total 120 ml 960 ml 780 ml 240 ml Balance 120 ml 960 ml 780 ml 240 ml Intake Oral 120 ml 960 ml 780 ml 240 ml # Voids 2 5 2 1 # Bowel Movements 0 1 1 0 ROS General: No: Fatigue, Weakness HEENT: No: Sore Throat, Dysphagia Cardiac: No: Chest Pain, Edema, Palpitations Pulmonary: No: Cough, SOB, Wheezing GI: No: Abdominal Pain, BM, Diarrhea, N/V /PASTE UP COPY 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 VITAL SIGNS: Reviewed HEENT: Head is normocephalic. Eyes negative conjunctival icterus. Mouth unremarkable. NECK: Supple. No increased JVD. Negative thyromegaly. Central trachea. LUNGS: Chest clear to auscultation. No adventitious sound CARDIOVASCULAR: S1-S2 audible. Unable to hear any S3 gallop. ABDOMEN: Soft, nontender, no organomegaly. Positive bowel sounds. MUSCULOSKELETAL: Extremities, no cyanosis or pedal edema appreciated. Nontender left lower activity joints. Some tenderness of the right shoulder area. Right arm in sling and swath. Left hip dressing D/I CENTRAL NERVOUS SYSTEM: Normal facial features. Moving all her extremities. A&O x 3. Cooperative Urinary Catheter: No Vascular Central Line Catheter: No A/P Assessment and Plan 1. Psychiatric issue, bipolar disorder, schizophrenia with suicidal ideation under [place] act. 2. Hypertension. 3. Hypothyroidism. 4. Seems like dementia, early. 5. Urinary tract infection. 6. Fall, S/P right humeral head fracture treated non op, has sling 7. Fall, S/P left femoral neck fracture, S/P Left hip hemiarthroplasty for treatment of displaced femoral neck fracture 02/09 Plan appreciate ortho input S/P Left hip hemiarthroplasty for treatment of displaced femoral neck fracture Post op ortho care PT eval and tx Wound care Bowel regimen Pain management Lovenox completed, continue ASA per ortho S/P right humeral head fracture non operative management ok to use sling for comfort, wt bearing as tolerated. psychiatry input appreciated cleared for dc to SNF, no need for inpatient psych services Sitter DC Continue psych meds added Seroquel for agitation which has improved. No behavior issues, calm, cooperative, pleasant. Participating in PT UTI, + viridans streptococcus sens. none repeated UA/UC, no infection monitor for s/s infection, no need for abx PT eval and tx IS q 2 wa CM working on placement, difficult due to psych hx. Has been declined by multiple facilities Pt. stable for discharge. She is cooperative and pleasant. D/W CM, may be possible to send pt. home with HHC and PT. Pt. has been ambulating using cane, she has been safe and following PT instructions. CM to discuss with family to make sure home is appropriate for her Per Ortho, ok to remove sling and start using walker, PT to work with pt. Right shoulder xray results noted. continue with PT using walker Per CM, house being prepared for dc, tentative for Sunday now. Pt's family going out of town and won't ready for her. Not safe to dc home alone Plan to dc tomorrow Rx in chart needs to f/u psych, pt. agreeable. Discussed with the patient. Discussed with RN. Discussed with Dr. Sanchez This patient was seen by myself and Dr. Sanchez, this note is written on his behalf. Maliha Hernandez Mar 18, 2017 11:38
[2017-03-18 12:00] VITALS: BP 114/58; PULSE 72; RESP 18; TEMP 96.5; O2SAT 97
[2017-03-18 15:22] VITALS: BP 121/59; PULSE 78; RESP 18; TEMP 96.9; O2SAT 96
[2017-03-18 20:00] VITALS: BP 144/67; PULSE 88; RESP 20; TEMP 96.1; O2SAT 96
[2017-03-19] VITALS: BP 129/71; PULSE 81; RESP 16; TEMP 97.2; O2SAT 96
[2017-03-19 08:00] VITALS: BP 118/72; PULSE 74; RESP 17; TEMP 96.7; O2SAT 96
[2017-03-19] MEDS: SERTRALINE HCL 100 MG TAB PO SCH (08:59)
[2017-03-19] MEDS: QUEtiapine FUMARATE 25 MG TAB PO SCH ×2 (08:59→13:18)
[2017-03-19] MEDS: MULTIVITAMINS/MINERALS THERAPEUTIC TAB PO SCH (08:59)
[2017-03-19] MEDS: SODIUM CHLORIDE 0.9% FLUSH 5 ML FLUSH IVF SCH (09:00)
[2017-03-19] MEDS: DOCUSATE SODIUM 100 MG CAP PO SCH (09:00)
[2017-03-19] MEDS: ACETAMINOPHEN/HYDROcodone 325 MG/5 MG TAB PO PRN (09:00)
[2017-03-19 12:00] VITALS: BP 113/58; PULSE 71; RESP 14; TEMP 97.3; O2SAT 95
--- NOTE | 2017-03-19 12:09 | HHI.PR ---
Subjective Remarks Resting in bed dosing responds to verbal stimuli Vital signs trends normal ranges She denies any shortness of breath or pain Objective Objective Results - Vital Signs Date Time Temp Pulse Resp B/P Pulse Ox O2 Delivery O2 Flow Rate FiO2 03/19/17 08:00 96.7 74 17 118/72 96 03/19/17 00:00 97.2 81 16 129/71 96 03/18/17 20:00 96.1 88 20 144/67 96 03/18/17 15:22 96.9 78 18 121/59 96 03/18/17 12:00 96.5 72 18 114/58 97 I/O 03/18/17 03/18/17 03/18/17 03/19/17 03/19/17 03/19/17 07:00 15:00 23:00 07:00 15:00 23:00 Intake Total 240 ml 780 ml 240 ml Balance 240 ml 780 ml 240 ml Intake Oral 240 ml 780 ml 240 ml # Voids 1 6 2 1 # Bowel Movements 0 1 1 0 ROS General: Other (10 point ROS done positives noted) GI: BM (bowel regimen) Neuro/MS: Other (mild anxiety over discharge, ) Physical Exam Physical Exam PHYSICAL EXAMINATION GENERAL: This is a elderly female who appears to be in no acute distress. She is dozing but responds readily HEAD: Normocephalic OROPHARYNGEAL: Oropharynx clear and speech clear NECK: Supple. Trachea midline without deviation. CARDIAC: Regular rhythm, regular rate, S1 and S2 are heard. LUNGS: Clear to auscultation bilaterally. ABDOMEN: Soft, nontender, bowel sounds active appetite good EXTREMITIES: no edema. Pulses intact NEUROLOGICAL: Patient mood and affect appropriate. Mild anxiety over pending discharge SKIN:Warm and moist A/P Assessment and Plan 1. Psychiatric issue, bipolar disorder, schizophrenia with suicidal ideation under [place] act., Resolved 2. Hypertension. 3. Hypothyroidism. 4. Seems like dementia, early. 5. Urinary tract infection., Resolved 6. Fall, S/P right humeral head fracture treated non op, has sling 7. Fall, S/P left femoral neck fracture, S/P Left hip hemiarthroplasty for treatment of displaced femoral neck fracture 02/09 Plan appreciate ortho input S/P Left hip hemiarthroplasty for treatment of displaced femoral neck fracture Post op ortho care PT eval and tx, participated and continued to strengthen Wound care Bowel regimen Pain management Lovenox completed, continue ASA per ortho, stable medically S/P right humeral head fracture, stable non operative management ok to use sling for comfort, wt bearing as tolerated. psychiatry input appreciated cleared for dc to SNF, no need for inpatient psych services Sitter DC Continue psych meds , Seroquel, no acute agitation or behavioral issues noted UTI, + viridans streptococcus sens. none repeated UA/UC, no infection monitor for s/s infection, no need for abx , resolved D/W CM, plan is for home today with HHC and PT. Pt. has been ambulating using cane, and ambulates with staff. We'll need assistance and someone at home with her Patient is slightly anxious over discharge since she has been here in the hospital for extended period of time, but excited at the same time to see her family and children Discussed options of frequent rest periods, and taken her medications as prescribed so she can feel good. Per Ortho, ok to remove sling and start using walker, PT to work with pt. continue with PT using walker Case management and staff trying to reach patient so she can discharge today Rx in chart needs to f/u psych, pt. agreeable. Discussed with the patient. Discussed with RN. Currently trying to reach family Discussed with Dr. Hair seen on his behalf Mary Elizondo Mar 19, 2017 12:09
[2017-03-19 16:00] VITALS: BP 122/76; PULSE 81; RESP 16; TEMP 96.4; O2SAT 96
--- NOTE | 2017-03-19 17:03 | HHI.DS ---
Discharge Summary Admission Date February 07, 2017 at 16:58 Discharge Date: Mar 19, 2017 Admitting Diagnosis Unspecified Psychosis Brief History The patient was a 71-year-old woman, domicile with her son and [id number] in [place], , with psychiatric history of dementia, schizophrenia, previous psychiatric hospitalizations, last hospitalization was here at [facility] in November 2016, she was in the 2500 units under the care of Dr. Benjamin, she also spent some days in 4 under my care, she was discharged on Risperdal 1 mg, Depakote 250 mg twice a day, Zoloft 50 mg, she has no history of previous suicidal attempts, medical history hypertension and hypothyroidism, who presents to the emergency department as a Munroe act. As per ER report "According to the police affidavit the patient was placed under a Munroe act after she made suicidal threats to her family. The patient did have a history of schizophrenia, the police were unsure if the patient has been taking her medications. The patient stated she does live with her family, does have a history of schizophrenia, and has had suicidal ideations in the past. The patient denied any auditory hallucinations. The patient does have a history of alcohol abuse, quit drinking 6 months ago. The patient did recently fall and fracture her right shoulder which is currently in a sling, the patient stated she is going to follow-up with an orthopedist, does not know the name". UA was positive for UTI, therefore, the patient was ordered 1 dose of Bactrim DS and will be prescribed Bactrim twice a day for 7 days. On psychiatric evaluation evaluation today patient was found calm, cooperative and pleasant. However, patient says that she wants to . Patient says that the reasons she wants to is because she has continues bad thoughts of harming herself and harming her family. She said"I prefer to be before harming my family, but I cannot avoid having those thoughts". Imaging Administered Medications Medications (Trade) Dose Ordered Sig/Rylan Route PRN Reason Start Time Stop Time Status Last Admin Dose Admin Sertraline HCl (Zoloft) 100 mg DAILY PO 02/10/17 09:00 03/19/17 08:59 IV Flush (NS Flush) 2 ml BID IVF 02/09/17 21:00 03/18/17 20:52 Acetaminophen/ Hydrocodone Bitart ([place] 5-325 Mg) 1 tab Q4H PRN PO PAIN LESS THAN 5 ON SCALE 02/09/17 16:45 03/18/17 17:25 Acetaminophen/ Hydrocodone Bitart ([place] 5-325 Mg) 2 tab Q4H PRN PO PAIN SCALE 5 TO 10 02/09/17 16:45 03/19/17 09:00 Multivitamins/ Minerals Therapeutic (Theragran M Tab) 1 tab BID PO 02/10/17 21:00 04/11/17 20:59 03/19/17 08:59 Docusate Sodium (Colace) 100 mg BID PO 02/10/17 21:00 03/19/17 09:00 Zolpidem Tartrate (Ambien) 5 mg HS PRN PO SLEEP 02/09/17 16:45 02/20/17 20:32 Bisacodyl (Dulcolax Supp) 10 mg DAILY PRN RECTAL CONSTIPATION 02/09/17 16:45 03/02/17 08:00 Magnesium Hydroxide (Milk Of Magnesia Liq) 30 ml DAILY PRN PO CONSTIPATION 02/09/17 16:45 03/02/17 07:55 Quetiapine Fumarate (SEROquel) 25 mg BID@09,12 PO 02/15/17 09:00 03/19/17 13:18 PE at Discharge Last Impressions Shoulder X-Ray 03/12/17 0000 Signed Impressions: Service Date/Time: Sunday, March 12, 2017 13:09 - CONCLUSION: 1. Right humeral head fracture with slightly increased impaction, as above. Rivera Bowles MD Hip and Pelvis X-Ray 02/09/17 0000 Signed Impressions: Service Date/Time: Thursday, February 09, 2017 18:48 - CONCLUSION: Satisfactory appearance post left GARETH Camilo Steward MD Physical Exam PHYSICAL EXAMINATION GENERAL: This was a elderly female who appears to be in no acute distress. She was dozing but responds readily HEAD: Normocephalic OROPHARYNGEAL: Oropharynx clear and speech clear NECK: Supple. Trachea midline without deviation. CARDIAC: Regular rhythm, regular rate, S1 and S2 are heard. LUNGS: Clear to auscultation bilaterally. ABDOMEN: Soft, nontender, bowel sounds active appetite good EXTREMITIES: no edema. Pulses intact NEUROLOGICAL: Patient mood and affect appropriate. Mild anxiety over pending discharge SKIN:Warm and moist Hospital Course These are the diagnoses that were used to treat this patient during her plan of care and hospital stay. 1. Psychiatric issue, bipolar disorder, schizophrenia with suicidal ideation under Munroe act., Resolved 2. Hypertension. 3. Hypothyroidism. 4. Seems like dementia, early. 5. Urinary tract infection., Resolved 6. Fall, S/P right humeral head fracture treated non op, has sling 7. Fall, S/P left femoral neck fracture, S/P Left hip hemiarthroplasty for treatment of displaced femoral neck fracture 02/09 Plan appreciate ortho input S/P Left hip hemiarthroplasty for treatment of displaced femoral neck fracture . Postop care wound care bowel regimen and pain management were monitored throughout her hospital stay. She also continue to work with rehabilitation for strengthening and mobility and did very well . We'll follow with or so on outpatient basis S/P right humeral head fracture, stable non operative management ok to use sling for comfort, wt bearing as tolerated. UTI, + viridans streptococcus sens. none repeated UA/UC, no infection monitor for s/s infection, no need for abx , resolved psychiatry input appreciated during her initial course of treatment. Patient was having some problems with psychosis and initially was Munroe act. Once stabilized 101 sitter was removed and patient was medically managed with Seroquel cleared for dc to SNF, no need for inpatient psych services. Patient had no further behavioral issues but was burdened with her discharge planning and facility placement. Case management was consult, and worked diligently with possibilities for ASSISTED placement, SNF placement, and worked with family on discharge planning for home. Since patient's behavior was much more improved, patient was medically stable to discharge home with family since she cannot be left alone Final medications were reviewed per or so on her needs. Patient was able to ambulate and use a walker on discharge During patient's hospital stay her labs and vital signs were monitored and treated for any acute needs. Patient's length of stay revolved around discharge planning needs and facility placement. Was seen per Dr. Hair and IRMA before discharge and was medically stable Pt Condition on Discharge: Stable Discharge Disposition: Disch w/ Home Health Serv Discharge Instructions DIET: Follow Instructions for: Heart Healthy Diet Activities you can perform: Continue Bedrest Other Activity Instructions: Level of activity per ortho Follow up Referrals: Orthopedics with Jonn Tello MD PCP Follow-up - 1 Week Psychiatry Adult - 2 Weeks SNF/ASSISTED/ with [facility] - [phone] New Medications: Hydrocodone-Acetaminophen ([place]) 5-325 mg Tab 1-2 TAB PO Q4H PRN PAIN #60 Ref 0 TAB Walker with Front Wheels (Walker with Front Wheels) 1 Mis Mis 1 EA .ROUTE DIRECTED #1 Ref 0 EA Docusate Sodium (Dok) 100 Mg Cap 100 MG PO BID constipation #62 CAP Quetiapine (Quetiapine) 25 Mg Tab 25 MG PO BID@09,12 psychiatric issue #60 TAB Sertraline (Zoloft) 100 Mg Tab 100 MG PO DAILY depression #31 TAB Continued Medications: Amlodipine (Norvasc) 5 Mg Tab 5 MG PO DAILY health #30 Ref 0 TAB Divalproex ER (Divalproex ER) 250 Mg Juanito 250 MG PO BID Control Seizures #30 Ref 0 TAB Divalproex ER (Divalproex ER) 250 Mg Juanito 250 MG PO 1 po am, 2 po hs health #90 Ref 0 TAB Donepezil (Aricept) 10 Mg Tab 10 MG PO HS Dementia #30 Ref 0 TAB Famotidine (Famotidine) 20 Mg Tab 20 MG PO BID health #30 Ref 0 TAB Levothyroxine (Synthroid) 75 Mcg Tab 75 MCG PO DAILY@06 health #30 Ref 0 TAB Oxybutynin (Ditropan) 5 Mg Tab 5 MG PO DAILY health #30 Ref 0 TAB Discontinued Medications: Risperidone (Risperidone) 1 Mg Tab 1 MG PO HS #30 Ref 0 TAB Sertraline (Zoloft) 50 Mg Tab 50 MG PO DAILY health #30 Ref 0 TAB Sulfamethoxazole-Trimethoprim (Bactrim DS) 800-160 Mg Tab 1 TAB PO BID Infection #14 Ref 0 TAB Mary Elizondo Mar 19, 2017 17:03
== END 2017-02-09 20:31 | disposition short-term general hospital (02) | DRG 884 ==
LOC: NEPD 21:08 → H4EA 02-07 16:58 → UNDODISIN 02-09 16:00 → H4EA 02-09 20:32 → N06A 02-09 20:32 → UNDODISIN 03-19 18:00
PROVIDERS: ADMIT Psychiatry & Neurology Psychiatry; ATTEND Psychiatry & Neurology Psychiatry
DX: F03.91 Unspecified dementia, unspecified severity, with behavioral disturbance (principal); R45.851 Suicidal ideations; N39.0 Urinary tract infection, site not specified; S72.002A Fracture of unspecified part of neck of left femur, initial encounter for closed fracture; I10 Essential (primary) hypertension; F20.9 Schizophrenia, unspecified; E03.9 Hypothyroidism, unspecified; F31.9 Bipolar disorder, unspecified; Z87.891 Personal history of nicotine dependence; F29 Unspecified psychosis not due to a substance or known physiological condition; W18.30XA Fall on same level, unspecified, initial encounter; Y93.9 Activity, unspecified; Y99.9 Unspecified external cause status; Y92.231 Patient bathroom in hospital as the place of occurrence of the external cause
CPT/HCPCS: 73030; 73502; 76937; 80048; 80053; 80061; 80164; 80307; 81001; 83036; 85025; 85027; 87086; 93005; 94150; 99284; C1776; J1580; J1650; J2270; J2370; J2405; J2710; J3010; J3370; J7030; J7050; L1830

== ENCOUNTER 2017-02-09 20:32 | Inpatient (IN) | payer MEDICARE, OTHER ==
[~2017-02-09 20:32] MED LIST changes: +ASPI325T PO; +BACT800T5 PO; +ENOX40P SQ; +NORC5TAB PO
[2017-02-13] MEDS ORDERED: ZOLO100T PO (10:54)
[2017-02-13] MEDS ORDERED: DOCU1CAP39 PO (10:54)
[2017-03-14] MEDS ORDERED: WALKER WHEELS/F1 MIS (11:42)
[2017-03-19] MEDS ORDERED: QUET1TAB7 PO (13:35)
== END 2017-03-19 18:00 | disposition home health service (06) | DRG 470 ==
LOC: N06A 20:32
PROVIDERS: ADMIT Internal Medicine; ATTEND Internal Medicine
PROC: 0SRS0JA Replacement of Left Hip Joint, Femoral Surface with Synthetic Substitute, Uncemented, Open Approach (ICD-10-PCS; principal; 2017-02-09)
DX: S72.002A Fracture of unspecified part of neck of left femur, initial encounter for closed fracture (principal); I10 Essential (primary) hypertension; F20.9 Schizophrenia, unspecified; F31.9 Bipolar disorder, unspecified; W17.89XA Other fall from one level to another, initial encounter; Y93.9 Activity, unspecified; Y99.9 Unspecified external cause status; E03.9 Hypothyroidism, unspecified; Z87.891 Personal history of nicotine dependence; F29 Unspecified psychosis not due to a substance or known physiological condition; Y92.231 Patient bathroom in hospital as the place of occurrence of the external cause